=== PATIENT | male | born 1960 | race Caucasian/White ===

== ENCOUNTER 2017-08-11 13:46 | Emergency (ER) | END 2017-08-11 15:06 | disposition home or self-care (01) ==

== ENCOUNTER 2017-08-16 23:49 | Observation (INO) | END 2017-08-18 16:40 | disposition home or self-care (01) ==

== ENCOUNTER 2017-10-04 20:48 | Emergency (ER) | END 2017-10-05 01:35 | disposition home or self-care (01) ==

== ENCOUNTER 2017-10-07 16:23 | Emergency (ER) | END 2017-10-07 20:49 | disposition home or self-care (01) ==

== ENCOUNTER 2017-11-07 12:45 | Emergency (ER) | END 2017-11-07 18:08 | disposition home or self-care (01) ==

== ENCOUNTER 2017-12-02 09:41 | Emergency (ER) | END 2017-12-02 11:44 | disposition home or self-care (01) ==

== ENCOUNTER 2017-12-07 11:55 | Emergency (ER) | END 2017-12-07 20:05 | disposition home or self-care (01) ==

== ENCOUNTER 2017-12-08 06:50 | Emergency (ER) | END 2017-12-08 07:30 | disposition home or self-care (01) ==

== ENCOUNTER 2017-12-10 11:59 | Emergency (ER) | END 2017-12-10 18:42 | disposition home or self-care (01) ==

== ENCOUNTER 2018-03-20 16:17 | Observation (INO) | END 2018-03-21 15:39 | disposition home or self-care (01) ==

== ENCOUNTER 2018-03-22 12:20 | Emergency (ER) | END 2018-03-22 15:35 | disposition home or self-care (01) ==

== ENCOUNTER 2018-03-27 21:28 | Emergency (ER) | END 2018-03-27 21:41 | disposition left against medical advice (07) ==

== ENCOUNTER 2018-04-03 12:43 | Emergency (ER) | END 2018-04-03 16:40 | disposition home or self-care (01) ==

== ENCOUNTER 2018-04-06 19:39 | Emergency (ER) | END 2018-04-07 01:21 | disposition home or self-care (01) ==

== ENCOUNTER 2018-06-15 07:53 | Emergency (ER) | payer MEDICARE, OTHER ==
[~2018-06-15] VITALS: Ht 182.9 cm; Wt 86.5 kg
[~2018-06-15 07:53] MED LIST: ATOR20TA38 PO; DOXA2TAB PO; FENO134C PO; FER325 PO; FURO80TA3 PO; HYDR-3672 PO; HYDR-3980 PO; ISOS30TA67 PO; LABE300T2 PO; LANT3I SC; LEVO25TA6 PO; LISI40TA3 PO; NEPH PO; NIFE90TA11 PO; NOVO3I SC; ONDA4TAB14 PO; PANT40TA4 PO
[2018-06-15 07:55] VITALS: BP 170/81; PULSE 77; RESP 18; Ht 182.9 cm; Wt 86.5 kg
[2018-06-15] MEDS ORDERED: SILV20CR12 TOP (08:13)
--- NOTE | 2018-06-15 08:16 | ERD ---
ER Documentation Chief Complaint Chief Complaint abscess on post right foot x 1 year hx DM HPI 58-year-old male presents the emergency department for evaluation of a chronic wound in his right foot. Patient is being followed by our wound care center for a chronic diabetic ulcer on his foot. He has had this for over a year. Return to the emergency department today complaining of discomfort in that area. However he reports no fevers, chills, discharge or drainage, numbness or tingling. He reports that the ulcer is about the same size as it has been for the last year. ROS All systems reviewed and are negative except as per history of present illness. Medications Home Meds Active Scripts Silver Sulfadiazine* (Silvadene*) 1% - 20 Gm Cream.gm., 1 APPLIC TOP DAILY, #1 TUB Prov:ONEYDA BEASLEY 06/15/18 Ondansetron (Ondansetron Odt) 4 Mg Tab.rapdis, 4 MG PO Q6H PRN for NAUSEA AND/OR VOMITING, #10 TAB Prov:OLIVIA WARD 04/07/18 Hydrocodone/Acetaminophen ([place] 10-325 Tablet) 1 Each Tablet, 1 TAB PO Q6H PRN for PAIN, #7 TAB Prov:OLIVIA WARD 04/07/18 Labetalol Hcl* (Labetalol Hcl*) 300 Mg Tablet, 300 MG PO BID for 60 Days, TAB Prov:PAIGE KELLY MD 03/22/18 Reported Medications Fenofibrate, Micronized (Fenofibrate) 134 Mg Capsule, 134 MG PO DAILY, CAP 04/03/18 Insulin Aspart* (Novolog Insulin Pen*) 100 Unit/Ml Soln, 22 UNIT SC WITH MEALS, EA 04/03/18 Multivit/Ca Carb/B Cmplx/Fa* (Matilda-Anthony*) 1 Tab Tab, 1 TAB PO DAILY, TAB 04/03/18 Nifedipine* (Nifedipine ER*) 90 Mg Tablet.er, 90 MG PO DAILY, TAB 04/03/18 Levothyroxine Sodium* (Levothyroxine Sodium*) 25 Mcg Tablet, 50 MCG PO BEFORE BR EAKFAST, #30 TAB 04/03/18 Lisinopril* (Lisinopril*) 40 Mg Tablet, 40 MG PO DAILY, #30 TAB 03/22/18 Isosorbide Mononitrate* (Isosorbide Mononitrate*) 30 Mg Tab.er.24h, 30 MG PO DAILY, TAB 03/22/18 Ferrous Sulfate* (Ferrous Sulfate*) 325 Mg Tabec, 325 MG PO TID, TAB 03/22/18 Atorvastatin Calcium* (Atorvastatin Calcium*) 20 Mg Tablet, 20 MG PO QHS, #30 TAB 10/07/17 Furosemide* (Furosemide*) 80 Mg Tablet, 80 MG PO DAILY, #30 TAB 10/07/17 Insulin Glargine* (Lantus*) 100 Unit/Ml Soln, 20 UNIT SC QHS, #1 VIAL 10/07/17 Doxazosin Mesylate* (Doxazosin Mesylate*) 2 Mg Tablet, 2 MG PO HS, TAB 10/07/17 Hydralazine Hcl* (Apresoline*) 50 Mg Tab, 50 MG PO BID, #60 TAB 10/07/17 Pantoprazole* (Pantoprazole*) 40 Mg Tablet.dr, 40 MG PO AC BREAKFAST, TAB 10/07/17 Allergies Allergies: Coded Allergies: No Known Allergy (Unverified , 04/03/18) PMhx/Soc History of Surgery: Yes (KIDNEY TRANSPLANT, CHOLECYSTECTOMY) Anesthesia Reaction: No Hx Neurological Disorder: No Hx Respiratory Disorders: No Hx Cardiac Disorders: Yes (HTN) Hx Psychiatric Problems: No Hx Miscellaneous Medical Probl: Yes (ESRD (T, TH, SAT), NORMOCYTIC ANEMIA, DIABETES) Hx Alcohol Use: No Hx Substance Use: No Hx Tobacco Use: Yes Physical Exam Vitals Vital Signs Date Temp Pulse Resp B/P (MAP) Pulse Ox O2 O2 Flow FiO2 Time Delivery Rate 06/15/18 96.7 77 18 170/81 97 07:55 (110) Physical Exam General: well developed, well nourished, in no distress. Neuro: Normal speech, gait, balance Skin: Patient has a quarter size ulcer on the plantar surface of the foot. There is no evidence of infection or cellulitis. No exposed bone. Patient has tendon function distal to the wound. Procedures/MDM Patient was taken to a room, seen and examined Wound care was performed and a dressing was applied. Medical decision makin-year-old male presents emergency with a chronic diabetic foot ulcer. At this time I appreciate no evidence of severe secondary infection. Patient appears to be clinically well and appropriate for outpatient supportive care. Patient has outpatient follow-up with his production specialist available to him within the next week. Departure Diagnosis: Primary Impression: Diabetic foot ulcer Condition: Stable Patient Instructions: Diabetic Foot Ulcers Referrals: MARCIE HAMPTON MD (PCP) Additional Instructions: See the clinical informatics specialist this week for a recheck. Change the dressing every day. Return for any problems or concerns ONEYDA BEASLEY Jun 15, 2018 08:16
== END 2018-06-15 08:42 | disposition home or self-care (01) ==
LOC: E/R 07:53
DX: E11.621 Type 2 diabetes mellitus with foot ulcer (principal); L97.519 Non-pressure chronic ulcer of other part of right foot with unspecified severity; I12.0 Hypertensive chronic kidney disease with stage 5 chronic kidney disease or end stage renal disease; N18.6 End stage renal disease; E11.22 Type 2 diabetes mellitus with diabetic chronic kidney disease; Z79.4 Long term (current) use of insulin; Z87.891 Personal history of nicotine dependence; Z94.0 Kidney transplant status
CPT/HCPCS: 99283

== ENCOUNTER 2018-06-22 23:26 | Inpatient (IN) | payer MEDICARE, OTHER ==
[~2018-06-22] VITALS: Ht 182.9 cm; Wt 84.7 kg
[~2018-06-22 23:26] MED LIST changes: +SILV20CR12 TOP
[2018-06-23] MEDS ORDERED: SOD CHLORIDE 0.9% 500 ML IV STA (02:18)
[2018-06-23] MEDS ORDERED: ONDANSETRON 4 MG INJ IV STA (03:07)
[2018-06-23] MEDS ORDERED: morphine 4 MG/ML VIAL IV STA (03:07)
[2018-06-23] MEDS: HYDROmorphONE 0.5 MG/0.5 ML SYG IV PRN ×3 (03:56→20:32)
[2018-06-23] MEDS ORDERED: PIPER-TAZO 3.375 GM IV (PMX) 100 ML IVPB ONE (04:00)
[2018-06-23] MEDS ORDERED: ONDANSETRON 4 MG INJ IV PRN (04:00)
[2018-06-23] MEDS ORDERED: HYDROCODONE/APAP (5/325) TAB PO PRN (04:00)
[2018-06-23] MEDS ORDERED: VANCOMYCIN IV PER PHARMACY XX SCH (04:00)
[2018-06-23] MEDS ORDERED: NA PHOSPHATE/BIPHOS 133 ML ENEMA PR PRN (04:00)
[2018-06-23] MEDS ORDERED: ZOLPIDEM 5 MG TAB PO PRN (04:00)
[2018-06-23] MEDS ORDERED: VANCOMYCIN 1 GM (PMX) 250 ML IVPB ONE (04:00)
[2018-06-23] MEDS ORDERED: ACETAMINOPHEN 325 MG TAB PO PRN (04:00)
[2018-06-23] MEDS ORDERED: NACL 0.9% 3 ML SYG IV SCH (04:00)
[2018-06-23] MEDS ORDERED: BISACODYL (EC) 5 MG TAB PO PRN (04:00)
[2018-06-23] MEDS ORDERED: DOCUSATE SODIUM 100 MG CAP PO PRN (04:00)
[2018-06-23] MEDS ORDERED: DEXTROSE 50% 50 ML SYRINGE IV PRN ×2 (04:30)
[2018-06-23] MEDS ORDERED: GLUCOSE GEL 15 GRAM TUBE BUCCAL PRN (04:30)
[2018-06-23] MEDS ORDERED: GLUCAGON 1 MG INJ IM PRN (04:30)
[2018-06-23] MEDS ORDERED: GLUCOSE GEL 15 GRAM TUBE PO PRN ×2 (04:30)
[2018-06-23] MEDS: HYDROCODONE/APAP (5/325) TAB PO PRN ×2 (05:44→12:21)
[2018-06-23 06:30] VITALS: BP 181/89; PULSE 81; RESP 20
[2018-06-23] MEDS: LEVOTHYROXINE 25 MCG TAB PO SCH (06:49)
[2018-06-23] MEDS: PANTOPRAZOLE (EC) 40 MG TAB PO SCH (06:50)
[2018-06-23] MEDS: INSULIN ASPART [NOVOLOG] 3 ML PEN SC SCH ×7 (08:00→21:00)
[2018-06-23] MEDS ORDERED: VANCOMYCIN 750 MG (PMX) 250 ML IVPB SCH (08:00)
[2018-06-23] MEDS: INSULIN GLARGINE [LANTus] (100 UNITS/ML) SYG SC SCH ×2 (08:00→12:27)
[2018-06-23 08:04] VITALS: BP 187/97; PULSE 74; RESP 18
[2018-06-23] MEDS: LISINOPRIL 20 MG TAB PO SCH (08:18)
[2018-06-23] MEDS: ISOSORBIDE MONONITRATE(SR)30 MG TAB PO SCH (08:19)
[2018-06-23] MEDS: FUROSEMIDE 40 MG TAB PO SCH (08:20)
[2018-06-23] MEDS: NIFEdipine (XL) 90 MG TAB PO SCH (08:20)
[2018-06-23] MEDS: LINAGLIPTIN 5 MG TABLET PO SCH (08:21)
[2018-06-23] MEDS: FERROUS SULFATE (EC) 325 MG TAB PO SCH ×3 (08:21→21:39)
[2018-06-23] MEDS: MULTIVIT/CA CARB/B CMPLX/FA TAB PO SCH (08:21)
[2018-06-23] MEDS: FENOFIBRATE 48 MG TAB PO SCH (08:21)
[2018-06-23] MEDS: PIPER-TAZO 2.25 GM (PMX) 50 ML IVPB SCH ×2 (08:24→21:37)
[2018-06-23] MEDS ORDERED: LABETALOL 100 MG TAB PO SCH (09:00)
[2018-06-23 10:15] VITALS: Ht 182.9 cm; Wt 84.7 kg
[2018-06-23 10:30] VITALS: BP 190/70; PULSE 70; RESP 18
[2018-06-23 12:00] VITALS: BP 190/90; PULSE 74; RESP 20
[2018-06-23 14:05] VITALS: BP 173/81; PULSE 68; RESP 18
--- NOTE | 2018-06-23 15:04 | HP ---
Date/Time of Note Date/Time of Note DATE: 06/23/18 TIME: 14:42 Assessment/Plan VTE Prophylaxis Risk score (from Ns)>0 risk: 3 SCD applied (from [facility]): No SCD contraindicated: patient refusal Pharmacological prophylaxis: NA/contraindicated Pharm contraindication: surgical contra Lines/Catheters IV Catheter Type (from [facility]): Peripheral IV Assessment/Plan Problems: (1) Pain and swelling of toe of right foot Status: Acute Comment: Possible etiologies include acute Charcot foot vs. osteomyelitis. Check ESR. Pt. w/ ? recent MRI. Will place on vanco and zosyn and defer to podiatry for further decisions. (2) Diabetic foot ulcer Status: Chronic Comment: Cont. vanco and zosyn and defer to podiatry. (3) DM renal manif type II, uncontrolled Status: Chronic Comment: Lantus 17 units nightly, Novolog 8 units qac, linagliptin 5 mg/d. BG so far controlled. Will monitor and follow (4) End-stage renal disease on hemodialysis Status: Chronic Comment: Nephrology to manage (5) Benign essential hypertension Status: Chronic Comment: Out Of Control (OOC) on intensive regimen. Will increase hydralazine and labetalol and call cardiology to evaluate. (6) Other and unspecified hyperlipidemia Status: Chronic Comment: Cont. statin and fibrate. (7) Personal history of transient ischemic attack (TIA) and cerebral infarction without residual deficit Status: Chronic Comment: Cardiology to eval. (8) Hypothyroidism Status: Chronic Comment: Cont. LT4 daily Result Diagram: 06/23/18 02206/23/18 0220 Results 24hrs Laboratory Tests Test 06/23/18 02:20 06/23/18 08:06 06/23/18 12:23 White Blood Count 9.9 # Red Blood Count 3.48 L Hemoglobin 10.1 L Hematocrit 31.7 L Mean Corpuscular Volume 91.1 Mean Corpuscular Hemoglobin 29.0 Mean Corpuscular Hemoglobin Concent 31.9 L Red Cell Distribution Width 15.6 H Platelet Count 278 # Mean Platelet Volume 8.2 Immature Granulocytes % 0.600 H Neutrophils % 71.6 Lymphocytes % 14.3 L Monocytes % 10.6 Eosinophils % 2.4 Basophils % 0.5 Nucleated Red Blood Cells % 0.0 Immature Granulocytes # 0.060 H Neutrophils # 7.1 Lymphocytes # 1.4 Monocytes # 1.1 H Eosinophils # 0.2 Basophils # 0.1 Nucleated Red Blood Cells # 0.0 Sodium Level 140 Potassium Level 4.5 Chloride Level 92 L Carbon Dioxide Level 29 Anion Gap 19 H Blood Urea Nitrogen 55 H Creatinine 8.00 H Est Glomerular Filtrat Rate mL/min 7 L Glucose Level 189 Calcium Level 7.7 L Total Bilirubin 0.0 L Direct Bilirubin 0.00 Indirect Bilirubin 0.0 Aspartate Amino Transf (AST/SGOT) 18 Alanine Aminotransferase (ALT/SGPT) < 6 L Alkaline Phosphatase 85 Total Protein 9.8 H Albumin 4.5 Globulin 5.30 H Albumin/Globulin Ratio 0.84 Lipase 71 Bedside Glucose 106 137 HPI/ROS Admit Date/Time Admit Date/Time Jun 23, 2018 at 03:32 Hx of Present Illness 58 y/o H M w/ h/o T2DM w/ ESRD s/p kidney transplant w/ recurrent failure, DFU, HTN, hyperlipidemia, hypothyroidism in [place] getting weekly f/u at [facility] w/ podiatry. S/p recent MRI. Was in [facility] until yesterday when he developed acute pain and swelling R foot on the dorsal surface (ulcer is on plantar surface). Came to ER. Marivel meza and maninder and was admitted. ROS Constitutional: no complaints Eyes: no complaints ENT: no complaints Respiratory: no complaints Cardiovascular: no complaints Gastrointestinal: pain (epigastrium, started today); No decreased appetite, No nausea, No vomiting Genitourinary: no complaints Musculoskeletal: bone/joint pain (R foot), swelling (distal R foot) Neurologic: no complaints PMH/Family/Social Past Medical History Medical History: diabetes, hepatitis (HCV (+)), high cholesterol, hypertension, hypothyroid Medications Current Medications IV Flush (NS 3 ml) 3 ml PER PROTOCOL IV ; Start 06/23/18 at 04:00 Ondansetron HCl (Zofran Inj) 4 mg Q6H PRN IV NAUSEA/VOMITING; Start 06/23/18 at 04:00 Acetaminophen (Tylenol Tab) 650 mg Q6H PRN PO .PAIN 1-3 OR TEMP; Start 06/23/18 at 04:00 Acetaminophen/ Hydrocodone Bitart ([place] (5/325)) 1 tab Q6H PRN PO .MOD PAIN 4- 6; Start 06/23/18 at 04:00 Acetaminophen/ Hydrocodone Bitart ([place] (5/325)) 2 tab Q6H PRN PO .SEVERE PAIN 7-10 Last administered on 06/23/18at 12:21; Admin Dose 2 TAB; Start 06/23/18 at 04:00 Hydromorphone HCl (Dilaudid) 0.5 mg Q4H PRN IV .SEVERE PAIN 7-10 Last administered on 06/23/18at 08:41; Admin Dose 0.5 MG; Start 06/23/18 at 04:00 Docusate Sodium (Colace) 100 mg Q12H PRN PO .CONSTIPATION; Start 06/23/18 at 04:00 Bisacodyl (Dulcolax) 5 mg DAILY PRN PO .CONSTIPATION; Start 06/23/18 at 04:00 Sodium Biphosphate/ Sodium Phosphate (Fleet Enema) 133 ml DAILY PRN [place] .CONSTIPATION; Start 06/23/18 at 04:00 Zolpidem Tartrate (Ambien) 5 mg QHS PRN PO .INSOMNIA; Start 06/23/18 at 04:00 Diagnostic Test (Pha) (Accu-Chek) XX ; Start 06/24/18 at 02:00 Insulin Glargine (Lantus) 17 units DAILY@0800 SC Last administered on 06/23/18at 12:27; Admin Dose 17 UNITS; Start 06/23/18 at 08:00 Insulin Aspart (Novolog Insulin Pen) 8 unit WITH MEALS SC Last administered on 06/23/18at 12:43; Admin Dose 8 UNIT; Start 06/23/18 at 08:00 Insulin Aspart (Novolog Insulin Pen) NOVOLOG *MILD* ALGORITHM WITH MEALS BEDTIME SC ; Start 06/23/18 at 08:00 Linagliptin (Tradjenta) 5 mg DAILY PO Last administered on 06/23/18 08:21; Admin Dose 5 MG; Start 06/23/18 at 09:00 Vancomycin HCl (Vanco Iv Per Pharmacy) VANCOMYCIN PER PHARMACY PER PROTOCOL XX ; Start 06/23/18 at 04:00 Piperacillin Sod/ Tazobactam Sod 50 ml @ 100 mls/hr Q12 IVPB Last administered on 06/23/18at 08:24; Admin Dose 100 MLS/HR; Start 06/23/18 at 06:00 Atorvastatin Calcium (Lipitor) 20 mg QHS PO ; Start 06/23/18 at 21:00 Doxazosin Mesylate (Cardura) 2 mg HS PO ; Start 06/23/18 at 21:00 Ferrous Sulfate (Ferrous Sulfate (Ec)) 325 mg TID PO Last administered on 06/23/18 12:19; Admin Dose 325 MG; Start 06/23/18 at 09:00 Furosemide (Lasix) 80 mg DAILY PO Last administered on 06/23/18 08:20; Admin Dose 80 MG; Start 06/23/18 at 09:00 Isosorbide Mononitrate (Imdur) 30 mg DAILY PO Last administered on 06/23/18 08:19; Admin Dose 30 MG; Start 06/23/18 at 09:00 Labetalol HCl (Normodyne) 300 mg BID PO Last administered on 06/23/18 08:19; Admin Dose 300 MG; Start 06/23/18 at 09:00 Levothyroxine Sodium (Synthroid) 50 mcg BEFORE BREAKFAST PO Last administered on 06/23/18 06:49; Admin Dose 50 MCG; Start 06/23/18 at 07:00 Lisinopril (Zestril) 40 mg DAILY PO Last administered on 06/23/18 08:18; Admin Dose 40 MG; Start 06/23/18 at 09:00 Multivit/Ca Carb/ B Cmplx/FA/Prenat (Matilda-Anthony) 1 tab DAILY PO Last administered on 06/23/18 08:21; Admin Dose 1 TAB; Start 06/23/18 at 09:00 Nifedipine (Procardia Xl) 90 mg DAILY PO Last administered on 06/23/18 08:20; Admin Dose 90 MG; Start 06/23/18 at 09:00 Pantoprazole (Protonix Tab) 40 mg AC BREAKFAST PO Last administered on 06/23/18 06:50; Admin Dose 40 MG; Start 06/23/18 at 07:00 Fenofibrate (Tricor) 48 mg DAILY PO Last administered on 06/23/18 08:21; Admin Dose 48 MG; Start 06/23/18 at 09:00 Miscellaneous Information 1 ea NOTE XX ; Start 06/23/18 at 04:30 Glucose (Glutose) 15 gm Q15M PRN PO DECREASED GLUCOSE; Start 06/23/18 at 04:30 Glucose (Glutose) 22.5 gm Q15M PRN PO DECREASED GLUCOSE; Start 06/23/18 at 04:30 Dextrose (D50w Syringe) 25 ml Q15M PRN IV DECREASED GLUCOSE; Start 06/23/18 at 04:30 Dextrose (D50w Syringe) 50 ml Q15M PRN IV DECREASED GLUCOSE; Start 06/23/18 at 04:30 Glucagon (Glucagen) 1 mg Q15M PRN IM DECREASED GLUCOSE; Start 06/23/18 at 04:30 Glucose (Glutose) 15 gm Q15M PRN BUCCAL DECREASED GLUCOSE; Start 06/23/18 at 04:30 Hydralazine HCl (Apresoline) 100 mg TID PO Last administered on 06/23/18at 12:19; Admin Dose 100 MG; Start 06/23/18 at 13:00 Coded Allergies: No Known Allergy (Unverified , 04/03/18) Past Surgical History Past Surgical Hx: cholecystectomy, other (kidney transplant, AV fistula) Family History Significant Family History: diabetes, hypertension Social History , lives alone, disabled Alcohol Use: none Smoking Status: Never smoker Drug Use: none Exam/Review of Systems Vital Signs Vitals VS - Last 72 Hours, by Label Date Temp Pulse Resp B/P (MAP) Pulse Ox O2 O2 Flow FiO2 Time Delivery Rate 06/23/18 97.4 68 18 173/81 94 14:05 (111) 06/23/18 98.2 74 20 190/90 94 12:00 (123) 06/23/18 70 18 190/70 95 10:30 (110) 06/23/18 98.0 74 18 187/97 94 08:04 (127) 06/23/18 97.9 81 20 181/89 97 Room Air 06:30 (119) 06/23/18 98.1 74 21 154/78 97 Room Air 05:51 (103) 06/23/18 98.2 75 21 166/92 96 Room Air 04:00 (116) 06/23/18 98.2 78 21 158/81 98 Room Air 03:04 (106) 06/23/18 98.2 18 162/88 95 Room Air 02:29 (112) 06/22/18 97.1 80 18 125/59 97 23:30 (81) Vital Signs Date Temp Pulse Resp B/P (MAP) Pulse Ox O2 O2 Flow FiO2 Time Delivery Rate 06/23/18 97.4 68 18 173/81 94 14:05 (111) 06/23/18 Room Air 06:30 Exam Constitutional: alert, oriented, well developed Psych: no complaints, nl mood/affect Eyes: nl conjunctiva, EOMI, nl lids, nl sclera, PERRL ENMT: nl external ears & nose, mucosa pink and moist Neck: supple, non-tender; No bruits, No masses, No thyromegaly Respiratory: clear to auscultation, normal air movement Cardiovascular: regular rate and rhythm, nl pulses; No edema, No murmurs/extra sounds, No rub Gastrointestinal: soft, nl liver, spleen, bowel sounds, tender (epigastrium, BUQ); No non-tender, No mass, No rebound or guarding Musculoskeletal: joint tenderness (R 3rd MTP joint), swelling (mild of the dorsal R foot, no erythema or warmth); No nl extremities to inspection (R foot dressed inferiorly) Extremities: No cyanosis, No clubbing, No edema Neurological: [employer]IT EXP[employer] II-XII intact, nl mental status, nl speech, nl strength Additional Comments Bedside Glucose - 72 Hours Test 06/23/18 08:06 06/23/18 12:23 Bedside Glucose 106 mg/dL (70-220) 137 mg/dL (70-220) ELANA MENDOZA MD Jun 23, 2018 14:53
[2018-06-23] MEDS ORDERED: hydrALAzine 20 MG INJ IV PRN (17:00)
--- NOTE | 2018-06-23 17:05 | CONS ---
Assessment/Plan Assessment/Plan Hospital Course (Demo Recall) Hypertension, uncontrolled Right foot pain History of hypertension Diabetes End-stage renal disease on hemodialysis Preserved ejection fraction -Patient presents with right foot pain as well as found to be hypertensive -Labetalol dose was just increased to 600 mg p.o. twice daily and hydralazine 100 mg 3 times daily by primary team. -Would monitor blood pressure trend if needed, further adjustments of medications will be made. Hydralazine IV as needed ordered as well. -Patient to undergo podiatry evaluation, if not plan for any procedures, would benefit from aspirin for prophylaxis therapy given multiple CAD risk factors. Continue statin therapy if no contraindication -Fluid management via hemodialysis as per nephrology. Consultation Date/Type/Reason Admit Date/Time Jun 23, 2018 at 03:32 Type of Consult Cardiology Reason for Consultation Hypertension Date/Time of Note DATE: 06/23/18 TIME: 16:56 Hx of Present Illness This is a 58-year-old male with past medical history of diabetes, hypertension, end-stage renal disease on hemodialysis, peripheral arterial disease who presented with worsening lower extremity pain. The patient is in the care of amputation prevention clinic in our facility. Denies any chest pain, dizziness, palpitations, lightheadedness, syncope or near syncope. He does complain of shortness of breath with exertion more than 50 feet which is been going on for over a year. He denies symptoms at rest. 12 point review of systems was performed with all pertinent positives and negatives mentioned above and all else is negative Past Medical History Medical History: diabetes, high cholesterol, hypertension, renal disease Home Meds Active Scripts Silver Sulfadiazine* (Silvadene*) 1% - 20 Gm Cream.gm., 1 APPLIC TOP DAILY, #1 TUB Prov:ONEYDA BEASLEY 06/15/18 Ondansetron (Ondansetron Odt) 4 Mg Tab.rapdis, 4 MG PO Q6H PRN for NAUSEA AND/OR VOMITING, #10 TAB Prov:OLIVIA WARD 04/07/18 Hydrocodone/Acetaminophen ([place] 10-325 Tablet) 1 Each Tablet, 1 TAB PO Q6H PRN for PAIN, #7 TAB Prov:OLIVIA WARD 04/07/18 Labetalol Hcl* (Labetalol Hcl*) 300 Mg Tablet, 300 MG PO BID for 60 Days, TAB Prov:PAIGE KELLY MD 03/22/18 Reported Medications Fenofibrate, Micronized (Fenofibrate) 134 Mg Capsule, 134 MG PO DAILY, CAP 04/03/18 Insulin Aspart* (Novolog Insulin Pen*) 100 Unit/Ml Soln, 22 UNIT SC WITH MEALS, EA 04/03/18 Multivit/Ca Carb/B Cmplx/Fa* (Matilda-Anthony*) 1 Tab Tab, 1 TAB PO DAILY, TAB 04/03/18 Nifedipine* (Nifedipine ER*) 90 Mg Tablet.er, 90 MG PO DAILY, TAB 04/03/18 Levothyroxine Sodium* (Levothyroxine Sodium*) 25 Mcg Tablet, 50 MCG PO BEFORE BREAKFAST, #30 TAB 04/03/18 Lisinopril* (Lisinopril*) 40 Mg Tablet, 40 MG PO DAILY, #30 TAB 03/22/18 Isosorbide Mononitrate* (Isosorbide Mononitrate*) 30 Mg Tab.er.24h, 30 MG PO DAILY, TAB 03/22/18 Ferrous Sulfate* (Ferrous Sulfate*) 325 Mg Tabec, 325 MG PO TID, TAB 03/22/18 Atorvastatin Calcium* (Atorvastatin Calcium*) 20 Mg Tablet, 20 MG PO QHS, #30 TAB 10/07/17 Furosemide* (Furosemide*) 80 Mg Tablet, 80 MG PO DAILY, #30 TAB 10/07/17 Insulin Glargine* (Lantus*) 100 Unit/Ml Soln, 20 UNIT SC QHS, #1 VIAL 10/07/17 Doxazosin Mesylate* (Doxazosin Mesylate*) 2 Mg Tablet, 2 MG PO HS, TAB 10/07/17 Hydralazine Hcl* (Apresoline*) 50 Mg Tab, 50 MG PO BID, #60 TAB 10/07/17 Pantoprazole* (Pantoprazole*) 40 Mg Tablet.dr, 40 MG PO AC BREAKFAST, TAB 10/07/17 Medications Current Medications IV Flush (NS 3 ml) 3 ml PER PROTOCOL IV ; Start 06/23/18 at 04:00 Ondansetron HCl (Zofran Inj) 4 mg Q6H PRN IV NAUSEA/VOMITING; Start 06/23/18 at 04:00 Acetaminophen (Tylenol Tab) 650 mg Q6H PRN PO .PAIN 1-3 OR TEMP; Start 06/23/18 at 04:00 Acetaminophen/ Hydrocodone Bitart ([place] (5/325)) 1 tab Q6H PRN PO .MOD PAIN 4- 6; Start 06/23/18 at 04:00 Acetaminophen/ Hydrocodone Bitart ([place] (5/325)) 2 tab Q6H PRN PO .SEVERE PAIN 7-10 Last administered on 06/23/18at 12:21; Admin Dose 2 TAB; Start 06/23/18 at 04:00 Hydromorphone HCl (Dilaudid) 0.5 mg Q4H PRN IV .SEVERE PAIN 7-10 Last administered on 06/23/18at 08:41; Admin Dose 0.5 MG; Start 06/23/18 at 04:00 Docusate Sodium (Colace) 100 mg Q12H PRN PO .CONSTIPATION; Start 06/23/18 at 04:00 Bisacodyl (Dulcolax) 5 mg DAILY PRN PO .CONSTIPATION; Start 06/23/18 at 04:00 Sodium Biphosphate/ Sodium Phosphate (Fleet Enema) 133 ml DAILY PRN [place] .CONSTIPATION; Start 06/23/18 at 04:00 Zolpidem Tartrate (Ambien) 5 mg QHS PRN PO .INSOMNIA; Start 06/23/18 at 04:00 Diagnostic Test (Pha) (Accu-Chek) XX ; Start 06/24/18 at 02:00 Insulin Glargine (Lantus) 17 units DAILY@0800 SC Last administered on 06/23/18at 12:27; Admin Dose 17 UNITS; Start 06/23/18 at 08:00 Insulin Aspart (Novolog Insulin Pen) 8 unit WITH MEALS SC Last administered on 06/23/18at 12:43; Admin Dose 8 UNIT; Start 06/23/18 at 08:00 Insulin Aspart (Novolog Insulin Pen) NOVOLOG *MILD* ALGORITHM WITH MEALS BEDTIME SC ; Start 06/23/18 at 08:00 Linagliptin (Tradjenta) 5 mg DAILY PO Last administered on 06/23/18at 08:21; Admin Dose 5 MG; Start 06/23/18 at 09:00 Vancomycin HCl (Vanco Iv Per Pharmacy) VANCOMYCIN PER PHARMACY PER PROTOCOL XX ; Start 06/23/18 at 04:00 Piperacillin Sod/ Tazobactam Sod 50 ml @ 100 mls/hr Q12 IVPB Last administered on 06/23/18 08:24; Admin Dose 100 MLS/HR; Start 06/23/18 at 06:00 Atorvastatin Calcium (Lipitor) 20 mg QHS PO ; Start 06/23/18 at 21:00 Doxazosin Mesylate (Cardura) 2 mg HS PO ; Start 06/23/18 at 21:00 Ferrous Sulfate (Ferrous Sulfate (Ec)) 325 mg TID PO Last administered on 06/23/18 12:19; Admin Dose 325 MG; Start 06/23/18 at 09:00 Furosemide (Lasix) 80 mg DAILY PO Last administered on 06/23/18 08:20; Admin Dose 80 MG; Start 06/23/18 at 09:00 Isosorbide Mononitrate (Imdur) 30 mg DAILY PO Last administered on 06/23/18 08:19; Admin Dose 30 MG; Start 06/23/18 at 09:00 Levothyroxine Sodium (Synthroid) 50 mcg BEFORE BREAKFAST PO Last administered on 06/23/18 06:49; Admin Dose 50 MCG; Start 06/23/18 at 07:00 Lisinopril (Zestril) 40 mg DAILY PO Last administered on 06/23/18 08:18; Admin Dose 40 MG; Start 06/23/18 at 09:00 Multivit/Ca Carb/ B Cmplx/FA/Prenat (Matilda-Anthony) 1 tab DAILY PO Last administered on 06/23/18 08:21; Admin Dose 1 TAB; Start 06/23/18 at 09:00 Nifedipine (Procardia Xl) 90 mg DAILY PO Last administered on 06/23/18 08:20; Admin Dose 90 MG; Start 06/23/18 at 09:00 Pantoprazole (Protonix Tab) 40 mg AC BREAKFAST PO Last administered on 06/23/18 06:50; Admin Dose 40 MG; Start 06/23/18 at 07:00 Fenofibrate (Tricor) 48 mg DAILY PO Last administered on 06/23/18 08:21; Admin Dose 48 MG; Start 06/23/18 at 09:00 Miscellaneous Information 1 ea NOTE XX ; Start 06/23/18 at 04:30 Glucose (Glutose) 15 gm Q15M PRN PO DECREASED GLUCOSE; Start 06/23/18 at 04:30 Glucose (Glutose) 22.5 gm Q15M PRN PO DECREASED GLUCOSE; Start 06/23/18 at 04:30 Dextrose (D50w Syringe) 25 ml Q15M PRN IV DECREASED GLUCOSE; Start 06/23/18 at 04:30 Dextrose (D50w Syringe) 50 ml Q15M PRN IV DECREASED GLUCOSE; Start 06/23/18 at 04:30 Glucagon (Glucagen) 1 mg Q15M PRN IM DECREASED GLUCOSE; Start 06/23/18 at 04:30 Glucose (Glutose) 15 gm Q15M PRN BUCCAL DECREASED GLUCOSE; Start 06/23/18 at 04:30 Hydralazine HCl (Apresoline) 100 mg TID PO Last administered on 06/23/18at 12:19; Admin Dose 100 MG; Start 06/23/18 at 13:00 Labetalol HCl (Normodyne) 600 mg BID PO ; Start 06/23/18 at 21:00 Allergies: Coded Allergies: No Known Allergy (Unverified , 04/03/18) Past Surgical History Past Surgical Hx: cholecystectomy, other (kidney transplant, AV fistula) Social History Alcohol Use: none Smoking Status: Never smoker Drug Use: none Exam/Review of Systems Vital Signs Vitals Vital Signs Date Temp Pulse Resp B/P (MAP) Pulse Ox O2 O2 Flow FiO2 Time Delivery Rate 06/23/18 97.4 68 18 173/81 94 14:05 (111) 06/23/18 Room Air 06:30 Exam Constitutional: alert, oriented (No apparent distress) Head: normocephalic Respiratory: other (Coarse breath sounds bilaterally, no wheezing) Cardiovascular: regular rate and rhythm (S1-S2 heard) Gastrointestinal: soft, non-tender, bowel sounds Extremities: edema Labs Result Diagram: 06/23/1821906/23/18219 Results 24hrs Laboratory Tests Test 06/23/18 02:20 06/23/18 08:06 06/23/18 12:23 White Blood Count 9.9 # Red Blood Count 3.48 L Hemoglobin 10.1 L Hematocrit 31.7 L Mean Corpuscular Volume 91.1 Mean Corpuscular Hemoglobin 29.0 Mean Corpuscular Hemoglobin Concent 31.9 L Red Cell Distribution Width 15.6 H Platelet Count 278 # Mean Platelet Volume 8.2 Immature Granulocytes % 0.600 H Neutrophils % 71.6 Lymphocytes % 14.3 L Monocytes % 10.6 Eosinophils % 2.4 Basophils % 0.5 Nucleated Red Blood Cells % 0.0 Immature Granulocytes # 0.060 H Neutrophils # 7.1 Lymphocytes # 1.4 Monocytes # 1.1 H Eosinophils # 0.2 Basophils # 0.1 Nucleated Red Blood Cells # 0.0 Sodium Level 140 Potassium Level 4.5 Chloride Level 92 L Carbon Dioxide Level 29 Anion Gap 19 H Blood Urea Nitrogen 55 H Creatinine 8.00 H Est Glomerular Filtrat Rate mL/min 7 L Glucose Level 189 Calcium Level 7.7 L Total Bilirubin 0.0 L Direct Bilirubin 0.00 Indirect Bilirubin 0.0 Aspartate Amino Transf (AST/SGOT) 18 Alanine Aminotransferase (ALT/SGPT) < 6 L Alkaline Phosphatase 85 Total Protein 9.8 H Albumin 4.5 Globulin 5.30 H Albumin/Globulin Ratio 0.84 Lipase 71 Bedside Glucose 106 137 Medications Medications Current Medications IV Flush (NS 3 ml) 3 ml PER PROTOCOL IV ; Start 06/23/18 at 04:00 Ondansetron HCl (Zofran Inj) 4 mg Q6H PRN IV NAUSEA/VOMITING; Start 06/23/18 at 04:00 Acetaminophen (Tylenol Tab) 650 mg Q6H PRN PO .PAIN 1-3 OR TEMP; Start 06/23/18 at 04:00 Acetaminophen/ Hydrocodone Bitart ([place] (5/325)) 1 tab Q6H PRN PO .MOD PAIN 4- 6; Start 06/23/18 at 04:00 Acetaminophen/ Hydrocodone Bitart ([place] (5/325)) 2 tab Q6H PRN PO .SEVERE PAIN 7-10 Last administered on 06/23/18at 12:21; Admin Dose 2 TAB; Start 06/23/18 at 04:00 Hydromorphone HCl (Dilaudid) 0.5 mg Q4H PRN IV .SEVERE PAIN 7-10 Last adm inistered on 06/23/18at 08:41; Admin Dose 0.5 MG; Start 06/23/18 at 04:00 Docusate Sodium (Colace) 100 mg Q12H PRN PO .CONSTIPATION; Start 06/23/18 at 04:00 Bisacodyl (Dulcolax) 5 mg DAILY PRN PO .CONSTIPATION; Start 06/23/18 at 04:00 Sodium Biphosphate/ Sodium Phosphate (Fleet Enema) 133 ml DAILY PRN [place] .CONSTIPATION; Start 06/23/18 at 04:00 Zolpidem Tartrate (Ambien) 5 mg QHS PRN PO .INSOMNIA; Start 06/23/18 at 04:00 Diagnostic Test (Pha) (Accu-Chek) 1 ea 02 XX ; Start 06/24/18 at 02:00 Insulin Glargine (Lantus) 17 units DAILY@0800 SC Last administered on 06/23/18 12:27; Admin Dose 17 UNITS; Start 06/23/18 at 08:00 Insulin Aspart (Novolog Insulin Pen) 8 unit WITH MEALS SC Last administered on 06/23/18at 12:43; Admin Dose 8 UNIT; Start 06/23/18 at 08:00 Insulin Aspart (Novolog Insulin Pen) NOVOLOG *MILD* ALGORITHM WITH MEALS BEDTIME SC ; Start 06/23/18 at 08:00 Linagliptin (Tradjenta) 5 mg DAILY PO Last administered on 06/23/18at 08:21; Admin Dose 5 MG; Start 06/23/18 at 09:00 Vancomycin HCl (Vanco Iv Per Pharmacy) VANCOMYCIN PER PHARMACY PER PROTOCOL XX ; Start 06/23/18 at 04:00 Piperacillin Sod/ Tazobactam Sod 50 ml @ 100 mls/hr Q12 IVPB Last administered on 06/23/18at 08:24; Admin Dose 100 MLS/HR; Start 06/23/18 at 06:00 Atorvastatin Calcium (Lipitor) 20 mg QHS PO ; Start 06/23/18 at 21:00 Doxazosin Mesylate (Cardura) 2 mg HS PO ; Start 06/23/18 at 21:00 Ferrous Sulfate (Ferrous Sulfate (Ec)) 325 mg TID PO Last administered on 06/23/18 12:19; Admin Dose 325 MG; Start 06/23/18 at 09:00 Furosemide (Lasix) 80 mg DAILY PO Last administered on 06/23/18 08:20; Admin Dose 80 MG; Start 06/23/18 at 09:00 Isosorbide Mononitrate (Imdur) 30 mg DAILY PO Last administered on 06/23/18 08:19; Admin Dose 30 MG; Start 06/23/18 at 09:00 Levothyroxine Sodium (Synthroid) 50 mcg BEFORE BREAKFAST PO Last administered on 06/23/18at 06:49; Admin Dose 50 MCG; Start 06/23/18 at 07:00 Lisinopril (Zestril) 40 mg DAILY PO Last administered on 06/23/18at 08:18; Admin Dose 40 MG; Start 06/23/18 at 09:00 Multivit/Ca Carb/ B Cmplx/FA/Prenat (Matilda-Anthony) 1 tab DAILY PO Last administered on 06/23/18at 08:21; Admin Dose 1 TAB; Start 06/23/18 at 09:00 Nifedipine (Procardia Xl) 90 mg DAILY PO Last administered on 06/23/18 08:20; Admin Dose 90 MG; Start 06/23/18 at 09:00 Pantoprazole (Protonix Tab) 40 mg AC BREAKFAST PO Last administered on 06/23/18at 06:50; Admin Dose 40 MG; Start 06/23/18 at 07:00 Fenofibrate (Tricor) 48 mg DAILY PO Last administered on 06/23/18at 08:21; Admin Dose 48 MG; Start 06/23/18 at 09:00 Miscellaneous Information 1 ea NOTE XX ; Start 06/23/18 at 04:30 Glucose (Glutose) 15 gm Q15M PRN PO DECREASED GLUCOSE; Start 06/23/18 at 04:30 Glucose (Glutose) 22.5 gm Q15M PRN PO DECREASED GLUCOSE; Start 06/23/18 at 04:30 Dextrose (D50w Syringe) 25 ml Q15M PRN IV DECREASED GLUCOSE; Start 06/23/18 at 04:30 Dextrose (D50w Syringe) 50 ml Q15M PRN IV DECREASED GLUCOSE; Start 06/23/18 at 04:30 Glucagon (Glucagen) 1 mg Q15M PRN IM DECREASED GLUCOSE; Start 06/23/18 at 04:30 Glucose (Glutose) 15 gm Q15M PRN BUCCAL DECREASED GLUCOSE; Start 06/23/18 at 04:30 Hydralazine HCl (Apresoline) 100 mg TID PO Last administered on 06/23/18at 12:19; Admin Dose 100 MG; Start 06/23/18 at 13:00 Labetalol HCl (Normodyne) 600 mg BID PO ; Start 06/23/18 at 21:00 Michael Snell DO Jun 23, 2018 17:05
--- NOTE | 2018-06-23 17:12 | CONS ---
Assessment/Plan Assessment/Plan Assessment/Plan (Daily) Diabetic foot ulcer left Corns callus Onychomycosis DM2 with peripheral neuropathy Suspicion for lisfranc injury Plan Consent was obtained and performed excisional debridement of right diabetic foot ulcer site of skin/subQ with a scalpel blade. Hyperkeratotic tissue, biofilm, and non-viable tissue was removed from the wound site. Less than 20cm2 area of debridement was performed. Copious saline lavage, betadine 4x4 gauze, kerlix and and yudith wrap applied. Nails were debrided with nail nipper x10. Callus was pared of the left plantar foot with no underlying ulceration site appreciated. Non invasive arterial studies ordered and pending. X-rays of bilateral feet weight bearing views and MRI right foot are pending as well. Offload heels with pillows when resting. Consultation Date/Type/Reason Admit Date/Time Jun 23, 2018 at 03:32 Date/Time of Note DATE: 06/23/18 TIME: 17:12 Hx of Present Illness 58 y/o H M w/ h/o T2DM w/ ESRD s/p kidney transplant w/ recurrent failure, DFU, HTN, hyperlipidemia, hypothyroidism in [facility] getting weekly f/u at [facility] w/ podiatry. Was in [place] until yesterday when he developed acute pain and swelling R foot on the dorsal surface. Patient states that his ulceration to the right foot has been present for a year now. He has attempted total contact casting options which he stated he got wet and was not successful. Patient does not recall any acute injuries or inciting events of the ulceration site. Patient denies f/c/n/v no chest pains or shortness of breath. ROS Negative except for HPI Past Medical History Medical History: diabetes, hepatitis (HCV (+)), high cholesterol, hypertension, hypothyroid Home Meds Active Scripts Silver Sulfadiazine* (Silvadene*) 1% - 20 Gm Cream.gm., 1 APPLIC TOP DAILY, #1 TUB Prov:ONEYDA BEASLEY 06/15/18 Ondansetron (Ondansetron Odt) 4 Mg Tab.rapdis, 4 MG PO Q6H PRN for NAUSEA AND/OR VOMITING, #10 TAB Prov:OLIVIA WARD 04/07/18 Hydrocodone/Acetaminophen (Astoria 10-325 Tablet) 1 Each Tablet, 1 TAB PO Q6H PRN for PAIN, #7 TAB Prov:OLIVIA WARD 04/07/18 Labetalol Hcl* (Labetalol Hcl*) 300 Mg Tablet, 300 MG PO BID for 60 Days, TAB Prov:PAIGE KELLY MD 03/22/18 Reported Medications Fenofibrate, Micronized (Fenofibrate) 134 Mg Capsule, 134 MG PO DAILY, CAP 04/03/18 Insulin Aspart* (Novolog Insulin Pen*) 100 Unit/Ml Soln, 22 UNIT SC WITH MEALS, EA 04/03/18 Multivit/Ca Carb/B Cmplx/Fa* (Matilda-Anthony*) 1 Tab Tab, 1 TAB PO DAILY, TAB 04/03/18 Nifedipine* (Nifedipine ER*) 90 Mg Tablet.er, 90 MG PO DAILY, TAB 04/03/18 Levothyroxine Sodium* (Levothyroxine Sodium*) 25 Mcg Tablet, 50 MCG PO BEFORE BREAKFAST, #30 TAB 04/03/18 Lisinopril* (Lisinopril*) 40 Mg Tablet, 40 MG PO DAILY, #30 TAB 03/22/18 Isosorbide Mononitrate* (Isosorbide Mononitrate*) 30 Mg Tab.er.24h, 30 MG PO DAILY, TAB 03/22/18 Ferrous Sulfate* (Ferrous Sulfate*) 325 Mg Tabec, 325 MG PO TID, TAB 03/22/18 Atorvastatin Calcium* (Atorvastatin Calcium*) 20 Mg Tablet, 20 MG PO QHS, #30 TA B 10/07/17 Furosemide* (Furosemide*) 80 Mg Tablet, 80 MG PO DAILY, #30 TAB 10/07/17 Insulin Glargine* (Lantus*) 100 Unit/Ml Soln, 20 UNIT SC QHS, #1 VIAL 10/07/17 Doxazosin Mesylate* (Doxazosin Mesylate*) 2 Mg Tablet, 2 MG PO HS, TAB 10/07/17 Hydralazine Hcl* (Apresoline*) 50 Mg Tab, 50 MG PO BID, #60 TAB 10/07/17 Pantoprazole* (Pantoprazole*) 40 Mg Tablet.dr, 40 MG PO AC BREAKFAST, TAB 10/07/17 Medications Current Medications IV Flush (NS 3 ml) 3 ml PER PROTOCOL IV ; Start 06/23/18 at 04:00 Ondansetron HCl (Zofran Inj) 4 mg Q6H PRN IV NAUSEA/VOMITING; Start 06/23/18 at 04:00 Acetaminophen (Tylenol Tab) 650 mg Q6H PRN PO .PAIN 1-3 OR TEMP; Start 06/23/18 at 04:00 Acetaminophen/ Hydrocodone Bitart (Astoria (5/325)) 1 tab Q6H PRN PO .MOD PAIN 4-6; Start 06/23/18 at 04:00 Acetaminophen/ Hydrocodone Bitart (Astoria (5/325)) 2 tab Q6H PRN PO .SEVERE PAIN 7-10 Last administered on 06/23/18at 12:21; Admin Dose 2 TAB; Start 06/23/18 at 04:00 Hydromorphone HCl (Dilaudid) 0.5 mg Q4H PRN IV .SEVERE PAIN 7-10 Last administered on 06/23/18at 08:41; Admin Dose 0.5 MG; Start 06/23/18 at 04:00 Docusate Sodium (Colace) 100 mg Q12H PRN PO .CONSTIPATION; Start 06/23/18 at 04:00 Bisacodyl (Dulcolax) 5 mg DAILY PRN PO .CONSTIPATION; Start 06/23/18 at 04:00 Sodium Biphosphate/ Sodium Phosphate (Fleet Enema) 133 ml DAILY PRN DE .CONSTIPATION; Start 06/23/18 at 04:00 Zolpidem Tartrate (Ambien) 5 mg QHS PRN PO .INSOMNIA; Start 06/23/18 at 04:00 Diagnostic Test (Pha) (Accu-Chek) 1 ea 02 XX ; Start 06/24/18 at 02:00 Insulin Glargine (Lantus) 17 units DAILY@0800 SC Last administered on 06/23/18at 12:27; Admin Dose 17 UNITS; Start 06/23/18 at 08:00 Insulin Aspart (Novolog Insulin Pen) 8 unit WITH MEALS SC Last administered on 06/23/18at 12:43; Admin Dose 8 UNIT; Start 06/23/18 at 08:00 Insulin Aspart (Novolog Insulin Pen) NOVOLOG *MILD* ALGORITHM WITH MEALS BED TIME SC ; Start 06/23/18 at 08:00 Linagliptin (Tradjenta) 5 mg DAILY PO Last administered on 06/23/18 08:21; Admin Dose 5 MG; Start 06/23/18 at 09:00 Vancomycin HCl (Vanco Iv Per Pharmacy) VANCOMYCIN PER PHARMACY PER PROTOCOL XX ; Start 06/23/18 at 04:00 Piperacillin Sod/ Tazobactam Sod 50 ml @ 100 mls/hr Q12 IVPB Last administered on 06/23/18 08:24; Admin Dose 100 MLS/HR; Start 06/23/18 at 06:00 Atorvastatin Calcium (Lipitor) 20 mg QHS PO ; Start 06/23/18 at 21:00 Doxazosin Mesylate (Cardura) 2 mg HS PO ; Start 06/23/18 at 21:00 Ferrous Sulfate (Ferrous Sulfate (Ec)) 325 mg TID PO Last administered on 06/23/18 12:19; Admin Dose 325 MG; Start 06/23/18 at 09:00 Furosemide (Lasix) 80 mg DAILY PO Last administered on 06/23/18 08:20; Admin Dose 80 MG; Start 06/23/18 at 09:00 Isosorbide Mononitrate (Imdur) 30 mg DAILY PO Last administered on 06/23/18 08:19; Admin Dose 30 MG; Start 06/23/18 at 09:00 Levothyroxine Sodium (Synthroid) 50 mcg BEFORE BREAKFAST PO Last administered on 06/23/18 06:49; Admin Dose 50 MCG; Start 06/23/18 at 07:00 Lisinopril (Zestril) 40 mg DAILY PO Last administered on 06/23/18 08:18; Admin Dose 40 MG; Start 06/23/18 at 09:00 Multivit/Ca Carb/ B Cmplx/FA/Prenat (Matilda-Anthony) 1 tab DAILY PO Last administered on 06/23/18 08:21; Admin Dose 1 TAB; Start 06/23/18 at 09:00 Nifedipine (Procardia Xl) 90 mg DAILY PO Last administered on 06/23/18 08:20; Admin Dose 90 MG; Start 06/23/18 at 09:00 Pantoprazole (Protonix Tab) 40 mg AC BREAKFAST PO Last administered on 9at 06:50; Admin Dose 40 MG; Start 06/23/18 at 07:00 Fenofibrate (Tricor) 48 mg DAILY PO Last administered on 06/23/18at 08:21; Admin Dose 48 MG; Start 06/23/18 at 09:00 Miscellaneous Information 1 ea NOTE XX ; Start 06/23/18 at 04:30 Glucose (Glutose) 15 gm Q15M PRN PO DECREASED GLUCOSE; Start 06/23/18 at 04:30 Glucose (Glutose) 22.5 gm Q15M PRN PO DECREASED GLUCOSE; Start 06/23/18 at 04:30 Dextrose (D50w Syringe) 25 ml Q15M PRN IV DECREASED GLUCOSE; Start 06/23/18 at 04:30 Dextrose (D50w Syringe) 50 ml Q15M PRN IV DECREASED GLUCOSE; Start 06/23/18 at 04:30 Glucagon (Glucagen) 1 mg Q15M PRN IM DECREASED GLUCOSE; Start 06/23/18 at 04:30 Glucose (Glutose) 15 gm Q15M PRN BUCCAL DECREASED GLUCOSE; Start 06/23/18 at 04:30 Hydralazine HCl (Apresoline) 100 mg TID PO Last administered on 06/23/18at 12:19; Admin Dose 100 MG; Start 06/23/18 at 13:00 Labetalol HCl (Normodyne) 600 mg BID PO ; Start 06/23/18 at 21:00 Hydralazine HCl (Apresoline) 10 mg Q4H PRN IV sbp>165; Start 06/23/18 at 17:00 Allergies: Coded Allergies: No Known Allergy (Unverified , 04/03/18) Past Surgical History Past Surgical Hx: cholecystectomy, other (kidney transplant, AV fistula) Social History Alcohol Use: none Smoking Status: Never smoker Drug Use: none Exam/Review of Systems Exam Vitals Vital Signs Date Temp Pulse Resp B/P (MAP) Pulse Ox O2 O2 Flow FiO2 Time Delivery Rate 06/23/18 97.4 68 18 173/81 94 14:05 (111) 06/23/18 Room Air 06:30 Exam Unable to palpate DP/PT and popliteal pulses absent protective sensations right plantar 4th metatarsal head ulceration site with granular wound bed and surrounding hyperkeratotic tissue. No purulence appreciated, unable to probe to bone, no proximal streaking or surrounding erythema. Wound base measures 2 x 1.5 x 0.4cm Left plantar heel with hyperkeratotic lesion no underlying ulceration site appreciated mycotic thickened toe nails Pain on palpation to midfoot dorsal aspect Muscle strength 5/5 in all compartments of the foot. Results Result Diagram: 06/23/18 02206/23/18 0220 Results 24hrs Laboratory Tests Test 06/23/18 02:20 06/23/18 08:06 06/23/18 12:23 06/23/18 17:09 White Blood Count 9.9 # Red Blood Count 3.48 L Hemoglobin 10.1 L Hematocrit 31.7 L Mean Corpuscular Volume 91.1 Mean Corpuscular 29.0 Hemoglobin Mean Corpuscular 31.9 L Hemoglobin Concent Red Cell Distribution 15.6 H Width Platelet Count 278 # Mean Platelet Volume 8.2 Immature Granulocytes % 0.600 H Neutrophils % 71.6 Lymphocytes % 14.3 L Monocytes % 10.6 Eosinophils % 2.4 Basophils % 0.5 Nucleated Red Blood 0.0 Cells % Immature Granulocytes # 0.060 H Neutrophils # 7.1 Lymphocytes # 1.4 Monocytes # 1.1 H Eosinophils # 0.2 Basophils # 0.1 Nucleated Red Blood 0.0 Cells # Sodium Level 140 Potassium Level 4.5 Chloride Level 92 L Carbon Dioxide Level 29 Anion Gap 19 H Blood Urea Nitrogen 55 H Creatinine 8.00 H Est Glomerular Filtrat 7 L Rate mL/min Glucose Level 189 Calcium Level 7.7 L Total Bilirubin 0.0 L Direct Bilirubin 0.00 Indirect Bilirubin 0.0 Aspartate Amino 18 Transf (AST/SGOT) Alanine < 6 L Aminotransferase (ALT/SG PT) Alkaline Phosphatase 85 Total Protein 9.8 H Albumin 4.5 Globulin 5.30 H Albumin/Globulin Ratio 0.84 Lipase 71 Bedside Glucose 106 137 135 Medications Medication Current Medications IV Flush (NS 3 ml) 3 ml PER PROTOCOL IV ; Start 06/23/18 at 04:00 Ondansetron HCl (Zofran Inj) 4 mg Q6H PRN IV NAUSEA/VOMITING; Start 06/23/18 at 04:00 Acetaminophen (Tylenol Tab) 650 mg Q6H PRN PO .PAIN 1-3 OR TEMP; Start 06/23/18 at 04:00 Acetaminophen/ Hydrocodone Bitart (Astoria (5/325)) 1 tab Q6H PRN PO .MOD PAIN 4- 6; Start 06/23/18 at 04:00 Acetaminophen/ Hydrocodone Bitart (Astoria (5/325)) 2 tab Q6H PRN PO .SEVERE PAIN 7-10 Last administered on 06/23/18at 12:21; Admin Dose 2 TAB; Start 06/23/18 at 04:00 Hydromorphone HCl (Dilaudid) 0.5 mg Q4H PRN IV .SEVERE PAIN 7-10 Last administered on 06/23/18at 08:41; Admin Dose 0.5 MG; Start 06/23/18 at 04:00 Docusate Sodium (Colace) 100 mg Q12H PRN PO .CONSTIPATION; Start 06/23/18 at 04:00 Bisacodyl (Dulcolax) 5 mg DAILY PRN PO .CONSTIPATION; Start 06/23/18 at 04:00 Sodium Biphosphate/ Sodium Phosphate (Fleet Enema) 133 ml DAILY PRN DE .CONSTIPATION; Start 06/23/18 at 04:00 Zolpidem Tartrate (Ambien) 5 mg QHS PRN PO .INSOMNIA; Start 06/23/18 at 04:00 Diagnostic Test (Pha) (Accu-Chek) XX ; Start 06/24/18 at 02:00 Insulin Glargine (Lantus) 17 units DAILY@0800 SC Last administered on 06/23/18at 12:27; Admin Dose 17 UNITS; Start 06/23/18 at 08:00 Insulin Aspart (Novolog Insulin Pen) 8 unit WITH MEALS SC Last administered on 06/23/18at 12:43; Admin Dose 8 UNIT; Start 06/23/18 at 08:00 Insulin Aspart (Novolog Insulin Pen) NOVOLOG *MILD* ALGORITHM WITH MEALS BEDTIME SC ; Start 06/23/18 at 08:00 Linagliptin (Tradjenta) 5 mg DAILY PO Last administered on 06/23/18at 08:21; Admin Dose 5 MG; Start 06/23/18 at 09:00 Vancomycin HCl (Vanco Iv Per Pharmacy) VANCOMYCIN PER PHARMACY PER PROTOCOL XX ; Start 06/23/18 at 04:00 Piperacillin Sod/ Tazobactam Sod 50 ml @ 100 mls/hr Q12 IVPB Last administered on 06/23/18at 08:24; Admin Dose 100 MLS/HR; Start 06/23/18 at 06:00 Atorvastatin Calcium (Lipitor) 20 mg QHS PO ; Start 06/23/18 at 21:00 Doxazosin Mesylate (Cardura) 2 mg HS PO ; Start 06/23/18 at 21:00 Ferrous Sulfate (Ferrous Sulfate (Ec)) 325 mg TID PO Last administered on 06/23/18 12:19; Admin Dose 325 MG; Start 06/23/18 at 09:00 Furosemide (Lasix) 80 mg DAILY PO Last administered on 06/23/18 08:20; Admin Dose 80 MG; Start 06/23/18 at 09:00 Isosorbide Mononitrate (Imdur) 30 mg DAILY PO Last administered on 06/23/18 08:19; Admin Dose 30 MG; Start 06/23/18 at 09:00 Levothyroxine Sodium (Synthroid) 50 mcg BEFORE BREAKFAST PO Last administered on 06/23/18 06:49; Admin Dose 50 MCG; Start 06/23/18 at 07:00 Lisinopril (Zestril) 40 mg DAILY PO Last administered on 06/23/18 08:18; Admin Dose 40 MG; Start 06/23/18 at 09:00 Multivit/Ca Carb/ B Cmplx/FA/Prenat (Matilda-Anthony) 1 tab DAILY PO Last administered on 06/23/18 08:21; Admin Dose 1 TAB; Start 06/23/18 at 09:00 Nifedipine (Procardia Xl) 90 mg DAILY PO Last administered on 06/23/18 08:20; Admin Dose 90 MG; Start 06/23/18 at 09:00 Pantoprazole (Protonix Tab) 40 mg AC BREAKFAST PO Last administered on 06/23/18 06:50; Admin Dose 40 MG; Start 06/23/18 at 07:00 Fenofibrate (Tricor) 48 mg DAILY PO Last administered on 06/23/18 08:21; Admin Dose 48 MG; Start 06/23/18 at 09:00 Miscellaneous Information 1 ea NOTE XX ; Start 06/23/18 at 04:30 Glucose (Glutose) 15 gm Q15M PRN PO DECREASED GLUCOSE; Start 06/23/18 at 04:30 Glucose (Glutose) 22.5 gm Q15M PRN PO DECREASED GLUCOSE; Start 06/23/18 at 04:30 Dextrose (D50w Syringe) 25 ml Q15M PRN IV DECREASED GLUCOSE; Start 06/23/18 at 04:30 Dextrose (D50w Syringe) 50 ml Q15M PRN IV DECREASED GLUCOSE; Start 06/23/18 at 04:30 Glucagon (Glucagen) 1 mg Q15M PRN IM DECREASED GLUCOSE; Start 06/23/18 at 04:30 Glucose (Glutose) 15 gm Q15M PRN BUCCAL DECREASED GLUCOSE; Start 06/23/18 at 04:30 Hydralazine HCl (Apresoline) 100 mg TID PO Last administered on 06/23/18at 12:19; Admin Dose 100 MG; Start 06/23/18 at 13:00 Labetalol HCl (Normodyne) 600 mg BID PO ; Start 06/23/18 at 21:00 Hydralazine HCl (Apresoline) 10 mg Q4H PRN IV sbp>165; Start 06/23/18 at 17:00 QUYNH NIÑO DPM Jun 23, 2018 17:12
[2018-06-23] MEDS ORDERED: BENZONATATE 100 MG CAP PO PRN (17:30)
--- NOTE | 2018-06-23 17:50 | CONS ---
Assessment/Plan Assessment/Plan Assessment/Plan (Daily) 1. 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 ESRD on HD 3. HTN 4. Hyperlipidemia 5. H/o TIA Plan: s/p IV abx in ED, vanocmycin and zosyn will plan for HD tomorrow ESR, podiatry cosnult Continue other home meds IV hydralazine prn Thanks for consultation, I will follow up Consultation Date/Type/Reason Admit Date/Time Jun 23, 2018 at 03:32 Date of Consultation: Jun 23, 2018 Type of Consult NEPHROLOGY Reason for Consultation ESRD on HD Requesting Provider: ELANA MENDOZA MD Date/Time of Note DATE: 06/23/18 TIME: 17:48 Hx of Present Illness 58-year-old male with past medical history of diabetes, hypertension, end-stage renal disease on hemodialysis, peripheral arterial disease who presented with worsening lower extremity pain. [facility], He is noted to have R foot charcot foot vs osteomyelitis- He has been seen by cardiology and Podiatry . pt is dialysis pt of /[facility] but I am covering for them. Renal has been consulted for Dialysis need, Currently has Constitutional: no complaints Eyes: no complaints ENT: no complaints Respiratory: no complaints Cardiovascular: no complaints Gastrointestinal: no complaints Genitourinary: no complaints Musculoskeletal: other (R foot pain, swelling, Erythema ) Skin: no complaints Neurologic: no complaints Endocrine: no complaints Lymphatic: no complaints Psychological: no complaints Immunologic: no complaints Past Medical History Medical History: diabetes, hepatitis (HCV (+)), high cholesterol, hypertension, hypothyroid, other (ESRD on HD ) Home Meds Active Scripts Silver Sulfadiazine* (Silvadene*) 1% - 20 Gm Cream.gm., 1 APPLIC TOP DAILY, #1 TUB Prov:ONEYDA BEASLEY 06/15/18 Ondansetron (Ondansetron Odt) 4 Mg Tab.rapdis, 4 MG PO Q6H PRN for NAUSEA AND/OR VOMITING, #10 TAB Prov:OLIVIA WARD 04/07/18 Hydrocodone/Acetaminophen ([place] 10-325 Tablet) 1 Each Tablet, 1 TAB PO Q6H PRN for PAIN, #7 TAB Prov:OLIVIA WARD 04/07/18 Labetalol Hcl* (Labetalol Hcl*) 300 Mg Tablet, 300 MG PO BID for 60 Days, TAB Prov:PAIGE KELLY MD 03/22/18 Reported Medications Fenofibrate, Micronized (Fenofibrate) 134 Mg Capsule, 134 MG PO DAILY, CAP 04/03/18 Insulin Aspart* (Novolog Insulin Pen*) 100 Unit/Ml Soln, 22 UNIT SC WITH MEALS, EA 04/03/18 Multivit/Ca Carb/B Cmplx/Fa* (Matilda-Anthony*) 1 Tab Tab, 1 TAB PO DAILY, TAB 04/03/18 Nifedipine* (Nifedipine ER*) 90 Mg Tablet.er, 90 MG PO DAILY, TAB 04/03/18 Levothyroxine Sodium* (Levothyroxine Sodium*) 25 Mcg Tablet, 50 MCG PO BEFORE BREAKFAST, #30 TAB 04/03/18 Lisinopril* (Lisinopril*) 40 Mg Tablet, 40 MG PO DAILY, #30 TAB 03/22/18 Isosorbide Mononitrate* (Isosorbide Mononitrate*) 30 Mg Tab.er.24h, 30 MG PO DAILY, TAB 03/22/18 Ferrous Sulfate* (Ferrous Sulfate*) 325 Mg Tabec, 325 MG PO TID, TAB 03/22/18 Atorvastatin Calcium* (Atorvastatin Calcium*) 20 Mg Tablet, 20 MG PO QHS, #30 TAB 10/07/17 Furosemide* (Furosemide*) 80 Mg Tablet, 80 MG PO DAILY, #30 TAB 10/07/17 Insulin Glargine* (Lantus*) 100 Unit/Ml Soln, 20 UNIT SC QHS, #1 VIAL 10/07/17 Doxazosin Mesylate* (Doxazosin Mesylate*) 2 Mg Tablet, 2 MG PO HS, TAB 10/07/17 Hydralazine Hcl* (Apresoline*) 50 Mg Tab, 50 MG PO BID, #60 TAB 10/07/17 Pantoprazole* (Pantoprazole*) 40 Mg Tablet.dr, 40 MG PO AC BREAKFAST, TAB 10/07/17 Medications Current Medications IV Flush (NS 3 ml) 3 ml PER PROTOCOL IV ; Start 06/23/18 at 04:00 Ondansetron HCl (Zofran Inj) 4 mg Q6H PRN IV NAUSEA/VOMITING; Start 06/23/18 at 04:00 Acetaminophen (Tylenol Tab) 650 mg Q6H PRN PO .PAIN 1-3 OR TEMP; Start 06/23/18 at 04:00 Acetaminophen/ Hydrocodone Bitart ([place] (5/325)) 1 tab Q6H PRN PO .MOD PAIN 4- 6; Start 06/23/18 at 04:00 Acetaminophen/ Hydrocodone Bitart ([place] (5/325)) 2 tab Q6H PRN PO .SEVERE PAIN 7-10 Last administered on 06/23/18at 12:21; Admin Dose 2 TAB; Start 06/23/18 at 04:00 Hydromorphone HCl (Dilaudid) 0.5 mg Q4H PRN IV .SEVERE PAIN 7-10 Last administered on 06/23/18at 08:41; Admin Dose 0.5 MG; Start 06/23/18 at 04:00 Docusate Sodium (Colace) 100 mg Q12H PRN PO .CONSTIPATION; Start 06/23/18 at 04:00 Bisacodyl (Dulcolax) 5 mg DAILY PRN PO .CONSTIPATION; Start 06/23/18 at 04:00 Sodium Biphosphate/ Sodium Phosphate (Fleet Enema) 133 ml DAILY PRN [place] .CONSTIPATION; Start 06/23/18 at 04:00 Zolpidem Tartrate (Ambien) 5 mg QHS PRN PO .INSOMNIA; Start 06/23/18 at 04:00 Diagnostic Test (Pha) (Accu-Chek) 1 ea 02 XX ; Start 06/24/18 at 02:00 Insulin Glargine (Lantus) 17 units DAILY@0800 SC Last administered on 06/23/18at 12:27; Admin Dose 17 UNITS; Start 06/23/18 at 08:00 Insulin Aspart (Novolog Insulin Pen) 8 unit WITH MEALS SC Last administered on 06/23/18at 17:13; Admin Dose 8 UNIT; Start 06/23/18 at 08:00 Insulin Aspart (Novolog Insulin Pen) NOVOLOG *MILD* ALGORITHM WITH MEALS BEDTIME SC ; Start 06/23/18 at 08:00 Linagliptin (Tradjenta) 5 mg DAILY PO Last administered on 06/23/18at 08:21; Admin Dose 5 MG; Start 06/23/18 at 09:00 Vancomycin HCl (Vanco Iv Per Pharmacy) VANCOMYCIN PER PHARMACY PER PROTOCOL XX ; Start 06/23/18 at 04:00 Piperacillin Sod/ Tazobactam Sod 50 ml @ 100 mls/hr Q12 IVPB Last administered on 06/23/18 08:24; Admin Dose 100 MLS/HR; Start 06/23/18 at 06:00 Atorvastatin Calcium (Lipitor) 20 mg QHS PO ; Start 06/23/18 at 21:00 Doxazosin Mesylate (Cardura) 2 mg HS PO ; Start 06/23/18 at 21:00 Ferrous Sulfate (Ferrous Sulfate (Ec)) 325 mg TID PO Last administered on 06/23/18 12:19; Admin Dose 325 MG; Start 06/23/18 at 09:00 Furosemide (Lasix) 80 mg DAILY PO Last administered on 06/23/18 08:20; Admin Dose 80 MG; Start 06/23/18 at 09:00 Isosorbide Mononitrate (Imdur) 30 mg DAILY PO Last administered on 06/23/18 08:19; Admin Dose 30 MG; Start 06/23/18 at 09:00 Levothyroxine Sodium (Synthroid) 50 mcg BEFORE BREAKFAST PO Last administered on 06/23/18 06:49; Admin Dose 50 MCG; Start 06/23/18 at 07:00 Lisinopril (Zestril) 40 mg DAILY PO Last administered on 06/23/18 08:18; Admin Dose 40 MG; Start 06/23/18 at 09:00 Multivit/Ca Carb/ B Cmplx/FA/Prenat (Matilda-Anthony) 1 tab DAILY PO Last administered on 06/23/18 08:21; Admin Dose 1 TAB; Start 06/23/18 at 09:00 Nifedipine (Procardia Xl) 90 mg DAILY PO Last administered on 06/23/18 08:20; Admin Dose 90 MG; Start 06/23/18 at 09:00 Pantoprazole (Protonix Tab) 40 mg AC BREAKFAST PO Last administered on 06/23/18 06:50; Admin Dose 40 MG; Start 06/23/18 at 07:00 Fenofibrate (Tricor) 48 mg DAILY PO Last administered on 06/23/18 08:21; Admin Dose 48 MG; Start 06/23/18 at 09:00 Miscellaneous Information 1 ea NOTE XX ; Start 06/23/18 at 04:30 Glucose (Glutose) 15 gm Q15M PRN PO DECREASED GLUCOSE; Start 06/23/18 at 04:30 Glucose (Glutose) 22.5 gm Q15M PRN PO DECREASED GLUCOSE; Start 06/23/18 at 04:30 Dextrose (D50w Syringe) 25 ml Q15M PRN IV DECREASED GLUCOSE; Start 06/23/18 at 04:30 Dextrose (D50w Syringe) 50 ml Q15M PRN IV DECREASED GLUCOSE; Start 06/23/18 at 04:30 Glucagon (Glucagen) 1 mg Q15M PRN IM DECREASED GLUCOSE; Start 06/23/18 at 04:30 Glucose (Glutose) 15 gm Q15M PRN BUCCAL DECREASED GLUCOSE; Start 06/23/18 at 04:30 Hydralazine HCl (Apresoline) 100 mg TID PO Last administered on 06/23/18at 12:19; Admin Dose 100 MG; Start 06/23/18 at 13:00 Labetalol HCl (Normodyne) 600 mg BID PO ; Start 06/23/18 at 21:00 Hydralazine HCl (Apresoline) 10 mg Q4H PRN IV sbp>165; Start 06/23/18 at 17:00 Benzonatate (Tessalon) 200 mg TID PRN PO COUGH; Start 06/23/18 at 17:30 Allergies: Coded Allergies: No Known Allergy (Unverified , 04/03/18) Past Surgical History Past Surgical Hx: cholecystectomy, other (kidney transplant, AV fistula) Social History Alcohol Use: none Smoking Status: Never smoker Drug Use: none Exam/Review of Systems Exam Vitals Vital Signs Date Temp Pulse Resp B/P (MAP) Pulse Ox O2 O2 Flow FiO2 Time Delivery Rate 06/23/18 97.4 68 18 173/81 94 14:05 (111) 06/23/18 Room Air 06:30 Exam Constitutional: alert, oriented, well developed Psych: no complaints, nl mood/affect Eyes: nl conjunctiva, EOMI, nl lids, nl sclera, PERRL ENMT: nl external ears & nose, mucosa pink and moist Neck: supple, non-tender; Respiratory: clear to auscultation, normal air movement Cardiovascular: regular rate and rhythm, nl pulses; Gastrointestinal: soft, nl liver, spleen, bowel sounds, tender (epigastrium, BUQ); NT, ND, BS+ Musculoskeletal: joint tenderness (R 3rd MTP joint), swelling (mild of the dorsal R foot, no erythema or warmth) Extremities: No cyanosis, No clubbing, No edema Neurological: PODIATRY PROFESSOR II-XII intact, nl mental status, nl speech, nl strength Results Result Diagram: 06/23/18 0220 06/23/18 0220 Results 24hrs Laboratory Tests Test 06/23/18 02:20 06/23/18 08:06 06/23/18 12:23 06/23/18 17:09 White Blood Count 9.9 # Red Blood Count 3.48 L Hemoglobin 10.1 L Hematocrit 31.7 L Mean Corpuscular Volume 91.1 Mean Corpuscular 29.0 Hemoglobin Mean Corpuscular 31.9 L Hemoglobin Concent Red Cell Distribution 15.6 H Width Platelet Count 278 # Mean Platelet Volume 8.2 Immature Granulocytes % 0.600 H Neutrophils % 71.6 Lymphocytes % 14.3 L Monocytes % 10.6 Eosinophils % 2.4 Basophils % 0.5 Nucleated Red Blood 0.0 Cells % Immature Granulocytes # 0.060 H Neutrophils # 7.1 Lymphocytes # 1.4 Monocytes # 1.1 H Eosinophils # 0.2 Basophils # 0.1 Nucleated Red Blood 0.0 Cells # Sodium Level 140 Potassium Level 4.5 Chloride Level 92 L Carbon Dioxide Level 29 Anion Gap 19 H Blood Urea Nitrogen 55 H Creatinine 8.00 H Est Glomerular Filtrat 7 L Rate mL/min Glucose Level 189 Calcium Level 7.7 L Total Bilirubin 0.0 L Direct Bilirubin 0.00 Indirect Bilirubin 0.0 Aspartate Amino 18 Transf (AST/SGOT) Alanine < 6 L Aminotransferase (ALT/SG PT) Alkaline Phosphatase 85 Total Protein 9.8 H Albumin 4.5 Globulin 5.30 H Albumin/Globulin Ratio 0.84 Lipase 71 Bedside Glucose 106 137 135 Medications Medication Current Medications IV Flush (NS 3 ml) 3 ml PER PROTOCOL IV ; Start 06/23/18 at 04:00 Ondansetron HCl (Zofran Inj) 4 mg Q6H PRN IV NAUSEA/VOMITING; Start 06/23/18 at 04:00 Acetaminophen (Tylenol Tab) 650 mg Q6H PRN PO .PAIN 1-3 OR TEMP; Start 06/23/18 at 04:00 Acetaminophen/ Hydrocodone Bitart ([place] (5/325)) 1 tab Q6H PRN PO .MOD PAIN 4- 6; Start 06/23/18 at 04:00 Acetaminophen/ Hydrocodone Bitart ([place] (5/325)) 2 tab Q6H PRN PO .SEVERE PAIN 7-10 Last administered on 06/23/18at 12:21; Admin Dose 2 TAB; Start 06/23/18 at 04:00 Hydromorphone HCl (Dilaudid) 0.5 mg Q4H PRN IV .SEVERE PAIN 7-10 Last administered on 06/23/18at 08:41; Admin Dose 0.5 MG; Start 06/23/18 at 04:00 Docusate Sodium (Colace) 100 mg Q12H PRN PO .CONSTIPATION; Start 06/23/18 at 04:00 Bisacodyl (Dulcolax) 5 mg DAILY PRN PO .CONSTIPATION; Start 06/23/18 at 04:00 Sodium Biphosphate/ Sodium Phosphate (Fleet Enema) 133 ml DAILY PRN [place] .CONSTIPATION; Start 06/23/18 at 04:00 Zolpidem Tartrate (Ambien) 5 mg QHS PRN PO .INSOMNIA; Start 06/23/18 at 04:00 Diagnostic Test (Pha) (Accu-Chek) XX ; Start 06/24/18 at 02:00 Insulin Glargine (Lantus) 17 units DAILY@0800 SC Last administered on 06/23/18at 12:27; Admin Dose 17 UNITS; Start 06/23/18 at 08:00 Insulin Aspart (Novolog Insulin Pen) 8 unit WITH MEALS SC Last administered on 06/23/18at 17:13; Admin Dose 8 UNIT; Start 06/23/18 at 08:00 Insulin Aspart (Novolog Insulin Pen) NOVOLOG *MILD* ALGORITHM WITH MEALS BEDTIME SC ; Start 06/23/18 at 08:00 Linagliptin (Tradjenta) 5 mg DAILY PO Last administered on 06/23/18at 08:21; Admin Dose 5 MG; Start 06/23/18 at 09:00 Vancomycin HCl (Vanco Iv Per Pharmacy) VANCOMYCIN PER PHARMACY PER PROTOCOL XX ; Start 06/23/18 at 04:00 Piperacillin Sod/ Tazobactam Sod 50 ml @ 100 mls/hr Q12 IVPB Last administered on 06/23/18 08:24; Admin Dose 100 MLS/HR; Start 06/23/18 at 06:00 Atorvastatin Calcium (Lipitor) 20 mg QHS PO ; Start 06/23/18 at 21:00 Doxazosin Mesylate (Cardura) 2 mg HS PO ; Start 06/23/18 at 21:00 Ferrous Sulfate (Ferrous Sulfate (Ec)) 325 mg TID PO Last administered on 06/23/18 12:19; Admin Dose 325 MG; Start 06/23/18 at 09:00 Furosemide (Lasix) 80 mg DAILY PO Last administered on 06/23/18 08:20; Admin Dose 80 MG; Start 06/23/18 at 09:00 Isosorbide Mononitrate (Imdur) 30 mg DAILY PO Last administered on 06/23/18 08:19; Admin Dose 30 MG; Start 06/23/18 at 09:00 Levothyroxine Sodium (Synthroid) 50 mcg BEFORE BREAKFAST PO Last administered on 06/23/18 06:49; Admin Dose 50 MCG; Start 06/23/18 at 07:00 Lisinopril (Zestril) 40 mg DAILY PO Last administered on 06/23/18 08:18; Admin Dose 40 MG; Start 06/23/18 at 09:00 Multivit/Ca Carb/ B Cmplx/FA/Prenat (Matilda-Anthony) 1 tab DAILY PO Last administered on 06/23/18 08:21; Admin Dose 1 TAB; Start 06/23/18 at 09:00 Nifedipine (Procardia Xl) 90 mg DAILY PO Last administered on 06/23/18 08:20; Admin Dose 90 MG; Start 06/23/18 at 09:00 Pantoprazole (Protonix Tab) 40 mg AC BREAKFAST PO Last administered on 06/23/18 06:50; Admin Dose 40 MG; Start 06/23/18 at 07:00 Fenofibrate (Tricor) 48 mg DAILY PO Last administered on 06/23/18 08:21; Admin Dose 48 MG; Start 06/23/18 at 09:00 Miscellaneous Information 1 ea NOTE XX ; Start 06/23/18 at 04:30 Glucose (Glutose) 15 gm Q15M PRN PO DECREASED GLUCOSE; Start 06/23/18 at 04:30 Glucose (Glutose) 22.5 gm Q15M PRN PO DECREASED GLUCOSE; Start 06/23/18 at 04:30 Dextrose (D50w Syringe) 25 ml Q15M PRN IV DECREASED GLUCOSE; Start 06/23/18 at 04:30 Dextrose (D50w Syringe) 50 ml Q15M PRN IV DECREASED GLUCOSE; Start 06/23/18 at 04:30 Glucagon (Glucagen) 1 mg Q15M PRN IM DECREASED GLUCOSE; Start 06/23/18 at 04:30 Glucose (Glutose) 15 gm Q15M PRN BUCCAL DECREASED GLUCOSE; Start 06/23/18 at 04:30 Hydralazine HCl (Apresoline) 100 mg TID PO Last administered on 06/23/18at 12:19; Admin Dose 100 MG; Start 06/23/18 at 13:00 Labetalol HCl (Normodyne) 600 mg BID PO ; Start 06/23/18 at 21:00 Hydralazine HCl (Apresoline) 10 mg Q4H PRN IV sbp>165; Start 06/23/18 at 17:00 Benzonatate (Tessalon) 200 mg TID PRN PO COUGH; Start 06/23/18 at 17:30 NOAM MATT MD Jun 23, 2018 17:50
[2018-06-23] MEDS ORDERED: ALBUMIN HUMAN 25% 100 ML IV PRN (18:30)
[2018-06-23] MEDS ORDERED: SODIUM CHLORIDE 0.9% 1L BAG IV PRN (18:30)
[2018-06-23 20:09] VITALS: BP_SYST 10; BP_SYST 170; BP_DIAS 81; PULSE 77; RESP 18
[2018-06-23] MEDS: ATORVASTATIN 20 MG TAB PO SCH (21:39)
[2018-06-23] MEDS: LABETALOL 200 MG TAB PO SCH (21:41)
[2018-06-23] MEDS: DOXAZOSIN 2 MG TAB PO SCH (23:47)
[2018-06-24] VITALS (19 sets, daily range): BP systolic 134–181; BP diastolic 67–90; PULSE 66–83; RESP 16–20
[2018-06-24] MEDS: HYDROmorphONE 0.5 MG/0.5 ML SYG IV PRN ×3 (00:45→20:44)
[2018-06-24] MEDS: ACCU-CHEK XX SCH (01:51)
[2018-06-24] MEDS: PANTOPRAZOLE (EC) 40 MG TAB PO SCH (06:42)
[2018-06-24] MEDS: LEVOTHYROXINE 25 MCG TAB PO SCH (06:45)
[2018-06-24] MEDS: INSULIN ASPART [NOVOLOG] 3 ML PEN SC SCH ×7 (08:00→20:33)
[2018-06-24] MEDS: LINAGLIPTIN 5 MG TABLET PO SCH (08:25)
[2018-06-24] MEDS: FERROUS SULFATE (EC) 325 MG TAB PO SCH ×3 (08:25→20:22)
[2018-06-24] MEDS: LABETALOL 200 MG TAB PO SCH ×2 (08:25→20:23)
[2018-06-24] MEDS: FENOFIBRATE 48 MG TAB PO SCH (08:25)
[2018-06-24] MEDS: LISINOPRIL 20 MG TAB PO SCH (08:26)
[2018-06-24] MEDS: NIFEdipine (XL) 90 MG TAB PO SCH (08:26)
[2018-06-24] MEDS: MULTIVIT/CA CARB/B CMPLX/FA TAB PO SCH (08:26)
[2018-06-24] MEDS: FUROSEMIDE 40 MG TAB PO SCH (08:26)
[2018-06-24] MEDS: ISOSORBIDE MONONITRATE(SR)30 MG TAB PO SCH (08:26)
[2018-06-24] MEDS: PIPER-TAZO 2.25 GM (PMX) 50 ML IVPB SCH ×2 (08:34→21:02)
[2018-06-24] MEDS: SODIUM HYPOCHLORITE (1/40) 1 APPLIC BTL IRR SCH (09:00)
[2018-06-24] MEDS ORDERED: NA POLYST SULFON 15 GM/60 ML BTL PO SCH (09:00)
[2018-06-24] MEDS ORDERED: SODIUM POLYSTYRENE 15 GM KIT (POWDER + SORBITOL) PO SCH (09:00)
--- NOTE | 2018-06-24 10:25 | CONS ---
Assessment/Plan Assessment/Plan Assessment/Plan (Daily) 58 yo male with history of DM, ESRD on dialysis with right foot chronic ulceration with underlying bony infection per recent MRI. Patient was advised about condition in detail. I spoke to patient about MRI findings and underlying bony infection. Treatment options such as surgical intervention vs IV antibiotics discussed. Patient would like to attempt IV treatment. His circulation studies have been discussed with Vascular surgeon Dr. Meza and he has a pending appointment to see him on 06/27/18 for evaluation. Patient's case was discussed with Dr. Sierra. Recommendations: -PICC line recommended, patient would benefit from cefepime and vanco antibiotics. -Right foot dressing changes daily with Gentamicin cream recommended. -Patient does have a cam walker and he needs to limit walking and standing. -Patient has an appointment set up at [facility] on 06/27/[address] myself and Dr. Meza at 1:45. Thank you Dr. Sierra and Dr. Meza for allowing to see this patient. Consultation Date/Type/Reason Admit Date/Time Jun 23, 2018 at 03:32 Date/Time of Note DATE: 06/24/18 TIME: 10:18 Hx of Present Illness Patient is a pleasant 58 yo male seen regularly for right foot sub 4th met head ulceration. Patient was last seen at [facility] on Saturday06/20/18. He had recent GAYLE studies and vascular consult was recommended which is pending for later this week at [facility]. Patient felt some pain in the right foot and presented to ED. He d enies any drainage from the wound, no fevers, chills, nausea or vomiting. Patient was admitted for possible cellulitis. He was seen by Data Reduction Technician Dr. Brown for consultation. Right foot ulcer was debrided per note and sharp debridement of nails performed. Patient did have MRI of right foot completed with findings consistent with Osteomyelitis of "4th toe proximal phalanx and distal 4th met head." He is currently on IV vanco and zosyn. States right foot pain has improved. Past Medical History Medical History: diabetes, hepatitis (HCV (+)), high cholesterol, hypertension, hypothyroid, other (ESRD on HD ) Home Meds Active Scripts Silver Sulfadiazine* (Silvadene*) 1% - 20 Gm Cream.gm., 1 APPLIC TOP DAILY, #1 TUB Prov:ONEYDA BEASLEY 06/15/18 Ondansetron (Ondansetron Odt) 4 Mg Tab.rapdis, 4 MG PO Q6H PRN for NAUSEA AND/OR VOMITING, #10 TAB Prov:OLIIVA WARD Breonna. 04/07/18 Hydrocodone/Acetaminophen (Osmond 10-325 Tablet) 1 Each Tablet, 1 TAB PO Q6H PRN for PAIN, #7 TAB Prov:REJIPHAMOLIVIA Breonna. 04/07/18 Labetalol Hcl* (Labetalol Hcl*) 300 Mg Tablet, 300 MG PO BID for 60 Days, TAB Prov:PAIGE KELLY MD 03/22/18 Reported Medications Fenofibrate, Micronized (Fenofibrate) 134 Mg Capsule, 134 MG PO DAILY, CAP 04/03/18 Insulin Aspart* (Novolog Insulin Pen*) 100 Unit/Ml Soln, 22 UNIT SC WITH MEALS, EA 04/03/18 Multivit/Ca Carb/B Cmplx/Fa* (Matilda-Anthony*) 1 Tab Tab, 1 TAB PO DAILY, TAB 04/03/18 Nifedipine* (Nifedipine ER*) 90 Mg Tablet.er, 90 MG PO DAILY, TAB 04/03/18 Levothyroxine Sodium* (Levothyroxine Sodium*) 25 Mcg Tablet, 50 MCG PO BEFORE BREAKFAST, #30 TAB 04/03/18 Lisinopril* (Lisinopril*) 40 Mg Tablet, 40 MG PO DAILY, #30 TAB 03/22/18 Isosorbide Mononitrate* (Isosorbide Mononitrate*) 30 Mg Tab.er.24h, 30 MG PO DAILY, TAB 03/22/18 Ferrous Sulfate* (Ferrous Sulfate*) 325 Mg Tabec, 325 MG PO TID, TAB 03/22/18 Atorvastatin Calcium* (Atorvastatin Calcium*) 20 Mg Tablet, 20 MG PO QHS, #30 TAB 10/07/17 Furosemide* (Furosemide*) 80 Mg Tablet, 80 MG PO DAILY, #30 TAB 10/07/17 Insulin Glargine* (Lantus*) 100 Unit/Ml Soln, 20 UNIT SC QHS, #1 VIAL 10/07/17 Doxazosin Mesylate* (Doxazosin Mesylate*) 2 Mg Tablet, 2 MG PO HS, TAB 10/07/17 Hydralazine Hcl* (Apresoline*) 50 Mg Tab, 50 MG PO BID, #60 TAB 10/07/17 Pantoprazole* (Pantoprazole*) 40 Mg Tablet.dr, 40 MG PO AC BREAKFAST, TAB 10/07/17 Medications Current Medications IV Flush (NS 3 ml) 3 ml PER PROTOCOL IV ; Start 06/23/18 at 04:00 Ondansetron HCl (Zofran Inj) 4 mg Q6H PRN IV NAUSEA/VOMITING; Start 06/23/18 at 04:00 Acetaminophen (Tylenol Tab) 650 mg Q6H PRN PO .PAIN 1-3 OR TEMP; Start 06/23/18 at 04:00 Acetaminophen/ Hydrocodone Bitart (Osmond (5/325)) 1 tab Q6H PRN PO .MOD PAIN 4- 6; Start 06/23/18 at 04:00 Acetaminophen/ Hydrocodone Bitart (Osmond (5/325)) 2 tab Q6H PRN PO .SEVERE PAIN 7-10 Last administered on 06/23/18at 12:21; Admin Dose 2 TAB; Start 06/23/18 at 04:00 Hydromorphone HCl (Dilaudid) 0.5 mg Q4H PRN IV .SEVERE PAIN 7-10 Last administ ered on 06/24/18at 06:42; Admin Dose 0.5 MG; Start 06/23/18 at 04:00 Docusate Sodium (Colace) 100 mg Q12H PRN PO .CONSTIPATION; Start 06/23/18 at 04:00 Bisacodyl (Dulcolax) 5 mg DAILY PRN PO .CONSTIPATION; Start 06/23/18 at 04:00 Sodium Biphosphate/ Sodium Phosphate (Fleet Enema) 133 ml DAILY PRN MS . CONSTIPATION; Start 06/23/18 at 04:00 Zolpidem Tartrate (Ambien) 5 mg QHS PRN PO .INSOMNIA; Start 06/23/18 at 04:00 Diagnostic Test (Pha) (Accu-Chek) 1 ea 02 XX ; Start 06/24/18 at 02:00 Insulin Glargine (Lantus) 17 units DAILY@0800 SC Last administered on 06/23/18at 12:27; Admin Dose 17 UNITS; Start 06/23/18 at 08:00 Insulin Aspart (Novolog Insulin Pen) 8 unit WITH MEALS SC Last administered on 06/24/18 08:43; Admin Dose 8 UNIT; Start 06/23/18 at 08:00 Insulin Aspart (Novolog Insulin Pen) NOVOLOG *MILD* ALGORITHM WITH MEALS BEDTIME SC ; Start 06/23/18 at 08:00 Linagliptin (Tradjenta) 5 mg DAILY PO Last administered on 06/24/18 08:25; Admin Dose 5 MG; Start 06/23/18 at 09:00 Vancomycin HCl (Vanco Iv Per Pharmacy) VANCOMYCIN PER PHARMACY PER PROTOCOL XX ; Start 06/23/18 at 04:00 Piperacillin Sod/ Tazobactam Sod 50 ml @ 100 mls/hr Q12 IVPB Last administered on 06/24/18 08:34; Admin Dose 100 MLS/HR; Start 06/23/18 at 06:00 Atorvastatin Calcium (Lipitor) 20 mg QHS PO Last administered on 06/23/18 21:39; Admin Dose 20 MG; Start 06/23/18 at 21:00 Doxazosin Mesylate (Cardura) 2 mg HS PO Last administered on 06/23/18 23:47; Admin Dose 2 MG; Start 06/23/18 at 21:00 Ferrous Sulfate (Ferrous Sulfate (Ec)) 325 mg TID PO Last administered on 06/24/18 08:25; Admin Dose 325 MG; Start 06/23/18 at 09:00 Furosemide (Lasix) 80 mg DAILY PO Last administered on 06/24/18 08:26; Admin Dose 80 MG; Start 06/23/18 at 09:00 Isosorbide Mononitrate (Imdur) 30 mg DAILY PO Last administered on 06/24/18 08:26; Admin Dose 30 MG; Start 06/23/18 at 09:00 Levothyroxine Sodium (Synthroid) 50 mcg BEFORE BREAKFAST PO Last administered on 06/24/18 06:45; Admin Dose 50 MCG; Start 06/23/18 at 07:00 Lisinopril (Zestril) 40 mg DAILY PO Last administered on 06/24/18 08:26; Admin Dose 40 MG; Start 06/23/18 at 09:00 Multivit/Ca Carb/ B Cmplx/FA/Prenat (Matilda-Anthony) 1 tab DAILY PO Last administered on 06/24/18 08:26; Admin Dose 1 TAB; Start 06/23/18 at 09:00 Nifedipine (Procardia Xl) 90 mg DAILY PO Last administered on 06/24/18at 08:26; Admin Dose 90 MG; Start 06/23/18 at 09:00 Pantoprazole (Protonix Tab) 40 mg AC BREAKFAST PO Last administered on 06/24/18at 06:42; Admin Dose 40 MG; Start 06/23/18 at 07:00 Fenofibrate (Tricor) 48 mg DAILY PO Last administered on 06/24/18at 08:25; Admin Dose 48 MG; Start 06/23/18 at 09:00 Miscellaneous Information 1 ea NOTE XX ; Start 06/23/18 at 04:30 Glucose (Glutose) 15 gm Q15M PRN PO DECREASED GLUCOSE; Start 06/23/18 at 04:30 Glucose (Glutose) 22.5 gm Q15M PRN PO DECREASED GLUCOSE; Start 06/23/18 at 04:30 Dextrose (D50w Syringe) 25 ml Q15M PRN IV DECREASED GLUCOSE; Start 06/23/18 at 04:30 Dextrose (D50w Syringe) 50 ml Q15M PRN IV DECREASED GLUCOSE; Start 06/23/18 at 04:30 Glucagon (Glucagen) 1 mg Q15M PRN IM DECREASED GLUCOSE; Start 06/23/18 at 04:30 Glucose (Glutose) 15 gm Q15M PRN BUCCAL DECREASED GLUCOSE; Start 06/23/18 at 04:30 Hydralazine HCl (Apresoline) 100 mg TID PO Last administered on 06/24/18at 08:24; Admin Dose 100 MG; Start 06/23/18 at 13:00 Labetalol HCl (Normodyne) 600 mg BID PO Last administered on 06/24/18at 08:25; Admin Dose 600 MG; Start 06/23/18 at 21:00 Hydralazine HCl (Apresoline) 10 mg Q4H PRN IV sbp>165; Start 06/23/18 at 17:00 Benzonatate (Tessalon) 200 mg TID PRN PO COUGH; Start 06/23/18 at 17:30 Sodium Hypochlorite (Dakin'S (Dilute )) 1 applic DAILY IRR ; Start 06/24/18 at 09:00 Albumin Human 100 ml @ 100 mls/hr WITH DIALYSIS PRN IV SBP <90 DURING DIALYSIS; Start 06/23/18 at 18:30 Sodium Chloride (NS) -To prime the dialy... DIRECTED FOR HD PRN IV HD; Start 06/23/18 at 18:30 Sodium Polystyrene Sulfonate (Kayexalate) 30 gm ONCE PO ; Start 06/24/18 at 09:00; Stop 06/24/18 at 11:30 Allergies: Coded Allergies: No Known Allergy (Unverified , 04/03/18) Past Surgical History Past Surgical Hx: cholecystectomy, other (kidney transplant, AV fistula) Social History Alcohol Use: none Smoking Status: Never smoker Drug Use: none Exam/Review of Systems Exam Vitals Vital Signs Date Temp Pulse Resp B/P (MAP) Pulse Ox O2 O2 Flow FiO2 Time Delivery Rate 06/24/18 98.2 70 20 150/86 95 08:23 (107) 06/23/18 Room Air 06:30 Intake and Output 06/23/18 06/23/18 06/24/18 1515:00 23:00 07:00 IntakeIntake Total 100 ml BalanceBalance 100 ml Exam Patient is alert and oriented in no acute distress. Vasc: 1/4 DP and PT pulses. Neuro: Protective threshold diminished B/L with 5.07 monofilament. Derm: right foot sub 4th met head ulceration noted with no drainage from the wound. Minimal right foot swelling noted. Right 5th digit nail laceration "per patient after nail debridement yesterday." Musk/Skeletal: right foot minimal swelling as above. MRI studies as mentioned above. Monophasic blood flow per GAYLE studies. Results Result Diagram: 06/24/1852006/24/18 05 Results 24hrs Laboratory Tests Test 06/23/18 12:23 06/23/18 17:09 06/23/18 19:32 06/23/18 19:47 Bedside Glucose 137 135 55 L 65 L Test 06/23/18 20:02 06/23/18 20:15 06/23/18 22:30 06/24/18 05:21 Bedside Glucose 100 82 138 White Blood Count 9.5 Red Blood Count 3.17 L Hemoglobin 9.3 L Hematocrit 29.0 L Mean Corpuscular Volume 91.5 Mean Corpuscular 29.3 Hemoglobin Mean Corpuscular 32.1 Hemoglobin Concent Red Cell Distribution 15.9 H Width Platelet Count 260 Mean Platelet Volume 9.1 Immature Granulocytes % 0.300 Neutrophils % 76.1 Lymphocytes % 10.7 L Monocytes % 8.9 Eosinophils % 3.6 Basophils % 0.4 Nucleated Red Blood 0.0 Cells % Immature Granulocytes # 0.030 Neutrophils # 7.2 Lymphocytes # 1.0 Monocytes # 0.8 Eosinophils # 0.3 Basophils # 0.0 Nucleated Red Blood 0.0 Cells # Erythrocyte 98 H Sedimentation Rate Sodium Level 137 Potassium Level 6.6 #*H Chloride Level 90 L Carbon Dioxide Level 27 Anion Gap 20 H Blood Urea Nitrogen 70 H Creatinine 9.62 H Est Glomerular Filtrat 6 L Rate mL/min Glucose Level 86 # Hemoglobin A1c 6.0 H Calcium Level 7.2 L Phosphorus Level 11.0 H Magnesium Level 2.0 Test 06/24/18 08:16 Bedside Glucose 74 Medications Medication Current Medications IV Flush (NS 3 ml) 3 ml PER PROTOCOL IV ; Start 06/23/18 at 04:00 Ondansetron HCl (Zofran Inj) 4 mg Q6H PRN IV NAUSEA/VOMITING; Start 06/23/18 at 04:00 Acetaminophen (Tylenol Tab) 650 mg Q6H PRN PO .PAIN 1-3 OR TEMP; Start 06/23/18 at 04:00 Acetaminophen/ Hydrocodone Bitart (Osmond (5/325)) 1 tab Q6H PRN PO .MOD PAIN 4- 6; Start 06/23/18 at 04:00 Acetaminophen/ Hydrocodone Bitart (Osmond (5/325)) 2 tab Q6H PRN PO .SEVERE PAIN 7-10 Last administered on 06/23/18at 12:21; Admin Dose 2 TAB; Start 06/23/18 at 04:00 Hydromorphone HCl (Dilaudid) 0.5 mg Q4H PRN IV .SEVERE PAIN 7-10 Last administered on 06/24/18at 06:42; Admin Dose 0.5 MG; Start 06/23/18 at 04:00 Docusate Sodium (Colace) 100 mg Q12H PRN PO .CONSTIPATION; Start 06/23/18 at 04:00 Bisacodyl (Dulcolax) 5 mg DAILY PRN PO .CONSTIPATION; Start 06/23/18 at 04:00 Sodium Biphosphate/ Sodium Phosphate (Fleet Enema) 133 ml DAILY PRN MS .CONSTIPATION; Start 06/23/18 at 04:00 Zolpidem Tartrate (Ambien) 5 mg QHS PRN PO .INSOMNIA; Start 06/23/18 at 04:00 Diagnostic Test (Pha) (Accu-Chek) XX ; Start 06/24/18 at 02:00 Insulin Glargine (Lantus) 17 units DAILY@0800 SC Last administered on 06/23/18 12:27; Admin Dose 17 UNITS; Start 06/23/18 at 08:00 Insulin Aspart (Novolog Insulin Pen) 8 unit WITH MEALS SC Last administered on 06/24/18 08:43; Admin Dose 8 UNIT; Start 06/23/18 at 08:00 Insulin Aspart (Novolog Insulin Pen) NOVOLOG *MILD* ALGORITHM WITH MEALS BE DTIME SC ; Start 06/23/18 at 08:00 Linagliptin (Tradjenta) 5 mg DAILY PO Last administered on 06/24/18 08:25; Admin Dose 5 MG; Start 06/23/18 at 09:00 Vancomycin HCl (Vanco Iv Per Pharmacy) VANCOMYCIN PER PHARMACY PER PROTOCOL XX ; Start 06/23/18 at 04:00 Piperacillin Sod/ Tazobactam Sod 50 ml @ 100 mls/hr Q12 IVPB Last administered on 06/24/18 08:34; Admin Dose 100 MLS/HR; Start 06/23/18 at 06:00 Atorvastatin Calcium (Lipitor) 20 mg QHS PO Last administered on 06/23/18 21:39; Admin Dose 20 MG; Start 06/23/18 at 21:00 Doxazosin Mesylate (Cardura) 2 mg HS PO Last administered on 06/23/18 23:47; Admin Dose 2 MG; Start 06/23/18 at 21:00 Ferrous Sulfate (Ferrous Sulfate (Ec)) 325 mg TID PO Last administered on 06/24/18 08:25; Admin Dose 325 MG; Start 06/23/18 at 09:00 Furosemide (Lasix) 80 mg DAILY PO Last administered on 06/24/18 08:26; Admin Dose 80 MG; Start 06/23/18 at 09:00 Isosorbide Mononitrate (Imdur) 30 mg DAILY PO Last administered on 06/24/18 08:26; Admin Dose 30 MG; Start 06/23/18 at 09:00 Levothyroxine Sodium (Synthroid) 50 mcg BEFORE BREAKFAST PO Last administered on 06/24/18 06:45; Admin Dose 50 MCG; Start 06/23/18 at 07:00 Lisinopril (Zestril) 40 mg DAILY PO Last administered on 06/24/18 08:26; Admin Dose 40 MG; Start 06/23/18 at 09:00 Multivit/Ca Carb/ B Cmplx/FA/Prenat (Matilda-Anthony) 1 tab DAILY PO Last administered on 06/24/18 08:26; Admin Dose 1 TAB; Start 06/23/18 at 09:00 Nifedipine (Procardia Xl) 90 mg DAILY PO Last administered on 06/24/18 08:26; Admin Dose 90 MG; Start 06/23/18 at 09:00 Pantoprazole (Protonix Tab) 40 mg AC BREAKFAST PO Last administered on 06/24/18 06:42; Admin Dose 40 MG; Start 06/23/18 at 07:00 Fenofibrate (Tricor) 48 mg DAILY PO Last administered on 06/24/18 08:25; Admin Dose 48 MG; Start 06/23/18 at 09:00 Miscellaneous Information 1 ea NOTE XX ; Start 06/23/18 at 04:30 Glucose (Glutose) 15 gm Q15M PRN PO DECREASED GLUCOSE; Start 06/23/18 at 04:30 Glucose (Glutose) 22.5 gm Q15M PRN PO DECREASED GLUCOSE; Start 06/23/18 at 04:30 Dextrose (D50w Syringe) 25 ml Q15M PRN IV DECREASED GLUCOSE; Start 06/23/18 at 04:30 Dextrose (D50w Syringe) 50 ml Q15M PRN IV DECREASED GLUCOSE; Start 06/23/18 at 04:30 Glucagon (Glucagen) 1 mg Q15M PRN IM DECREASED GLUCOSE; Start 06/23/18 at 04:30 Glucose (Glutose) 15 gm Q15M PRN BUCCAL DECREASED GLUCOSE; Start 06/23/18 at 04:30 Hydralazine HCl (Apresoline) 100 mg TID PO Last administered on 06/24/18 08:24; Admin Dose 100 MG; Start 06/23/18 at 13:00 Labetalol HCl (Normodyne) 600 mg BID PO Last administered on 06/24/18at 08:25; Admin Dose 600 MG; Start 06/23/18 at 21:00 Hydralazine HCl (Apresoline) 10 mg Q4H PRN IV sbp>165; Start 06/23/18 at 17:00 Benzonatate (Tessalon) 200 mg TID PRN PO COUGH; Start 06/23/18 at 17:30 Sodium Hypochlorite (Dakin'S (Dilute )) 1 applic DAILY IRR ; Start 06/24/18 at 09:00 Albumin Human 100 ml @ 100 mls/hr WITH DIALYSIS PRN IV SBP <90 DURING DIALYSIS; Start 06/23/18 at 18:30 Sodium Chloride (NS) -To prime the dialy... DIRECTED FOR HD PRN IV HD; Start 06/23/18 at 18:30 Sodium Polystyrene Sulfonate (Kayexalate) 30 gm ONCE PO ; Start 06/24/18 at 09:00; Stop 06/24/18 at 11:30 GUERO HAQUE DPM Jun 24, 2018 10:25
--- NOTE | 2018-06-24 10:31 | CONS ---
DATE OF ADMISSION: 06/23/2018 DATE OF CONSULTATION: 06/24/2018 REFERRING PHYSICIAN: Raji Brown DPM REASON FOR CONSULTATION: Right foot nonhealing ulcer with pain. HISTORY OF PRESENT ILLNESS: This is a very pleasant 58-year-old diabetic hypertensive gentleman with end-stage renal disease and has been on dialysis for several years. He has a left radiocephalic AV fistula. He does not know who created it. He has been coming to the wound center at the [facility] for about a year for an ulcer on the right plantar foot. I have never seen him before. I do not see that he had any other vascular evaluation. Dr. Hines saw him last week at the [facility] and actually had scheduled him to see me on Saturday of this week for a vascular evaluation, but he came in to the ER because he is having more pain in the foot. Dr. Brown was called last night when he came in and has seen him and debrided the foot already. His wheelage clerk is Dr. Hemphill, and he dialyzes in [place], Dr. Horton saw him to arrange dialysis on this admission. Today says his foot feels a lot better than it did when he came in yesterday. He has been getting Dakins solution on the wound. His primary care doctor is Dr. Sierra who is seeing him here while he is in the hospital as well. PAST MEDICAL HISTORY: Significant for diabetes, hypertension, end-stage renal disease. No history of coronary artery disease. He has had a cholecystectomy and a left arm radiocephalic AV fistula. MEDICATIONS: 1. Kayexalate. His potassium was high. 2. Lipitor. 2. Cardura. 3. Labetalol. 4. Tessalon. 5. Hydralazine. 6. Tradjenta. 7. Iron. 8. Lasix. 9. Imdur. 10. Lisinopril. 11. Nifedipine. 12. TriCor. 13. Lantus. 14. NovoLog. 15. Vancomycin. 16. Levothyroxine. 17. Pantoprazole 18. Zosyn. ALLERGIES: NO KNOWN DRUG ALLERGIES. SOCIAL HISTORY: He is a former smoker, he stopped 30 years ago. Does not drink or use any illicit drugs. PHYSICAL EXAMINATION GENERAL: He is a middle-aged gentleman. He speaks Libyan fluently. VITAL SIGNS: He has been afebrile. Blood pressure is 150/86, heart rate 70, respiratory rate is 20. He is 95% sat on room air. NECK: He has 2+ carotid, radial and brachial pulses bilaterally. He has a left radiocephalic AV fistula that has a good thrill. No pulsatility to it and no ulcerations or pseudoaneurysms. LUNGS: Clear. HEART: Regular rate and rhythm. ABDOMEN: Soft, nontender, nondistended. EXTREMITIES: He has 2+ femoral and popliteal pulses bilaterally. DP pulses and 1+ and definitely diminished, although palpable on the right plantar foot, there is a big hole over the fourth metatarsal head that goes pretty deep with some fresh blood around it as it has just been debrided, a little bit of bleeding from the area. He is not tender there and he says that the foot is not hurting like when he first came in. He had an MRI done yesterday that does show osteomyelitis in the right 4th metatarsal head. Arterial studies showed biphasic tibial flow in both feet in the posterior tibial artery. there is monophasic anterior tibial and dorsalis pedis flow bilaterally. LABORATORY DATA: Sed rate is 98 consistent with osteomyelitis. Hemoglobin is 9.3, platelet count 260, potassium was 5 when he came in. It was high this morning. He is going to get dialyzed today and he got some Kayexalate already. IMPRESSION: Chronic right foot nonhealing ulcer. He has mild to moderate arterial insufficiency. He is going to be followed by podiatry. He clearly needs to be set up with long-term IV antibiotics given the osteomyelitis and I will follow him along with podiatry in the wound center.He is also interested in hyperbaric oxygen therapy. I talked to him about that - he had a problem with one of his toes previously and was started on hyperbarics and it healed within a month so he wanted to try that before doing anything too aggressive. Dictated By: BENJAMIN BLANCO/BEBETO Conf#: [id number] DID#: [id number] CC: ELANA SIERRA MD; MARCIE HAMPTON MD; Raji Brown; GUERO SOLOM;*EndCC* MTDD
[2018-06-24] MEDS ORDERED: LIDOCAINE 1% (MPF) 5 ML VIAL SC ONE (14:00)
--- NOTE | 2018-06-24 14:08 | PN ---
Date/Time of Note Date/Time of Note DATE: 06/24/18 TIME: 13:59 Assessment/Plan VTE Prophylaxis Risk score (from Ns)>0 risk: 3 SCD applied (from Ns): No SCD contraindicated: patient refusal Pharmacological prophylaxis: NA/contraindicated Pharm contraindication: patient refusal Lines/Catheters IV Catheter Type ([facility] Peripheral IV Assessment/Plan Problems: (1) Acute osteomyelitis of right foot Status: Acute Comment: On vanco-zosyn. Pt. will need IV abx x 6 weeks. Will have PICC line placed. Likely zosyn will need to be changed to longer acting gram negative killer so that pt. can get this no more often than bid at home for his HHN to administer. Defer to podiatry to change regimen. (2) Diabetic foot ulcer Status: Chronic Comment: Will add gent to his daily dressing change regimens per podiatry (3) Hyperphosphatemia Status: Chronic Comment: Defer to nephrology but for now will add renvela 1600 mg qac (4) Hyperkalemia Status: Acute Comment: kayexelate this am. HD now. Should improve (5) End-stage renal disease on hemodialysis Status: Chronic Comment: HD per nephrology (6) DM renal manif type II, uncontrolled Status: Chronic Comment: BG too low on current weight-based regimen. Will decrease lantus from 17 to 12 units qhs and Novolog from 8 to 5 units qac. (7) Benign essential hypertension Status: Chronic Comment: BP still high but improved compared to yesterday. We will work w/ cardiology to optimize (8) Other and unspecified hyperlipidemia Status: Chronic Comment: cont. statin (9) Hypothyroidism Status: Chronic Comment: Cont. LT4 daily (10) Type 2 diabetes mellitus with diabetic peripheral angiopathy without gangrene Status: Chronic Comment: Appreciate involvement of vascular surgery Result Diagram: 06/24/18 0521 06/24/18 1037 Results 24hrs Laboratory Tests Test 06/23/18 17:09 06/23/18 19:32 06/23/18 19:47 06/23/18 20:02 Bedside Glucose 135 55 L 65 L 100 Test 06/23/18 20:15 06/23/18 22:30 06/24/18 05:21 06/24/18 08:16 Bedside Glucose 82 138 74 White Blood Count 9.5 Red Blood Count 3.17 L Hemoglobin 9.3 L Hematocrit 29.0 L Mean Corpuscular Volume 91.5 Mean Corpuscular 29.3 Hemoglobin Mean Corpuscular 32.1 Hemoglobin Concent Red Cell Distribution 15.9 H Width Platelet Count 260 Mean Platelet Volume 9.1 Immature Granulocytes % 0.300 Neutrophils % 76.1 Lymphocytes % 10.7 L Monocytes % 8.9 Eosinophils % 3.6 Basophils % 0.4 Nucleated Red Blood 0.0 Cells % Immature Granulocytes # 0.030 Neutrophils # 7.2 Lymphocytes # 1.0 Monocytes # 0.8 Eosinophils # 0.3 Basophils # 0.0 Nucleated Red Blood 0.0 Cells # Erythrocyte 98 H Sedimentation Rate Sodium Level 137 Potassium Level 6.6 #*H Chloride Level 90 L Carbon Dioxide Level 27 Anion Gap 20 H Blood Urea Nitrogen 70 H Creatinine 9.62 H Est Glomerular Filtrat 6 L Rate mL/min Glucose Level 86 # Hemoglobin A1c 6.0 H Calcium Level 7.2 L Phosphorus Level 11.0 H Magnesium Level 2.0 Test 06/24/18 10:35 06/24/18 10:37 06/24/18 11:09 06/24/18 11:36 Hepatitis B Surface NEGATIVE Antigen Potassium Level 5.2 H Bedside Glucose 44 *L 34 *L Test 06/24/18 12:08 06/24/18 12:27 06/24/18 13:03 06/24/18 13:34 Bedside Glucose 53 L 64 L 108 120 Subjective 24 Hr Interval Summary Constitutional: no complaints, improved Respiratory: no complaints Cardiovascular: no complaints Gastrointestinal: decreased appetite (refusing lunch) Genitourinary: no complaints Musculoskeletal: bone/joint pain (RLE pain and swelling continues) Neurologic: no complaints Exam/Review of Systems Exam Vitals VS - Last 72 Hours, by Label Date Temp Pulse Resp B/P (MAP) Pulse Ox O2 O2 Flow FiO2 Time Delivery Rate 06/24/18 67 13:40 06/24/18 66 13:25 06/24/18 67 13:10 06/24/18 98.2 70 20 150/86 95 08:23 (107) 06/24/18 97.7 69 18 158/80 98 04:30 (106) 06/23/18 97.4 77 18 170/81 98 20:09 (110) 06/23/18 97.4 68 18 173/81 94 14:05 (111) 06/23/18 98.2 74 20 190/90 94 12:00 (123) 06/23/18 70 18 190/70 95 10:30 (110) 06/23/18 98.0 74 18 187/97 94 08:04 (127) 06/23/18 97.9 81 20 181/89 97 Room Air 06:30 (119) 06/23/18 98.1 74 21 154/78 97 Room Air 05:51 (103) 06/23/18 98.2 75 21 166/92 96 Room Air 04:00 (116) 06/23/18 98.2 78 21 158/81 98 Room Air 03:04 (106) 06/23/18 98.2 18 162/88 95 Room Air 02:29 (112) 06/22/18 97.1 80 18 125/59 97 23:30 (81) Vital Signs Date Temp Pulse Resp B/P (MAP) Pulse Ox O2 O2 Flow FiO2 Time Delivery Rate 06/24/18 67 13:40 06/24/18 98.2 20 150/86 95 08:23 (107) 06/23/18 Room Air 06:30 Intake and Output 06/23/18 06/23/18 06/24/18 1515:00 23:00 07:00 IntakeIntake Total 100 ml BalanceBalance 100 ml Constitutional: alert, oriented, well developed Psych: no complaints, nl mood/affect Respiratory: clear to auscultation, normal air movement Cardiovascular: regular rate and rhythm, nl pulses, edema (1+ RLE); No murmurs/extra sounds, No rub Gastrointestinal: soft, nl liver, spleen, tender (minimally TTP epigastrium); No non-tender Musculoskeletal: No nl extremities to inspection (R foot dressed) Extremities: normal pulses, edema (1+ RLE); No cyanosis, No clubbing Neurological: MARKER SHIPMENTS II-XII intact, nl mental status, nl speech, nl strength Results Results 24hrs Laboratory Tests Test 06/23/18 17:09 06/23/18 19:32 06/23/18 19:47 06/23/18 20:02 Bedside Glucose 135 55 L 65 L 100 Test 06/23/18 20:15 06/23/18 22:30 06/24/18 05:21 06/24/18 08:16 Bedside Glucose 82 138 74 White Blood Count 9.5 Red Blood Count 3.17 L Hemoglobin 9.3 L Hematocrit 29.0 L Mean Corpuscular Volume 91.5 Mean Corpuscular 29.3 Hemoglobin Mean Corpuscular 32.1 Hemoglobin Concent Red Cell Distribution 15.9 H Width Platelet Count 260 Mean Platelet Volume 9.1 Immature Granulocytes % 0.300 Neutrophils % 76.1 Lymphocytes % 10.7 L Monocytes % 8.9 Eosinophils % 3.6 Basophils % 0.4 Nucleated Red Blood 0.0 Cells % Immature Granulocytes # 0.030 Neutrophils # 7.2 Lymphocytes # 1.0 Monocytes # 0.8 Eosinophils # 0.3 Basophils # 0.0 Nucleated Red Blood 0.0 Cells # Erythrocyte 98 H Sedimentation Rate Sodium Level 137 Potassium Level 6.6 #*H Chloride Level 90 L Carbon Dioxide Level 27 Anion Gap 20 H Blood Urea Nitrogen 70 H Creatinine 9.62 H Est Glomerular Filtrat 6 L Rate mL/min Glucose Level 86 # Hemoglobin A1c 6.0 H Calcium Level 7.2 L Phosphorus Level 11.0 H Magnesium Level 2.0 Test 06/24/18 10:35 06/24/18 10:37 06/24/18 11:09 06/24/18 11:36 Hepatitis B Surface NEGATIVE Antigen Potassium Level 5.2 H Bedside Glucose 44 *L 34 *L Test 06/24/18 12:08 06/24/18 12:27 06/24/18 13:03 06/24/18 13:34 Bedside Glucose 53 L 64 L 108 120 Medications Medication Current Medications IV Flush (NS 3 ml) 3 ml PER PROTOCOL IV ; Start 06/23/18 at 04:00 Ondansetron HCl (Zofran Inj) 4 mg Q6H PRN IV NAUSEA/VOMITING; Start 06/23/18 at 04:00 Acetaminophen (Tylenol Tab) 650 mg Q6H PRN PO .PAIN 1-3 OR TEMP; Start 06/23/18 at 04:00 Acetaminophen/ Hydrocodone Bitart ([place] (5/325)) 1 tab Q6H PRN PO .MOD PAIN 4- 6; Start 06/23/18 at 04:00 Acetaminophen/ Hydrocodone Bitart ([place] (5/325)) 2 tab Q6H PRN PO .SEVERE PAIN 7-10 Last administered on 06/23/18at 12:21; Admin Dose 2 TAB; Start 06/23/18 at 04:00 Hydromorphone HCl (Dilaudid) 0.5 mg Q4H PRN IV .SEVERE PAIN 7-10 Last admin istered on 06/24/18at 06:42; Admin Dose 0.5 MG; Start 06/23/18 at 04:00 Docusate Sodium (Colace) 100 mg Q12H PRN PO .CONSTIPATION; Start 06/23/18 at 04:00 Bisacodyl (Dulcolax) 5 mg DAILY PRN PO .CONSTIPATION; Start 06/23/18 at 04:00 Sodium Biphosphate/ Sodium Phosphate (Fleet Enema) 133 ml DAILY PRN [place] .CONSTIPATION; Start 06/23/18 at 04:00 Zolpidem Tartrate (Ambien) 5 mg QHS PRN PO .INSOMNIA; Start 06/23/18 at 04:00 Diagnostic Test (Pha) (Accu-Chek) XX ; Start 06/24/18 at 02:00 Insulin Aspart (Novolog Insulin Pen) NOVOLOG *MILD* ALGORITHM WITH MEALS BEDTIME SC ; Start 06/23/18 at 08:00 Linagliptin (Tradjenta) 5 mg DAILY PO Last administered on 06/24/18 08:25; Admin Dose 5 MG; Start 06/23/18 at 09:00 Vancomycin HCl (Vanco Iv Per Pharmacy) VANCOMYCIN PER PHARMACY PER PROTOCOL XX ; Start 06/23/18 at 04:00 Piperacillin Sod/ Tazobactam Sod 50 ml @ 100 mls/hr Q12 IVPB Last administered on 06/24/18 08:34; Admin Dose 100 MLS/HR; Start 06/23/18 at 06:00 Atorvastatin Calcium (Lipitor) 20 mg QHS PO Last administered on 06/23/18 21:39; Admin Dose 20 MG; Start 06/23/18 at 21:00 Doxazosin Mesylate (Cardura) 2 mg HS PO Last administered on 06/23/18 23:47; Admin Dose 2 MG; Start 06/23/18 at 21:00 Ferrous Sulfate (Ferrous Sulfate (Ec)) 325 mg TID PO Last administered on 06/24/18 13:07; Admin Dose 325 MG; Start 06/23/18 at 09:00 Furosemide (Lasix) 80 mg DAILY PO Last administered on 06/24/18 08:26; Admin Dose 80 MG; Start 06/23/18 at 09:00 Isosorbide Mononitrate (Imdur) 30 mg DAILY PO Last administered on 06/24/18 08:26; Admin Dose 30 MG; Start 06/23/18 at 09:00 Levothyroxine Sodium (Synthroid) 50 mcg BEFORE BREAKFAST PO Last administered on 06/24/18 06:45; Admin Dose 50 MCG; Start 06/23/18 at 07:00 Lisinopril (Zestril) 40 mg DAILY PO Last administered on 06/24/18 08:26; Admin Dose 40 MG; Start 06/23/18 at 09:00 Multivit/Ca Carb/ B Cmplx/FA/Prenat (Matilda-Anthony) 1 tab DAILY PO Last administered on 06/24/18 08:26; Admin Dose 1 TAB; Start 06/23/18 at 09:00 Nifedipine (Procardia Xl) 90 mg DAILY PO Last administered on 06/24/18 08:26; Admin Dose 90 MG; Start 06/23/18 at 09:00 Pantoprazole (Protonix Tab) 40 mg AC BREAKFAST PO Last administered on 06/24/18 06:42; Admin Dose 40 MG; Start 06/23/18 at 07:00 Fenofibrate (Tricor) 48 mg DAILY PO Last administered on 06/24/18 08:25; Admin Dose 48 MG; Start 06/23/18 at 09:00 Miscellaneous Information 1 ea NOTE XX ; Start 06/23/18 at 04:30 Glucose (Glutose) 15 gm Q15M PRN PO DECREASED GLUCOSE; Start 06/23/18 at 04:30 Glucose (Glutose) 22.5 gm Q15M PRN PO DECREASED GLUCOSE Last administered on 06/24/18 11:41; Admin Dose 22.5 GM; Start 06/23/18 at 04:30 Dextrose (D50w Syringe) 25 ml Q15M PRN IV DECREASED GLUCOSE; Start 06/23/18 at 04:30 Dextrose (D50w Syringe) 50 ml Q15M PRN IV DECREASED GLUCOSE; Start 06/23/18 at 04:30 Glucagon (Glucagen) 1 mg Q15M PRN IM DECREASED GLUCOSE; Start 06/23/18 at 04:30 Glucose (Glutose) 15 gm Q15M PRN BUCCAL DECREASED GLUCOSE Last administered on 06/24/18at 11:14; Admin Dose 15 GM; Start 06/23/18 at 04:30 Hydralazine HCl (Apresoline) 100 mg TID PO Last administered on 06/24/18at 08:24; Admin Dose 100 MG; Start 06/23/18 at 13:00 Labetalol HCl (Normodyne) 600 mg BID PO Last administered on 06/24/18at 08:25; Admin Dose 600 MG; Start 06/23/18 at 21:00 Hydralazine HCl (Apresoline) 10 mg Q4H PRN IV sbp>165; Start 06/23/18 at 17:00 Benzonatate (Tessalon) 200 mg TID PRN PO COUGH; Start 06/23/18 at 17:30 Sodium Hypochlorite (Dakin'S (Dilute 140)) 1 applic DAILY IRR ; Start 06/24/18 at 09:00 Albumin Human 100 ml @ 100 mls/hr WITH DIALYSIS PRN IV SBP <90 DURING DIALYSIS; Start 06/23/18 at 18:30 Sodium Chloride (NS) -To prime the dialy... DIRECTED FOR HD PRN IV HD; Start 06/23/18 at 18:30 Insulin Aspart (Novolog Insulin Pen) 5 unit WITH MEALS SC ; Start 06/24/18 at 18:00 Insulin Glargine (Lantus) 12 units DAILY@0800 SC ; Start 06/25/18 at 08:00 Gentamicin Sulfate (Gentamicin 0.1% Cr) 1 applic DAILY TOP ; Start 06/25/18 at 09:00 IV Flush (NS 10 ml) 10 ml ONCE ONCE IV ; Start 06/24/18 at 14:00; Stop 06/24/18 at 14:01 Lidocaine (Xylocaine 1% (Mpf)) 5 ml ONCE ONCE SC ; Start 06/24/18 at 14:00; Sto p 06/24/18 at 14:01 Sevelamer Carbonate (Renvela) 1,600 mg WITH MEALS PO ; Start 06/24/18 at 18:00 ELANA MENDOZA MD Jun 24, 2018 14:08
--- NOTE | 2018-06-24 16:38 | CONS ---
Assessment/Plan Assessment/Plan Hospital Course (Demo Recall) Hypertension, improved Right foot pain History of hypertension Diabetes End-stage renal disease on hemodialysis Preserved ejection fraction -Patient presents with right foot pain as well as found to be hypertensive -Blood pressure trend has overall improved since adjustments were made to labe talol and hydralazine dose. -Would monitor blood pressure trend, if needed, further adjustments of m edications will be made. Hydralazine IV as needed ordered as well. -Patient to undergo podiatry evaluation, if not plan for any procedures, would benefit from aspirin for prophylaxis therapy given multiple CAD risk factors. Continue statin therapy if no contraindication -Fluid management via hemodialysis as per nephrology. Consultation Date/Type/Reason Admit Date/Time Jun 23, 2018 at 03:32 Initial Consult Date 06/23/18 Type of Consult Cardiology Requesting Provider: ELANA MENDOZA MD Date/Time of Note DATE: 06/24/18 TIME: 16:35 24 HR Interval Summary Free Text/Dictation Denies chest pain, shortness of breath palpitations Exam/Review of Systems Vital Signs Vitals Vital Signs Date Temp Pulse Resp B/P (MAP) Pulse Ox O2 O2 Flow FiO2 Time Delivery Rate 06/24/18 75 15:55 06/24/18 16 134/78 95 Room Air 13:10 (96) 06/24/18 98.2 08:23 Intake and Output 06/23/18 06/23/18 06/24/18 1414:59 22:59 06:59 IntakeIntake Total 100 ml BalanceBalance 100 ml Exam Constitutional: alert, oriented (No apparent distress, undergoing hemodialysis) Head: normocephalic Respiratory: other (Coarse breath sounds bilaterally, no wheezing) Cardiovascular: regular rate and rhythm (S1-S2 heard) Gastrointestinal: soft, non-tender, bowel sounds Extremities: edema Labs Result Diagram: 06/24/18 0521 06/24/18 1037 Results 24hrs Laboratory Tests Test 06/23/18 17:09 06/23/18 19:32 06/23/18 19:47 06/23/18 20:02 Bedside Glucose 135 55 L 65 L 100 Test 06/23/18 20:15 06/23/18 22:30 06/24/18 05:21 06/24/18 08:16 Bedside Glucose 82 138 74 White Blood Count 9.5 Red Blood Count 3.17 L Hemoglobin 9.3 L Hematocrit 29.0 L Mean Corpuscular Volume 91.5 Mean Corpuscular 29.3 Hemoglobin Mean Corpuscular 32.1 Hemoglobin Concent Red Cell Distribution 15.9 H Width Platelet Count 260 Mean Platelet Volume 9.1 Immature Granulocytes % 0.300 Neutrophils % 76.1 Lymphocytes % 10.7 L Monocytes % 8.9 Eosinophils % 3.6 Basophils % 0.4 Nucleated Red Blood 0.0 Cells % Immature Granulocytes # 0.030 Neutrophils # 7.2 Lymphocytes # 1.0 Monocytes # 0.8 Eosinophils # 0.3 Basophils # 0.0 Nucleated Red Blood 0.0 Cells # Erythrocyte 98 H Sedimentation Rate Sodium Level 137 Potassium Level 6.6 #*H Chloride Level 90 L Carbon Dioxide Level 27 Anion Gap 20 H Blood Urea Nitrogen 70 H Creatinine 9.62 H Est Glomerular Filtrat 6 L Rate mL/min Glucose Level 86 # Hemoglobin A1c 6.0 H Calcium Level 7.2 L Phosphorus Level 11.0 H Magnesium Level 2.0 Test 06/24/18 10:35 06/24/18 10:37 06/24/18 11:09 06/24/18 11:36 Hepatitis B Surface NEGATIVE Antigen Potassium Level 5.2 H Bedside Glucose 44 *L 34 *L Test 06/24/18 12:08 06/24/18 12:27 06/24/18 13:03 06/24/18 13:34 Bedside Glucose 53 L 64 L 108 120 Medications Medications Current Medications IV Flush (NS 3 ml) 3 ml PER PROTOCOL IV ; Start 06/23/18 at 04:00 Ondansetron HCl (Zofran Inj) 4 mg Q6H PRN IV NAUSEA/VOMITING; Start 06/23/18 at 04:00 Acetaminophen (Tylenol Tab) 650 mg Q6H PRN PO .PAIN 1-3 OR TEMP; Start 06/23/18 at 04:00 Acetaminophen/ Hydrocodone Bitart ([place] (5/325)) 1 tab Q6H PRN PO .MOD PAIN 4- 6; Start 06/23/18 at 04:00 Acetaminophen/ Hydrocodone Bitart ([place] (5/325)) 2 tab Q6H PRN PO .SEVERE PAIN 7-10 Last administered on 06/23/18at 12:21; Admin Dose 2 TAB; Start 06/23/18 at 04:00 Hydromorphone HCl (Dilaudid) 0.5 mg Q4H PRN IV .SEVERE PAIN 7-10 Last administered on 06/24/18 06:42; Admin Dose 0.5 MG; Start 06/23/18 at 04:00 Docusate Sodium (Colace) 100 mg Q12H PRN PO .CONSTIPATION; Start 06/23/18 at 04:00 Bisacodyl (Dulcolax) 5 mg DAILY PRN PO .CONSTIPATION; Start 06/23/18 at 04:00 Sodium Biphosphate/ Sodium Phosphate (Fleet Enema) 133 ml DAILY PRN [place] .CONS TIPATION; Start 06/23/18 at 04:00 Zolpidem Tartrate (Ambien) 5 mg QHS PRN PO .INSOMNIA; Start 06/23/18 at 04:00 Diagnostic Test (Pha) (Accu-Chek) XX ; Start 06/24/18 at 02:00 Insulin Aspart (Novolog Insulin Pen) NOVOLOG *MILD* ALGORITHM WITH MEALS BEDTIME SC ; Start 06/23/18 at 08:00 Linagliptin (Tradjenta) 5 mg DAILY PO Last administered on 06/24/18 08:25; Admin Dose 5 MG; Start 06/23/18 at 09:00 Vancomycin HCl (Vanco Iv Per Pharmacy) VANCOMYCIN PER PHARMACY PER PROTOCOL XX ; Start 06/23/18 at 04:00 Piperacillin Sod/ Tazobactam Sod 50 ml @ 100 mls/hr Q12 IVPB Last administered on 06/24/18 08:34; Admin Dose 100 MLS/HR; Start 06/23/18 at 06:00 Atorvastatin Calcium (Lipitor) 20 mg QHS PO Last administered on 06/23/18 21:39; Admin Dose 20 MG; Start 06/23/18 at 21:00 Doxazosin Mesylate (Cardura) 2 mg HS PO Last administered on 06/23/18 23:47; Admin Dose 2 MG; Start 06/23/18 at 21:00 Ferrous Sulfate (Ferrous Sulfate (Ec)) 325 mg TID PO Last administered on 06/24/18 13:07; Admin Dose 325 MG; Start 06/23/18 at 09:00 Furosemide (Lasix) 80 mg DAILY PO Last administered on 06/24/18 08:26; Admin Dose 80 MG; Start 06/23/18 at 09:00 Isosorbide Mononitrate (Imdur) 30 mg DAILY PO Last administered on 06/24/18 08:26; Admin Dose 30 MG; Start 06/23/18 at 09:00 Levothyroxine Sodium (Synthroid) 50 mcg BEFORE BREAKFAST PO Last administered on 06/24/18 06:45; Admin Dose 50 MCG; Start 06/23/18 at 07:00 Lisinopril (Zestril) 40 mg DAILY PO Last administered on 06/24/18 08:26; Admin Dose 40 MG; Start 06/23/18 at 09:00 Multivit/Ca Carb/ B Cmplx/FA/Prenat (Matilda-Anthony) 1 tab DAILY PO Last admini stered on 06/24/18 08:26; Admin Dose 1 TAB; Start 06/23/18 at 09:00 Nifedipine (Procardia Xl) 90 mg DAILY PO Last administered on 06/24/18 08:26; Admin Dose 90 MG; Start 06/23/18 at 09:00 Pantoprazole (Protonix Tab) 40 mg AC BREAKFAST PO Last administered on 06/24/18 06:42; Admin Dose 40 MG; Start 06/23/18 at 07:00 Fenofibrate (Tricor) 48 mg DAILY PO Last administered on 06/24/18 08:25; Admin Dose 48 MG; Start 06/23/18 at 09:00 Miscellaneous Information 1 ea NOTE XX ; Start 06/23/18 at 04:30 Glucose (Glutose) 15 gm Q15M PRN PO DECREASED GLUCOSE; Start 06/23/18 at 04:30 Glucose (Glutose) 22.5 gm Q15M PRN PO DECREASED GLUCOSE Last administered on 06/24/18 11:41; Admin Dose 22.5 GM; Start 06/23/18 at 04:30 Dextrose (D50w Syringe) 25 ml Q15M PRN IV DECREASED GLUCOSE; Start 06/23/18 at 04:30 Dextrose (D50w Syringe) 50 ml Q15M PRN IV DECREASED GLUCOSE; Start 06/23/18 at 04:30 Glucagon (Glucagen) 1 mg Q15M PRN IM DECREASED GLUCOSE; Start 06/23/18 at 04:30 Glucose (Glutose) 15 gm Q15M PRN BUCCAL DECREASED GLUCOSE Last administered on 06/24/18at 11:14; Admin Dose 15 GM; Start 06/23/18 at 04:30 Hydralazine HCl (Apresoline) 100 mg TID PO Last administered on 06/24/18at 08:24; Admin Dose 100 MG; Start 06/23/18 at 13:00 Labetalol HCl (Normodyne) 600 mg BID PO Last administered on 06/24/18at 08:25; Admin Dose 600 MG; Start 06/23/18 at 21:00 Hydralazine HCl (Apresoline) 10 mg Q4H PRN IV sbp>165; Start 06/23/18 at 17:00 Benzonatate (Tessalon) 200 mg TID PRN PO COUGH; Start 06/23/18 at 17:30 Sodium Hypochlorite (Dakin'S (Dilute )) 1 applic DAILY IRR ; Start 06/24/18 at 09:00 Albumin Human 100 ml @ 100 mls/hr WITH DIALYSIS PRN IV SBP <90 DURING DIALYSIS; Start 06/23/18 at 18:30 Sodium Chloride (NS) -To prime the dialy... DIRECTED FOR HD PRN IV HD; Start 06/23/18 at 18:30 Insulin Aspart (Novolog Insulin Pen) 5 unit WITH MEALS SC ; Start 06/24/18 at 18:00 Insulin Glargine (Lantus) 12 units DAILY@0800 SC ; Start 06/25/18 at 08:00 Gentamicin Sulfate (Gentamicin 0.1% Cr) 1 applic DAILY TOP ; Start 06/25/18 at 09:00 Sevelamer Carbonate (Renvela) 1,600 mg WITH MEALS PO ; Start 06/24/18 at 18:00 Miscellaneous Information (*Rx Drug Level Order Reminder*) VANCO RANDOM W/ AM LABS... ONCE ONCE XX ; Start 06/25/18 at 05:00; Stop 06/25/18 at 05:01 Elana Snell DO Jun 24, 2018 16:38
[2018-06-24] MEDS: SEVELAMER CARBONATE 800 MG TABLET PO SCH (17:09)
--- NOTE | 2018-06-24 18:28 | CONS ---
Assessment/Plan Assessment/Plan Assessment/Plan (Daily) 1. 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 ESRD on HD 3. HTN 4. Hyperlipidemia 5. H/o TIA Plan: s/p IV abx in ED, vanocmycin and zosyn s/p kayexalate for Hyperkalemia, Follow up K 5.2- s/p HD today 2.5 L removed Podiatry has been following pt Continue other home meds IV hydralazine prn will follow up Consultation Date/Type/Reason Admit Date/Time Jun 23, 2018 at 03:32 Initial Consult Date 06/23/18 Type of Consult NEPHROLOGY Requesting Provider: ELANA MENDOZA MD Date/Time of Note DATE: 06/24/18 TIME: 18:28 24 HR Interval Summary Free Text/Dictation K was 6.6- kayexalate was given follow up K 5.2, S/p HD today Exam/Review of Systems Exam Vitals Vital Signs Date Temp Pulse Resp B/P (MAP) Pulse Ox O2 O2 Flow FiO2 Time Delivery Rate 06/24/18 75 15:55 06/24/18 97.9 18 161/87 96 14:00 (111) 06/24/18 Room Air 13:10 Intake and Output 06/23/18 06/23/18 06/24/18 1515:00 23:00 07:00 IntakeIntake Total 100 ml BalanceBalance 100 ml Exam Constitutional: alert, awake, no acute distress Respiratory: clear to auscultation, normal air movement Cardiovascular: regular rate and rhythm, nl pulses; Gastrointestinal: soft, nl liver, spleen, bowel sounds, tender (epigastrium, BUQ); NT, ND, BS+ Musculoskeletal: joint tenderness (R 3rd MTP joint), swelling (mild of the dorsal R foot, no erythema or warmth) Extremities: RLE pittign edema Neurological: Non focal Results Result Diagram: 06/24/18 0521 06/24/18 1037 Results 24hrs Laboratory Tests Test 06/23/18 19:32 06/23/18 19:47 06/23/18 20:02 06/23/18 20:15 Bedside Glucose 55 L 65 L 100 82 Test 06/23/18 22:30 06/24/18 05:21 06/24/18 08:16 06/24/18 10:35 Bedside Glucose 138 74 White Blood Count 9.5 Red Blood Count 3.17 L Hemoglobin 9.3 L Hematocrit 29.0 L Mean Corpuscular Volume 91.5 Mean Corpuscular 29.3 Hemoglobin Mean Corpuscular 32.1 Hemoglobin Concent Red Cell Distribution 15.9 H Width Platelet Count 260 Mean Platelet Volume 9.1 Immature Granulocytes % 0.300 Neutrophils % 76.1 Lymphocytes % 10.7 L Monocytes % 8.9 Eosinophils % 3.6 Basophils % 0.4 Nucleated Red Blood 0.0 Cells % Immature Granulocytes # 0.030 Neutrophils # 7.2 Lymphocytes # 1.0 Monocytes # 0.8 Eosinophils # 0.3 Basophils # 0.0 Nucleated Red Blood 0.0 Cells # Erythrocyte 98 H Sedimentation Rate Sodium Level 137 Potassium Level 6.6 #*H Chloride Level 90 L Carbon Dioxide Level 27 Anion Gap 20 H Blood Urea Nitrogen 70 H Creatinine 9.62 H Est Glomerular Filtrat 6 L Rate mL/min Glucose Level 86 # Hemoglobin A1c 6.0 H Calcium Level 7.2 L Phosphorus Level 11.0 H Magnesium Level 2.0 Hepatitis B Surface NEGATIVE Antigen Test 06/24/18 10:37 06/24/18 11:09 06/24/18 11:36 06/24/18 12:08 Potassium Level 5.2 H Bedside Glucose 44 *L 34 *L 53 L Test 06/24/18 12:27 06/24/18 13:03 06/24/18 13:34 06/24/18 17:01 Bedside Glucose 64 L 108 120 207 Medications Medication Current Medications IV Flush (NS 3 ml) 3 ml PER PROTOCOL IV ; Start 06/23/18 at 04:00 Ondansetron HCl (Zofran Inj) 4 mg Q6H PRN IV NAUSEA/VOMITING; Start 06/23/18 at 04:00 Acetaminophen (Tylenol Tab) 650 mg Q6H PRN PO .PAIN 1-3 OR TEMP; Start 06/23/18 at 04:00 Acetaminophen/ Hydrocodone Bitart ([place] (5/325)) 1 tab Q6H PRN PO .MOD PAIN 4- 6; Start 06/23/18 at 04:00 Acetaminophen/ Hydrocodone Bitart ([place] (5/325)) 2 tab Q6H PRN PO .SEVERE PAIN 7-10 Last administered on 06/23/18at 12:21; Admin Dose 2 TAB; Start 06/23/18 at 04:00 Hydromorphone HCl (Dilaudid) 0.5 mg Q4H PRN IV .SEVERE PAIN 7-10 Last administered on 06/24/18 06:42; Admin Dose 0.5 MG; Start 06/23/18 at 04:00 Docusate Sodium (Colace) 100 mg Q12H PRN PO .CONSTIPATION; Start 06/23/18 at 04:00 Bisacodyl (Dulcolax) 5 mg DAILY PRN PO .CONSTIPATION; Start 06/23/18 at 04:00 Sodium Biphosphate/ Sodium Phosphate (Fleet Enema) 133 ml DAILY PRN [place] .CONSTIPATION; Start 06/23/18 at 04:00 Zolpidem Tartrate (Ambien) 5 mg QHS PRN PO .INSOMNIA; Start 06/23/18 at 04:00 Diagnostic Test (Pha) (Accu-Chek) 1 ea 02 XX ; Start 06/24/18 at 02:00 Insulin Aspart (Novolog Insulin Pen) NOVOLOG *MILD* ALGORITHM WITH MEALS BEDTIME SC Last administered on 06/24/18 17:03; Admin Dose 2 UNIT; Start 06/23/18 at 08:00 Linagliptin (Tradjenta) 5 mg DAILY PO Last administered on 06/24/18 08:25; Admin Dose 5 MG; Start 06/23/18 at 09:00 Vancomycin HCl (Vanco Iv Per Pharmacy) VANCOMYCIN PER PHARMACY PER PROTOCOL XX ; Start 06/23/18 at 04:00 Piperacillin Sod/ Tazobactam Sod 50 ml @ 100 mls/hr Q12 IVPB Last administered on 06/24/18 08:34; Admin Dose 100 MLS/HR; Start 06/23/18 at 06:00 Atorvastatin Calcium (Lipitor) 20 mg QHS PO Last administered on 06/23/18 21:39; Admin Dose 20 MG; Start 06/23/18 at 21:00 Doxazosin Mesylate (Cardura) 2 mg HS PO Last administered on 06/23/18 23:47; Admin Dose 2 MG; Start 06/23/18 at 21:00 Ferrous Sulfate (Ferrous Sulfate (Ec)) 325 mg TID PO Last administered on 06/24/18 13:07; Admin Dose 325 MG; Start 06/23/18 at 09:00 Furosemide (Lasix) 80 mg DAILY PO Last administered on 06/24/18 08:26; Admin Dose 80 MG; Start 06/23/18 at 09:00 Isosorbide Mononitrate (Imdur) 30 mg DAILY PO Last administered on 06/24/18 08:26; Admin Dose 30 MG; Start 06/23/18 at 09:00 Levothyroxine Sodium (Synthroid) 50 mcg BEFORE BREAKFAST PO Last administered on 06/24/18 06:45; Admin Dose 50 MCG; Start 06/23/18 at 07:00 Lisinopril (Zestril) 40 mg DAILY PO Last administered on 06/24/18 08:26; Admin Dose 40 MG; Start 06/23/18 at 09:00 Multivit/Ca Carb/ B Cmplx/FA/Prenat (Matilda-Anthony) 1 tab DAILY PO Last administered on 06/24/18 08:26; Admin Dose 1 TAB; Start 06/23/18 at 09:00 Nifedipine (Procardia Xl) 90 mg DAILY PO Last administered on 06/24/18 08:26; Admin Dose 90 MG; Start 06/23/18 at 09:00 Pantoprazole (Protonix Tab) 40 mg AC BREAKFAST PO Last administered on 06/24/18 06:42; Admin Dose 40 MG; Start 06/23/18 at 07:00 Fenofibrate (Tricor) 48 mg DAILY PO Last administered on 06/24/18 08:25; Admin Dose 48 MG; Start 06/23/18 at 09:00 Miscellaneous Information 1 ea NOTE XX ; Start 06/23/18 at 04:30 Glucose (Glutose) 15 gm Q15M PRN PO DECREASED GLUCOSE; Start 06/23/18 at 04:30 Glucose (Glutose) 22.5 gm Q15M PRN PO DECREASED GLUCOSE Last administered on 06/24/18 11:41; Admin Dose 22.5 GM; Start 06/23/18 at 04:30 Dextrose (D50w Syringe) 25 ml Q15M PRN IV DECREASED GLUCOSE; Start 06/23/18 at 04:30 Dextrose (D50w Syringe) 50 ml Q15M PRN IV DECREASED GLUCOSE; Start 06/23/18 at 04:30 Glucagon (Glucagen) 1 mg Q15M PRN IM DECREASED GLUCOSE; Start 06/23/18 at 04:30 Glucose (Glutose) 15 gm Q15M PRN BUCCAL DECREASED GLUCOSE Last administered on 06/24/18at 11:14; Admin Dose 15 GM; Start 06/23/18 at 04:30 Hydralazine HCl (Apresoline) 100 mg TID PO Last administered on 06/24/18at 08:24; Admin Dose 100 MG; Start 06/23/18 at 13:00 Labetalol HCl (Normodyne) 600 mg BID PO Last administered on 06/24/18at 08:25; Admin Dose 600 MG; Start 06/23/18 at 21:00 Hydralazine HCl (Apresoline) 10 mg Q4H PRN IV sbp>165; Start 06/23/18 at 17:00 Benzonatate (Tessalon) 200 mg TID PRN PO COUGH; Start 06/23/18 at 17:30 Sodium Hypochlorite (Dakin'S (Dilute 40)) 1 applic DAILY IRR ; Start 06/24/18 at 09:00 Albumin Human 100 ml @ 100 mls/hr WITH DIALYSIS PRN IV SBP <90 DURING DIALYSIS; Start 06/23/18 at 18:30 Sodium Chloride (NS) -To prime the dialy... DIRECTED FOR HD PRN IV HD; Start 06/23/18 at 18:30 Insulin Aspart (Novolog Insulin Pen) 5 unit WITH MEALS SC Last administered on 06/24/18at 17:04; Admin Dose 5 UNIT; Start 06/24/18 at 18:00 Insulin Glargine (Lantus) 12 units DAILY@0800 SC ; Start 06/25/18 at 08:00 Gentamicin Sulfate (Gentamicin 0.1% Cr) 1 applic DAILY TOP ; Start 06/25/18 at 09:00 Sevelamer Carbonate (Renvela) 1,600 mg WITH MEALS PO Last administered on 06/24/18 17:09; Admin Dose 1,600 MG; Start 06/24/18 at 18:00 Miscellaneous Information (*Rx Drug Level Order Reminder*) VANCO RANDOM W/ AM LABS... ONCE ONCE XX ; Start 06/25/18 at 05:00; Stop 06/25/18 at 05:01 NOAM MATT MD Jun 24, 2018 18:28
[2018-06-24] MEDS: ATORVASTATIN 20 MG TAB PO SCH (20:22)
[2018-06-24] MEDS: DOXAZOSIN 2 MG TAB PO SCH (20:22)
[2018-06-25] VITALS (10 sets, daily range): BP systolic 99–183; BP diastolic 44–87; PULSE 66–77; RESP 16–20
[2018-06-25] MEDS: ACCU-CHEK XX SCH (01:37)
[2018-06-25] MEDS: LEVOTHYROXINE 25 MCG TAB PO SCH (06:21)
[2018-06-25] MEDS: PANTOPRAZOLE (EC) 40 MG TAB PO SCH (06:24)
[2018-06-25] MEDS ORDERED: INSULIN GLARGINE [LANTus] (100 UNITS/ML) SYG SC SCH (08:00)
[2018-06-25] MEDS: HYDROmorphONE 0.5 MG/0.5 ML SYG IV PRN ×4 (08:34→23:51)
--- NOTE | 2018-06-25 08:37 | CONS ---
Assessment/Plan Assessment/Plan Assessment/Plan (Daily) 1. 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 ESRD on HD 3. HTN 4. Hyperlipidemia 5. H/o TIA Plan: IV abx in ED, vanocmycin and zosyn, PICC line placed today s/p HD yesterday 2.5 L removed - plan for HD tomorrow - will keep pt on TTS schedule while being in hospital podiatry has been following Dr. Ortiz to see pt from Consultation Date/Type/Reason Admit Date/Time Jun 23, 2018 at 03:32 Initial Consult Date 06/23/18 Type of Consult NEPHROLOGY Requesting Provider: ELANA MENDOZA MD Date/Time of Note DATE: 06/25/18 TIME: 08:37 Exam/Review of Systems Exam Vitals Vital Signs Date Temp Pulse Resp B/P (MAP) Pulse Ox O2 O2 Flow FiO2 Time Delivery Rate 06/25/18 98.9 74 16 170/87 100 08:16 (114) 06/24/18 Room Air 16:30 Intake and Output 06/24/18 06/24/18 06/25/18 1515:00 23:00 07:00 IntakeIntake Total 650 ml 50 ml OutputOutput Total 3000 ml BalanceBalance 650 ml -2950 ml Exam Constitutional: alert, awake, no acute distress Respiratory: clear to auscultation, normal air movement Cardiovascular: regular rate and rhythm, nl pulses; Gastrointestinal: soft, nl liver, spleen, bowel sounds, tender (epigastrium, BUQ); NT, ND, BS+ Musculoskeletal: joint tenderness (R 3rd MTP joint), swelling (mild of the dorsal R foot, no erythema or warmth) Extremities: RLE pittign edema Neurological: Non focal Results Result Diagram: 06/25/18 0511 06/25/18 0511 Results 24hrs Laboratory Tests Test 06/24/18 10:35 06/24/18 10:37 06/24/18 11:09 06/24/18 11:36 Hepatitis B Surface NEGATIVE Antigen Potassium Level 5.2 H Bedside Glucose 44 *L 34 *L Test 06/24/18 12:08 06/24/18 12:27 06/24/18 13:03 06/24/18 13:34 Bedside Glucose 53 L 64 L 108 120 Test 06/24/18 17:01 06/24/18 20:27 06/25/18 05:11 06/25/18 08:16 Bedside Glucose 207 127 208 White Blood Count 7.4 # Red Blood Count 3.33 L Hemoglobin 9.6 L Hematocrit 30.0 L Mean Corpuscular Volume 90.1 Mean Corpuscular 28.8 L Hemoglobin Mean Corpuscular 32.0 Hemoglobin Concent Red Cell Distribution 15.9 H Width Platelet Count 237 Mean Platelet Volume 8.6 Immature Granulocytes % 0.500 H Neutrophils % 73.4 Lymphocytes % 12.7 L Monocytes % 9.2 Eosinophils % 3.8 Basophils % 0.4 Nucleated Red Blood 0.0 Cells % Immature Granulocytes # 0.040 H Neutrophils # 5.4 Lymphocytes # 0.9 Monocytes # 0.7 Eosinophils # 0.3 Basophils # 0.0 Nucleated Red Blood 0.0 Cells # Sodium Level 140 Potassium Level 4.8 Chloride Level 100 # Carbon Dioxide Level 24 Anion Gap 16 H Blood Urea Nitrogen 44 #H Creatinine 7.20 #H Est Glomerular Filtrat 8 L Rate mL/min Glucose Level 171 Calcium Level 8.1 L Phosphorus Level 8.6 #H Random Vancomycin Level 16.6 Medications Medication Current Medications IV Flush (NS 3 ml) 3 ml PER PROTOCOL IV ; Start 06/23/18 at 04:00 Ondansetron HCl (Zofran Inj) 4 mg Q6H PRN IV NAUSEA/VOMITING; Start 06/23/18 at 04:00 Acetaminophen (Tylenol Tab) 650 mg Q6H PRN PO .PAIN 1-3 OR TEMP; Start 06/23/18 at 04:00 Acetaminophen/ Hydrocodone Bitart ([place] (5/325)) 1 tab Q6H PRN PO .MOD PAIN 4- 6; Start 06/23/18 at 04:00 Acetaminophen/ Hydrocodone Bitart ([place] (5/325)) 2 tab Q6H PRN PO .SEVERE PAIN 7-10 Last administered on 06/23/18at 12:21; Admin Dose 2 TAB; Start 06/23/18 at 04:00 Hydromorphone HCl (Dilaudid) 0.5 mg Q4H PRN IV .SEVERE PAIN 7-10 Last administered on 06/24/18at 20:44; Admin Dose 0.5 MG; Start 06/23/18 at 04:00 Docusate Sodium (Colace) 100 mg Q12H PRN PO .CONSTIPATION; Start 06/23/18 at 04:00 Bisacodyl (Dulcolax) 5 mg DAILY PRN PO .CONSTIPATION; Start 06/23/18 at 04:00 Sodium Biphosphate/ Sodium Phosphate (Fleet Enema) 133 ml DAILY PRN [place] .CONS TIPATION; Start 06/23/18 at 04:00 Zolpidem Tartrate (Ambien) 5 mg QHS PRN PO .INSOMNIA; Start 06/23/18 at 04:00 Diagnostic Test (Pha) (Accu-Chek) XX ; Start 06/24/18 at 02:00 Insulin Aspart (Novolog Insulin Pen) NOVOLOG *MILD* ALGORITHM WITH MEALS BEDTIME SC Last administered on 06/24/18 17:03; Admin Dose 2 UNIT; Start 06/23/18 at 08:00 Linagliptin (Tradjenta) 5 mg DAILY PO Last administered on 06/24/18 08:25; Admin Dose 5 MG; Start 06/23/18 at 09:00 Vancomycin HCl (Vanco Iv Per Pharmacy) VANCOMYCIN PER PHARMACY PER PROTOCOL XX ; Start 06/23/18 at 04:00 Piperacillin Sod/ Tazobactam Sod 50 ml @ 100 mls/hr Q12 IVPB Last administered on 06/24/18 21:02; Admin Dose 100 MLS/HR; Start 06/23/18 at 06:00 Atorvastatin Calcium (Lipitor) 20 mg QHS PO Last administered on 06/24/18 20:22; Admin Dose 20 MG; Start 06/23/18 at 21:00 Doxazosin Mesylate (Cardura) 2 mg HS PO Last administered on 06/24/18 20:22; Admin Dose 2 MG; Start 06/23/18 at 21:00 Ferrous Sulfate (Ferrous Sulfate (Ec)) 325 mg TID PO Last administered on 06/24/18 20:22; Admin Dose 325 MG; Start 06/23/18 at 09:00 Furosemide (Lasix) 80 mg DAILY PO Last administered on 06/24/18 08:26; Admin Dose 80 MG; Start 06/23/18 at 09:00 Isosorbide Mononitrate (Imdur) 30 mg DAILY PO Last administered on 06/24/18 08:26; Admin Dose 30 MG; Start 06/23/18 at 09:00 Levothyroxine Sodium (Synthroid) 50 mcg BEFORE BREAKFAST PO Last administered on 06/25/18 06:21; Admin Dose 50 MCG; Start 06/23/18 at 07:00 Lisinopril (Zestril) 40 mg DAILY PO Last administered on 06/24/18 08:26; Admin Dose 40 MG; Start 06/23/18 at 09:00 Multivit/Ca Carb/ B Cmplx/FA/Prenat (Matilda-Anthony) 1 tab DAILY PO Last administered on 06/24/18 08:26; Admin Dose 1 TAB; Start 06/23/18 at 09:00 Nifedipine (Procardia Xl) 90 mg DAILY PO Last administered on 06/24/18 08:26; Admin Dose 90 MG; Start 06/23/18 at 09:00 Pantoprazole (Protonix Tab) 40 mg AC BREAKFAST PO Last administered on 06/25/18 06:24; Admin Dose 40 MG; Start 06/23/18 at 07:00 Fenofibrate (Tricor) 48 mg DAILY PO Last administered on 06/24/18 08:25; Admin Dose 48 MG; Start 06/23/18 at 09:00 Miscellaneous Information 1 ea NOTE XX ; Start 06/23/18 at 04:30 Glucose (Glutose) 15 gm Q15M PRN PO DECREASED GLUCOSE; Start 06/23/18 at 04:30 Glucose (Glutose) 22.5 gm Q15M PRN PO DECREASED GLUCOSE Last administered on 06/24/18 11:41; Admin Dose 22.5 GM; Start 06/23/18 at 04:30 Dextrose (D50w Syringe) 25 ml Q15M PRN IV DECREASED GLUCOSE; Start 06/23/18 at 04:30 Dextrose (D50w Syringe) 50 ml Q15M PRN IV DECREASED GLUCOSE; Start 06/23/18 at 04:30 Glucagon (Glucagen) 1 mg Q15M PRN IM DECREASED GLUCOSE; Start 06/23/18 at 04:30 Glucose (Glutose) 15 gm Q15M PRN BUCCAL DECREASED GLUCOSE Last administered on 06/24/18 11:14; Admin Dose 15 GM; Start 06/23/18 at 04:30 Hydralazine HCl (Apresoline) 100 mg TID PO Last administered on 06/24/18 20:23; Admin Dose 100 MG; Start 06/23/18 at 13:00 Labetalol HCl (Normodyne) 600 mg BID PO Last administered on 06/24/18 20:23; Admin Dose 600 MG; Start 06/23/18 at 21:00 Hydralazine HCl (Apresoline) 10 mg Q4H PRN IV sbp>165; Start 06/23/18 at 17:00 Benzonatate (Tessalon) 200 mg TID PRN PO COUGH; Start 06/23/18 at 17:30 Sodium Hypochlorite (Dakin'S (Dilute )) 1 applic DAILY IRR ; Start 06/24/18 at 09:00 Albumin Human 100 ml @ 100 mls/hr WITH DIALYSIS PRN IV SBP <90 DURING DIALYSIS; Start 06/23/18 at 18:30 Sodium Chloride (NS) -To prime the dialy... DIRECTED FOR HD PRN IV HD; Start 06/23/18 at 18:30 Insulin Aspart (Novolog Insulin Pen) 5 unit WITH MEALS SC Last administered on 06/24/18at 17:04; Admin Dose 5 UNIT; Start 06/24/18 at 18:00 Insulin Glargine (Lantus) 12 units DAILY@0800 SC ; Start 06/25/18 at 08:00 Gentamicin Sulfate (Gentamicin 0.1% Cr) 1 applic DAILY TOP ; Start 06/25/18 at 09:00 Sevelamer Carbonate (Renvela) 1,600 mg WITH MEALS PO Last administered on 06/24/18 17:09; Admin Dose 1,600 MG; Start 06/24/18 at 18:00 NOAM MATT MD Jun 25, 2018 08:37
[2018-06-25] MEDS: INSULIN ASPART [NOVOLOG] 3 ML PEN SC SCH ×7 (08:39→21:00)
[2018-06-25] MEDS: FERROUS SULFATE (EC) 325 MG TAB PO SCH ×3 (08:45→21:02)
[2018-06-25] MEDS: MULTIVIT/CA CARB/B CMPLX/FA TAB PO SCH (08:46)
[2018-06-25] MEDS: FENOFIBRATE 48 MG TAB PO SCH (08:46)
[2018-06-25] MEDS: SEVELAMER CARBONATE 800 MG TABLET PO SCH ×3 (08:47→18:38)
[2018-06-25] MEDS: LINAGLIPTIN 5 MG TABLET PO SCH (08:48)
[2018-06-25] MEDS: NIFEdipine (XL) 90 MG TAB PO SCH (08:49)
[2018-06-25] MEDS: PIPER-TAZO 2.25 GM (PMX) 50 ML IVPB SCH ×2 (09:37→21:13)
[2018-06-25] MEDS: FUROSEMIDE 40 MG TAB PO SCH (10:37)
[2018-06-25] MEDS: GENTAMICIN 0.1% CREAM 15GM TUBE TOP SCH (10:37)
[2018-06-25] MEDS: LISINOPRIL 20 MG TAB PO SCH (10:38)
[2018-06-25] MEDS: ISOSORBIDE MONONITRATE(SR)30 MG TAB PO SCH (10:38)
[2018-06-25] MEDS: LABETALOL 200 MG TAB PO SCH ×2 (10:39→21:11)
[2018-06-25] MEDS: HYDROCODONE/APAP (5/325) TAB PO PRN ×2 (10:42→16:45)
--- NOTE | 2018-06-25 12:54 | CONS ---
Assessment/Plan Assessment/Plan Hospital Course (Demo Recall) Hypertension, improved Right foot pain History of hypertension Diabetes End-stage renal disease on hemodialysis Preserved ejection fraction -BP elevated, change procardia to 60 bid -If not plan for any procedures, would benefit from aspirin for prophylaxis therapy given multiple CAD risk factors. Continue statin therapy if no contraindication -Fluid management via hemodialysis as per nephrology. Consultation Date/Type/Reason Admit Date/Time Jun 23, 2018 at 03:32 Initial Consult Date 06/23/18 Type of Consult Cardiology Requesting Provider: ELANA MENDOZA MD Date/Time of Note DATE: 06/25/18 TIME: 12:54 24 HR Interval Summary Free Text/Dictation Denies dizziness, shortness of breath, chest pain or palpitations Exam/Review of Systems Vital Signs Vitals Vital Signs Date Temp Pulse Resp B/P (MAP) Pulse Ox O2 O2 Flow FiO2 Time Delivery Rate 06/25/18 77 183/84 10:35 (117) 06/25/18 98.9 16 100 08:16 06/24/18 Room Air 16:30 Intake and Output 06/24/18 06/24/18 06/25/18 1515:00 23:00 07:00 IntakeIntake Total 650 ml 50 ml OutputOutput Total 3000 ml BalanceBalance 650 ml -2950 ml Exam Constitutional: alert, oriented (nad) Head: normocephalic Respiratory: other (course bs, no wheeze) Cardiovascular: regular rate and rhythm (s1s2) Gastrointestinal: soft, non-tender, bowel sounds Extremities: edema Labs Result Diagram: 06/25/18 0511 06/25/18 0511 Results 24hrs Laboratory Tests Test 06/24/18 13:03 06/24/18 13:34 06/24/18 17:01 06/24/18 20:27 Bedside Glucose 108 120 207 127 Test 06/25/18 05:11 06/25/18 08:16 White Blood Count 7.4 # Red Blood Count 3.33 L Hemoglobin 9.6 L Hematocrit 30.0 L Mean Corpuscular Volume 90.1 Mean Corpuscular 28.8 L Hemoglobin Mean Corpuscular 32.0 Hemoglobin Concent Red Cell Distribution 15.9 H Width Platelet Count 237 Mean Platelet Volume 8.6 Immature Granulocytes % 0.500 H Neutrophils % 73.4 Lymphocytes % 12.7 L Monocytes % 9.2 Eosinophils % 3.8 Basophils % 0.4 Nucleated Red Blood 0.0 Cells % Immature Granulocytes # 0.040 H Neutrophils # 5.4 Lymphocytes # 0.9 Monocytes # 0.7 Eosinophils # 0.3 Basophils # 0.0 Nucleated Red Blood 0.0 Cells # Sodium Level 140 Potassium Level 4.8 Chloride Level 100 # Carbon Dioxide Level 24 Anion Gap 16 H Blood Urea Nitrogen 44 #H Creatinine 7.20 #H Est Glomerular Filtrat 8 L Rate mL/min Glucose Level 171 Calcium Level 8.1 L Phosphorus Level 8.6 #H Random Vancomycin Level 16.6 Bedside Glucose 208 Medications Medications Current Medications IV Flush (NS 3 ml) 3 ml PER PROTOCOL IV ; Start 06/23/18 at 04:00 Ondansetron HCl (Zofran Inj) 4 mg Q6H PRN IV NAUSEA/VOMITING; Start 06/23/18 at 04:00 Acetaminophen (Tylenol Tab) 650 mg Q6H PRN PO .PAIN 1-3 OR TEMP; Start 06/23/18 at 04:00 Acetaminophen/ Hydrocodone Bitart ([place] (5/325)) 1 tab Q6H PRN PO .MOD PAIN 4- 6; Start 06/23/18 at 04:00 Acetaminophen/ Hydrocodone Bitart ([place] (5/325)) 2 tab Q6H PRN PO .SEVERE PAIN 7-10 Last administered on 06/25/18at 10:42; Admin Dose 2 TAB; Start 06/23/18 at 04:00 Hydromorphone HCl (Dilaudid) 0.5 mg Q4H PRN IV .SEVERE PAIN 7-10 Last admini stered on 06/25/18at 08:34; Admin Dose 0.5 MG; Start 06/23/18 at 04:00 Docusate Sodium (Colace) 100 mg Q12H PRN PO .CONSTIPATION; Start 06/23/18 at 04:00 Bisacodyl (Dulcolax) 5 mg DAILY PRN PO .CONSTIPATION; Start 06/23/18 at 04:00 Sodium Biphosphate/ Sodium Phosphate (Fleet Enema) 133 ml DAILY PRN [place] .CONSTIPATION; Start 06/23/18 at 04:00 Zolpidem Tartrate (Ambien) 5 mg QHS PRN PO .INSOMNIA; Start 06/23/18 at 04:00 Diagnostic Test (Pha) (Accu-Chek) XX ; Start 06/24/18 at 02:00 Insulin Aspart (Novolog Insulin Pen) NOVOLOG *MILD* ALGORITHM WITH MEALS BEDTIME SC Last administered on 06/25/18 08:40; Admin Dose 2 UNIT; Start 06/23/18 at 08:00 Linagliptin (Tradjenta) 5 mg DAILY PO Last administered on 06/25/18 08:48; Admin Dose 5 MG; Start 06/23/18 at 09:00 Vancomycin HCl (Vanco Iv Per Pharmacy) VANCOMYCIN PER PHARMACY PER PROTOCOL XX ; Start 06/23/18 at 04:00 Piperacillin Sod/ Tazobactam Sod 50 ml @ 100 mls/hr Q12 IVPB Last administered on 06/25/18 09:37; Admin Dose 100 MLS/HR; Start 06/23/18 at 06:00 Atorvastatin Calcium (Lipitor) 20 mg QHS PO Last administered on 06/24/18 20:22; Admin Dose 20 MG; Start 06/23/18 at 21:00 Doxazosin Mesylate (Cardura) 2 mg HS PO Last administered on 06/24/18 20:22; Admin Dose 2 MG; Start 06/23/18 at 21:00 Ferrous Sulfate (Ferrous Sulfate (Ec)) 325 mg TID PO Last administered on 06/25/18 08:45; Admin Dose 325 MG; Start 06/23/18 at 09:00 Furosemide (Lasix) 80 mg DAILY PO Last administered on 06/25/18 10:37; Admin Dose 80 MG; Start 06/23/18 at 09:00 Isosorbide Mononitrate (Imdur) 30 mg DAILY PO Last administered on 06/25/18 10:38; Admin Dose 30 MG; Start 06/23/18 at 09:00 Levothyroxine Sodium (Synthroid) 50 mcg BEFORE BREAKFAST PO Last administered on 06/25/18 06:21; Admin Dose 50 MCG; Start 06/23/18 at 07:00 Lisinopril (Zestril) 40 mg DAILY PO Last administered on 06/25/18 10:38; Admin Dose 40 MG; Start 06/23/18 at 09:00 Multivit/Ca Carb/ B Cmplx/FA/Prenat (Matilda-Anthony) 1 tab DAILY PO Last administered on 06/25/18 08:46; Admin Dose 1 TAB; Start 06/23/18 at 09:00 Pantoprazole (Protonix Tab) 40 mg AC BREAKFAST PO Last administered on 06/25/18 06:24; Admin Dose 40 MG; Start 06/23/18 at 07:00 Fenofibrate (Tricor) 48 mg DAILY PO Last administered on 06/25/18 08:46; Admin Dose 48 MG; Start 06/23/18 at 09:00 Miscellaneous Information 1 ea NOTE XX ; Start 06/23/18 at 04:30 Glucose (Glutose) 15 gm Q15M PRN PO DECREASED GLUCOSE; Start 06/23/18 at 04:30 Glucose (Glutose) 22.5 gm Q15M PRN PO DECREASED GLUCOSE Last administered on 06/24/18at 11:41; Admin Dose 22.5 GM; Start 06/23/18 at 04:30 Dextrose (D50w Syringe) 25 ml Q15M PRN IV DECREASED GLUCOSE; Start 06/23/18 at 04:30 Dextrose (D50w Syringe) 50 ml Q15M PRN IV DECREASED GLUCOSE; Start 06/23/18 at 04:30 Glucagon (Glucagen) 1 mg Q15M PRN IM DECREASED GLUCOSE; Start 06/23/18 at 04:30 Glucose (Glutose) 15 gm Q15M PRN BUCCAL DECREASED GLUCOSE Last administered on 06/24/18at 11:14; Admin Dose 15 GM; Start 06/23/18 at 04:30 Hydralazine HCl (Apresoline) 100 mg TID PO Last administered on 06/25/18at 10:38; Admin Dose 100 MG; Start 06/23/18 at 13:00 Labetalol HCl (Normodyne) 600 mg BID PO Last administered on 06/25/18at 10:39; Admin Dose 600 MG; Start 06/23/18 at 21:00 Hydralazine HCl (Apresoline) 10 mg Q4H PRN IV sbp>165; Start 06/23/18 at 17:00 Benzonatate (Tessalon) 200 mg TID PRN PO COUGH; Start 06/23/18 at 17:30 Sodium Hypochlorite (Dakin'S (Dilute )) 1 applic DAILY IRR ; Start 06/24/18 at 09:00 Albumin Human 100 ml @ 100 mls/hr WITH DIALYSIS PRN IV SBP <90 DURING DIALYS IS; Start 06/23/18 at 18:30 Sodium Chloride (NS) -To prime the dialy... DIRECTED FOR HD PRN IV HD; Start 06/23/18 at 18:30 Insulin Aspart (Novolog Insulin Pen) 5 unit WITH MEALS SC Last administered on 06/25/18at 08:39; Admin Dose 5 UNIT; Start 06/24/18 at 18:00 Insulin Glargine (Lantus) 12 units DAILY@0800 SC Last administered on 06/25/18at 08:40; Admin Dose 12 UNITS; Start 06/25/18 at 08:00 Gentamicin Sulfate (Gentamicin 0.1% Cr) 1 applic DAILY TOP Last administered on 06/25/18at 10:37; Admin Dose 1 APPLIC; Start 06/25/18 at 09:00 Sevelamer Carbonate (Renvela) 1,600 mg WITH MEALS PO Last administered on 06/25/18at 08:47; Admin Dose 1,600 MG; Start 06/24/18 at 18:00 Nifedipine (Procardia Xl) 60 mg BID PO ; Start 06/25/18 at 21:00 Vancomycin HCl 250 ml @ 125 mls/hr ONCE IVPB ; Start 06/25/18 at 22:00; Stop 06/25/18 at 23:59 Elana Snell DO Jun 25, 2018 12:54
--- NOTE | 2018-06-25 14:18 | PN ---
Date/Time of Note Date/Time of Note DATE: 06/25/18 TIME: 14:11 Assessment/Plan VTE Prophylaxis Risk score (from [facility] [place])>0 risk: 2 SCD applied (from [facility] [place]): No SCD contraindicated: patient refusal Pharmacological prophylaxis: NA/contraindicated Pharm contraindication: surgical contra Lines/Catheters IV C[facility]ter Type (from [facility] Saline Lock Assessment/Plan Problems: (1) Hyperkalemia Status: Resolved Comment: Cont. to monitor (2) Hyperphosphatemia Status: Chronic Comment: P improving. Cont. renvela and monitor. (3) DM renal manif type II, uncontrolled Status: Chronic Comment: Pt. s/p hypoglycemia yesterday. Refused insulin today for normal glucose. Encourage pt. to accept some small dose of insulin pre-meal if glucose NL. Decrease lantus again from 12 to 11 units daily and Novolog from 5 to 4 units qac. Monitor glucose. (4) Acute osteomyelitis of right foot Status: Acute Comment: On vanco/zosyn. Will need 6 weeks antibiotics. Await PICC line. Once placed will change zosyn to different antibiotic under supervision of podiatry for d/c home w/ HHN. (5) Benign essential hypertension Status: Chronic Comment: BP OOC. Nifedipine increased by cardiology. Will also increase labetalol from 600 to 900 mg bid and doxazosin from 2 to 4 mg qhs. Monitor BP. (6) Other and unspecified hyperlipidemia Status: Chronic Comment: Cont. statin (7) End-stage renal disease on hemodialysis Status: Chronic Comment: Cont. HD per renal (8) Hypothyroidism Status: Chronic Comment: Cont. LT4. (9) Diabetic foot ulcer Status: Chronic Comment: Cont. dressing changes w/ gent per podiatry. (10) Type 2 diabetes mellitus with diabetic peripheral angiopathy without g angrene Status: Chronic Comment: Cont. vascular eval. Result Diagram: 06/25/1851006/25/18510 Results 24hrs Laboratory Tests Test 06/24/18 17:01 06/24/18 20:27 06/25/18 05:11 06/25/18 08:16 Bedside Glucose 207 127 208 White Blood Count 7.4 # Red Blood Count 3.33 L Hemoglobin 9.6 L Hematocrit 30.0 L Mean Corpuscular Volume 90.1 Mean Corpuscular 28.8 L Hemoglobin Mean Corpuscular 32.0 Hemoglobin Concent Red Cell Distribution 15.9 H Width Platelet Count 237 Mean Platelet Volume 8.6 Immature Granulocytes % 0.500 H Neutrophils % 73.4 Lymphocytes % 12.7 L Monocytes % 9.2 Eosinophils % 3.8 Basophils % 0.4 Nucleated Red Blood 0.0 Cells % Immature Granulocytes # 0.040 H Neutrophils # 5.4 Lymphocytes # 0.9 Monocytes # 0.7 Eosinophils # 0.3 Basophils # 0.0 Nucleated Red Blood 0.0 Cells # Sodium Level 140 Potassium Level 4.8 Chloride Level 100 # Carbon Dioxide Level 24 Anion Gap 16 H Blood Urea Nitrogen 44 #H Creatinine 7.20 #H Est Glomerular Filtrat 8 L Rate mL/min Glucose Level 171 Calcium Level 8.1 L Phosphorus Level 8.6 #H Random Vancomycin Level 16.6 Test 06/25/18 12:46 Bedside Glucose 87 Subjective 24 Hr Interval Summary Constitutional: no complaints, improved Respiratory: no complaints Cardiovascular: no complaints Gastrointestinal: no complaints Genitourinary: no complaints Musculoskeletal: bone/joint pain (but improved today) Neurologic: no complaints Psychological: anxiety (upset about low glucose reaction yesterday; combative. Refused insulin when BG NL today) Exam/Review of Systems Exam Vitals VS - Last 72 Hours, by Label Date Temp Pulse Resp B/P (MAP) Pulse Ox O2 O2 Flow FiO2 Time Delivery Rate 06/25/18 72 173/81 12:54 (111) 06/25/18 77 183/84 10:35 (117) 06/25/18 98.9 74 16 170/87 100 08:16 (114) 06/25/18 98.0 75 20 138/68 93 01:40 (91) 06/24/18 74 134/67 21:56 (89) 06/24/18 98.3 83 20 177/83 93 19:49 (114) 06/24/18 77 16 167/84 98 Room Air 16:30 (111) 06/24/18 76 16:10 06/24/18 75 15:55 06/24/18 75 15:40 06/24/18 73 15:25 06/24/18 74 15:10 06/24/18 74 14:55 06/24/18 76 14:40 06/24/18 75 14:25 06/24/18 73 14:10 06/24/18 97.9 75 18 161/87 96 14:00 (111) 06/24/18 68 13:55 06/24/18 67 13:40 06/24/18 66 13:25 06/24/18 67 13:10 06/24/18 67 16 134/78 95 Room Air 13:10 (96) 06/24/18 98.2 70 20 150/86 95 08:23 (107) 06/24/18 97.7 69 18 158/80 98 04:30 (106) 06/23/18 97.4 77 18 170/81 98 20:09 (110) 06/23/18 97.4 68 18 173/81 94 14:05 (111) 06/23/18 98.2 74 20 190/90 94 12:00 (123) 06/23/18 70 18 190/70 95 10:30 (110) 06/23/18 98.0 74 18 187/97 94 08:04 (127) 06/23/18 97.9 81 20 181/89 97 Room Air 06:30 (119) 06/23/18 98.1 74 21 154/78 97 Room Air 05:51 (103) 06/23/18 98.2 75 21 166/92 96 Room Air 04:00 (116) 06/23/18 98.2 78 21 158/81 98 Room Air 03:04 (106) 06/23/18 98.2 18 162/88 95 Room Air 02:29 (112) 06/22/18 97.1 80 18 125/59 97 23:30 (81) Vital Signs Date Temp Pulse Resp B/P (MAP) Pulse Ox O2 O2 Flow FiO2 Time Delivery Rate 06/25/18 72 173/81 12:54 (111) 06/25/18 98.9 16 100 08:16 06/24/18 Room Air 16:30 Intake and Output 06/24/18 06/24/18 06/25/18 1515:00 23:00 07:00 IntakeIntake Total 650 ml 50 ml OutputOutput Total 3000 ml BalanceBalance 650 ml -2950 ml Constitutional: alert, oriented, well developed Psych: other (combative) Respiratory: clear to auscultation, normal air movement Cardiovascular: regular rate and rhythm; No edema, No murmurs/extra sounds, No rub Gastrointestinal: soft, nl liver, spleen, non-tender, bowel sounds; No mass, No rebound or guarding Musculoskeletal: No nl extremities to inspection (R foot dressed) Extremities: No cyanosis, No clubbing, No edema Neurological: RISK LEAD II-XII intact, nl mental status, nl speech, nl strength Additional Comments Bedside Glucose - 72 Hours Test 06/23/18 08:06 06/23/18 12:23 06/23/18 17:09 06/23/18 19:32 Bedside 106 137 135 55 Glucose mg/dL (70-220) mg/dL (70-220) mg/dL (70-220) mg/dL (70-220) L Test 06/23/18 19:47 06/23/18 20:02 06/23/18 20:15 06/23/18 22:30 Bedside 65 100 82 138 Glucose mg/dL (70-220) mg/dL (70-220) mg/dL (70-220) mg/dL (70-220) L Test 06/24/18 08:16 06/24/18 11:09 06/24/18 11:36 06/24/18 12:08 Bedside 74 44 34 53 Glucose mg/dL (70-220) mg/dL (70-220) mg/dL (70-220) mg/dL (70-220) *L *L L Test 06/24/18 12:27 06/24/18 13:03 06/24/18 13:34 06/24/18 17:01 Bedside 64 108 120 207 Glucose mg/dL (70-220) mg/dL (70-220) mg/dL (70-220) mg/dL (70-220) L Test 06/24/18 20:27 06/25/18 08:16 06/25/18 12:46 Bedside 127 208 87 Glucose mg/dL (70-220) mg/dL (70-220) mg/dL (70-220) Results Results 24hrs Laboratory Tests Test 06/24/18 17:01 06/24/18 20:27 06/25/18 05:11 06/25/18 08:16 Bedside Glucose 207 127 208 White Blood Count 7.4 # Red Blood Count 3.33 L Hemoglobin 9.6 L Hematocrit 30.0 L Mean Corpuscular Volume 90.1 Mean Corpuscular 28.8 L Hemoglobin Mean Corpuscular 32.0 Hemoglobin Concent Red Cell Distribution 15.9 H Width Platelet Count 237 Mean Platelet Volume 8.6 Immature Granulocytes % 0.500 H Neutrophils % 73.4 Lymphocytes % 12.7 L Monocytes % 9.2 Eosinophils % 3.8 Basophils % 0.4 Nucleated Red Blood 0.0 Cells % Immature Granulocytes # 0.040 H Neutrophils # 5.4 Lymphocytes # 0.9 Monocytes # 0.7 Eosinophils # 0.3 Basophils # 0.0 Nucleated Red Blood 0.0 Cells # Sodium Level 140 Potassium Level 4.8 Chloride Level 100 # Carbon Dioxide Level 24 Anion Gap 16 H Blood Urea Nitrogen 44 #H Creatinine 7.20 #H Est Glomerular Filtrat 8 L Rate mL/min Glucose Level 171 Calcium Level 8.1 L Phosphorus Level 8.6 #H Random Vancomycin Level 16.6 Test 06/25/18 12:46 Bedside Glucose 87 Medications Medication Current Medications IV Flush (NS 3 ml) 3 ml PER PROTOCOL IV ; Start 06/23/18 at 04:00 Ondansetron HCl (Zofran Inj) 4 mg Q6H PRN IV NAUSEA/VOMITING; Start 06/23/18 at 04:00 Acetaminophen (Tylenol Tab) 650 mg Q6H PRN PO .PAIN 1-3 OR TEMP; Start 06/23/18 at 04:00 Acetaminophen/ Hydrocodone Bitart ([place] (5/325)) 1 tab Q6H PRN PO .MOD PAIN 4- 6; Start 06/23/18 at 04:00 Acetaminophen/ Hydrocodone Bitart ([place] (5/325)) 2 tab Q6H PRN PO .SEVERE PAIN 7-10 Last administered on 06/25/18at 10:42; Admin Dose 2 TAB; Start 06/23/18 at 04:00 Hydromorphone HCl (Dilaudid) 0.5 mg Q4H PRN IV .SEVERE PAIN 7-10 Last administered on 06/25/18at 12:45; Admin Dose 0.5 MG; Start 06/23/18 at 04:00 Docusate Sodium (Colace) 100 mg Q12H PRN PO .CONSTIPATION; Start 06/23/18 at 04:00 Bisacodyl (Dulcolax) 5 mg DAILY PRN PO .CONSTIPATION; Start 06/23/18 at 04:00 Sodium Biphosphate/ Sodium Phosphate (Fleet Enema) 133 ml DAILY PRN GA .CONSTIPATION; Start 06/23/18 at 04:00 Zolpidem Tartrate (Ambien) 5 mg QHS PRN PO .INSOMNIA; Start 06/23/18 at 04:00 Diagnostic Test (Pha) (Accu-Chek) XX ; Start 06/24/18 at 02:00 Insulin Aspart (Novolog Insulin Pen) NOVOLOG *MILD* ALGORITHM WITH MEALS BE DTIME SC Last administered on 06/25/18 08:40; Admin Dose 2 UNIT; Start 06/23/18 at 08:00 Linagliptin (Tradjenta) 5 mg DAILY PO Last administered on 06/25/18 08:48; Admin Dose 5 MG; Start 06/23/18 at 09:00 Vancomycin HCl (Vanco Iv Per Pharmacy) VANCOMYCIN PER PHARMACY PER PROTOCOL XX ; Start 06/23/18 at 04:00 Piperacillin Sod/ Tazobactam Sod 50 ml @ 100 mls/hr Q12 IVPB Last administered on 06/25/18 09:37; Admin Dose 100 MLS/HR; Start 06/23/18 at 06:00 Atorvastatin Calcium (Lipitor) 20 mg QHS PO Last administered on 06/24/18 20:22; Admin Dose 20 MG; Start 06/23/18 at 21:00 Ferrous Sulfate (Ferrous Sulfate (Ec)) 325 mg TID PO Last administered on 06/25/18 12:50; Admin Dose 325 MG; Start 06/23/18 at 09:00 Furosemide (Lasix) 80 mg DAILY PO Last administered on 06/25/18 10:37; Admin Dose 80 MG; Start 06/23/18 at 09:00 Isosorbide Mononitrate (Imdur) 30 mg DAILY PO Last administered on 06/25/18 10:38; Admin Dose 30 MG; Start 06/23/18 at 09:00 Levothyroxine Sodium (Synthroid) 50 mcg BEFORE BREAKFAST PO Last administered on 06/25/18 06:21; Admin Dose 50 MCG; Start 06/23/18 at 07:00 Lisinopril (Zestril) 40 mg DAILY PO Last administered on 06/25/18 10:38; Admin Dose 40 MG; Start 06/23/18 at 09:00 Multivit/Ca Carb/ B Cmplx/FA/Prenat (Matilda-Anthony) 1 tab DAILY PO Last administered on 06/25/18 08:46; Admin Dose 1 TAB; Start 06/23/18 at 09:00 Pantoprazole (Protonix Tab) 40 mg AC BREAKFAST PO Last administered on 06/25/18 06:24; Admin Dose 40 MG; Start 06/23/18 at 07:00 Fenofibrate (Tricor) 48 mg DAILY PO Last administered on 06/25/18 08:46; Admin Dose 48 MG; Start 06/23/18 at 09:00 Miscellaneous Information 1 ea NOTE XX ; Start 06/23/18 at 04:30 Glucose (Glutose) 15 gm Q15M PRN PO DECREASED GLUCOSE; Start 06/23/18 at 04:30 Glucose (Glutose) 22.5 gm Q15M PRN PO DECREASED GLUCOSE Last administered on 06/24/18at 11:41; Admin Dose 22.5 GM; Start 06/23/18 at 04:30 Dextrose (D50w Syringe) 25 ml Q15M PRN IV DECREASED GLUCOSE; Start 06/23/18 at 04:30 Dextrose (D50w Syringe) 50 ml Q15M PRN IV DECREASED GLUCOSE; Start 06/23/18 at 04:30 Glucagon (Glucagen) 1 mg Q15M PRN IM DECREASED GLUCOSE; Start 06/23/18 at 04:30 Glucose (Glutose) 15 gm Q15M PRN BUCCAL DECREASED GLUCOSE Last administered on 06/24/18at 11:14; Admin Dose 15 GM; Start 06/23/18 at 04:30 Hydralazine HCl (Apresoline) 100 mg TID PO Last administered on 06/25/18at 12:51; Admin Dose 100 MG; Start 06/23/18 at 13:00 Hydralazine HCl (Apresoline) 10 mg Q4H PRN IV sbp>165; Start 06/23/18 at 17:00 Benzonatate (Tessalon) 200 mg TID PRN PO COUGH; Start 06/23/18 at 17:30 Sodium Hypochlorite (Dakin'S (Dilute )) 1 applic DAILY IRR ; Start 06/24/18 at 09:00 Albumin Human 100 ml @ 100 mls/hr WITH DIALYSIS PRN IV SBP <90 DURING DIALYSI S; Start 06/23/18 at 18:30 Sodium Chloride (NS) -To prime the dialy... DIRECTED FOR HD PRN IV HD; Start 06/23/18 at 18:30 Gentamicin Sulfate (Gentamicin 0.1% Cr) 1 applic DAILY TOP Last administered on 06/25/18at 10:37; Admin Dose 1 APPLIC; Start 06/25/18 at 09:00 Sevelamer Carbonate (Renvela) 1,600 mg WITH MEALS PO Last administered on 06/25/18at 12:50; Admin Dose 1,600 MG; Start 06/24/18 at 18:00 Nifedipine (Procardia Xl) 60 mg BID PO ; Start 06/25/18 at 21:00 Vancomycin HCl 250 ml @ 125 mls/hr ONCE IVPB ; Start 06/25/18 at 22:00; Stop 06/25/18 at 23:59 Doxazosin Mesylate (Cardura) 4 mg HS PO ; Start 06/25/18 at 21:00 Labetalol HCl (Normodyne) 800 mg BID PO ; Start 06/25/18 at 21:00 Insulin Aspart (Novolog Insulin Pen) 4 unit WITH MEALS SC ; Start 06/25/18 at 18:00 Insulin Glargine (Lantus) 11 units DAILY@0800 SC ; Start 06/26/18 at 08:00 ELANA MENDOZA MD Jun 25, 2018 14:18
[2018-06-25] MEDS: SODIUM HYPOCHLORITE (1/40) 1 APPLIC BTL IRR SCH (14:59)
--- NOTE | 2018-06-25 15:16 | PN ---
Date/Time of Note Date/Time of Note DATE: 06/25/18 TIME: 15:14 Assessment/Plan Lines/Catheters IV Catheter Type (from Nrsg): Saline Lock Assessment/Plan Assessment/Plan R 4th MY head osteo / chronic ulcer correction IV antibiotics per ID - awaiting PICC line Wound care per Dr. Hines Followup with me in the [facility] next week - will eval for HBO and consider angiogram in the future if not improving (tibial disease on arterial duplex) Subjective 24 Hr Interval Summary No new c/o. Foot pain has resolved. Exam/Review of Systems Vital Signs Vitals Vital Signs Date Temp Pulse Resp B/P (MAP) Pulse Ox O2 O2 Flow FiO2 Time Delivery Rate 06/25/18 14:55 Intake and Output 06/24/18 06/24/18 06/25/18 1515:00 23:00 07:00 IntakeIntake Total 650 ml 50 ml OutputOutput Total 3000 ml BalanceBalance 650 ml -2950 ml Exam Free Text/Dictation Feet warm and pink toes Results Result Diagram: 06/25/18 0511 06/25/18 0511 BENJAMIN REYES MD Jun 25, 2018 15:16
[2018-06-25] MEDS ORDERED: DOXAZOSIN 4 MG TAB PO SCH (21:00)
[2018-06-25] MEDS: ATORVASTATIN 20 MG TAB PO SCH (21:02)
[2018-06-25] MEDS: LABETALOL 100 MG TAB PO SCH (21:03)
[2018-06-25] MEDS: NIFEdipine (XL) 60 MG TAB PO SCH (21:15)
[2018-06-25] MEDS ORDERED: VANCOMYCIN 1 GM 250 ML IVPB SCH (22:00)
[2018-06-26] VITALS (16 sets, daily range): BP systolic 93–134; BP diastolic 33–67; PULSE 60–79; RESP 18–20
[2018-06-26] MEDS: ACCU-CHEK XX SCH (02:00)
[2018-06-26] MEDS: PANTOPRAZOLE (EC) 40 MG TAB PO SCH (06:04)
[2018-06-26] MEDS: LEVOTHYROXINE 25 MCG TAB PO SCH (06:04)
[2018-06-26] MEDS: LABETALOL 100 MG TAB PO SCH ×2 (08:45→20:38)
[2018-06-26] MEDS: LABETALOL 200 MG TAB PO SCH ×2 (08:45→21:56)
[2018-06-26] MEDS: NIFEdipine (XL) 60 MG TAB PO SCH ×2 (08:45→20:37)
[2018-06-26] MEDS: SEVELAMER CARBONATE 800 MG TABLET PO SCH ×3 (08:46→17:31)
[2018-06-26] MEDS: LISINOPRIL 20 MG TAB PO SCH (08:46)
[2018-06-26] MEDS: FERROUS SULFATE (EC) 325 MG TAB PO SCH ×3 (08:47→20:37)
--- NOTE | 2018-06-26 08:47 | RADRPT ---
Vent Rate: 70 bpm RR Interval: 0 msec MS Interval: 196 msec QRS Duration: 110 msec QT Interval: 448 msec QTC Interval: 483 msec P-R-T [place]: 56 - -32 - 63 degrees Normal sinus rhythm Left axis deviation LVH left anterior fascicular block Prolonged QT Abnormal ECG Electronically Signed By: Audie Cevallos
[2018-06-26] MEDS: LINAGLIPTIN 5 MG TABLET PO SCH (08:49)
[2018-06-26] MEDS: MULTIVIT/CA CARB/B CMPLX/FA TAB PO SCH (08:49)
[2018-06-26] MEDS: FENOFIBRATE 48 MG TAB PO SCH (08:49)
[2018-06-26] MEDS: FUROSEMIDE 40 MG TAB PO SCH (08:49)
[2018-06-26] MEDS: GENTAMICIN 0.1% CREAM 15GM TUBE TOP SCH (08:50)
[2018-06-26] MEDS: INSULIN GLARGINE [LANTus] (100 UNITS/ML) SYG SC SCH (08:53)
[2018-06-26] MEDS: INSULIN ASPART [NOVOLOG] 3 ML PEN SC SCH ×7 (08:53→21:00)
[2018-06-26] MEDS: ISOSORBIDE MONONITRATE(SR)30 MG TAB PO SCH (08:54)
[2018-06-26] MEDS: SODIUM HYPOCHLORITE (1/40) 1 APPLIC BTL IRR SCH (08:55)
[2018-06-26] MEDS: PIPER-TAZO 2.25 GM (PMX) 50 ML IVPB SCH ×2 (14:29→21:56)
[2018-06-26] MEDS: HYDROmorphONE 0.5 MG/0.5 ML SYG IV PRN ×2 (14:37→21:58)
--- NOTE | 2018-06-26 14:42 | PN ---
Date/Time of Note Date/Time of Note DATE: 06/26/18 TIME: 14:37 Assessment/Plan VTE Prophylaxis Risk score (from [facility])>0 risk: 2 SCD applied (from [facility]): No SCD contraindicated: patient refusal Pharmacological prophylaxis: NA/contraindicated Pharm contraindication: surgical contra Lines/Catheters IV Catheter Type (from [facility]): PICC Line Central line still needed: Yes Assessment/Plan Problems: (1) Hyperphosphatemia Status: Chronic Comment: P increased today despite renvela 1600 mg tid. Will monitor on this dose and recheck tomorrow. Defer to nephrology. (2) End-stage renal disease on hemodialysis Status: Chronic Comment: Cont. HD per nephrology (3) DM renal manif type II, uncontrolled Status: Chronic Comment: Excellent glycemic control on current regimen of lantus 11 qam and Novolog 4 units qac. No hypoglycemia or hyperglycemia on this regimen. Would cont. (4) Benign essential hypertension Status: Chronic Comment: Improved BP control. Cont. current BP regimen. (5) Other and unspecified hyperlipidemia Status: Chronic Comment: Cont. statin (6) Hypothyroidism Status: Chronic Comment: Cont. LT4 (7) Diabetic foot ulcer Status: Chronic Comment: Cont. wound care w/ gent per podiatry. Off-loading after d/c. (8) Type 2 diabetes mellitus with diabetic peripheral angiopathy without gangrene Status: Chronic Comment: Cont. f/u w/ vascular surgery service (9) Acute osteomyelitis of right foot Status: Acute Comment: On vanco and zosyn. Pt. has PICC line. Will order for HHN and plan d/c tomorrow w/ 6 weeks vanco and levaquin 250 mg/d. Result Diagram: 06/25/18 0511 06/26/18 0611 Results 24hrs Laboratory Tests Test 06/25/18 18:35 06/25/18 21:22 06/26/18 06:11 06/26/18 08:43 Bedside Glucose 178 127 172 Sodium Level 138 Potassium Level 5.0 Chloride Level 99 Carbon Dioxide Level 22 Anion Gap 17 H Blood Urea Nitrogen 55 H Creatinine 9.03 H Est Glomerular Filtrat 6 L Rate mL/min Glucose Level 128 # Calcium Level 7.4 L Phosphorus Level 10.6 #H Magnesium Level 2.0 Test 06/26/18 12:26 06/26/18 14:22 Bedside Glucose 119 138 Subjective 24 Hr Interval Summary Constitutional: no complaints Respiratory: no complaints Cardiovascular: no complaints Gastrointestinal: no complaints Genitourinary: no complaints Musculoskeletal: bone/joint pain (improved foot pain) Neurologic: no complaints Exam/Review of Systems Exam Vitals VS - Last 72 Hours, by Label Date Temp Pulse Resp B/P (MAP) Pulse Ox O2 O2 Flow FiO2 Time Delivery Rate 06/26/18 69 13:15 06/26/18 68 13:00 06/26/18 69 12:45 06/26/18 69 12:30 06/26/18 67 12:15 06/26/18 69 12:00 06/26/18 66 11:45 06/26/18 65 11:30 06/26/18 64 11:15 06/26/18 61 11:00 06/26/18 63 10:45 06/26/18 63 10:30 06/26/18 61 10:15 06/26/18 61 18 100/44 96 Room Air 10:15 (62) 06/26/18 97.8 60 18 123/58 96 Room Air 07:55 (79) 06/25/18 114/57 68 23:42 (76) 06/25/18 69 99/44 (62) 23:00 06/25/18 98.1 71 17 143/58 94 20:00 (86) 06/25/18 69 156/74 16:40 (101) 06/25/18 14:55 06/25/18 98.1 68 16 164/85 93 Room Air 14:44 (111) 06/25/18 72 173/81 12:54 (111) 06/25/18 77 183/84 10:35 (117) 06/25/18 98.9 74 16 170/87 100 08:16 (114) 06/25/18 98.0 75 20 138/68 93 01:40 (91) 06/24/18 74 134/67 21:56 (89) 06/24/18 98.3 83 20 177/83 93 19:49 (114) 06/24/18 77 16 167/84 98 Room Air 16:30 (111) 06/24/18 76 16:10 06/24/18 75 15:55 06/24/18 75 15:40 06/24/18 73 15:25 06/24/18 74 15:10 06/24/18 74 14:55 06/24/18 76 14:40 06/24/18 75 14:25 06/24/18 73 14:10 06/24/18 97.9 75 18 161/87 96 14:00 (111) 06/24/18 68 13:55 06/24/18 67 13:40 06/24/18 66 13:25 06/24/18 67 13:10 06/24/18 67 16 134/78 95 Room Air 13:10 (96) 06/24/18 98.2 70 20 150/86 95 08:23 (107) 06/24/18 97.7 69 18 158/80 98 04:30 (106) 06/23/18 97.4 77 18 170/81 98 20:09 (110) Vital Signs Date Temp Pulse Resp B/P (MAP) Pulse Ox O2 O2 Flow FiO2 Time Delivery Rate 06/26/18 69 13:15 06/26/18 18 100/44 96 Room Air 10:15 (62) 06/26/18 97.8 07:55 Intake and Output 06/25/18 06/25/18 06/26/18 1515:00 23:00 07:00 IntakeIntake Total 600 ml 250 ml BalanceBalance 600 ml 250 ml Constitutional: alert, oriented, well developed Psych: no complaints, nl mood/affect Respiratory: clear to auscultation, normal air movement Cardiovascular: regular rate and rhythm, edema (1+ RLE); No murmurs/extra sounds, No rub Gastrointestinal: soft, nl liver, spleen, non-tender, bowel sounds; No mass, No rebound or guarding Musculoskeletal: No nl extremities to inspection (RLE wrapped) Extremities: edema (1+ RLE); No cyanosis, No clubbing Neurological: [address] [employer] II-XII intact, nl mental status, nl speech, nl strength Additional Comments Bedside Glucose - 72 Hours Test 06/23/18 17:09 06/23/18 19:32 06/23/18 19:47 06/23/18 20:02 Bedside 135 55 65 100 Glucose mg/dL (70-220) mg/dL (70-220) mg/dL (70-220) mg/dL (70-220) L L Test 06/23/18 20:15 06/23/18 22:30 06/24/18 08:16 06/24/18 11:09 Bedside 82 138 74 44 Glucose mg/dL (70-220) mg/dL (70-220) mg/dL (70-220) mg/dL (70-220) *L Test 06/24/18 11:36 06/24/18 12:08 06/24/18 12:27 06/24/18 13:03 Bedside 34 53 64 108 Glucose mg/dL (70-220) mg/dL (70-220) mg/dL (70-220) mg/dL (70-220) *L L L Test 06/24/18 13:34 06/24/18 17:01 06/24/18 20:27 06/25/18 08:16 Bedside 120 207 127 208 Glucose mg/dL (70-220) mg/dL (70-220) mg/dL (70-220) mg/dL (70-220) Test 06/25/18 12:46 06/25/18 18:35 06/25/18 21:22 06/26/18 08:43 Bedside 87 178 127 172 Glucose mg/dL (70-220) mg/dL (70-220) mg/dL (70-220) mg/dL (70-220) Test 06/26/18 12:26 06/26/18 14:22 Bedside 119 138 Glucose mg/dL (70-220) mg/dL (70-220) Results Results 24hrs Laboratory Tests Test 06/25/18 18:35 06/25/18 21:22 06/26/18 06:11 06/26/18 08:43 Bedside Glucose 178 127 172 Sodium Level 138 Potassium Level 5.0 Chloride Level 99 Carbon Dioxide Level 22 Anion Gap 17 H Blood Urea Nitrogen 55 H Creatinine 9.03 H Est Glomerular Filtrat 6 L Rate mL/min Glucose Level 128 # Calcium Level 7.4 L Phosphorus Level 10.6 #H Magnesium Level 2.0 Test 06/26/18 12:26 06/26/18 14:22 Bedside Glucose 119 138 Medications Medication Current Medications IV Flush (NS 3 ml) 3 ml PER PROTOCOL IV ; Start 06/23/18 at 04:00 Ondansetron HCl (Zofran Inj) 4 mg Q6H PRN IV NAUSEA/VOMITING; Start 06/23/18 at 04:00 Acetaminophen (Tylenol Tab) 650 mg Q6H PRN PO .PAIN 1-3 OR TEMP; Start 06/23/18 at 04:00 Acetaminophen/ Hydrocodone Bitart (Wilson (5/325)) 1 tab Q6H PRN PO .MOD PAIN 4- 6; Start 06/23/18 at 04:00 Acetaminophen/ Hydrocodone Bitart (Wilson (5/325)) 2 tab Q6H PRN PO .SEVERE PAIN 7-10 Last administered on 06/25/18at 16:45; Admin Dose 2 TAB; Start 06/23/18 at 04:00 Hydromorphone HCl (Dilaudid) 0.5 mg Q4H PRN IV .SEVERE PAIN 7-10 Last administered on 06/25/18at 23:51; Admin Dose 0.5 MG; Start 06/23/18 at 04:00 Docusate Sodium (Colace) 100 mg Q12H PRN PO .CONSTIPATION; Start 06/23/18 at 04:00 Bisacodyl (Dulcolax) 5 mg DAILY PRN PO .CONSTIPATION; Start 06/23/18 at 04:00 Sodium Biphosphate/ Sodium Phosphate (Fleet Enema) 133 ml DAILY PRN [place] .CONSTIPATION; Start 06/23/18 at 04:00 Zolpidem Tartrate (Ambien) 5 mg QHS PRN PO .INSOMNIA; Start 06/23/18 at 04:00 Diagnostic Test (Pha) (Accu-Chek) 1 ea 02 XX ; Start 06/24/18 at 02:00 Insulin Aspart (Novolog Insulin Pen) NOVOLOG *MILD* ALGORITHM WITH MEALS BEDTIME SC Last administered on 06/26/18at 08:53; Admin Dose 1 UNIT; Start 06/23/18 at 08:00 Linagliptin (Tradjenta) 5 mg DAILY PO Last administered on 06/25/18at 08:48; Admin Dose 5 MG; Start 06/23/18 at 09:00 Vancomycin HCl (Vanco Iv Per Pharmacy) VANCOMYCIN PER PHARMACY PER PROTOCOL XX ; Start 06/23/18 at 04:00 Piperacillin Sod/ Tazobactam Sod 50 ml @ 100 mls/hr Q12 IVPB Last administered on 06/26/18at 14:29; Admin Dose 100 MLS/HR; Start 06/23/18 at 06:00 Atorvastatin Calcium (Lipitor) 20 mg QHS PO Last administered on 06/25/18 21:02; Admin Dose 20 MG; Start 06/23/18 at 21:00 Ferrous Sulfate (Ferrous Sulfate (Ec)) 325 mg TID PO Last administered on 06/26/18 08:47; Admin Dose 325 MG; Start 06/23/18 at 09:00 Furosemide (Lasix) 80 mg DAILY PO Last administered on 06/25/18 10:37; Admin Dose 80 MG; Start 06/23/18 at 09:00 Isosorbide Mononitrate (Imdur) 30 mg DAILY PO Last administered on 06/25/18 10:38; Admin Dose 30 MG; Start 06/23/18 at 09:00 Levothyroxine Sodium (Synthroid) 50 mcg BEFORE BREAKFAST PO Last administered on 06/26/18 06:04; Admin Dose 50 MCG; Start 06/23/18 at 07:00 Lisinopril (Zestril) 40 mg DAILY PO Last administered on 06/25/18 10:38; Admin Dose 40 MG; Start 06/23/18 at 09:00 Multivit/Ca Carb/ B Cmplx/FA/Prenat (Matilda-Anthony) 1 tab DAILY PO Last administered on 06/25/18 08:46; Admin Dose 1 TAB; Start 06/23/18 at 09:00 Pantoprazole (Protonix Tab) 40 mg AC BREAKFAST PO Last administered on 06:04; Admin Dose 40 MG; Start 06/23/18 at 07:00 Fenofibrate (Tricor) 48 mg DAILY PO Last administered on 06/25/18 08:46; Admin Dose 48 MG; Start 06/23/18 at 09:00 Miscellaneous Information 1 ea NOTE XX ; Start 06/23/18 at 04:30 Glucose (Glutose) 15 gm Q15M PRN PO DECREASED GLUCOSE; Start 06/23/18 at 04:30 Glucose (Glutose) 22.5 gm Q15M PRN PO DECREASED GLUCOSE Last administered on 06/24/18 11:41; Admin Dose 22.5 GM; Start 06/23/18 at 04:30 Dextrose (D50w Syringe) 25 ml Q15M PRN IV DECREASED GLUCOSE; Start 06/23/18 at 04:30 Dextrose (D50w Syringe) 50 ml Q15M PRN IV DECREASED GLUCOSE; Start 06/23/18 at 04:30 Glucagon (Glucagen) 1 mg Q15M PRN IM DECREASED GLUCOSE; Start 06/23/18 at 04:30 Glucose (Glutose) 15 gm Q15M PRN BUCCAL DECREASED GLUCOSE Last administered on 06/24/18at 11:14; Admin Dose 15 GM; Start 06/23/18 at 04:30 Hydralazine HCl (Apresoline) 100 mg TID PO Last administered on 06/25/18 21:03; Admin Dose 100 MG; Start 06/23/18 at 13:00 Hydralazine HCl (Apresoline) 10 mg Q4H PRN IV sbp>165; Start 06/23/18 at 17:00 Benzonatate (Tessalon) 200 mg TID PRN PO COUGH; Start 06/23/18 at 17:30 Sodium Hypochlorite (Dakin'S (Dilute )) 1 applic DAILY IRR Last administered on 06/26/18 08:55; Admin Dose 1 APPLIC; Start 06/24/18 at 09:00 Albumin Human 100 ml @ 100 mls/hr WITH DIALYSIS PRN IV SBP <90 DURING DIALYSIS Last administered on 06/26/18 10:30; Admin Dose 100 MLS/HR; Start 06/23/18 at 18:30 Sodium Chloride (NS) -To prime the dialy... DIRECTED FOR HD PRN IV HD; Start 06/23/18 at 18:30 Gentamicin Sulfate (Gentamicin 0.1% Cr) 1 applic DAILY TOP Last administered on 06/26/18 08:50; Admin Dose 1 APPLIC; Start 06/25/18 at 09:00 Sevelamer Carbonate (Renvela) 1,600 mg WITH MEALS PO Last administered on 06/26/18 08:46; Admin Dose 1,600 MG; Start 06/24/18 at 18:00 Nifedipine (Procardia Xl) 60 mg BID PO Last administered on 06/25/18 21:15; Admin Dose 60 MG; Start 06/25/18 at 21:00 Doxazosin Mesylate (Cardura) 4 mg HS PO Last administered on 06/25/18 21:03; Admin Dose 4 MG; Start 06/25/18 at 21:00 Labetalol HCl (Normodyne) 800 mg BID PO Last administered on 06/25/18at 21:11; Admin Dose 800 MG; Start 06/25/18 at 21:00 Insulin Aspart (Novolog Insulin Pen) 4 unit WITH MEALS SC Last administered on 06/26/18at 14:25; Admin Dose 4 UNIT; Start 06/25/18 at 18:00 Insulin Glargine (Lantus) 11 units DAILY@0800 SC Last administered on 06/26/18at 08:53; Admin Dose 11 UNITS; Start 06/26/18 at 08:00 Labetalol HCl (Normodyne) 100 mg BID PO Last administered on 06/25/18 21:03; Ad min Dose 100 MG; Start 06/25/18 at 21:00 IV Flush (NS 10 ml) 10 ml PRN PRN IV IV PROTOCOL; Start 06/25/18 at 18:30 ELANA MENDOZA MD Jun 26, 2018 14:42
--- NOTE | 2018-06-26 15:34 | CONS ---
Assessment/Plan Assessment/Plan Problems: (1) Type 2 diabetes mellitus with diabetic peripheral angiopathy without gangrene Status: Chronic Comment: BS is stable. Pt on IV Vanco & PO Levoquin (2) End-stage renal disease on hemodialysis Status: Chronic Comment: Pt was seen while he's getting HD, continue TTS schedule Consultation Date/Type/Reason Admit Date/Time Jun 23, 2018 at 03:32 Initial Consult Date 06/23/18 Type of Consult Renal Reason for Consultation ESRD Requesting Provider: ELANA MENDOZA MD Date/Time of Note DATE: 06/26/18 TIME: 15:33 24 HR Interval Summary Constitutional: improved Exam/Review of Systems Exam Vitals Vital Signs Date Temp Pulse Resp B/P (MAP) Pulse Ox O2 O2 Flow FiO2 Time Delivery Rate 06/26/18 69 13:15 06/26/18 18 100/44 96 Room Air 10:15 (62) 06/26/18 97.8 07:55 Intake and Output 06/25/18 06/25/18 06/26/18 1515:00 23:00 07:00 IntakeIntake Total 600 ml 250 ml BalanceBalance 600 ml 250 ml Exam at bedside Constitutional: alert, oriented Psych: no complaints Head: normocephalic Eyes: nl conjunctiva ENMT: nl external ears & nose Neck: supple Respiratory: clear to auscultation Cardiovascular: regular rate and rhythm Gastrointestinal: soft Musculoskeletal: nl extremities to inspection Extremities: other (Lt arm avf bruit+) Skin: other (pale) Results Result Diagram: 06/25/18 0511 06/26/18 0611 Results 24hrs Laboratory Tests Test 06/25/18 18:35 06/25/18 21:22 06/26/18 06:11 06/26/18 08:43 Bedside Glucose 178 127 172 Sodium Level 138 Potassium Level 5.0 Chloride Level 99 Carbon Dioxide Level 22 Anion Gap 17 H Blood Urea Nitrogen 55 H Creatinine 9.03 H Est Glomerular Filtrat 6 L Rate mL/min Glucose Level 128 # Calcium Level 7.4 L Phosphorus Level 10.6 #H Magnesium Level 2.0 Test 06/26/18 12:26 06/26/18 14:22 Bedside Glucose 119 138 Imaging Imaging MRI Foot findings noted Medications Medication Current Medications IV Flush (NS 3 ml) 3 ml PER PROTOCOL IV ; Start 06/23/18 at 04:00 Ondansetron HCl (Zofran Inj) 4 mg Q6H PRN IV NAUSEA/VOMITING; Start 06/23/18 at 04:00 Acetaminophen (Tylenol Tab) 650 mg Q6H PRN PO .PAIN 1-3 OR TEMP; Start 06/23/18 at 04:00 Acetaminophen/ Hydrocodone Bitart ([place]udson (5/325)) 1 tab Q6H PRN PO .MOD PAIN 4- 6; Start 06/23/18 at 04:00 Acetaminophen/ Hydrocodone Bitart (Hudson (5/325)) 2 tab Q6H PRN PO .SEVERE PAIN 7-10 Last administered on 06/25/18at 16:45; Admin Dose 2 TAB; Start 06/23/18 at 04:00 Hydromorphone HCl (Dilaudid) 0.5 mg Q4H PRN IV .SEVERE PAIN 7-10 Last administered on 06/26/18at 14:37; Admin Dose 0.5 MG; Start 06/23/18 at 04:00 Docusate Sodium (Colace) 100 mg Q12H PRN PO .CONSTIPATION; Start 06/23/18 at 04:00 Bisacodyl (Dulcolax) 5 mg DAILY PRN PO .CONSTIPATION; Start 06/23/18 at 04:00 Sodium Biphosphate/ Sodium Phosphate (Fleet Enema) [address] .CONSTIPATION; Start 06/23/18 at 04:00 Zolpidem Tartrate (Ambien) 5 mg QHS PRN PO .INSOMNIA; Start 06/23/18 at 04:00 Diagnostic Test (Pha) (Accu-Chek) XX ; Start 06/24/18 at 02:00 Insulin Aspart (Novolog Insulin Pen) NOVOLOG *MILD* ALGORITHM WITH MEALS BEDTIME SC Last administered on 06/26/18at 08:53; Admin Dose 1 UNIT; Start 06/23/18 at 08:00 Linagliptin (Tradjenta) 5 mg DAILY PO Last administered on 06/25/18at 08:48; Admin Dose 5 MG; Start 06/23/18 at 09:00 Vancomycin HCl (Vanco Iv Per Pharmacy) VANCOMYCIN PER PHARMACY PER PROTOCOL XX ; Start 06/23/18 at 04:00 Piperacillin Sod/ Tazobactam Sod 50 ml @ 100 mls/hr Q12 IVPB Last administered on 06/26/18 14:29; Admin Dose 100 MLS/HR; Start 06/23/18 at 06:00 Atorvastatin Calcium (Lipitor) 20 mg QHS PO Last administered on 06/25/18 21:02; Admin Dose 20 MG; Start 06/23/18 at 21:00 Ferrous Sulfate (Ferrous Sulfate (Ec)) 325 mg TID PO Last administered on 06/26/18 08:47; Admin Dose 325 MG; Start 06/23/18 at 09:00 Furosemide (Lasix) 80 mg DAILY PO Last administered on 06/25/18 10:37; Admin Dose 80 MG; Start 06/23/18 at 09:00 Isosorbide Mononitrate (Imdur) 30 mg DAILY PO Last administered on 06/25/18 10:38; Admin Dose 30 MG; Start 06/23/18 at 09:00 Levothyroxine Sodium (Synthroid) 50 mcg BEFORE BREAKFAST PO Last administered on 06/26/18 06:04; Admin Dose 50 MCG; Start 06/23/18 at 07:00 Lisinopril (Zestril) 40 mg DAILY PO Last administered on 06/25/18 10:38; Admin Dose 40 MG; Start 06/23/18 at 09:00 Multivit/Ca Carb/ B Cmplx/FA/Prenat (Matilda-Anthony) 1 tab DAILY PO Last administered on 06/25/18 08:46; Admin Dose 1 TAB; Start 06/23/18 at 09:00 Pantoprazole (Protonix Tab) 40 mg AC BREAKFAST PO Last administered on 06/26/18 06:04; Admin Dose 40 MG; Start 06/23/18 at 07:00 Fenofibrate (Tricor) 48 mg DAILY PO Last administered on 06/25/18 08:46; Admin Dose 48 MG; Start 06/23/18 at 09:00 Miscellaneous Information 1 ea NOTE XX ; Start 06/23/18 at 04:30 Glucose (Glutose) 15 gm Q15M PRN PO DECREASED GLUCOSE; Start 06/23/18 at 04:30 Glucose (Glutose) 22.5 gm Q15M PRN PO DECREASED GLUCOSE Last administered on 06/24/18 11:41; Admin Dose 22.5 GM; Start 06/23/18 at 04:30 Dextrose (D50w Syringe) 25 ml Q15M PRN IV DECREASED GLUCOSE; Start 06/23/18 at 04:30 Dextrose (D50w Syringe) 50 ml Q15M PRN IV DECREASED GLUCOSE; Start 06/23/18 at 04:30 Glucagon (Glucagen) 1 mg Q15M PRN IM DECREASED GLUCOSE; Start 06/23/18 at 04:30 Glucose (Glutose) 15 gm Q15M PRN BUCCAL DECREASED GLUCOSE Last administered on 06/24/18at 11:14; Admin Dose 15 GM; Start 06/23/18 at 04:30 Hydralazine HCl (Apresoline) 100 mg TID PO Last administered on 06/25/18 21:03; Admin Dose 100 MG; Start 06/23/18 at 13:00 Hydralazine HCl (Apresoline) 10 mg Q4H PRN IV sbp>165; Start 06/23/18 at 17:00 Benzonatate (Tessalon) 200 mg TID PRN PO COUGH; Start 06/23/18 at 17:30 Sodium Hypochlorite (Dakin'S (Dilute )) 1 applic DAILY IRR Last administered on 06/26/18 08:55; Admin Dose 1 APPLIC; Start 06/24/18 at 09:00 Albumin Human 100 ml @ 100 mls/hr WITH DIALYSIS PRN IV SBP <90 DURING DIALYSIS Last administered on 06/26/18 10:30; Admin Dose 100 MLS/HR; Start 06/23/18 at 18:30 Sodium Chloride (NS) -To prime the dialy... DIRECTED FOR HD PRN IV HD; Start 06/23/18 at 18:30 Gentamicin Sulfate (Gentamicin 0.1% Cr) 1 applic DAILY TOP Last administered on 06/26/18 08:50; Admin Dose 1 APPLIC; Start 06/25/18 at 09:00 Sevelamer Carbonate (Renvela) 1,600 mg WITH MEALS PO Last administered on 06/26/18 08:46; Admin Dose 1,600 MG; Start 06/24/18 at 18:00 Nifedipine (Procardia Xl) 60 mg BID PO Last administered on 06/25/18 21:15; Admin Dose 60 MG; Start 06/25/18 at 21:00 Labetalol HCl (Normodyne) 800 mg BID PO Last administered on 06/25/18at 21:11; Admin Dose 800 MG; Start 06/25/18 at 21:00 Insulin Aspart (Novolog Insulin Pen) 4 unit WITH MEALS SC Last administered on 06/26/18at 14:25; Admin Dose 4 UNIT; Start 06/25/18 at 18:00 Insulin Glargine (Lantus) 11 units DAILY@0800 SC Last administered on 06/26/18at 08:53; Admin Dose 11 UNITS; Start 06/26/18 at 08:00 Labetalol HCl (Normodyne) 100 mg BID PO Last administered on 06/25/18at 21:03; Admin Dose 100 MG; Start 06/25/18 at 21:00 IV Flush (NS 10 ml) 10 ml PRN PRN IV IV PROTOCOL; Start 06/25/18 at 18:30 Doxazosin Mesylate (Cardura) 2 mg HS PO ; Start 06/26/18 at 21:00 ARNOLD MARIE MD Jun 26, 2018 15:34
--- NOTE | 2018-06-26 18:20 | CONS ---
Assessment/Plan Assessment/Plan Hospital Course (Demo Recall) Hypertension, improved Right foot pain History of hypertension Diabetes End-stage renal disease on hemodialysis Preserved ejection fraction -BP on the lower side today and patient symptomatic, likely secondary to increase of antihypertensives. I will decrease dose of doxazosin. -Given not planned for any procedures, would start aspirin for prophylaxis therapy given multiple CAD risk factors. Continue statin therapy if no contraindication -Fluid management via hemodialysis as per nephrology. Consultation Date/Type/Reason Admit Date/Time Jun 23, 2018 at 03:32 Initial Consult Date 06/23/18 Type of Consult Cardiology Requesting Provider: ELANA MENDOZA MD Date/Time of Note DATE: 06/26/18 TIME: 18:18 24 HR Interval Summary Free Text/Dictation Complains of slight dizziness today. Denies chest pain, palpitations or shortness of breath Exam/Review of Systems Vital Signs Vitals Vital Signs Date Temp Pulse Resp B/P (MAP) Pulse Ox O2 O2 Flow FiO2 Time Delivery Rate 06/26/18 69 18 130/50 98 Room Air 14:00 (76) 06/26/18 97.8 07:55 Intake and Output 06/25/18 06/25/18 06/26/18 1414:59 22:59 06:59 IntakeIntake Total 600 ml 250 ml BalanceBalance 600 ml 250 ml Exam Constitutional: alert, oriented (No apparent distress) Neck: supple Respiratory: other (Coarse breath sounds bilaterally, no wheezing) Cardiovascular: regular rate and rhythm (S1-S2 heard) Gastrointestinal: soft, non-tender, bowel sounds Extremities: edema Labs Result Diagram: 06/25/18 0511 06/26/18 0611 Results 24hrs Laboratory Tests Test 06/25/18 18:35 06/25/18 21:22 06/26/18 06:11 06/26/18 08:43 Bedside Glucose 178 127 172 Sodium Level 138 Potassium Level 5.0 Chloride Level 99 Carbon Dioxide Level 22 Anion Gap 17 H Blood Urea Nitrogen 55 H Creatinine 9.03 H Est Glomerular Filtrat 6 L Rate mL/min Glucose Level 128 # Calcium Level 7.4 L Phosphorus Level 10.6 #H Magnesium Level 2.0 Test 06/26/18 12:26 06/26/18 14:22 06/26/18 17:30 Bedside Glucose 119 138 127 Medications Medications Current Medications IV Flush (NS 3 ml) 3 ml PER PROTOCOL IV ; Start 06/23/18 at 04:00 Ondansetron HCl (Zofran Inj) 4 mg Q6H PRN IV NAUSEA/VOMITING; Start 06/23/18 at 04:00 Acetaminophen (Tylenol Tab) 650 mg Q6H PRN PO .PAIN 1-3 OR TEMP; Start 06/23/18 at 04:00 Acetaminophen/ Hydrocodone Bitart ([place] (5/325)) 1 tab Q6H PRN PO .MOD PAIN 4- 6; Start 06/23/18 at 04:00 Acetaminophen/ Hydrocodone Bitart ([place] (5/325)) 2 tab Q6H PRN PO .SEVERE PAIN 7-10 Last administered on 06/25/18at 16:45; Admin Dose 2 TAB; Start 06/23/18 at 04:00 Hydromorphone HCl (Dilaudid) 0.5 mg Q4H PRN IV .SEVERE PAIN 7-10 Last administered on 06/26/18at 14:37; Admin Dose 0.5 MG; Start 06/23/18 at 04:00 Docusate Sodium (Colace) 100 mg Q12H PRN PO .CONSTIPATION; Start 06/23/18 at 04:00 Bisacodyl (Dulcolax) 5 mg DAILY PRN PO .CONSTIPATION; Start 06/23/18 at 04:00 Sodium Biphosphate/ Sodium Phosphate (Fleet Enema) 133 ml DAILY PRN [place] .CONSTIPATION; Start 06/23/18 at 04:00 Zolpidem Tartrate (Ambien) 5 mg QHS PRN PO .INSOMNIA; Start 06/23/18 at 04:00 Diagnostic Test (Pha) (Accu-Chek) 1 02 XX ; Start 06/24/18 at 02:00 Insulin Aspart (Novolog Insulin Pen) NOVOLOG *MILD* ALGORITHM WITH MEALS BEDTIME SC Last administered on 06/26/18at 08:53; Admin Dose 1 UNIT; Start 06/23/18 at 08:00 Linagliptin (Tradjenta) 5 mg DAILY PO Last administered on 06/25/18at 08:48; Admin Dose 5 MG; Start 06/23/18 at 09:00 Vancomycin HCl (Vanco Iv Per Pharmacy) VANCOMYCIN PER PHARMACY PER PROTOCOL XX ; Start 06/23/18 at 04:00 Piperacillin Sod/ Tazobactam Sod 50 ml @ 100 mls/hr Q12 IVPB Last administered on 06/26/18 14:29; Admin Dose 100 MLS/HR; Start 06/23/18 at 06:00 Atorvastatin Calcium (Lipitor) 20 mg QHS PO Last administered on 06/25/18 21:02; Admin Dose 20 MG; Start 06/23/18 at 21:00 Ferrous Sulfate (Ferrous Sulfate (Ec)) 325 mg TID PO Last administered on 06/26/18 08:47; Admin Dose 325 MG; Start 06/23/18 at 09:00 Furosemide (Lasix) 80 mg DAILY PO Last administered on 06/25/18 10:37; Admin Dose 80 MG; Start 06/23/18 at 09:00 Isosorbide Mononitrate (Imdur) 30 mg DAILY PO Last administered on 06/25/18 10:38; Admin Dose 30 MG; Start 06/23/18 at 09:00 Levothyroxine Sodium (Synthroid) 50 mcg BEFORE BREAKFAST PO Last administered on 06/26/18 06:04; Admin Dose 50 MCG; Start 06/23/18 at 07:00 Lisinopril (Zestril) 40 mg DAILY PO Last administered on 06/25/18 10:38; Admin Dose 40 MG; Start 06/23/18 at 09:00 Multivit/Ca Carb/ B Cmplx/FA/Prenat (Matilda-Anthony) 1 tab DAILY PO Last administered on 06/25/18 08:46; Admin Dose 1 TAB; Start 06/23/18 at 09:00 Pantoprazole (Protonix Tab) 40 mg AC BREAKFAST PO Last administered on 06/26/18 06:04; Admin Dose 40 MG; Start 06/23/18 at 07:00 Fenofibrate (Tricor) 48 mg DAILY PO Last administered on 06/25/18 08:46; Admin Dose 48 MG; Start 06/23/18 at 09:00 Miscellaneous Information 1 ea NOTE XX ; Start 06/23/18 at 04:30 Glucose (Glutose) 15 gm Q15M PRN PO DECREASED GLUCOSE; Start 06/23/18 at 04:30 Glucose (Glutose) 22.5 gm Q15M PRN PO DECREASED GLUCOSE Last administered on 06/24/18 11:41; Admin Dose 22.5 GM; Start 06/23/18 at 04:30 Dextrose (D50w Syringe) 25 ml Q15M PRN IV DECREASED GLUCOSE; Start 06/23/18 at 04:30 Dextrose (D50w Syringe) 50 ml Q15M PRN IV DECREASED GLUCOSE; Start 06/23/18 at 04:30 Glucagon (Glucagen) 1 mg Q15M PRN IM DECREASED GLUCOSE; Start 06/23/18 at 04:30 Glucose (Glutose) 15 gm Q15M PRN BUCCAL DECREASED GLUCOSE Last administered on 06/24/18 11:14; Admin Dose 15 GM; Start 06/23/18 at 04:30 Hydralazine HCl (Apresoline) 100 mg TID PO Last administered on 06/25/18 21:03; Admin Dose 100 MG; Start 06/23/18 at 13:00 Hydralazine HCl (Apresoline) 10 mg Q4H PRN IV sbp>165; Start 06/23/18 at 17:00 Benzonatate (Tessalon) 200 mg TID PRN PO COUGH; Start 06/23/18 at 17:30 Sodium Hypochlorite (Dakin'S (Dilute 40)) 1 applic DAILY IRR Last administered on 06/26/18 08:55; Admin Dose 1 APPLIC; Start 06/24/18 at 09:00 Albumin Human 100 ml @ 100 mls/hr WITH DIALYSIS PRN IV SBP <90 DURING DIALYSIS Last administered on 06/26/18 10:30; Admin Dose 100 MLS/HR; Start 06/23/18 at 18:30 Sodium Chloride (NS) -To prime the dialy... DIRECTED FOR HD PRN IV HD; Start 06/23/18 at 18:30 Gentamicin Sulfate (Gentamicin 0.1% Cr) 1 applic DAILY TOP Last administered on 06/26/18 08:50; Admin Dose 1 APPLIC; Start 06/25/18 at 09:00 Sevelamer Carbonate (Renvela) 1,600 mg WITH MEALS PO Last administered on 06/26/18 17:31; Admin Dose 1,600 MG; Start 06/24/18 at 18:00 Nifedipine (Procardia Xl) 60 mg BID PO Last administered on 06/25/18 21:15; Admin Dose 60 MG; Start 06/25/18 at 21:00 Labetalol HCl (Normodyne) 800 mg BID PO Last administered on 06/25/18at 21:11; Admin Dose 800 MG; Start 06/25/18 at 21:00 Insulin Aspart (Novolog Insulin Pen) 4 unit WITH MEALS SC Last administered on 06/26/18at 17:32; Admin Dose 4 UNIT; Start 06/25/18 at 18:00 Insulin Glargine (Lantus) 11 units DAILY@0800 SC Last administered on 06/26/18at 08:53; Admin Dose 11 UNITS; Start 06/26/18 at 08:00 Labetalol HCl (Normodyne) 100 mg BID PO Last administered on 06/25/18 21:03; Admin Dose 100 MG; Start 06/25/18 at 21:00 IV Flush (NS 10 ml) 10 ml PRN PRN IV IV PROTOCOL; Start 06/25/18 at 18:30 Doxazosin Mesylate (Cardura) 2 mg HS PO ; Start 06/26/18 at 21:00 Elana Snell DO Jun 26, 2018 18:20
[2018-06-26] MEDS: ATORVASTATIN 20 MG TAB PO SCH (20:38)
[2018-06-26] MEDS ORDERED: DOXAZOSIN 2 MG TAB PO SCH (21:00)
[2018-06-27] MEDS: ACCU-CHEK XX SCH (02:00)
[2018-06-27 02:06] VITALS: BP 110/45; PULSE 85; RESP 18
[2018-06-27] MEDS: PANTOPRAZOLE (EC) 40 MG TAB PO SCH (06:09)
[2018-06-27] MEDS: LEVOTHYROXINE 25 MCG TAB PO SCH (06:10)
[2018-06-27 08:00] VITALS: BP 128/59; RESP 18
[2018-06-27] MEDS: INSULIN ASPART [NOVOLOG] 3 ML PEN SC SCH ×6 (08:00→17:29)
[2018-06-27] MEDS: LABETALOL 200 MG TAB PO SCH (08:16)
[2018-06-27] MEDS: ISOSORBIDE MONONITRATE(SR)30 MG TAB PO SCH (08:17)
[2018-06-27] MEDS: LABETALOL 100 MG TAB PO SCH (08:17)
[2018-06-27] MEDS: MULTIVIT/CA CARB/B CMPLX/FA TAB PO SCH (08:17)
[2018-06-27] MEDS: SEVELAMER CARBONATE 800 MG TABLET PO SCH ×3 (08:17→17:29)
[2018-06-27] MEDS: LISINOPRIL 20 MG TAB PO SCH (08:17)
[2018-06-27] MEDS: FUROSEMIDE 40 MG TAB PO SCH (08:18)
[2018-06-27] MEDS: FERROUS SULFATE (EC) 325 MG TAB PO SCH ×2 (08:18→12:38)
[2018-06-27] MEDS: FENOFIBRATE 48 MG TAB PO SCH (08:18)
[2018-06-27] MEDS: NIFEdipine (XL) 60 MG TAB PO SCH (08:19)
[2018-06-27] MEDS: GENTAMICIN 0.1% CREAM 15GM TUBE TOP SCH (08:19)
[2018-06-27] MEDS: SODIUM HYPOCHLORITE (1/40) 1 APPLIC BTL IRR SCH (08:19)
[2018-06-27] MEDS: HYDROmorphONE 0.5 MG/0.5 ML SYG IV PRN ×3 (08:23→17:30)
[2018-06-27] MEDS: LINAGLIPTIN 5 MG TABLET PO SCH (08:23)
[2018-06-27] MEDS ORDERED: ASPIRIN 81 MG TAB PO SCH (09:00)
--- NOTE | 2018-06-27 09:10 | CONS ---
Consult Date/Type/Reason Admit Date/Time Jun 23, 2018 at 03:32 Initial Consult Date 06/23/18 Requesting Provider: ELANA SIERRA MD Date/Time of Note DATE: 06/27/18 TIME: 09:09 Subjective Patient seen bedside for follow up of right foot sub 4th met head ulceration. He has a PICC line and is pending discharge on IV Vancomycin and PO Levaquin. He is feeling better. Objective Vitals Vital Signs Date Temp Pulse Resp B/P (MAP) Pulse Ox O2 O2 Flow FiO2 Time Delivery Rate 06/27/18 98.7 18 128/59 92 Room Air 08:00 (82) 06/27/18 85 02:06 Intake and Output 06/26/18 06/26/18 06/27/18 1515:00 23:00 07:00 IntakeIntake Total 760 ml 430 ml OutputOutput Total 2600 ml BalanceBalance -1840 ml 430 ml Exam right foot exam: Right foot sub 4th met head ulceration once again noted with no deep probe or drainage. No proximal streaking noted and no drainage. Results/Medications Result Diagram: 06/27/18 0610 06/27/18 0610 Results 24 hrs Laboratory Tests Test 06/26/18 12:26 06/26/18 14:22 06/26/18 17:30 06/26/18 20:35 Bedside Glucose 119 138 127 163 Test 06/27/18 06:10 06/27/18 08:14 White Blood Count 6.9 Red Blood Count 3.11 L Hemoglobin 9.0 L Hematocrit 28.8 L Mean Corpuscular Volume 92.6 Mean Corpuscular 28.9 L Hemoglobin Mean Corpuscular 31.3 L Hemoglobin Concent Red Cell Distribution 15.7 H Width Platelet Count 216 Mean Platelet Volume 8.9 Immature Granulocytes % 0.300 Neutrophils % 69.3 Lymphocytes % 13.6 L Monocytes % 10.4 Eosinophils % 5.4 Basophils % 1.0 Nucleated Red Blood 0.0 Cells % Immature Granulocytes # 0.020 Neutrophils # 4.8 Lymphocytes # 0.9 Monocytes # 0.7 Eosinophils # 0.4 Basophils # 0.1 Nucleated Red Blood 0.0 Cells # Sodium Level 141 Potassium Level 4.8 Chloride Level 99 Carbon Dioxide Level 26 Anion Gap 16 H Blood Urea Nitrogen 40 #H Creatinine 7.15 H Est Glomerular Filtrat 8 L Rate mL/min Glucose Level 104 Calcium Level 7.9 L Phosphorus Level 8.2 #H Bedside Glucose 119 Home Meds Active Scripts Silver Sulfadiazine* (Silvadene*) 1% - 20 Gm Cream.gm., 1 APPLIC TOP DAILY, #1 TUB Prov:ONEYDA BEASLEY 06/15/18 Ondansetron (Ondansetron Odt) 4 Mg Tab.rapdis, 4 MG PO Q6H PRN for NAUSEA AND/OR VOMITING, #10 TAB Prov:OLIVIA WARD 04/07/18 Hydrocodone/Acetaminophen ([place] 10-325 Tablet) 1 Each Tablet, 1 TAB PO Q6H PRN for PAIN, #7 TAB Prov:OLIVIA WARD. 04/07/18 Labetalol Hcl* (Labetalol Hcl*) 300 Mg Tablet, 300 MG PO BID for 60 Days, TAB Prov:PAIGE KELLY MD 03/22/18 Reported Medications Fenofibrate, Micronized (Fenofibrate) 134 Mg Capsule, 134 MG PO DAILY, CAP 04/03/18 Insulin Aspart* (Novolog Insulin Pen*) 100 Unit/Ml Soln, 22 UNIT SC WITH MEALS, EA 04/03/18 Multivit/Ca Carb/B Cmplx/Fa* (Matilda-Anthony*) 1 Tab Tab, 1 TAB PO DAILY, TAB 04/03/18 Nifedipine* (Nifedipine ER*) 90 Mg Tablet.er, 90 MG PO DAILY, TAB 04/03/18 Levothyroxine Sodium* (Levothyroxine Sodium*) 25 Mcg Tablet, 50 MCG PO BEFORE BREAKFAST, #30 TAB 04/03/18 Lisinopril* (Lisinopril*) 40 Mg Tablet, 40 MG PO DAILY, #30 TAB 03/22/18 Isosorbide Mononitrate* (Isosorbide Mononitrate*) 30 Mg Tab.er.24h, 30 MG PO DAILY, TAB 03/22/18 Ferrous Sulfate* (Ferrous Sulfate*) 325 Mg Tabec, 325 MG PO TID, TAB 03/22/18 Atorvastatin Calcium* (Atorvastatin Calcium*) 20 Mg Tablet, 20 MG PO QHS, #30 TAB 10/07/17 Furosemide* (Furosemide*) 80 Mg Tablet, 80 MG PO DAILY, #30 TAB 10/07/17 Insulin Glargine* (Lantus*) 100 Unit/Ml Soln, 20 UNIT SC QHS, #1 VIAL 10/07/17 Doxazosin Mesylate* (Doxazosin Mesylate*) 2 Mg Tablet, 2 MG PO HS, TAB 10/07/17 Hydralazine Hcl* (Apresoline*) 50 Mg Tab, 50 MG PO BID, #60 TAB 10/07/17 Pantoprazole* (Pantoprazole*) 40 Mg Tablet.dr, 40 MG PO AC BREAKFAST, TAB 10/07/17 Medications Current Medications IV Flush (NS 3 ml) 3 ml PER PROTOCOL IV ; Start 06/23/18 at 04:00 Ondansetron HCl (Zofran Inj) 4 mg Q6H PRN IV NAUSEA/VOMITING; Start 06/23/18 at 04:00 Acetaminophen (Tylenol Tab) 650 mg Q6H PRN PO .PAIN 1-3 OR TEMP; Start 06/23/18 at 04:00 Acetaminophen/ Hydrocodone Bitart ([place] (5/325)) 1 tab Q6H PRN PO .MOD PAIN 4- 6; Start 06/23/18 at 04:00 Acetaminophen/ Hydrocodone Bitart ([place] (5/325)) 2 tab Q6H PRN PO .SEVERE PAIN 7-10 Last administered on 06/25/18at 16:45; Admin Dose 2 TAB; Start 06/23/18 at 04:00 Hydromorphone HCl (Dilaudid) 0.5 mg Q4H PRN IV .SEVERE PAIN 7-10 Last ad ministered on 06/27/18at 08:23; Admin Dose 0.5 MG; Start 06/23/18 at 04:00 Docusate Sodium (Colace) 100 mg Q12H PRN PO .CONSTIPATION Last administered on 06/27/18at 08:17; Admin Dose 100 MG; Start 06/23/18 at 04:00 Bisacodyl (Dulcolax) 5 mg DAILY PRN PO .CONSTIPATION; Start 06/23/18 at 04:00 Sodium Biphosphate/ Sodium Phosphate (Fleet Enema) 133 ml DAILY PRN [place] .CONSTIPATION; Start 06/23/18 at 04:00 Zolpidem Tartrate (Ambien) 5 mg QHS PRN PO .INSOMNIA; Start 06/23/18 at 04:00 Diagnostic Test (Pha) (Accu-Chek) XX ; Start 06/24/18 at 02:00 Insulin Aspart (Novolog Insulin Pen) NOVOLOG *MILD* ALGORITHM WITH MEALS BEDTIME SC Last administered on 06/26/18 08:53; Admin Dose 1 UNIT; Start 9 at 08:00 Linagliptin (Tradjenta) 5 mg DAILY PO Last administered on 06/27/18 08:23; Admin Dose 5 MG; Start 06/23/18 at 09:00 Vancomycin HCl (Vanco Iv Per Pharmacy) VANCOMYCIN PER PHARMACY PER PROTOCOL XX ; Start 06/23/18 at 04:00 Piperacillin Sod/ Tazobactam Sod 50 ml @ 100 mls/hr Q12 IVPB Last administered on 06/26/18 21:56; Admin Dose 100 MLS/HR; Start 06/23/18 at 06:00 Atorvastatin Calcium (Lipitor) 20 mg QHS PO Last administered on 06/26/18 20:38; Admin Dose 20 MG; Start 06/23/18 at 21:00 Ferrous Sulfate (Ferrous Sulfate (Ec)) 325 mg TID PO Last administered on 06/27/18 08:18; Admin Dose 325 MG; Start 06/23/18 at 09:00 Furosemide (Lasix) 80 mg DAILY PO Last administered on 06/27/18 08:18; Admin Dose 80 MG; Start 06/23/18 at 09:00 Isosorbide Mononitrate (Imdur) 30 mg DAILY PO Last administered on 06/27/18 08:17; Admin Dose 30 MG; Start 06/23/18 at 09:00 Levothyroxine Sodium (Synthroid) 50 mcg BEFORE BREAKFAST PO Last administered on 06/27/18 06:10; Admin Dose 50 MCG; Start 06/23/18 at 07:00 Lisinopril (Zestril) 40 mg DAILY PO Last administered on 06/27/18 08:17; Admin Dose 40 MG; Start 06/23/18 at 09:00 Multivit/Ca Carb/ B Cmplx/FA/Prenat (Matilda-Anthony) 1 tab DAILY PO Last admi nistered on 06/27/18 08:17; Admin Dose 1 TAB; Start 06/23/18 at 09:00 Pantoprazole (Protonix Tab) 40 mg AC BREAKFAST PO Last administered on 06/27/18 06:09; Admin Dose 40 MG; Start 06/23/18 at 07:00 Fenofibrate (Tricor) 48 mg DAILY PO Last administered on 06/27/18 08:18; Admin Dose 48 MG; Start 06/23/18 at 09:00 Miscellaneous Information 1 ea NOTE XX ; Start 06/23/18 at 04:30 Glucose (Glutose) 15 gm Q15M PRN PO DECREASED GLUCOSE; Start 06/23/18 at 04:30 Glucose (Glutose) 22.5 gm Q15M PRN PO DECREASED GLUCOSE Last administered on 06/24/18at 11:41; Admin Dose 22.5 GM; Start 06/23/18 at 04:30 Dextrose (D50w Syringe) 25 ml Q15M PRN IV DECREASED GLUCOSE; Start 06/23/18 at 04:30 Dextrose (D50w Syringe) 50 ml Q15M PRN IV DECREASED GLUCOSE; Start 06/23/18 at 04:30 Glucagon (Glucagen) 1 mg Q15M PRN IM DECREASED GLUCOSE; Start 06/23/18 at 04:30 Glucose (Glutose) 15 gm Q15M PRN BUCCAL DECREASED GLUCOSE Last administered on 06/24/18at 11:14; Admin Dose 15 GM; Start 06/23/18 at 04:30 Hydralazine HCl (Apresoline) 100 mg TID PO Last administered on 06/27/18 08:18; Admin Dose 100 MG; Start 06/23/18 at 13:00 Hydralazine HCl (Apresoline) 10 mg Q4H PRN IV sbp>165; Start 06/23/18 at 17:00 Benzonatate (Tessalon) 200 mg TID PRN PO COUGH; Start 06/23/18 at 17:30 Sodium Hypochlorite (Dakin'S (Dilute 40)) 1 applic DAILY IRR Last administered on 06/27/18 08:19; Admin Dose 1 APPLIC; Start 06/24/18 at 09:00 Albumin Human 100 ml @ 100 mls/hr WITH DIALYSIS PRN IV SBP <90 DURING DIALYSIS Last administered on 06/26/18at 10:30; Admin Dose 100 MLS/HR; Start 06/23/18 at 18:30 Sodium Chloride (NS) -To prime the dialy... DIRECTED FOR HD PRN IV HD; Start 06/23/18 at 18:30 Gentamicin Sulfate (Gentamicin 0.1% Cr) 1 applic DAILY TOP Last administered on 06/27/18 08:19; Admin Dose 1 APPLIC; Start 06/25/18 at 09:00 Sevelamer Carbonate (Renvela) 1,600 mg WITH MEALS PO Last administered on 06/27/18 08:17; Admin Dose 1,600 MG; Start 06/24/18 at 18:00 Nifedipine (Procardia Xl) 60 mg BID PO Last administered on 06/27/18 08:19; Admin Dose 60 MG; Start 06/25/18 at 21:00 Labetalol HCl (Normodyne) 800 mg BID PO Last administered on 06/27/18 08:16; Admin Dose 800 MG; Start 06/25/18 at 21:00 Insulin Aspart (Novolog Insulin Pen) 4 unit WITH MEALS SC Last administered on 06/26/18 17:32; Admin Dose 4 UNIT; Start 06/25/18 at 18:00 Insulin Glargine (Lantus) 11 units DAILY@0800 SC Last administered on 06/26/18 08:53; Admin Dose 11 UNITS; Start 06/26/18 at 08:00 Labetalol HCl (Normodyne) 100 mg BID PO Last administered on 06/27/18 08:17; Admin Dose 100 MG; Start 06/25/18 at 21:00 IV Flush (NS 10 ml) 10 ml PRN PRN IV IV PROTOCOL; Start 06/25/18 at 18:30 Doxazosin Mesylate (Cardura) 2 mg HS PO Last administered on 06/26/18 21:55; Admin Dose 2 MG; Start 06/26/18 at 21:00 Aspirin (Aspirin) 81 mg DAILY PO Last administered on 06/27/18 08:18; Admin Dose 81 MG; Start 06/27/18 at 09:00 Assessment/Plan Hospital Course (Demo Recall) 58 yo male with right foot ulcer with underlying osteomyelitis. -sharp debridement of wound sub-q level with 15 blade and excisional of non viable tissue. Recommendations: -continuing with IV and PO antibiotics. -patient to limit walking and standing right foot. -dressing changes of right foot daily with betadine solution. -patient to have follow up with Vascular surgeon Dr. Meza at [facility] on 07/01/18 and with me on Saturday07/04/18 in the afternoon. Thank you Dr. Sierra for allowing me to see this patient. GUERO HAQUE DPM Jun 27, 2018 09:10
[2018-06-27] MEDS: PIPER-TAZO 2.25 GM (PMX) 50 ML IVPB SCH (09:13)
[2018-06-27] MEDS: INSULIN GLARGINE [LANTus] (100 UNITS/ML) SYG SC SCH (09:15)
--- NOTE | 2018-06-27 11:01 | CONS ---
Assessment/Plan Assessment/Plan Hospital Course (Demo Recall) Hypertension, improved Right foot pain History of hypertension Diabetes End-stage renal disease on hemodialysis Preserved ejection fraction -BP pressure trend improved today after decreasing doxazosin and denies dizziness today. Continue current antihypertensive regimen -Given not planned for any procedures, aspirin was started for prophylaxis therapy given multiple CAD risk factors. Continue statin therapy if no contraindication -Fluid management via hemodialysis as per nephrology. Consultation Date/Type/Reason Admit Date/Time Jun 23, 2018 at 03:32 Initial Consult Date 06/23/18 Type of Consult Cardiology Requesting Provider: ELANA MENDOZA MD Date/Time of Note DATE: 06/27/18 TIME: 10:55 24 HR Interval Summary Free Text/Dictation No further dizziness, no chest pain or palpitations Exam/Review of Systems Vital Signs Vitals Vital Signs Date Temp Pulse Resp B/P (MAP) Pulse Ox O2 O2 Flow FiO2 Time Delivery Rate 06/27/18 98.7 18 128/59 92 Room Air 08:00 (82) 06/27/18 85 02:06 Intake and Output 06/26/18 06/26/18 06/27/18 1515:00 23:00 07:00 IntakeIntake Total 760 ml 430 ml OutputOutput Total 2600 ml BalanceBalance -1840 ml 430 ml Exam Constitutional: alert, oriented (No apparent distress) Neck: supple Respiratory: other (Coarse breath sounds bilaterally, no wheezing) Cardiovascular: regular rate and rhythm (S1-S2 heard) Gastrointestinal: soft, non-tender, bowel sounds Extremities: edema Labs Result Diagram: 06/27/18 0610 06/27/18 0610 Results 24hrs Laboratory Tests Test 06/26/18 12:26 06/26/18 14:22 06/26/18 17:30 06/26/18 20:35 Bedside Glucose 119 138 127 163 Test 06/27/18 06:10 06/27/18 08:14 White Blood Count 6.9 Red Blood Count 3.11 L Hemoglobin 9.0 L Hematocrit 28.8 L Mean Corpuscular Volume 92.6 Mean Corpuscular 28.9 L Hemoglobin Mean Corpuscular 31.3 L Hemoglobin Concent Red Cell Distribution 15.7 H Width Platelet Count 216 Mean Platelet Volume 8.9 Immature Granulocytes % 0.300 Neutrophils % 69.3 Lymphocytes % 13.6 L Monocytes % 10.4 Eosinophils % 5.4 Basophils % 1.0 Nucleated Red Blood 0.0 Cells % Immature Granulocytes # 0.020 Neutrophils # 4.8 Lymphocytes # 0.9 Monocytes # 0.7 Eosinophils # 0.4 Basophils # 0.1 Nucleated Red Blood 0.0 Cells # Sodium Level 141 Potassium Level 4.8 Chloride Level 99 Carbon Dioxide Level 26 Anion Gap 16 H Blood Urea Nitrogen 40 #H Creatinine 7.15 H Est Glomerular Filtrat 8 L Rate mL/min Glucose Level 104 Calcium Level 7.9 L Phosphorus Level 8.2 #H Bedside Glucose 119 Medications Medications Current Medications IV Flush (NS 3 ml) 3 ml PER PROTOCOL IV ; Start 06/23/18 at 04:00 Ondansetron HCl (Zofran Inj) 4 mg Q6H PRN IV NAUSEA/VOMITING; Start 06/23/18 at 04:00 Acetaminophen (Tylenol Tab) 650 mg Q6H PRN PO .PAIN 1-3 OR TEMP; Start 06/23/18 at 04:00 Acetaminophen/ Hydrocodone Bitart (Mckenzie (5/325)) 1 tab Q6H PRN PO .MOD PAIN 4- 6; Start 06/23/18 at 04:00 Acetaminophen/ Hydrocodone Bitart (Mckenzie (5/325)) 2 tab Q6H PRN PO .SEVERE PAIN 7-10 Last administered on 06/25/18at 16:45; Admin Dose 2 TAB; Start 06/23/18 at 04:00 Hydromorphone HCl (Dilaudid) 0.5 mg Q4H PRN IV .SEVERE PAIN 7-10 Last administered on 06/27/18at 08:23; Admin Dose 0.5 MG; Start 06/23/18 at 04:00 Docusate Sodium (Colace) 100 mg Q12H PRN PO .CONSTIPATION Last administered on 06/27/18 08:17; Admin Dose 100 MG; Start 06/23/18 at 04:00 Bisacodyl (Dulcolax) 5 mg DAILY PRN PO .CONSTIPATION; Start 06/23/18 at 04:00 Sodium Biphosphate/ Sodium Phosphate (Fleet Enema) 133 ml DAILY PRN CO .CONSTIPATION; Start 06/23/18 at 04:00 Zolpidem Tartrate (Ambien) 5 mg QHS PRN PO .INSOMNIA; Start 06/23/18 at 04:00 Diagnostic Test (Pha) (Accu-Chek) XX ; Start 06/24/18 at 02:00 Insulin Aspart (Novolog Insulin Pen) NOVOLOG *MILD* ALGORITHM WITH MEALS BEDTIME SC Last administered on 06/26/18 08:53; Admin Dose 1 UNIT; Start 06/23/18 at 08:00 Linagliptin (Tradjenta) 5 mg DAILY PO Last administered on 06/27/18 08:23; Admin Dose 5 MG; Start 06/23/18 at 09:00 Vancomycin HCl (Vanco Iv Per Pharmacy) VANCOMYCIN PER PHARMACY PER PROTOCOL XX ; Start 06/23/18 at 04:00 Piperacillin Sod/ Tazobactam Sod 50 ml @ 100 mls/hr Q12 IVPB Last administered on 06/27/18 09:13; Admin Dose 100 MLS/HR; Start 06/23/18 at 06:00 Atorvastatin Calcium (Lipitor) 20 mg QHS PO Last administered on 06/26/18 20:38; Admin Dose 20 MG; Start 06/23/18 at 21:00 Ferrous Sulfate (Ferrous Sulfate (Ec)) 325 mg TID PO Last administered on 06/27/18 08:18; Admin Dose 325 MG; Start 06/23/18 at 09:00 Furosemide (Lasix) 80 mg DAILY PO Last administered on 06/27/18 08:18; Admin Dose 80 MG; Start 06/23/18 at 09:00 Isosorbide Mononitrate (Imdur) 30 mg DAILY PO Last administered on 06/27/18 08:17; Admin Dose 30 MG; Start 06/23/18 at 09:00 Levothyroxine Sodium (Synthroid) 50 mcg BEFORE BREAKFAST PO Last administered on 06/27/18 06:10; Admin Dose 50 MCG; Start 06/23/18 at 07:00 Lisinopril (Zestril) 40 mg DAILY PO Last administered on 06/27/18 08:17; Admin Dose 40 MG; Start 06/23/18 at 09:00 Multivit/Ca Carb/ B Cmplx/FA/Prenat (Matilda-Anthony) 1 tab DAILY PO Last administered on 06/27/18 08:17; Admin Dose 1 TAB; Start 06/23/18 at 09:00 Pantoprazole (Protonix Tab) 40 mg AC BREAKFAST PO Last administered on 06/27/18 06:09; Admin Dose 40 MG; Start 06/23/18 at 07:00 Fenofibrate (Tricor) 48 mg DAILY PO Last administered on 06/27/18 08:18; Admin Dose 48 MG; Start 06/23/18 at 09:00 Miscellaneous Information 1 ea NOTE XX ; Start 06/23/18 at 04:30 Glucose (Glutose) 15 gm Q15M PRN PO DECREASED GLUCOSE; Start 06/23/18 at 04:30 Glucose (Glutose) 22.5 gm Q15M PRN PO DECREASED GLUCOSE Last administered on 06/24/18at 11:41; Admin Dose 22.5 GM; Start 06/23/18 at 04:30 Dextrose (D50w Syringe) 25 ml Q15M PRN IV DECREASED GLUCOSE; Start 06/23/18 at 04:30 Dextrose (D50w Syringe) 50 ml Q15M PRN IV DECREASED GLUCOSE; Start 06/23/18 at 04:30 Glucagon (Glucagen) 1 mg Q15M PRN IM DECREASED GLUCOSE; Start 06/23/18 at 04:30 Glucose (Glutose) 15 gm Q15M PRN BUCCAL DECREASED GLUCOSE Last administered on 06/24/18 11:14; Admin Dose 15 GM; Start 06/23/18 at 04:30 Hydralazine HCl (Apresoline) 100 mg TID PO Last administered on 06/27/18 08:18; Admin Dose 100 MG; Start 06/23/18 at 13:00 Hydralazine HCl (Apresoline) 10 mg Q4H PRN IV sbp>165; Start 06/23/18 at 17:00 Benzonatate (Tessalon) 200 mg TID PRN PO COUGH; Start 06/23/18 at 17:30 Sodium Hypochlorite (Dakin'S (Dilute 40)) 1 applic DAILY IRR Last administered on 06/27/18 08:19; Admin Dose 1 APPLIC; Start 06/24/18 at 09:00 Albumin Human 100 ml @ 100 mls/hr WITH DIALYSIS PRN IV SBP <90 DURING DIALYSIS Last administered on 06/26/18at 10:30; Admin Dose 100 MLS/HR; Start 06/23/18 at 18:30 Sodium Chloride (NS) -To prime the dialy... DIRECTED FOR HD PRN IV HD; Start 06/23/18 at 18:30 Gentamicin Sulfate (Gentamicin 0.1% Cr) 1 applic DAILY TOP Last administered on 06/27/18 08:19; Admin Dose 1 APPLIC; Start 06/25/18 at 09:00 Sevelamer Carbonate (Renvela) 1,600 mg WITH MEALS PO Last administered on 06/27/18 08:17; Admin Dose 1,600 MG; Start 06/24/18 at 18:00 Nifedipine (Procardia Xl) 60 mg BID PO Last administered on 06/27/18 08:19; Admin Dose 60 MG; Start 06/25/18 at 21:00 Labetalol HCl (Normodyne) 800 mg BID PO Last administered on 06/27/18 08:16; Admin Dose 800 MG; Start 06/25/18 at 21:00 Insulin Aspart (Novolog Insulin Pen) 4 unit WITH MEALS SC Last administered on 06/27/18 09:16; Admin Dose 4 UNIT; Start 06/25/18 at 18:00 Insulin Glargine (Lantus) 11 units DAILY@0800 SC Last administered on 06/27/18 09:15; Admin Dose 11 UNITS; Start 06/26/18 at 08:00 Labetalol HCl (Normodyne) 100 mg BID PO Last administered on 06/27/18 08:17; Admin Dose 100 MG; Start 06/25/18 at 21:00 IV Flush (NS 10 ml) 10 ml PRN PRN IV IV PROTOCOL; Start 06/25/18 at 18:30 Doxazosin Mesylate (Cardura) 2 mg HS PO Last administered on 06/26/18 21:55; Admin Dose 2 MG; Start 06/26/18 at 21:00 Aspirin (Aspirin) 81 mg DAILY PO Last administered on 06/27/18 08:18; Admin Dose 81 MG; Start 06/27/18 at 09:00 Elana Snell DO Jun 27, 2018 11:01
[2018-06-27 14:00] VITALS: BP 96/44; PULSE 64; RESP 18
[2018-06-27 15:30] VITALS: BP 114/48; PULSE 64
--- NOTE | 2018-06-27 15:54 | PN ---
Date/Time of Note Date/Time of Note DATE: 06/27/18 TIME: 15:52 Assessment/Plan Lines/Catheters IV Catheter Type (from Nrsg): PICC Line Assessment/Plan Assessment/Plan R foot osteo / plantar wound - PICC line and IV abx arranged Will schedule for RLE angiogram as an outpatient Wound care per Dr. Hines Followup with me in the [facility] next week Subjective 24 Hr Interval Summary No c/o. No more pain in the right foot. PICC line placed yesterday. Exam/Review of Systems Vital Signs Vitals Vital Signs Date Temp Pulse Resp B/P (MAP) Pulse Ox O2 O2 Flow FiO2 Time Delivery Rate 06/27/18 64 114/48 15:30 (70) 06/27/18 97.8 18 92 Room Air 14:00 Intake and Output 06/26/18 06/26/18 06/27/18 1414:59 22:59 06:59 IntakeIntake Total 760 ml 430 ml OutputOutput Total 2600 ml BalanceBalance -1840 ml 430 ml Exam Free Text/Dictation R foot wrapped, no tenderness or pain, toes warm L foot warm, no ulcers L arm AVF with good thrill Results Result Diagram: 06/27/18 0610 06/27/18 0610 BENJAMIN REYES MD Jun 27, 2018 15:54
--- NOTE | 2018-06-27 17:30 | PDOCDIS ---
Discharge Instructions DIAGNOSIS Discharge Diagnosis Osteomyelitis R foot CONDITION [id number] Patient Condition: [id number] Fair HOME CARE INSTRUCTIONS: [id number] Diet Instructions: [id number] carb controlled, renal diet ACTIVITY: [id number] Activity Restrictions: [id number] Keep Limb Elevated No Weight Bearing (R foot) [id number] Bathing Restrictions: [id number] Tub Bath FOLLOW UP/APPOINTMENTS Follow-up Plan f/u w/ Dr. Hines and Dr. Meza in 1 week; f/u w/ Dr. Calderon as scheduled; f/u w/ Dr. Ortiz and dialysis as scheduled ELANA MENDOZA MD Jun 27, 2018 17:30
[2018-06-27] MEDS ORDERED: Insulin Glargine SC (17:38)
[2018-06-27] MEDS ORDERED: LEVO250T9 PO (17:38)
[2018-06-27] MEDS ORDERED: Vancomycin Iv Per Pharmacy XX (17:38)
[2018-06-27] MEDS ORDERED: NOVO3I SC (17:38)
[2018-06-27] MEDS ORDERED: HYDR-3672 PO (17:38)
[2018-06-27] MEDS ORDERED: SEVE800T7 PO (17:38)
[2018-06-27] MEDS ORDERED: LINA5TAB PO (17:38)
[2018-06-27] MEDS ORDERED: GENT30CR TOP (17:38)
[2018-06-27] MEDS ORDERED: NIFE60TA2 PO (17:38)
[2018-06-27] MEDS ORDERED: LABE200T25 PO (17:38)
--- NOTE | 2018-06-27 17:53 | DS ---
Date/Time of Note Date/Time of Note DATE: 06/27/18 TIME: 17:48 Discharge Summary Admission/Discharge Info Admit Date/Time Jun 23, 2018 at 03:32 Discharge Date/Time 06/27/2018 @ 1750 Discharge Diagnosis Osteomyelitis R foot Patient Condition: Fair Consults Channing: cardiology; Clifford/Angel: nephrology; Stephanie/Flora: podiatry; Susana: vascular surgery Procedures Bedside debridement by podiatry; MRI of foot: Findings consistent with osteomyelitis of the fourth toe proximal phalanx and the distal head of the fourth metatarsal. Diffuse soft tissue swelling without evidence of focal abscess formation. Old healed fracture of the first metatarsal with advanced arthrosis of the first MTP joint. Extremity arterial study: Monophasic wave forms in bilateral dorsalis pedis arteries consistent with significant stenoses. PICC line placement Hx of Present Illness 58 y/o H M w/ h/o T2DM w/ ESRD s/p kidney transplant w/ recurrent failure, DFU, HTN, hyperlipidemia, hypothyroidism in [facility] getting weekly f/u at [facility] w/ podiatry. S/p recent MRI. Was in [place] until yesterday when he developed acute pain and swelling R foot on the dorsal surface (ulcer is on plantar surface). Came to ER. [facility] and was admitted. Hospital Course Pt. evaluated by cardiology, podiatry, nephrology, and vascular surgery. Had MRI of foot diagnostic of osteomyelitis. Pt. suffered hypoglycemia and insulin doses were reduced. Pt. had improved BP control. Had PICC line placed. Set up for home antibiotic therapy for next 6 weeks and to f/u w/ podiatry. Home Meds Active Scripts Levofloxacin* (Levofloxacin*) 250 Mg Tablet, 250 MG PO DAILY for 42 Days, #42 TAB 0 Refills Prov:ELANA MENDOZA MD 06/27/18 Gentamicin Sulfate* (Gentamicin Sulfate* Cream) 0.1% - 30 Gm Cream.gm., 1 APPLIC TOP DAILY for 30 Days, #1 TUBE 1 Refill Prov:ELANA MENDOZA MD 06/27/18 Linagliptin (TRADJENTA) 5 Mg Tablet, 5 MG PO DAILY for 30 Days, #30 TAB 5 Refills Prov:ELANA MENDOZA MD 06/27/18 [Insulin Glargine] 100 UNITS/ML SOLN No Conflict Check, 11 UNITS SC DAILY@0800 for 30 Days, #2 SYR 5 Refills Prov:ELANA MENDOZA MD 06/27/18 Insulin Aspart* (Novolog Insulin Pen*) 100 Unit/Ml Soln, 4 UNIT SC WITH MEALS for 30 Days, #2 SYR 5 Refills Prov:ELANA MENDOZA MD 06/27/18 Sevelamer Carbonate* (Renvela*) 800 Mg Tablet, 1600 MG PO WITH MEALS for 30 Days, #90 TAB 5 Refills Prov:ELANA MENDOZA MD 06/27/18 Nifedipine (Procardia Xl) 60 Mg Tab.er.24, 60 MG PO BID for 30 Days, #60 TAB 5 Refills Prov:ELANA MENDOZA MD 06/27/18 Labetalol Hcl* (Labetalol Hcl*) 200 Mg Tablet, 800 MG PO BID for 30 Days, #60 TAB 5 Refills Prov:ELANA MENDOZA MD 06/27/18 Hydralazine Hcl* (Apresoline*) 50 Mg Tab, 100 MG PO TID for 30 Days, #180 TAB 3 Refills Prov:ELANA MENDOZA MD 06/27/18 [Vancomycin Iv Per Pharmacy] 1 EA EACH No Conflict Check, 0 EA XX .PER PROTOCOL for 42 Days, SYR 0 Refills Prov:ELANA MENDOZA MD 06/27/18 Silver Sulfadiazine* (Silvadene*) 1% - 20 Gm Cream.gm., 1 APPLIC TOP DAILY, #1 T UB Prov:ONEYDA BEASLEY 06/15/18 Ondansetron (Ondansetron Odt) 4 Mg Tab.rapdis, 4 MG PO Q6H PRN for NAUSEA AND/OR VOMITING, #10 TAB Prov:OLIVIA WARD 04/07/18 Hydrocodone/Acetaminophen (Swain 10-325 Tablet) 1 Each Tablet, 1 TAB PO Q6H PRN for PAIN, #7 TAB Prov:OLIVIA WARD 04/07/18 Labetalol Hcl* (Labetalol Hcl*) 300 Mg Tablet, 300 MG PO BID for 60 Days, TAB Prov:PAIGE KELLY MD 03/22/18 Reported Medications Fenofibrate, Micronized (Fenofibrate) 134 Mg Capsule, 134 MG PO DAILY, CAP 04/03/18 Insulin Aspart* (Novolog Insulin Pen*) 100 Unit/Ml Soln, 22 UNIT SC WITH MEALS, EA 04/03/18 Multivit/Ca Carb/B Cmplx/Fa* (Matilda-Anthony*) 1 Tab Tab, 1 TAB PO DAILY, TAB 04/03/18 Nifedipine* (Nifedipine ER*) 90 Mg Tablet.er, 90 MG PO DAILY, TAB 04/03/18 Levothyroxine Sodium* (Levothyroxine Sodium*) 25 Mcg Tablet, 50 MCG PO BEFORE BREAKFAST, #30 TAB 04/03/18 Lisinopril* (Lisinopril*) 40 Mg Tablet, 40 MG PO DAILY, #30 TAB 03/22/18 Isosorbide Mononitrate* (Isosorbide Mononitrate*) 30 Mg Tab.er.24h, 30 MG PO DAILY, TAB 03/22/18 Ferrous Sulfate* (Ferrous Sulfate*) 325 Mg Tabec, 325 MG PO TID, TAB 03/22/18 Atorvastatin Calcium* (Atorvastatin Calcium*) 20 Mg Tablet, 20 MG PO QHS, #30 TAB 10/07/17 Furosemide* (Furosemide*) 80 Mg Tablet, 80 MG PO DAILY, #30 TAB 10/07/17 Insulin Glargine* (Lantus*) 100 Unit/Ml Soln, 20 UNIT SC QHS, #1 VIAL 10/07/17 Doxazosin Mesylate* (Doxazosin Mesylate*) 2 Mg Tablet, 2 MG PO HS, TAB 10/07/17 Hydralazine Hcl* (Apresoline*) 50 Mg Tab, 50 MG PO BID, #60 TAB 10/07/17 Pantoprazole* (Pantoprazole*) 40 Mg Tablet.dr, 40 MG PO AC BREAKFAST, TAB 10/07/17 Follow-up Plan f/u w/ Dr. Hines and Dr. Meza in 1 week; f/u w/ Dr. Calderon as scheduled; f/u w/ Dr. Ortiz and dialysis as scheduled Primary Care Provider Christopher Calderon MD Time spent on discharge: > 30 minutes Pending Labs Laboratory Tests Test 06/26/18 20:35 06/27/18 06:10 06/27/18 08:14 06/27/18 12:29 Bedside 163 119 150 Glucose mg/dL (70-220) mg/dL (70-220) mg/dL (70-220) White Blood 6.9 Count 10^3/ul (4.8-1 0.8) Red Blood 3.11 Count 10^6/ul (4.70- 6.10) Hemoglobin 9.0 g/dl (14.0-18. 0) Hematocrit 28.8 % (42.0-52.0) Mean 92.6 Corpuscular fl (82.0-101.0 Volume ) Mean 28.9 Corpuscular pg (29.0-33.0) Hemoglobin Mean 31.3 Corpuscular g/dl (32.0-37. Hemoglobin Conc 0) ent Red Cell 15.7 Distribution % (11.5-14.5) Width Platelet Count 216 10^3/UL (140-4 15) Mean Platelet 8.9 Volume fl (7.4-10.4) Immature 0.300 Granulocytes % % (0.001-0.429 ) Neutrophils % 69.3 % (39.0-77.0) Lymphocytes % 13.6 % (15.0-51.0) Monocytes % 10.4 % (0.0-11.0) Eosinophils % 5.4 % (0.0-7.0) Basophils % 1.0 % (0.0-2.0) Nucleated Red 0.0 Blood Cells % /100WBC (0.0-0 .0) Immature 0.020 Granulocytes # 10^3/ul (0.0-0 .031) Neutrophils # 4.8 10^3/ul (1.6-7 .5) Lymphocytes # 0.9 10^3/ul (0.8-2 .9) Monocytes # 0.7 10^3/ul (0.3-0 .9) Eosinophils # 0.4 10^3/ul (0.0-0 .5) Basophils # 0.1 10^3/ul (0.0-0 .1) Nucleated Red 0.0 Blood Cells # 10^3/ul (0.0-0 .0) Sodium Level 141 mmol/L (135-14 4) Potassium 4.8 Level mmol/L (3.5-5. 1) Chloride Level 99 mmol/L (97-110 ) Carbon Dioxide 26 Level mmol/L (21-31) Anion Gap 16 (5-13) Blood Urea 40 Nitrogen mg/dl (7-20) Creatinine 7.15 mg/dl (0.61-1. 24) Est Glomerular 8 mL/min (>60) Filtrat Rate mL/min Glucose Level 104 mg/dl (70-220) Calcium Level 7.9 mg/dl (8.4-10. 2) Phosphorus 8.2 Level mg/dl (2.5-4.9 ) Test 06/27/18 17:15 Bedside 95 Glucose mg/dL (70-220) ELANA MENDOZA MD Jun 27, 2018 17:53
--- NOTE | 2018-06-27 22:54 | QN ---
Documentation Comment Pt being discharged. Case discussed with Dr Barakat. Pt to continue IV AB Rx at home Spoke at length with . Dr España to follow up pt.closely at the dialysis ctr.where he'd be dialyzed in AM. Pt will also be following up with Dr Meza & the [facility]. ARNOLD MARIE MD Jun 27, 2018 22:54
== END 2018-06-27 18:15 | disposition home health service (06) | DRG 623 ==
LOC: E/R 23:26 → 5EC 06-23 03:32 → EDBEDREQ 06-23 03:40
PROVIDERS: ADMIT Internal Medicine; ATTEND Internal Medicine
PROC: 0JBQ0ZZ Excision of Right Foot Subcutaneous Tissue and Fascia, Open Approach (ICD-10-PCS; principal; 2018-06-23)
PROC: 5A1D70Z Performance of Urinary Filtration, Intermittent, Less than 6 Hours Per Day (ICD-10-PCS; 2018-06-24)
PROC: 02HV33Z Insertion of Infusion Device into Superior Vena Cava, Percutaneous Approach (ICD-10-PCS; 2018-06-25)
PROC: B548ZZA Ultrasonography of Superior Vena Cava, Guidance (ICD-10-PCS; 2018-06-25)
DX: E11.621 Type 2 diabetes mellitus with foot ulcer (principal); I12.0 Hypertensive chronic kidney disease with stage 5 chronic kidney disease or end stage renal disease; Z94.0 Kidney transplant status; M86.171 Other acute osteomyelitis, right ankle and foot; E11.69 Type 2 diabetes mellitus with other specified complication; E11.65 Type 2 diabetes mellitus with hyperglycemia; E11.22 Type 2 diabetes mellitus with diabetic chronic kidney disease; E11.610 Type 2 diabetes mellitus with diabetic neuropathic arthropathy; E11.42 Type 2 diabetes mellitus with diabetic polyneuropathy; E11.51 Type 2 diabetes mellitus with diabetic peripheral angiopathy without gangrene; N18.6 End stage renal disease; Z99.2 Dependence on renal dialysis; E78.5 Hyperlipidemia, unspecified; Z86.73 Personal history of transient ischemic attack (TIA), and cerebral infarction without residual deficits; E03.9 Hypothyroidism, unspecified; B19.20 Unspecified viral hepatitis C without hepatic coma; L84 Corns and callosities; B35.1 Tinea unguium; E87.5 Hyperkalemia; E83.39 Other disorders of phosphorus metabolism
CPT/HCPCS: 36569; 71045; 73630; 73718; 76937; 80048; 80053; 80202; 82962; 83036; 83690; 83735; 84100; 84132; 85025; 85651; 87040; 87340; 90935; 93005; 93922; J1170; J1815; J2270; J2405; J2543; J3370; J7040; P9047

== ENCOUNTER 2018-07-16 20:36 | Inpatient (IN) | payer MEDICARE, OTHER ==
[~2018-07-16] VITALS: Ht 182.9 cm; Wt 85.2 kg
[~2018-07-16 20:36] MED LIST changes: +GENT30CR TOP; +Insulin Glargine SC; +LABE200T25 PO; -LABE300T2 PO; -LANT3I SC; +LEVO250T9 PO; +LINA5TAB PO; +NIFE60TA2 PO; -NIFE90TA11 PO; +SEVE800T7 PO; +Vancomycin Iv Per Pharmacy XX
[2018-07-16] MEDS ORDERED: ASPIRIN 81 MG TAB PO STA (21:01)
[2018-07-16] MEDS ORDERED: NITROGLYCERIN 2% 1 GM OINT PKT TD STA (21:01)
[2018-07-16] MEDS ORDERED: NITROGLYCERIN (SL) 0.4 MG TAB SL PRN ×2 (21:30→23:00)
[2018-07-16] MEDS ORDERED: ACETAMINOPHEN 325 MG TAB PO PRN (22:00)
[2018-07-16] MEDS ORDERED: ONDANSETRON 4 MG INJ IV PRN (22:00)
[2018-07-16] MEDS ORDERED: FER325 PO (22:21)
[2018-07-16] MEDS ORDERED: NOVO3I SC (22:21)
[2018-07-16] MEDS ORDERED: SEVE800T7 PO (22:22)
[2018-07-16] MEDS ORDERED: DOXA2TAB PO (22:23)
[2018-07-16] MEDS ORDERED: LABE200T25 PO (22:23)
[2018-07-16] MEDS ORDERED: NIFE60TA18 PO (22:24)
[2018-07-16] MEDS ORDERED: LINA5TAB PO (22:24)
[2018-07-16] MEDS ORDERED: LEVO250T9 PO (22:24)
[2018-07-16] MEDS ORDERED: LEVO50TA7 PO (22:25)
[2018-07-16] MEDS ORDERED: LANT3I SC (22:25)
[2018-07-16] MEDS ORDERED: LISI40TA3 PO (22:26)
[2018-07-16] MEDS ORDERED: ATOR20TA38 PO (22:26)
[2018-07-16] MEDS ORDERED: VANCOMYCIN XX SCH (23:00)
[2018-07-16] MEDS ORDERED: morphine 2 MG INJ IV PRN (23:00)
[2018-07-16] MEDS ORDERED: VANCOMYCIN HCL 1.5 GM in SOD CHLORIDE 0.9% 250 ML IVPB ONE (23:30)
[2018-07-16] MEDS ORDERED: GLUCOSE GEL 15 GRAM TUBE PO PRN ×2 (23:30)
[2018-07-16] MEDS ORDERED: DEXTROSE 50% 50 ML SYRINGE IV PRN ×2 (23:30)
[2018-07-16] MEDS ORDERED: GLUCOSE GEL 15 GRAM TUBE BUCCAL PRN (23:30)
[2018-07-16] MEDS ORDERED: VANCOMYCIN IV PER PHARMACY XX SCH (23:30)
[2018-07-16] MEDS ORDERED: GLUCAGON 1 MG INJ IM PRN (23:30)
[2018-07-16] MEDS ORDERED: LABETALOL HCL 20MG INJ IV ONE (23:30)
--- NOTE | 2018-07-16 23:34 | ERD ---
ER Documentation Chief Complaint Chief Complaint chest pain/sob x 2 days. hx of esrd HPI Patient is a 58-year-old male with hypertension and diabetes who presents with substernal chest pain. He has had this for the past 2 days and it is associated with shortness of breath. It was worse today. He has dyspnea on exertion. He has a cough as well. His last dialysis was Saturday. Upon review of old medical record the patient has multiple visits for various complaints. His primary doctor is Dr. Calderon and his director of physical therapy is Dr. Jon. ROS All systems reviewed and are negative except as per history of present illness. Medications Home Meds Active Scripts Gentamicin Sulfate* (Gentamicin Sulfate* Cream) 0.1% - 30 Gm Cream.gm., 1 APPLIC TOP DAILY for 30 Days, #1 TUBE 1 Refill Prov:ELANA MENDOZA MD 06/27/18 [Vancomycin Iv Per Pharmacy] 1 EA EACH No Conflict Check, 0 EA XX .PER PROTOCOL for 42 Days, SYR 0 Refills Prov:ELANA MENDOZA MD 06/27/18 Reported Medications Lisinopril* (Lisinopril*) 40 Mg Tablet, 40 MG PO DAILY, #30 TAB 07/16/18 Atorvastatin Calcium* (Atorvastatin Calcium*) 20 Mg Tablet, 20 MG PO QHS, #30 TAB 07/16/18 Levothyroxine Sodium* (Levothyroxine Sodium*) 50 Mcg Tablet, 50 MCG PO BEFORE BREAKFAST, #30 TAB 07/16/18 Insulin Glargine* (Lantus*) 100 Unit/Ml Soln, 20 UNIT SC DAILY, #1 VIAL 07/16/18 Nifedipine* (Nifedipine ER*) 60 Mg Tablet.sa, 60 MG PO DAILY, TAB.SA 07/16/18 Linagliptin (TRADJENTA) 5 Mg Tablet, 5 MG PO DAILY, TAB 07/16/18 Levofloxacin* (Levofloxacin*) 250 Mg Tablet, 250 MG PO DAILY, TAB 07/16/18 Doxazosin Mesylate* (Doxazosin Mesylate*) 2 Mg Tablet, 2 MG PO HS, TAB 07/16/18 Labetalol Hcl* (Labetalol Hcl*) 200 Mg Tablet, 800 MG PO BID, TAB 07/16/18 Sevelamer Carbonate* (Renvela*) 800 Mg Tablet, 1.6 GM PO WITH MEALS, TAB 07/16/18 Insulin Aspart* (Novolog Insulin Pen*) 100 Unit/Ml Soln, 10 UNIT SC WITH MEALS, EA 07/16/18 Ferrous Sulfate* (Ferrous Sulfate*) 325 Mg Tabec, 325 MG PO TID, TAB 07/16/18 Discontinued Reported Medications Fenofibrate, Micronized (Fenofibrate) 134 Mg Capsule, 134 MG PO DAILY, CAP 04/03/18 Multivit/Ca Carb/B Cmplx/Fa* (Matilda-Anthony*) 1 Tab Tab, 1 TAB PO DAILY, TAB 04/03/18 Levothyroxine Sodium* (Levothyroxine Sodium*) 25 Mcg Tablet, 50 MCG PO BEFORE BREAKFAST, #30 TAB 04/03/18 Lisinopril* (Lisinopril*) 40 Mg Tablet, 40 MG PO DAILY, #30 TAB 03/22/18 Isosorbide Mononitrate* (Isosorbide Mononitrate*) 30 Mg Tab.er.24h, 30 MG PO DAILY, TAB 03/22/18 Ferrous Sulfate* (Ferrous Sulfate*) 325 Mg Tabec, 325 MG PO TID, TAB 03/22/18 Atorvastatin Calcium* (Atorvastatin Calcium*) 20 Mg Tablet, 20 MG PO QHS, #30 TAB 10/07/17 Furosemide* (Furosemide*) 80 Mg Tablet, 80 MG PO DAILY, #30 TAB 10/07/17 Doxazosin Mesylate* (Doxazosin Mesylate*) 2 Mg Tablet, 2 MG PO HS, TAB 10/07/17 Pantoprazole* (Pantoprazole*) 40 Mg Tablet.dr, 40 MG PO AC BREAKFAST, TAB 10/07/17 Discontinued Scripts Levofloxacin* (Levofloxacin*) 250 Mg Tablet, 250 MG PO DAILY for 42 Days, #42 TAB 0 Refills Prov:ELANA MENDOZA MD 06/27/18 Linagliptin (TRADJENTA) 5 Mg Tablet, 5 MG PO DAILY for 30 Days, #30 TAB 5 Refills Prov:ELANA MENDOZA MD 06/27/18 [Insulin Glargine] 100 UNITS/ML SOLN No Conflict Check, 11 UNITS SC DAILY@0800 for 30 Days, #2 SYR 5 Refills Prov:ELANA MENDOZA MD 06/27/18 Insulin Aspart* (Novolog Insulin Pen*) 100 Unit/Ml Soln, 4 UNIT SC WITH MEALS for 30 Days, #2 SYR 5 Refills Prov:ELANA MENDOZA MD 06/27/18 Sevelamer Carbonate* (Renvela*) 800 Mg Tablet, 1600 MG PO WITH MEALS for 30 Days , #90 TAB 5 Refills Prov:ELANA MENDOZA MD 06/27/18 Nifedipine (Procardia Xl) 60 Mg Tab.er.24, 60 MG PO BID for 30 Days, #60 TAB 5 Refills Prov:ELANA MENDOZA MD 06/27/18 Labetalol Hcl* (Labetalol Hcl*) 200 Mg Tablet, 800 MG PO BID for 30 Days, #60 T AB 5 Refills Prov:ELANA MENDOZA MD 06/27/18 Hydralazine Hcl* (Apresoline*) 50 Mg Tab, 100 MG PO TID for 30 Days, #180 TAB 3 Refills Prov:ELANA MENDOZA MD 06/27/18 Silver Sulfadiazine* (Silvadene*) 1% - 20 Gm Cream.gm., 1 APPLIC TOP DAILY, #1 TUB Prov:ONEYDA BEASLEY 06/15/18 Ondansetron (Ondansetron Odt) 4 Mg Tab.rapdis, 4 MG PO Q6H PRN for NAUSEA AND/OR VOMITING, #10 TAB Prov:OLIVIA WARD 04/07/18 Hydrocodone/Acetaminophen (Energy 10-325 Tablet) 1 Each Tablet, 1 TAB PO Q6H PRN for PAIN, #7 TAB Prov:OLIVIA WARD 04/07/18 Allergies Allergies: Coded Allergies: No Known Allergy (Unverified , 07/16/18) PMhx/Soc History of Surgery: No Anesthesia Reaction: No Hx Neurological Disorder: No Hx Respiratory Disorders: Yes (PNA) Hx Cardiac Disorders: No (HYPERTENSION, DIABETES, PRIOR STROKE) Hx Psychiatric Problems: No Hx Miscellaneous Medical Probl: No (THYROID DISORDER) Hx Alcohol Use: No Hx Substance Use: No Hx Tobacco Use: No Smoking Status: Never smoker FmHx Family History: diabetes, coronary disease Physical Exam Vitals Vital Signs Date Temp Pulse Resp B/P (MAP) Pulse Ox O2 O2 Flow FiO2 Time Delivery Rate 07/16/18 79 25 178/87 21:42 (117) 07/16/18 80 23 183/91 97 Room Air 21:34 (121) 07/16/18 154/90 21:09 (111) 07/16/18 78 25 96 Room Air 20:57 07/16/18 98.9 83 18 187/77 98 20:44 (113) Physical Exam Const: No acute distress Head: Atraumatic Eyes: Normal Conjunctiva ENT: Normal External Ears, Nose and Mouth. Neck: Full range of motion. No meningismus. Resp: Clear to auscultation bilaterally Cardio: Regular rate and rhythm, no murmurs Abd: Soft, non tender, non distended. Normal bowel sounds Skin: No petechiae or rashes Back: No midline or flank tenderness Ext: No cyanosis, or edema Neur: Awake and alert Psych: Normal Mood and Affect Result Diagram: 07/16/18210207/16/182102 Results 24 hrs Laboratory Tests Test 07/16/18 21:03 White Blood Count 6.7 10^3/ul Red Blood Count 3.29 10^6/ul Hemoglobin 9.8 g/dl Hematocrit 30.2 % Mean Corpuscular Volume 91.8 fl Mean Corpuscular Hemoglobin 29.8 pg Mean Corpuscular Hemoglobin Concent 32.5 g/dl Red Cell Distribution Width 15.6 % Platelet Count 214 10^3/UL Mean Platelet Volume 8.8 fl Immature Granulocytes % 0.800 % Neutrophils % 67.8 % Lymphocytes % 14.6 % Monocytes % 11.7 % Eosinophils % 4.2 % Basophils % 0.9 % Nucleated Red Blood Cells % 0.0 /100WBC Immature Granulocytes # 0.050 10^3/ul Neutrophils # 4.5 10^3/ul Lymphocytes # 1.0 10^3/ul Monocytes # 0.8 10^3/ul Eosinophils # 0.3 10^3/ul Basophils # 0.1 10^3/ul Nucleated Red Blood Cells # 0.0 10^3/ul Sodium Level 141 mmol/L Potassium Level 4.7 mmol/L Chloride Level 91 mmol/L Carbon Dioxide Level 31 mmol/L Anion Gap 19 Blood Urea Nitrogen 53 mg/dl Creatinine 8.23 mg/dl Est Glomerular Filtrat Rate mL/min 7 mL/min Glucose Level 206 mg/dl Calcium Level 8.0 mg/dl Troponin I 0.036 ng/ml Current Medications Medications Dose Sig/Danette Start Time Status Last (Trade) Ordered Route PRN Stop Time Admin Dose Reason Admin Aspirin 162 mg ONCE STAT 07/16/18 DC 07/16/18 (Aspirin) PO 21:01 21:05 07/16/18 21:02 1 inch ONCE STAT 07/16/18 DC 07/16/18 Nitroglycerin TD 21:01 21:11 07/16/18 21:02 (Nitroglyceri n 2% Oint) 1 tab Q5M UP TO 3 07/16/18 07/16/18 Nitroglycerin DOSES PRN 21:30 21:33 SL .CHEST (Nitroglyceri PAIN n (Sl Tab) 0.4 Mg) Ondansetron 4 mg ER BRIDGE 07/16/18 HCl (Zofran PRN IV 22:00 Inj) NAUSEA/VOMITI 07/17/18 21:59 NG 650 mg ER BRIDGE 07/16/18 Acetaminophen PRN PO 22:00 (Tylenol .MILD PAIN 07/17/18 21:59 Tab) 1-3 OR TEMP 20 mg QHS PO 07/17/18 Atorvastatin 21:00 Calcium (Lipitor) Doxazosin 2 mg HS PO 07/17/18 Mesylate 21:00 (Cardura) Ferrous 325 mg TID PO 07/17/18 Sulfate 09:00 (Ferrous Sulfate (Ec)) Gentamicin 1 applic DAILY TOP 07/17/18 Sulfate 09:00 (Gentamicin 0.1% Cr) Insulin 10 unit WITH MEALS 07/17/18 Aspart SC 08:00 (Novolog Insulin Pen) Insulin 20 units DAILY SC 07/17/18 Glargine 09:00 (Lantus) Labetalol 800 mg BID PO 07/17/18 HCl 09:00 (Normodyne) 250 mg DAILY PO 07/17/18 Levofloxacin 09:00 (Levaquin) 50 mcg BEFORE 07/17/18 Levothyroxine BREAKFAST 07:00 Sodium PO (Synthroid) Linagliptin 5 mg DAILY PO 07/17/18 (Tradjenta) 09:00 Lisinopril 40 mg DAILY PO 07/17/18 (Zestril) 09:00 Nifedipine 60 mg DAILY PO 07/17/18 (Procardia 09:00 Xl) Sevelamer 1.6 gm WITH MEALS 07/17/18 Carbonate PO 08:00 (Renvela) PER 07/16/18 DC Miscellaneous PROTOCOL XX 23:00 Information 07/16/18 23:05 Diagnostic 1 ea AC MEALS AND 07/17/18 Test (Pha) BEDTIME XX 07:00 (Accu-Chek) Vancomycin PER NOTE XX 07/16/18 HCl (Vanco PHARMACY 23:30 Iv Per DOSING Pharmacy) Aspirin 81 mg DAILY PO 07/18/18 (Aspirin) 09:00 1 tab Q5M PRN 07/16/18 Nitroglycerin SL CHEST 23:00 PAIN (Nitroglyceri n (Sl Tab) 0.4 Mg) Morphine 4 mg Q2H PRN 07/16/18 Sulfate IV PAIN 23:00 (morphine) LEVEL 7-10 Diagnostic 1 ea 2 HOURS 07/17/18 Test (Pha) AFTER MEALS 10:00 (Accu-Chek) XX ONCE ONCE 07/16/18 DC Miscellaneous HYPOGLYCEMIA XX 23:00 PROTOCOL 07/16/18 23:22 Information w... (* Miscellaneous Pharmacy Order) Insulin NOVOLOG WITH MEALS 07/17/18 Aspart *MILD* BEDTIME SC 08:00 (Novolog ALGORITHM Insulin Pen) Vancomycin 250 ml @ ONCE ONCE 07/16/18 HCl 1.5 166.667 IVPB 23:30 gm/Sodium mls/hr 07/17/18 00:59 Chloride Labetalol 20 mg ONCE ONCE 07/16/18 DC 07/16/18 HCl IV 23:30 23:20 (Labetalol) 07/16/18 23:31 1 ea NOTE XX 07/16/18 Miscellaneous 23:30 Information Glucose 15 gm Q15M PRN 07/16/18 (Glutose) PO DECREASED 23:30 GLUCOSE Glucose 22.5 gm Q15M PRN 07/16/18 (Glutose) PO DECREASED 23:30 GLUCOSE Dextrose 25 ml Q15M PRN 07/16/18 (D50w IV DECREASED 23:30 Syringe) GLUCOSE Dextrose 50 ml Q15M PRN 07/16/18 (D50w IV DECREASED 23:30 Syringe) GLUCOSE Glucagon 1 mg Q15M PRN 07/16/18 (Glucagen) IM DECREASED 23:30 GLUCOSE Glucose 15 gm Q15M PRN 07/16/18 (Glutose) BUCCAL 23:30 DECREASED GLUCOSE Procedures/MDM EKG #1 read by me: Rate/Rhythm: Regular rate and rhythm at a normal rate Intervals: Normal Impression: No evidence of ischemia or arrhythmia EKG #2 read by me: Rate/Rhythm: Regular rate and rhythm at a normal rate Intervals: Normal Impression: No evidence of ischemia or arrhythmia Chest x-ray read by radiology. Patient is a 58-year-old male with dialysis, hypertension, and diabetes who presents with chest pain. I am concerned for possible acute coronary syndrome. I doubt pneumonia, pneumothorax, pulmonary embolism, or aortic dissection. The patient was given aspirin and nitroglycerin as well as labetalol for elevated blood pressure. The patient will be admitted to the care of Dr. Calderon. I spoke to Dr. Burrell for admission. Departure Diagnosis: Primary Impression: HTN (hypertension) Hypertension type: essential hypertension Qualified Codes: I10 - Essential (primary) hypertension Additional Impression: Chest pain Chest pain type: unspecified Qualified Codes: R07.9 - Chest pain, unspecified Condition: REJI Lobato MD Jul 16, 2018 23:34
[2018-07-17] VITALS (28 sets, daily range): BP systolic 113–198; BP diastolic 57–97; PULSE 60–78; RESP 18–20; Ht 182.9 cm; Wt 85.2 kg
[2018-07-17] MEDS: ACCU-CHEK XX SCH ×5 (07:05→20:00)
[2018-07-17] MEDS: LEVOTHYROXINE 50 MCG TAB PO SCH (07:14)
[2018-07-17] MEDS: INSULIN ASPART [NOVOLOG] 3 ML PEN SC SCH ×7 (08:04→23:00)
[2018-07-17] MEDS: SEVELAMER CARBONATE 0.8 GM PKT PO SCH ×3 (08:07→17:15)
[2018-07-17] MEDS: FERROUS SULFATE (EC) 325 MG TAB PO SCH ×3 (08:14→23:32)
[2018-07-17] MEDS: LEVOFLOXACIN 250 MG TAB PO SCH (08:15)
[2018-07-17] MEDS: LINAGLIPTIN 5 MG TABLET PO SCH (08:15)
[2018-07-17] MEDS: INSULIN GLARGINE [LANTus] (100 UNITS/ML) SYG SC SCH (08:33)
[2018-07-17] MEDS ORDERED: NIFEdipine (XL) 60 MG TAB PO SCH (09:00)
[2018-07-17] MEDS: LISINOPRIL 20 MG TAB PO SCH ×2 (09:00→13:08)
[2018-07-17] MEDS ORDERED: LABETALOL 200 MG TAB PO SCH ×2 (09:00→21:00)
[2018-07-17] MEDS: GENTAMICIN 0.1% CREAM 15GM TUBE TOP SCH (11:28)
--- NOTE | 2018-07-17 13:13 | QN ---
ARNOLD MARIE MD Jul 17, 2018 13:13
--- NOTE | 2018-07-17 13:14 | HP ---
Date/Time of Note Date/Time of Note DATE: 07/17/18 TIME: 13:05 Assessment/Plan VTE Prophylaxis Risk score (from Ns)>0 risk: 1 SCD applied (from Ns): Yes SCD contraindicated: low risk/ambulating Pharmacological prophylaxis: heparin Lines/Catheters IV Catheter Type (from [facility]): PICC Line Central line still needed: Yes Assessment/Plan Problems: (1) Community acquired pneumonia Status: Acute Comment: I am going to add in azithromycin course to his treatment for this. He will be observed in the hospital due to his multiple medical problems and the need to be cautious. Please note I am also going to do a CT scan of the chest to make sure it is not any other process going on here given a prior history of pneumonia Qualifiers: Laterality: right Lung location: lower lobe of lung Qualified Codes: J18.1 - Lobar pneumonia, unspecified organism (2) End-stage renal disease on hemodialysis Status: Chronic Comment: He will need dialysis and I have contacted the automatic lehr operator who covers for him here Dr. Ortiz. His regular outpatient automatic lehr operator is Dr. Donny Hemphill (3) Type 2 diabetes mellitus with diabetic peripheral angiopathy without gangrene Status: Chronic Comment: Continue diabetic medication regimen Qualifiers: Diabetes mellitus ad terminal makeup operator insulin use: with ad terminal makeup operator use Qualified Codes: E11.51 - Type 2 diabetes mellitus with diabetic peripheral angiopathy without gangrene; Z79.4 - shelter (current) use of insulin (4) DM neuro manif type II, uncontrolled Status: Chronic Comment: Noted. (5) DM eye manif type II, uncontrolled Status: Chronic Comment: Noted. Presently stable (6) Benign essential hypertension Status: Chronic Comment: Adequate control at this time. (7) Other and unspecified hyperlipidemia Status: Chronic Comment: Continue with aggressive risk factor modification (8) Hepatitis C infection Status: Chronic Comment: Noted. Qualifiers: Viral hepatitis chronicity: chronic (9) Personal history of transient ischemic attack (TIA) and cerebral infarction without residual deficit Status: Chronic Comment: Noted and stable on antiplatelet therapy (10) Diabetic foot ulcer Status: Chronic Comment: As per APC Qualifiers: Diabetic foot ulcer location: toe Diabetes mellitus type: type 2 Laterality: right Non-pressure ulcer stage: unspecified non-pressure ulcer stage Qualified Codes: E11.621 - Type 2 diabetes mellitus with foot ulcer; L97.519 - Non-pressure chronic ulcer of other part of right foot with unspecified severity (11) Hypothyroidism Status: Chronic Comment: Maintain replacement therapy Qualifiers: Hypothyroidism type: acquired Qualified Codes: E03.9 - Hypothyroidism, unspecified Result Diagram: 07/16/18210207/16/182102 Results 24hrs Laboratory Tests Test 07/16/18 21:03 07/17/18 00:23 07/17/18 01:02 07/17/18 04:30 White Blood Count 6.7 Red Blood Count 3.29 L Hemoglobin 9.8 L Hematocrit 30.2 L Mean Corpuscular 91.8 Volume Mean Corpuscular 29.8 Hemoglobin Mean Corpuscular 32.5 Hemoglobin Concent Red Cell 15.6 H Distribution Width Platelet Count 214 Mean Platelet Volume 8.8 Immature 0.800 H Granulocytes % Neutrophils % 67.8 Lymphocytes % 14.6 L Monocytes % 11.7 H Eosinophils % 4.2 Basophils % 0.9 Nucleated Red Blood 0.0 Cells % Immature 0.050 H Granulocytes # Neutrophils # 4.5 Lymphocytes # 1.0 Monocytes # 0.8 Eosinophils # 0.3 Basophils # 0.1 Nucleated Red Blood 0.0 Cells # Sodium Level 141 Potassium Level 4.7 Chloride Level 91 L Carbon Dioxide Level 31 Anion Gap 19 H Blood Urea Nitrogen 53 H Creatinine 8.23 H Est Glomerular 7 L Filtrat Rate mL/min Glucose Level 206 Calcium Level 8.0 L Troponin I 0.036 0.038 0.039 Bedside Glucose 116 Hemoglobin A1c 6.4 H Creatine Kinase 83 Creatine Kinase 2.9 Index Creatinine Kinase MB 2.44 H (Mass) Test 07/17/18 08:01 07/17/18 10:25 07/17/18 10:56 07/17/18 11:54 Bedside Glucose 149 70 79 Creatine Kinase 85 Creatine Kinase 2.9 Index Creatinine Kinase MB 2.47 H (Mass) Troponin I 0.040 CC: GERALDINE CHAVES DPM; ARNOLD ORTIZ MD; MARCIE HAMPTON MD ; HPI/ROS Admit Date/Time Admit Date/Time Jul 16, 2018 at 21:56 Hx of Present Illness 58-year-old gentleman with a history of end-stage renal disease on dialysis Saturday. Starting roughly 72 hours ago he noticed a decrease in exercise tolerance with dyspnea on exertion. Reluctantly he does admit that he has had an increase in cough and developed a sensation of pressure in the chest like he could not expand his lungs fully. He does note possible fever but denies any shaking chills or drenching sweats. He is not producing any sputum. He has not been around anybody else who is ill. Is into the emergency room and inform them of the chest pressure and was admitted for this. Please see the chest x-ray report read by radiology. ROS Constitutional: fatigue, febrile Eyes: no complaints ENT: no complaints Respiratory: cough, shortness of breath (Dyspnea on exertion) Cardiovascular: chest pain (Scribed as a broad pressure without radiation) Gastrointestinal: no complaints Genitourinary: no complaints (An uric renal failure) Musculoskeletal: other (Right foot pain) Skin: no complaints Neurologic: no complaints Endocrine: no complaints Lymphatic: no complaints PMH/Family/Social Past Medical History Medical History: diabetes (Type II with complications), high cholesterol, hypertension, hypothyroid, renal disease (End-stage renal disease on hemodialysis. 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), other (Diabetic foot ulcer; hepatitis C antibody positive;) Medications Current Medications Nitroglycerin (Nitroglycerin (Sl Tab) 0.4 Mg) 1 tab Q5M UP TO 3 DOSES PRN SL .CHEST PAIN Last administered on 07/16/18at 21:33; Admin Dose 1 TAB; Start 07/16/18 at 21:30 Ondansetron HCl (Zofran Inj) 4 mg ER BRIDGE PRN IV NAUSEA/VOMITING; Start 07/16/18 at 22:00; Stop 07/17/18 at 21:59 Acetaminophen (Tylenol Tab) 650 mg ER BRIDGE PRN PO .MILD PAIN 1-3 OR TEMP; Start 07/16/18 at 22:00; Stop 07/17/18 at 21:59 Atorvastatin Calcium (Lipitor) 20 mg QHS PO ; Start 07/17/18 at 21:00 Doxazosin Mesylate (Cardura) 2 mg HS PO ; Start 07/17/18 at 21:00 Ferrous Sulfate (Ferrous Sulfate (Ec)) 325 mg TID PO Last administered on 07/17/18at 12:48; Admin Dose 325 MG; Start 07/17/18 at 09:00 Gentamicin Sulfate (Gentamicin 0.1% Cr) 1 applic DAILY TOP Last administered on 07/17/18 11:28; Admin Dose 1 APPLIC; Start 07/17/18 at 09:00 Insulin Aspart (Novolog Insulin Pen) 10 unit WITH MEALS SC Last administered on 07/17/18 12:47; Admin Dose 10 UNIT; Start 07/17/18 at 07:35 Insulin Glargine (Lantus) 20 units DAILY SC Last administered on 07/17/18 08:33; Admin Dose 20 UNITS; Start 07/17/18 at 09:00 Labetalol HCl (Normodyne) 800 mg BID PO Last administered on 07/17/18 08:16; Admin Dose 800 MG; Start 07/17/18 at 09:00 Levofloxacin (Levaquin) 250 mg DAILY PO Last administered on 07/17/18 08:15; Admin Dose 250 MG; Start 07/17/18 at 09:00 Levothyroxine Sodium (Synthroid) 50 mcg BEFORE BREAKFAST PO Last administered on 07/17/18 07:14; Admin Dose 50 MCG; Start 07/17/18 at 07:00 Linagliptin (Tradjenta) 5 mg DAILY PO Last administered on 07/17/18 08:15; Admin Dose 5 MG; Start 07/17/18 at 09:00 Lisinopril (Zestril) 40 mg DAILY PO ; Start 07/17/18 at 09:00 Nifedipine (Procardia Xl) 60 mg DAILY PO Last administered on 07/17/18 11:28; Admin Dose 60 MG; Start 07/17/18 at 09:00 Sevelamer Carbonate (Renvela) 1.6 gm WITH MEALS PO Last administered on 07/17/18at 12:50; Admin Dose 1.6 GM; Start 07/17/18 at 07:35 Diagnostic Test (Pha) (Accu-Chek) 1 ea AC MEALS AND BEDTIME XX ; Start 07/17/18 at 07:00 Vancomycin HCl (Vanco Iv Per Pharmacy) PER PHARMACY DOSING NOTE XX ; Start 07/16/18 at 23:30 Aspirin (Aspirin) 81 mg DAILY PO ; Start 07/18/18 at 09:00 Nitroglycerin (Nitroglycerin (Sl Tab) 0.4 Mg) 1 tab Q5M PRN SL CHEST PAIN; Start 07/16/18 at 23:00 Morphine Sulfate (morphine) 4 mg Q2H PRN IV PAIN LEVEL 7-10; Start 07/16/18 at 23:00 Diagnostic Test (Pha) (Accu-Chek) 1 ea 2 HOURS AFTER MEALS XX ; Start 07/17/18 at 09:35 Insulin Aspart (Novolog Insulin Pen) NOVOLOG *MILD* ALGORITHM WITH MEALS BEDTIME SC Last administered on 07/17/18at 08:05; Admin Dose 1 UNIT; Start 07/17/18 at 07:35 Miscellaneous Information 1 ea NOTE XX ; Start 07/16/18 at 23:30 Glucose (Glutose) 15 gm Q15M PRN PO DECREASED GLUCOSE; Start 07/16/18 at 23:30 Glucose (Glutose) 22.5 gm Q15M PRN PO DECREASED GLUCOSE; Start 07/16/18 at 23:30 Dextrose (D50w Syringe) 25 ml Q15M PRN IV DECREASED GLUCOSE; Start 07/16/18 at 23:30 Dextrose (D50w Syringe) 50 ml Q15M PRN IV DECREASED GLUCOSE; Start 07/16/18 at 23:30 Glucagon (Glucagen) 1 mg Q15M PRN IM DECREASED GLUCOSE; Start 07/16/18 at 23:30 Glucose (Glutose) 15 gm Q15M PRN BUCCAL DECREASED GLUCOSE; Start 07/16/18 at 23:30 Coded Allergies: No Known Allergy (Unverified , 07/16/18) Past Surgical History Past Surgical Hx: cholecystectomy, other (Status post non-living related donor renal transplant) Family History Significant Family History: diabetes, hypertension Social History Divorce; lives alone Alcohol Use: occasionally Smoking Status: Former smoker Drug Use: none Exam/Review of Systems Vital Signs Vitals Vital Signs Date Temp Pulse Resp B/P (MAP) Pulse Ox O2 O2 Flow FiO2 Time Delivery Rate 07/17/18 70 12:17 07/17/18 98.3 198/82 95 Nasal 2.0 08:19 (120) Cannula 07/17/18 18 04:51 Intake and Output 07/16/18 07/16/18 07/17/18 1515:00 23:00 07:00 IntakeIntake Total 250 ml BalanceBalance 250 ml Exam Constitutional: alert, oriented Psych: no complaints, nl mood/affect Head: normocephalic, atraumatic Eyes: nl conjunctiva, EOMI Neck: supple, non-tender Respiratory: normal air movement, crackles/rales (Right base crackles and egophony) Cardiovascular: regular rate and rhythm, nl pulses Gastrointestinal: soft, nl liver, spleen, non-tender Neurological: BRICKLAYER APPRENTICE II-XII intact, nl mental status, nl speech, nl strength YAS AGEE MD Jul 17, 2018 13:14
[2018-07-17] MEDS: AZITHROMYCIN 250 MG TAB PO SCH (14:52)
[2018-07-17] MEDS: MINOXIDIL 2.5 MG TAB NGT SCH ×2 (14:53→23:32)
[2018-07-17] MEDS: ALBUTEROL 0.083% (NEB) 2.5 MG/3 ML AMP HHN SCH ×2 (15:08→19:40)
--- NOTE | 2018-07-17 15:26 | CONS ---
Assessment/Plan Assessment/Plan Hospital Course (Demo Recall) Shortness of breath Chest pain Pleural effusion Possible pneumonia Acute decompensated diastolic congestive heart failure Hypertension Diabetes End-stage renal disease on hemodialysis Preserved ejection fraction -Patient with symptoms of shortness of breath, chest pain with coughing and feeling weak. CT chest with evidence of possible pneumonia as well as pleural effusion. Serial cardiac enzymes remain negative. ECG with no significant ischemic abnormalities -Patient is on hemodialysis, recommend fluid removal as per nephrology, if effusion is not improved, consider thoracentesis -Blood pressure on the higher side, he did not receive all of his medications yet, once patient on his regular medication regimen, titration as needed -Continue aspirin and statin therapy if no contraindication Consultation Date/Type/Reason Admit Date/Time Jul 16, 2018 at 21:56 Type of Consult Cardiology Reason for Consultation Chest pain and shortness of breath Date/Time of Note DATE: 07/17/18 TIME: 15:20 Hx of Present Illness This is a 58-year-old male known to me from recent previous admission with past medical history of diabetes, end-stage renal disease on hemodialysis, hypertension who presents with multiple complaints. Patient is usually not forthcoming with history. He does admit to shortness of breath off and on over the past 3-4 days. Worse with lying down and with sitting up at times, also worse with exertion. Complains of sharp chest discomfort with coughing. He complains of feeling cold, he does have a productive cough. He tells me his blood pressure has been labile but he did have his medications adjusted recently by his physician. He does feel better since admission to the hospital. 12 point review of systems was performed with all pertinent positives and negatives mentioned above and all else is negative Past Medical History Medical History: diabetes, high cholesterol, hypertension, renal disease Home Meds Active Scripts Gentamicin Sulfate* (Gentamicin Sulfate* Cream) 0.1% - 30 Gm Cream.gm., 1 APPLIC TOP DAILY for 30 Days, #1 TUBE 1 Refill Prov:MICHAEL MENDOZA MD 06/27/18 [Vancomycin Iv Per Pharmacy] 1 EA EACH No Conflict Check, 0 EA XX .PER PROTOCOL for 42 Days, SYR 0 Refills Prov:MICHAEL MENDOZA MD 06/27/18 Reported Medications Lisinopril* (Lisinopril*) 40 Mg Tablet, 40 MG PO DAILY, #30 TAB 07/16/18 Atorvastatin Calcium* (Atorvastatin Calcium*) 20 Mg Tablet, 20 MG PO QHS, #30 TAB 07/16/18 Levothyroxine Sodium* (Levothyroxine Sodium*) 50 Mcg Tablet, 50 MCG PO BEFORE BREAKFAST, #30 TAB 07/16/18 Insulin Glargine* (Lantus*) 100 Unit/Ml Soln, 20 UNIT SC DAILY, #1 VIAL 07/16/18 Nifedipine* (Nifedipine ER*) 60 Mg Tablet.sa, 60 MG PO DAILY, TAB.SA 07/16/18 Linagliptin (TRADJENTA) 5 Mg Tablet, 5 MG PO DAILY, TAB 07/16/18 Levofloxacin* (Levofloxacin*) 250 Mg Tablet, 250 MG PO DAILY, TAB 07/16/18 Doxazosin Mesylate* (Doxazosin Mesylate*) 2 Mg Tablet, 2 MG PO HS, TAB 07/16/18 Labetalol Hcl* (Labetalol Hcl*) 200 Mg Tablet, 800 MG PO BID, TAB 07/16/18 Sevelamer Carbonate* (Renvela*) 800 Mg Tablet, 1.6 GM PO WITH MEALS, TAB 07/16/18 Insulin Aspart* (Novolog Insulin Pen*) 100 Unit/Ml Soln, 10 UNIT SC WITH MEALS, EA 07/16/18 Ferrous Sulfate* (Ferrous Sulfate*) 325 Mg Tabec, 325 MG PO TID, TAB 07/16/18 Discontinued Reported Medications Fenofibrate, Micronized (Fenofibrate) 134 Mg Capsule, 134 MG PO DAILY, CAP 04/03/18 Multivit/Ca Carb/B Cmplx/Fa* (Matilda-Anthony*) 1 Tab Tab, 1 TAB PO DAILY, TAB 04/03/18 Levothyroxine Sodium* (Levothyroxine Sodium*) 25 Mcg Tablet, 50 MCG PO BEFORE BREAKFAST, #30 TAB 04/03/18 Lisinopril* (Lisinopril*) 40 Mg Tablet, 40 MG PO DAILY, #30 TAB 03/22/18 Isosorbide Mononitrate* (Isosorbide Mononitrate*) 30 Mg Tab.er.24h, 30 MG PO DAILY, TAB 03/22/18 Ferrous Sulfate* (Ferrous Sulfate*) 325 Mg Tabec, 325 MG PO TID, TAB 03/22/18 Atorvastatin Calcium* (Atorvastatin Calcium*) 20 Mg Tablet, 20 MG PO QHS, #30 TAB 10/07/17 Furosemide* (Furosemide*) 80 Mg Tablet, 80 MG PO DAILY, #30 TAB 10/07/17 Doxazosin Mesylate* (Doxazosin Mesylate*) 2 Mg Tablet, 2 MG PO HS, TAB 10/07/17 Pantoprazole* (Pantoprazole*) 40 Mg Tablet.dr, 40 MG PO AC BREAKFAST, TAB 10/07/17 Discontinued Scripts Levofloxacin* (Levofloxacin*) 250 Mg Tablet, 250 MG PO DAILY for 42 Days, #42 TAB 0 Refills Prov:MICHAEL MENDOZA MD 06/27/18 Linagliptin (TRADJENTA) 5 Mg Tablet, 5 MG PO DAILY for 30 Days, #30 TAB 5 Refills Prov:MICHAEL MENDOZA MD 06/27/18 [Insulin Glargine] 100 UNITS/ML SOLN No Conflict Check, 11 UNITS SC DAILY@0800 for 30 Days, #2 SYR 5 Refills Prov:MICHAEL MENDOZA MD 06/27/18 Insulin Aspart* (Novolog Insulin Pen*) 100 Unit/Ml Soln, 4 UNIT SC WITH MEALS for 30 Days, #2 SYR 5 Refills Prov:MICHAEL MENDOZA MD 06/27/18 Sevelamer Carbonate* (Renvela*) 800 Mg Tablet, 1600 MG PO WITH MEALS for 30 Days, #90 TAB 5 Refills Prov:MICHAEL MENDOZA MD 06/27/18 Nifedipine (Procardia Xl) 60 Mg Tab.er.24, 60 MG PO BID for 30 Days, #60 TAB 5 Refills Prov:MICHAEL MENDOZA MD 06/27/18 Labetalol Hcl* (Labetalol Hcl*) 200 Mg Tablet, 800 MG PO BID for 30 Days, #60 TAB 5 Refills Prov:MICHAEL MENDOZA MD 06/27/18 Hydralazine Hcl* (Apresoline*) 50 Mg Tab, 100 MG PO TID for 30 Days, #180 TAB 3 Refills Prov:MICHAEL MENDOZA MD 06/27/18 Silver Sulfadiazine* (Silvadene*) 1% - 20 Gm Cream.gm., 1 APPLIC TOP DAILY, #1 TUB Prov:ONEYDA BEASLEY 06/15/18 Ondansetron (Ondansetron Odt) 4 Mg Tab.rapdis, 4 MG PO Q6H PRN for NAUSEA AND/OR VOMITING, #10 TAB Prov:REJIPHAMOLIVIA Breonna. 04/07/18 Hydrocodone/Acetaminophen ([place] 10-325 Tablet) 1 Each Tablet, 1 TAB PO Q6H PRN for PAIN, #7 TAB Prov:REJIPHAMOLIVIA S. 04/07/18 Medications Current Medications Atorvastatin Calcium (Lipitor) 20 mg QHS PO ; Start 07/17/18 at 21:00 Ferrous Sulfate (Ferrous Sulfate (Ec)) 325 mg TID PO Last administered on 07/17/18 12:48; Admin Dose 325 MG; Start 07/17/18 at 09:00 Gentamicin Sulfate (Gentamicin 0.1% Cr) 1 applic DAILY TOP Last administered on 07/17/18 11:28; Admin Dose 1 APPLIC; Start 07/17/18 at 09:00 Insulin Aspart (Novolog Insulin Pen) 10 unit WITH MEALS SC Last administered on 07/17/18 12:47; Admin Dose 10 UNIT; Start 07/17/18 at 07:35 Insulin Glargine (Lantus) 20 units DAILY SC Last administered on 07/17/18 08:33; Admin Dose 20 UNITS; Start 07/17/18 at 09:00 Levofloxacin (Levaquin) 250 mg DAILY PO Last administered on 07/17/18 08:15; Admin Dose 250 MG; Start 07/17/18 at 09:00 Levothyroxine Sodium (Synthroid) 50 mcg BEFORE BREAKFAST PO Last administered on 07/17/18 07:14; Admin Dose 50 MCG; Start 07/17/18 at 07:00 Linagliptin (Tradjenta) 5 mg DAILY PO Last administered on 07/17/18 08:15; Admin Dose 5 MG; Start 07/17/18 at 09:00 Sevelamer Carbonate (Renvela) 1.6 gm WITH MEALS PO Last administered on 07/17/18 12:50; Admin Dose 1.6 GM; Start 07/17/18 at 07:35 Vancomycin HCl (Vanco Iv Per Pharmacy) PER PHARMACY DOSING NOTE XX ; Start 07/16/18 at 23:30 Aspirin (Aspirin) 81 mg DAILY PO ; Start 07/18/18 at 09:00 Nitroglycerin (Nitroglycerin (Sl Tab) 0.4 Mg) 1 tab Q5M PRN SL CHEST PAIN; Start 07/16/18 at 23:00 Morphine Sulfate (morphine) 4 mg Q2H PRN IV PAIN LEVEL 7-10; Start 07/16/18 at 23:00 Diagnostic Test (Pha) (Accu-Chek) 1 ea 2 HOURS AFTER MEALS XX ; Start 07/17/18 at 09:35 Insulin Aspart (Novolog Insulin Pen) NOVOLOG *MILD* ALGORITHM WITH MEALS BE DTIME SC Last administered on 07/17/18at 08:05; Admin Dose 1 UNIT; Start 07/17/18 at 07:35 Miscellaneous Information 1 ea NOTE XX ; Start 07/16/18 at 23:30 Glucose (Glutose) 15 gm Q15M PRN PO DECREASED GLUCOSE; Start 07/16/18 at 23:30 Glucose (Glutose) 22.5 gm Q15M PRN PO DECREASED GLUCOSE; Start 07/16/18 at 23:30 Dextrose (D50w Syringe) 25 ml Q15M PRN IV DECREASED GLUCOSE; Start 07/16/18 at 23:30 Dextrose (D50w Syringe) 50 ml Q15M PRN IV DECREASED GLUCOSE; Start 07/16/18 at 23:30 Glucagon (Glucagen) 1 mg Q15M PRN IM DECREASED GLUCOSE; Start 07/16/18 at 23:30 Glucose (Glutose) 15 gm Q15M PRN BUCCAL DECREASED GLUCOSE; Start 07/16/18 at 23:30 Azithromycin (Zithromax) 500 mg DAILY PO Last administered on 07/17/18at 14:52; Admin Dose 500 MG; Start 07/17/18 at 13:00; Stop 07/20/18 at 12:59 Doxazosin Mesylate (Cardura) 4 mg HS PO ; Start 07/17/18 at 21:00 Lisinopril (Zestril) 40 mg BID PO ; Start 07/17/18 at 21:00 Labetalol HCl (Normodyne) 400 mg BID PO ; Start 07/17/18 at 21:00 Minoxidil (Loniten) 2.5 mg BID NGT Last administered on 07/17/18at 14:53; Admin Dose 2.5 MG; Start 07/17/18 at 13:30 Albuterol (Proventil 0.083% (Neb)) 1.25 mg Q6H RESP THERAPY HHN Last administered on 07/17/18at 15:08; Admin Dose 1.25 MG; Start 07/17/18 at 14:00; Stop 07/19/18 at 13:59 Nifedipine (Procardia Xl) 90 mg DAILY PO ; Start 07/18/18 at 09:00 Allergies: Coded Allergies: No Known Allergy (Unverified , 07/16/18) Past Surgical History Past Surgical Hx: cholecystectomy, other (Status post non-living related donor renal transplant) Family History Significant Family History: no pertinent family hx Social History Alcohol Use: occasionally Smoking Status: Former smoker Drug Use: none Exam/Review of Systems Vital Signs Vitals Vital Signs Date Temp Pulse Resp B/P (MAP) Pulse Ox O2 O2 Flow FiO2 Time Delivery Rate 07/17/18 87 20 96 Nasal 2.0 15:13 Cannula 07/17/18 193/97 15:00 (129) 07/17/18 98.0 13:05 Intake and Output 07/16/18 07/16/18 07/17/18 1515:00 23:00 07:00 IntakeIntake Total 250 ml BalanceBalance 250 ml Exam Constitutional: alert, oriented (No apparent distress, family bedside, patient speaking in complete sentences without dyspnea) Head: normocephalic Respiratory: other (Decreased breath sounds at the bases, more so at the left, no wheezing) Cardiovascular: regular rate and rhythm (S1-S2 heard) Gastrointestinal: soft, non-tender, bowel sounds Extremities: edema (Trace), other (Upper extremity fistula) Labs Result Diagram: 07/16/18210207/16/182102 Results 24hrs Laboratory Tests Test 07/16/18 21:03 07/17/18 00:23 07/17/18 01:02 07/17/18 04:30 White Blood Count 6.7 Red Blood Count 3.29 L Hemoglobin 9.8 L Hematocrit 30.2 L Mean Corpuscular 91.8 Volume Mean Corpuscular 29.8 Hemoglobin Mean Corpuscular 32.5 Hemoglobin Concent Red Cell 15.6 H Distribution Width Platelet Count 214 Mean Platelet Volume 8.8 Immature 0.800 H Granulocytes % Neutrophils % 67.8 Lymphocytes % 14.6 L Monocytes % 11.7 H Eosinophils % 4.2 Basophils % 0.9 Nucleated Red Blood 0.0 Cells % Immature 0.050 H Granulocytes # Neutrophils # 4.5 Lymphocytes # 1.0 Monocytes # 0.8 Eosinophils # 0.3 Basophils # 0.1 Nucleated Red Blood 0.0 Cells # Sodium Level 141 Potassium Level 4.7 Chloride Level 91 L Carbon Dioxide Level 31 Anion Gap 19 H Blood Urea Nitrogen 53 H Creatinine 8.23 H Est Glomerular 7 L Filtrat Rate mL/min Glucose Level 206 Calcium Level 8.0 L Troponin I 0.036 0.038 0.039 Bedside Glucose 116 Hemoglobin A1c 6.4 H Creatine Kinase 83 Creatine Kinase 2.9 Index Creatinine Kinase MB 2.44 H (Mass) Test 07/17/18 08:01 07/17/18 10:25 07/17/18 10:56 07/17/18 11:54 Bedside Glucose 149 70 79 Creatine Kinase 85 Creatine Kinase 2.9 Index Creatinine Kinase MB 2.47 H (Mass) Troponin I 0.040 Test 07/17/18 14:41 Bedside Glucose 69 L Imaging Imaging ECG sinus rhythm at 76 bpm, left ventricular hypertrophy, QRS 100 ms, nonspecific ST abnormalities Medications Medications Current Medications Atorvastatin Calcium (Lipitor) 20 mg QHS PO ; Start 07/17/18 at 21:00 Ferrous Sulfate (Ferrous Sulfate (Ec)) 325 mg TID PO Last administered on 07/17/18at 12:48; Admin Dose 325 MG; Start 07/17/18 at 09:00 Gentamicin Sulfate (Gentamicin 0.1% Cr) 1 applic DAILY TOP Last administered on 07/17/18at 11:28; Admin Dose 1 APPLIC; Start 07/17/18 at 09:00 Insulin Aspart (Novolog Insulin Pen) 10 unit WITH MEALS SC Last administered on 07/17/18at 12:47; Admin Dose 10 UNIT; Start 07/17/18 at 07:35 Insulin Glargine (Lantus) 20 units DAILY SC Last administered on 07/17/18 08:33; Admin Dose 20 UNITS; Start 07/17/18 at 09:00 Levofloxacin (Levaquin) 250 mg DAILY PO Last administered on 07/17/18 08:15; Admin Dose 250 MG; Start 07/17/18 at 09:00 Levothyroxine Sodium (Synthroid) 50 mcg BEFORE BREAKFAST PO Last administered on 07/17/18 07:14; Admin Dose 50 MCG; Start 07/17/18 at 07:00 Linagliptin (Tradjenta) 5 mg DAILY PO Last administered on 07/17/18at 08:15; Admin Dose 5 MG; Start 07/17/18 at 09:00 Sevelamer Carbonate (Renvela) 1.6 gm WITH MEALS PO Last administered on 07/17/18at 12:50; Admin Dose 1.6 GM; Start 07/17/18 at 07:35 Vancomycin HCl (Vanco Iv Per Pharmacy) PER PHARMACY DOSING NOTE XX ; Start 07/16/18 at 23:30 Aspirin (Aspirin) 81 mg DAILY PO ; Start 07/18/18 at 09:00 Nitroglycerin (Nitroglycerin (Sl Tab) 0.4 Mg) 1 tab Q5M PRN SL CHEST PAIN; Start 07/16/18 at 23:00 Morphine Sulfate (morphine) 4 mg Q2H PRN IV PAIN LEVEL 7-10; Start 07/16/18 at 23:00 Diagnostic Test (Pha) (Accu-Chek) 1 ea 2 HOURS AFTER MEALS XX ; Start 07/17/18 at 09:35 Insulin Aspart (Novolog Insulin Pen) NOVOLOG *MILD* ALGORITHM WITH MEALS BEDTIME SC Last administered on 07/17/18at 08:05; Admin Dose 1 UNIT; Start 07/17/18 at 07:35 Miscellaneous Information 1 ea NOTE XX ; Start 07/16/18 at 23:30 Glucose (Glutose) 15 gm Q15M PRN PO DECREASED GLUCOSE; Start 07/16/18 at 23:30 Glucose (Glutose) 22.5 gm Q15M PRN PO DECREASED GLUCOSE; Start 07/16/18 at 23:30 Dextrose (D50w Syringe) 25 ml Q15M PRN IV DECREASED GLUCOSE; Start 07/16/18 at 23:30 Dextrose (D50w Syringe) 50 ml Q15M PRN IV DECREASED GLUCOSE; Start 07/16/18 at 23:30 Glucagon (Glucagen) 1 mg Q15M PRN IM DECREASED GLUCOSE; Start 07/16/18 at 23:30 Glucose (Glutose) 15 gm Q15M PRN BUCCAL DECREASED GLUCOSE; Start 07/16/18 at 23:30 Azithromycin (Zithromax) 500 mg DAILY PO Last administered on 07/17/18at 14:52; Admin Dose 500 MG; Start 07/17/18 at 13:00; Stop 07/20/18 at 12:59 Doxazosin Mesylate (Cardura) 4 mg HS PO ; Start 07/17/18 at 21:00 Lisinopril (Zestril) 40 mg BID PO ; Start 07/17/18 at 21:00 Labetalol HCl (Normodyne) 400 mg BID PO ; Start 07/17/18 at 21:00 Minoxidil (Loniten) 2.5 mg BID NGT Last administered on 07/17/18at 14:53; Admin Dose 2.5 MG; Start 07/17/18 at 13:30 Albuterol (Proventil 0.083% (Neb)) 1.25 mg Q6H RESP THERAPY HHN Last administered on 07/17/18at 15:08; Admin Dose 1.25 MG; Start 07/17/18 at 14:00; Stop 07/19/18 at 13:59 Nifedipine (Procardia Xl) 90 mg DAILY PO ; Start 07/18/18 at 09:00 Michael Snell DO Jul 17, 2018 15:26
--- NOTE | 2018-07-17 15:41 | CONS ---
DATE OF ADMISSION: 07/16/2018 DATE OF CONSULTATION: HISTORY OF PRESENT ILLNESS: This is an unfortunate 58-year-old , disabled male with a history of diabetes, hypertension, chronic renal failure on hemodialysis. The patient has been recently discharged from this hospital. Please refer to the admission history and physical available in the chart. hIS PREVIOUS CHART WAS ALSO REVIEWED The patient has been brought to the emergency complaining of shortness of breath. The patient has been seen by Dr. España as outpatient when he was advised to have extra dialysis because of fluid overload, to which he declined. It appears that the patient has been stable otherwise, having been on antibiotic therapy as outpatient for the right foot osteomyelitis under the care of Dr. Reyes. The rest of the past history is available in the chart. 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 I do not see evidence of stress test or nuclear studies to evaluate his coronary artery system. The rest of the past history again includes a surgical intervention by Dr. Reyes. Please refer to the operative note in the chart. The patient has had multiple x-rays, MRI and these are all well documented in the chart from the previous admissions. Suffice it to say, his hemoglobin has been stable. He has been followed by ID for osteomyelitis and has been continued on EPO as an outpatient as well. Does include history of hepatitis C, diabetic nephropathy for which he has been seen by the eye doctor, (?) TIA and hypothyroidism for which he has been under the care of freedom of information officer. REVIEW OF SYSTEMS: The rest of the system at this time is negative for any head, ears, nose, throat problem. No cough, hemoptysis. No allergies or wheezing. No history of acute sharp chest pain, abdominal pain, flank pain. No episode of diarrhea, constipation, bleeding from any source. No acute gout, joint pain, seizures, syncope. The patient has not been exposed to nonsteroidal antirheumatic agents. There has been no acute gout or other weakness of any extremity. PERSONAL HISTORY: The patient , has 7 children. Lives with his who helps him with his care. 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 No allergies FAMILY HISTORY: Has one sister is alive. Parents are . Mother was diabetic. Current Medications Atorvastatin Calcium (Lipitor) 20 mg QHS PO Last administered on 07/17/18 23:32; Admin Dose 20 MG; Start 07/17/18 at 21:00 Ferrous Sulfate (Ferrous Sulfate (Ec)) 325 mg TID PO Last administered on 07/18/18 08:56; Admin Dose 325 MG; Start 07/17/18 at 09:00 Gentamicin Sulfate (Gentamicin 0.1% Cr) 1 applic DAILY TOP Last administered on 07/18/18 08:29; Admin Dose 1 APPLIC; Start 07/17/18 at 09:00 Insulin Aspart (Novolog Insulin Pen) 10 unit WITH MEALS SC Last administered on 07/18/18 08:37; Admin Dose 10 UNIT; Start 07/17/18 at 07:35 Insulin Glargine (Lantus) 20 units DAILY SC Last administered on 07/18/18 08:55; Admin Dose 20 UNITS; Start 07/17/18 at 09:00 Levofloxacin (Levaquin) 250 mg DAILY PO Last administered on 07/18/18 08:55; Admin Dose 250 MG; Start 07/17/18 at 09:00 Levothyroxine Sodium (Synthroid) 50 mcg BEFORE BREAKFAST PO Last administered on 07/18/18 06:08; Admin Dose 50 MCG; Start 07/17/18 at 07:00 Linagliptin (Tradjenta) 5 mg DAILY PO Last administered on 07/18/18 08:56; Admin Dose 5 MG; Start 07/17/18 at 09:00 Sevelamer Carbonate (Renvela) 1.6 gm WITH MEALS PO Last administered on 07/18/18 08:34; Admin Dose 1.6 GM; Start 07/17/18 at 07:35 Vancomycin HCl (Vanco Iv Per Pharmacy) PER PHARMACY DOSING NOTE XX ; Start 07/16/18 at 23:30 Aspirin (Aspirin) 81 mg DAILY PO Last administered on 07/18/18 08:59; Admin Dose 81 MG; Start 07/18/18 at 09:00 Nitroglycerin (Nitroglycerin (Sl Tab) 0.4 Mg) 1 tab Q5M PRN SL CHEST PAIN; Start 07/16/18 at 23:00 Morphine Sulfate (morphine) 4 mg Q2H PRN IV PAIN LEVEL 7-10 Last administered on 07/17/18 17:03; Admin Dose 4 Diagnostic Test (Pha) (Accu-Chek) 1 ea 2 HOURS AFTER MEALS XX Last administered on 07/18/18 09:00; Admin Dose 1 EA; Start 07/17/18 at 09:35 Insulin Aspart (Novolog Insulin Pen) NOVOLOG *MILD* ALGORITHM WITH MEALS BEDTIME SC Last administered on 07/18/18 08:38; Admin Dose 1 UNIT; Start 07/17/18 at 07:35 Azithromycin (Zithromax) 500 mg DAILY PO Last administered on 07/18/18 08:29; Admin Dose 500 MG; Start 07/17/18 at 13:00; Stop 07/20/18 at 12:59 Lisinopril (Zestril) 40 mg BID PO Last administered on 07/18/18 08:31; Admin Dose 40 MG; Start 07/17/18 at 21:00 Labetalol HCl (Normodyne) 400 mg BID PO Last administered on 07/18/18 08:28; Admin Dose 400 MG; Start 07/17/18 at 21:00 Minoxidil (Loniten) 2.5 mg BID NGT Last administered on 07/18/18 08:30; Admin Dose 2.5 MG; Start 07/17/18 at 13:30 Albuterol (Proventil 0.083% (Neb)) 1.25 mg Q6H RESP THERAPY HHN Last administered on 07/18/18 08:57; Admin Dose 1.25 MG; Start 07/17/18 at 14:00; Stop 07/19/18 at 13:59 Nifedipine (Procardia Xl) 90 mg DAILY PO Last administered on 07/18/18 08:32; Admin Dose 90 MG; Start 07/18/18 at 09:00 Doxazosin Mesylate (Cardura) 4 mg HS PO ; Start 07/18/18 at 21:00 PHYSICAL EXAMINATION: GENERAL: The patient reveals to be pleasant Latin male who appears to be in no acute distress and is maintained on nasal oxygen however. VITAL SIGNS: Blood pressure is stable at 140/70, heart rate 70, temperature 98.3, respiration is 18. HEENT: Unremarkable. Eyes: Pale conjunctivae. Sclerae are anicteric. Nose: Normal mucosa. Throat: Tongue is pale. No pharyngeal congestion. NECK: Supple. No JVD, lymph or thyroid present. CHEST: Symmetrical. Occasional rales at bases noted. HEART: Regular rate, rhythm. S1, S2 unremarkable. ABDOMEN: Flat, soft, no masses. GENITALIA: Not examined. EXTREMITIES: Left arm AV fistula is noted. Pulses are diminished in lower ext. SKIN: Unremarkable right foot dressing is in place. NEUROLOGIC: I cannot evaluate any neurological deficit. IMPRESSION: 1. History of diabetes mellitus type 2. 2. History of end-stage kidney disease, HBP, poorly controlled, and diabetic nephropathy, on hemodialysis. 3. Lt foot osteomyelitis, on antibiotic therapy. 4. Anemia of chronic disease. 5. Congestive heart failure, presently out of control, maybe poor compliance. Consider cardiac etiology. PLAN: The present illness of CHF may have been precipitated with uncontrolled HBP. I would adjust his BP meds to improve his BP to prevent similar episodes in future. Even though the patient has preserved ejection fraction, coronary artery disease must be ruled out in this diabetic man with ongoing multiple issues such as anemia and chronic infection,and previous episode of chest pain, as discussed with Dr Freeman et cheryl. He would be a good candidate to undergo some additional cardiac workup and I will leave that to the hands of the primary care physician. Hemodialysis has been arranged acutely and should help the patient. He could be discharged soon after, once the cardiac w/u is completed and return to the outpatient dialysis center unless additional workup is contemplated. Please note that the chest x-ray shows right lower lobe infiltrate for which he has already been started on antibiotic therapy. Respiratory therapy should be continued as well and I will be happy to continue to assist in managing this interesting patient. Allow me to thank you once again. The case was discussed with Dr Lezama at length. Thank you for this interesting consultation. Dictated By: ARNOLD QUINN/BEBETO Conf#: [id number] DID#: [id number] CC: MARCIE HAMPTON MD; BENJAMIN REYES MD;*EndCC* MTDD
[2018-07-17] MEDS ORDERED: DOXAZOSIN 2 MG TAB PO SCH ×2 (21:00)
[2018-07-17] MEDS: LABETALOL 200 MG TAB PO SCH (23:32)
[2018-07-17] MEDS: ATORVASTATIN 20 MG TAB PO SCH (23:32)
[2018-07-18] VITALS (26 sets, daily range): BP systolic 125–156; BP diastolic 46–70; PULSE 63–74; RESP 18–20
[2018-07-18] MEDS: LISINOPRIL 20 MG TAB PO SCH ×3 (00:55→21:28)
[2018-07-18] MEDS: ALBUTEROL 0.083% (NEB) 2.5 MG/3 ML AMP HHN SCH ×4 (01:00→19:49)
[2018-07-18] MEDS: LEVOTHYROXINE 50 MCG TAB PO SCH (06:08)
[2018-07-18] MEDS: LABETALOL 200 MG TAB PO SCH ×2 (08:28→21:29)
[2018-07-18] MEDS: GENTAMICIN 0.1% CREAM 15GM TUBE TOP SCH (08:29)
[2018-07-18] MEDS: AZITHROMYCIN 250 MG TAB PO SCH (08:29)
[2018-07-18] MEDS: MINOXIDIL 2.5 MG TAB NGT SCH (08:30)
[2018-07-18] MEDS: NIFEdipine (XL) 90 MG TAB PO SCH (08:32)
[2018-07-18] MEDS: SEVELAMER CARBONATE 0.8 GM PKT PO SCH ×3 (08:34→19:00)
[2018-07-18] MEDS: INSULIN ASPART [NOVOLOG] 3 ML PEN SC SCH ×7 (08:37→21:52)
[2018-07-18] MEDS: LEVOFLOXACIN 250 MG TAB PO SCH (08:55)
[2018-07-18] MEDS: INSULIN GLARGINE [LANTus] (100 UNITS/ML) SYG SC SCH (08:55)
[2018-07-18] MEDS: FERROUS SULFATE (EC) 325 MG TAB PO SCH ×3 (08:56→21:28)
[2018-07-18] MEDS: LINAGLIPTIN 5 MG TABLET PO SCH (08:56)
[2018-07-18] MEDS: ASPIRIN 81 MG TAB PO SCH (08:59)
[2018-07-18] MEDS: ACCU-CHEK XX SCH ×3 (09:00→19:35)
--- NOTE | 2018-07-18 09:31 | CONS ---
Assessment/Plan Assessment/Plan Hospital Course (Demo Recall) Shortness of breath Chest pain Pleural effusion Possible pneumonia Acute decompensated diastolic congestive heart failure Hypertension Diabetes End-stage renal disease on hemodialysis Preserved ejection fraction -Patient symptoms of shortness of breath have improved since yesterday and is able to lie down flat after hemodialysis. Cough is improved as well. -Blood pressure trend overall improved, continue to monitor and titrate antihypertensives as needed. Of note, in discussion with nurse, he has not received his a.m. medications yet -Patient is on hemodialysis, recommend fluid removal as per nephrology, if effusion is not improved, consider thoracentesis -Continue aspirin and statin therapy if no contraindication Consultation Date/Type/Reason Admit Date/Time Jul 18, 2018 at 08:43 Initial Consult Date Type of Consult Cardiology Date/Time of Note DATE: 07/18/18 TIME: 09:30 24 HR Interval Summary Free Text/Dictation Denies current shortness of breath, chest pain or palpitations. Cough is improved. Feeling much better after hemodialysis yesterday Exam/Review of Systems Vital Signs Vitals Vital Signs Date Temp Pulse Resp B/P (MAP) Pulse Ox O2 O2 Flow FiO2 Time Delivery Rate 07/18/18 62 16 92 Nasal 2.0 08:58 Cannula 07/18/18 98.2 138/64 05:00 (88) Intake and Output 07/17/18 07/17/18 07/18/18 1414:59 22:59 06:59 IntakeIntake Total 700 ml 600 ml OutputOutput Total 3400 ml BalanceBalance -2700 ml 600 ml Exam Constitutional: alert, oriented (No apparent distress) Respiratory: other (Coarse breath sounds bilaterally, decreased at the bases) Cardiovascular: regular rate and rhythm (S1-S2 heard) Gastrointestinal: soft, non-tender, bowel sounds Extremities: edema Labs Result Diagram: 07/16/18210207/16/182102 Results 24hrs Laboratory Tests Test 07/17/18 10:25 07/17/18 10:56 07/17/18 11:54 07/17/18 14:41 Bedside Glucose 70 79 69 L Creatine Kinase 85 Creatine Kinase 2.9 Index Creatinine Kinase MB 2.47 H (Mass) Troponin I 0.040 Test 07/17/18 15:25 07/17/18 17:18 07/17/18 19:56 07/17/18 23:08 Bedside Glucose 84 147 77 40 *L Test 07/17/18 23:26 07/17/18 23:45 07/18/18 07:44 07/18/18 08:51 Bedside Glucose 66 L 85 166 147 Medications Medications Current Medications Atorvastatin Calcium (Lipitor) 20 mg QHS PO Last administered on 07/17/18 23:32; Admin Dose 20 MG; Start 07/17/18 at 21:00 Ferrous Sulfate (Ferrous Sulfate (Ec)) 325 mg TID PO Last administered on 07/18/18 08:56; Admin Dose 325 MG; Start 07/17/18 at 09:00 Gentamicin Sulfate (Gentamicin 0.1% Cr) 1 applic DAILY TOP Last administered on 07/18/18 08:29; Admin Dose 1 APPLIC; Start 07/17/18 at 09:00 Insulin Aspart (Novolog Insulin Pen) 10 unit WITH MEALS SC Last administered on 07/18/18 08:37; Admin Dose 10 UNIT; Start 07/17/18 at 07:35 Insulin Glargine (Lantus) 20 units DAILY SC Last administered on 07/18/18 08:55; Admin Dose 20 UNITS; Start 07/17/18 at 09:00 Levofloxacin (Levaquin) 250 mg DAILY PO Last administered on 07/18/18 08:55; Admin Dose 250 MG; Start 07/17/18 at 09:00 Levothyroxine Sodium (Synthroid) 50 mcg BEFORE BREAKFAST PO Last administered on 07/18/18 06:08; Admin Dose 50 MCG; Start 07/17/18 at 07:00 Linagliptin (Tradjenta) 5 mg DAILY PO Last administered on 07/18/18 08:56; Admin Dose 5 MG; Start 07/17/18 at 09:00 Sevelamer Carbonate (Renvela) 1.6 gm WITH MEALS PO Last administered on 07/18/18 08:34; Admin Dose 1.6 GM; Start 07/17/18 at 07:35 Vancomycin HCl (Vanco Iv Per Pharmacy) PER PHARMACY DOSING NOTE XX ; Start 07/16/18 at 23:30 Aspirin (Aspirin) 81 mg DAILY PO Last administered on 07/18/18 08:59; Admin Dose 81 MG; Start 07/18/18 at 09:00 Nitroglycerin (Nitroglycerin (Sl Tab) 0.4 Mg) 1 tab Q5M PRN SL CHEST PAIN; Start 07/16/18 at 23:00 Morphine Sulfate (morphine) 4 mg Q2H PRN IV PAIN LEVEL 7-10 Last administered on 07/17/18at 17:03; Admin Dose 4 MG; Start 07/16/18 at 23:00 Diagnostic Test (Pha) (Accu-Chek) 1 ea 2 HOURS AFTER MEALS XX Last administered on 07/18/18 09:00; Admin Dose 1 EA; Start 07/17/18 at 09:35 Insulin Aspart (Novolog Insulin Pen) NOVOLOG *MILD* ALGORITHM WITH MEALS BEDTIME SC Last administered on 07/18/18 08:38; Admin Dose 1 UNIT; Start 07/17/18 at 07:35 Miscellaneous Information 1 ea NOTE XX ; Start 07/16/18 at 23:30 Glucose (Glutose) 15 gm Q15M PRN PO DECREASED GLUCOSE; Start 07/16/18 at 23:30 Glucose (Glutose) 22.5 gm Q15M PRN PO DECREASED GLUCOSE; Start 07/16/18 at 23: 30 Dextrose (D50w Syringe) 25 ml Q15M PRN IV DECREASED GLUCOSE; Start 07/16/18 at 23:30 Dextrose (D50w Syringe) 50 ml Q15M PRN IV DECREASED GLUCOSE; Start 07/16/18 at 23:30 Glucagon (Glucagen) 1 mg Q15M PRN IM DECREASED GLUCOSE; Start 07/16/18 at 23:30 Glucose (Glutose) 15 gm Q15M PRN BUCCAL DECREASED GLUCOSE; Start 07/16/18 at 23:30 Azithromycin (Zithromax) 500 mg DAILY PO Last administered on 07/18/18at 08:29; Admin Dose 500 MG; Start 07/17/18 at 13:00; Stop 07/20/18 at 12:59 Lisinopril (Zestril) 40 mg BID PO Last administered on 07/18/18 08:31; Admin Dose 40 MG; Start 07/17/18 at 21:00 Labetalol HCl (Normodyne) 400 mg BID PO Last administered on 07/18/18 08:28; Admin Dose 400 MG; Start 07/17/18 at 21:00 Minoxidil (Loniten) 2.5 mg BID NGT Last administered on 07/18/18 08:30; Admin Dose 2.5 MG; Start 07/17/18 at 13:30 Albuterol (Proventil 0.083% (Neb)) 1.25 mg Q6H RESP THERAPY HHN Last administered on 07/18/18 08:57; Admin Dose 1.25 MG; Start 07/17/18 at 14:00; Stop 07/19/18 at 13:59 Nifedipine (Procardia Xl) 90 mg DAILY PO Last administered on 07/18/18 08:32; Admin Dose 90 MG; Start 07/18/18 at 09:00 Doxazosin Mesylate (Cardura) 4 mg HS PO ; Start 07/18/18 at 21:00 Michael Snell DO Jul 18, 2018 09:31
--- NOTE | 2018-07-18 14:22 | CONS ---
DATE OF ADMISSION: 07/18/2018 DATE OF CONSULTATION: 07/18/2018 REFERRING PHYSICIAN: Dr. Ricky Freeman REASON FOR CONSULTATION: Vascular evaluation, right foot. HISTORY OF PRESENT ILLNESS: This is a 58-year-old diabetic hypertensive gentleman with end-stage renal disease. He has a right foot plantar ulcer that has been there for more than a year and I had seen him in the [facility]. I saw him in the hospital a few weeks prior to that. He actually was scheduled for an arteriogram of the right lower extremity next week, but he came in yesterday with chest pain and some shortness of breath. He has had a pleural effusion and looks like a decompensated congestive heart failure. He has gotten dialysis several times since he came in. His symptoms have improved. He currently says he is a little bit dizzy but is not short of breath at present. PAST MEDICAL HISTORY: Again, significant for diabetes, hypertension, and end- stage renal disease on hemodialysis, right foot chronic nonhealing ulcer. PAST SURGICAL HISTORY: Significant for left arm AV fistula. 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 MEDICATIONS: Consist of: 1. Cardura. 2. Epogen. 3. Aspirin. 4. Procardia. 5. Lipitor. 6. Normodyne. 7. Zestril. 8. Proventil. 9. Minoxidil. 10. Zithromax. 11. Iron. 12. He is getting gentamicin ointment applied to the wound. 13. Labetalol. 14. Insulin. 15. Levaquin. 16. Tradjenta. 17. Levothyroxine. 18. Vancomycin. ALLERGIES: HAS NO KNOWN DRUG ALLERGIES. SOCIAL HISTORY: He is a former smoker. He drinks alcohol occasionally. FAMILY HISTORY: Noncontributory. REVIEW OF SYSTEMS: He currently feels better. He still maybe looks a little bit short of breath. He says he is a little bit dizzy. His blood sugar was low. Dr. Freeman has been called to evaluate that. He has currently no chest pain, no abdominal or back pain. No pain in either foot. He is a little bit of edema in both legs. PHYSICAL EXAMINATION GENERAL: He is a middle-aged gentleman. He speaks [place] fluently. VITAL SIGNS: He has been afebrile. His blood pressure is 151/62, heart rate 62, respiratory rate 16. He is 92% sat on 2 liters nasal cannula. His left arm AV fistula has a good thrill. No arm edema. LUNGS: Clear. HEART: Regular rate and rhythm. ABDOMEN: Soft, nontender, nondistended. EXTREMITIES: He has 2+ femoral and popliteal pulses bilaterally. No DP or PT pulses are palpable in the lower extremity. He has a right foot plantar ulcer with some of the fourth metatarsal. It is clean, it is about the size of a dime. There is no sign of any infection. It is nontender. LABORATORY: His labs have actually looked pretty normal. He has a normal white count, normal platelets. Other than his creatinine being elevated the labs look pretty normal. He had a chest CT which showed pleural effusion, large right pleural effusion with atelectasis. IMPRESSION: Right foot plantar ulcer. It is clean. No signs of progression. We will reschedule his angiogram once he has been treated for acute issue and it can be done. I will see him back in the [facility] and will reschedule him as an outpatient. Wound care orders have already been written by Dr. Hines and further care per Dr. Freeman. His fistula is working well. There are no issues with that. . Dictated By: BENJAMIN BLANCO/BEBETO Conf#: [id number] DID#: [id number] CC: ELANA MENDOZA MD; GUERO HINES DPM; ARNOLD MARIE MD; MARCIE HAMPTON MD; RICKY FREEMAN MD;*EndCC* MTDD
--- NOTE | 2018-07-18 14:54 | PN ---
Date/Time of Note Date/Time of Note DATE: 07/18/18 TIME: 14:47 Assessment/Plan VTE Prophylaxis Risk score (from Ns)>0 risk: 3 SCD applied (from [facility]): No SCD contraindicated: low risk/ambulating Pharmacological prophylaxis: heparin Lines/Catheters IV Catheter Type (from [facility]): PICC Line Central line still needed: Yes Assessment/Plan Problems: (1) Community acquired pneumonia Status: Acute Comment: Antibiotics and improved and improving Qualifiers: Laterality: right Lung location: lower lobe of lung Qualified Codes: J18.1 - Lobar pneumonia, unspecified organism (2) Hepatitis C infection Status: Chronic Comment: Noted and will use precautions Qualifiers: Viral hepatitis chronicity: chronic Hepatic coma status: without hepatic coma Qualified Codes: B18.2 - Chronic viral hepatitis C (3) End-stage renal disease on hemodialysis Status: Chronic Comment: Receiving second dialysis now. Please note a large right pleural effusion I have asked radiology to remove some of the fluid for diagnostic purposes (4) Hypothyroidism Status: Chronic Comment: On treatment Qualifiers: Hypothyroidism type: acquired Qualified Codes: E03.9 - Hypothyroidism, un specified (5) HTN (hypertension) Status: Acute Comment: Continue to adjust the regimen around so we can use blood pressure medicines that do not cause so much to peripheral sodium and water retention Qualifiers: Hypertension type: essential hypertension Qualified Codes: I10 - Essential (primary) hypertension (6) Type 2 diabetes mellitus with diabetic peripheral angiopathy without noah grene Status: Chronic Comment: Adequate control Qualifiers: Diabetes mellitus lab animal technologist insulin use: with lab animal technologist use Qualified Codes: E11.51 - Type 2 diabetes mellitus with diabetic peripheral angiopathy w ithout gangrene; Z79.4 - shelter (current) use of insulin Result Diagram: 07/16/18210207/16/182102 Results 24hrs Laboratory Tests Test 07/17/18 15:25 07/17/18 17:18 07/17/18 19:56 07/17/18 23:08 Bedside Glucose 84 147 77 40 *L Test 07/17/18 23:26 07/17/18 23:45 07/18/18 07:44 07/18/18 08:51 Bedside Glucose 66 L 85 166 147 Test 07/18/18 12:11 07/18/18 12:52 07/18/18 13:48 Bedside Glucose 60 L 108 Hepatitis C Antibody REACTIVE H Subjective 24 Hr Interval Summary Constitutional: no complaints Eyes: no complaints ENT: no complaints Respiratory: no complaints Cardiovascular: no complaints Gastrointestinal: no complaints Exam/Review of Systems Exam Vitals Vital Signs Date Temp Pulse Resp B/P (MAP) Pulse Ox O2 O2 Flow FiO2 Time Delivery Rate 07/18/18 95 2.0 13:29 07/18/18 65 18 Nasal 13:29 Cannula 07/18/18 97.8 127/60 12:46 (82) Intake and Output 07/17/18 07/17/18 07/18/18 1515:00 23:00 07:00 IntakeIntake Total 700 ml 600 ml OutputOutput Total 3400 ml BalanceBalance -2700 ml 600 ml Constitutional: alert, oriented Neck: supple, non-tender Respiratory: clear to auscultation, normal air movement Cardiovascular: nl pulses Gastrointestinal: soft, nl liver, spleen, non-tender Results Results 24hrs Laboratory Tests Test 07/17/18 15:25 07/17/18 17:18 07/17/18 19:56 07/17/18 23:08 Bedside Glucose 84 147 77 40 *L Test 07/17/18 23:26 07/17/18 23:45 07/18/18 07:44 07/18/18 08:51 Bedside Glucose 66 L 85 166 147 Test 07/18/18 12:11 07/18/18 12:52 07/18/18 13:48 Bedside Glucose 60 L 108 Hepatitis C Antibody REACTIVE H Medications Medication Current Medications Atorvastatin Calcium (Lipitor) 20 mg QHS PO Last administered on 07/17/18at 23:32; Admin Dose 20 MG; Start 07/17/18 at 21:00 Ferrous Sulfate (Ferrous Sulfate (Ec)) 325 mg TID PO Last administered on 07/18/18 12:23; Admin Dose 325 MG; Start 07/17/18 at 09:00 Gentamicin Sulfate (Gentamicin 0.1% Cr) 1 applic DAILY TOP Last administered on 07/18/18at 08:29; Admin Dose 1 APPLIC; Start 07/17/18 at 09:00 Insulin Aspart (Novolog Insulin Pen) 10 unit WITH MEALS SC Last administered on 07/18/18at 08:37; Admin Dose 10 UNIT; Start 07/17/18 at 07:35 Insulin Glargine (Lantus) 20 units DAILY SC Last administered on 07/18/18at 0 8:55; Admin Dose 20 UNITS; Start 07/17/18 at 09:00 Levofloxacin (Levaquin) 250 mg DAILY PO Last administered on 07/18/18 08:55; Admin Dose 250 MG; Start 07/17/18 at 09:00 Levothyroxine Sodium (Synthroid) 50 mcg BEFORE BREAKFAST PO Last administered on 07/18/18 06:08; Admin Dose 50 MCG; Start 07/17/18 at 07:00 Linagliptin (Tradjenta) 5 mg DAILY PO Last administered on 07/18/18 08:56; Admin Dose 5 MG; Start 07/17/18 at 09:00 Sevelamer Carbonate (Renvela) 1.6 gm WITH MEALS PO Last administered on 07/18/18 12:23; Admin Dose 1.6 GM; Start 07/17/18 at 07:35 Vancomycin HCl (Vanco Iv Per Pharmacy) PER PHARMACY DOSING NOTE XX ; Start 07/16/18 at 23:30 Aspirin (Aspirin) 81 mg DAILY PO Last administered on 07/18/18 08:59; Admin Dose 81 MG; Start 07/18/18 at 09:00 Nitroglycerin (Nitroglycerin (Sl Tab) 0.4 Mg) 1 tab Q5M PRN SL CHEST PAIN; Start 07/16/18 at 23:00 Morphine Sulfate (morphine) 4 mg Q2H PRN IV PAIN LEVEL 7-10 Last administered on 07/17/18at 17:03; Admin Dose 4 MG; Start 07/16/18 at 23:00 Diagnostic Test (Pha) (Accu-Chek) 1 ea 2 HOURS AFTER MEALS XX Last administered on 07/18/18at 13:49; Admin Dose 1 EA; Start 07/17/18 at 09:35 Insulin Aspart (Novolog Insulin Pen) NOVOLOG *MILD* ALGORITHM WITH MEALS BEDTIME SC Last administered on 07/18/18 08:38; Admin Dose 1 UNIT; Start 07/17/18 at 07:35 Miscellaneous Information 1 ea NOTE XX ; Start 07/16/18 at 23:30 Glucose (Glutose) 15 gm Q15M PRN PO DECREASED GLUCOSE; Start 07/16/18 at 23:30 Glucose (Glutose) 22.5 gm Q15M PRN PO DECREASED GLUCOSE; Start 07/16/18 at 23:30 Dextrose (D50w Syringe) 25 ml Q15M PRN IV DECREASED GLUCOSE; Start 07/16/18 at 23:30 Dextrose (D50w Syringe) 50 ml Q15M PRN IV DECREASED GLUCOSE; Start 07/16/18 at 23:30 Glucagon (Glucagen) 1 mg Q15M PRN IM DECREASED GLUCOSE; Start 07/16/18 at 23:30 Glucose (Glutose) 15 gm Q15M PRN BUCCAL DECREASED GLUCOSE; Start 07/16/18 at 23:30 Azithromycin (Zithromax) 500 mg DAILY PO Last administered on 07/18/18at 08:29; Admin Dose 500 MG; Start 07/17/18 at 13:00; Stop 07/20/18 at 12:59 Lisinopril (Zestril) 40 mg BID PO Last administered on 07/18/18at 08:31; Admin Dose 40 MG; Start 07/17/18 at 21:00 Labetalol HCl (Normodyne) 400 mg BID PO Last administered on 07/18/18at 08:28; Admin Dose 400 MG; Start 07/17/18 at 21:00 Minoxidil (Loniten) 2.5 mg BID NGT Last administered on 07/18/18at 08:30; Admin Dose 2.5 MG; Start 07/17/18 at 13:30 Albuterol (Proventil 0.083% (Neb)) 1.25 mg Q6H RESP THERAPY HHN Last administered on 07/18/18at 13:28; Admin Dose 1.25 MG; Start 07/17/18 at 14:00; Stop 07/19/18 at 13:59 Nifedipine (Procardia Xl) 90 mg DAILY PO Last administered on 07/18/18at 08:32; Admin Dose 90 MG; Start 07/18/18 at 09:00 Doxazosin Mesylate (Cardura) 4 mg HS PO ; Start 07/18/18 at 21:00 Epoetin Elia (Epogen (Esrd)) 3,000 units MoWeFr@17 SC ; Start 07/18/18 at 17:00 Miscellaneous Information (*Rx Drug Level Order Reminder*) VANCO RANDOM LEVEL... RANDOM ONCE XX ; Start 07/19/18 at 05:00; Stop 07/19/18 at 05:01 YAS AGEE MD Jul 18, 2018 14:54
[2018-07-18] MEDS: EPOETIN 3000 UNITS/1 ML INJ (ESRD) SC SCH (19:01)
[2018-07-18] MEDS ORDERED: DOXAZOSIN 4 MG TAB PO SCH (21:00)
[2018-07-18] MEDS: DOXAZOSIN 4 MG TAB PO SCH (21:00)
[2018-07-18] MEDS: ATORVASTATIN 20 MG TAB PO SCH (21:29)
[2018-07-19] VITALS (10 sets, daily range): BP systolic 122–143; BP diastolic 62–68; PULSE 62–76; RESP 16–20
[2018-07-19] MEDS: ALBUTEROL 0.083% (NEB) 2.5 MG/3 ML AMP HHN SCH ×2 (02:10→10:45)
[2018-07-19] MEDS: LEVOTHYROXINE 50 MCG TAB PO SCH (06:35)
[2018-07-19] MEDS: INSULIN ASPART [NOVOLOG] 3 ML PEN SC SCH ×7 (07:55→21:00)
[2018-07-19] MEDS: GENTAMICIN 0.1% CREAM 15GM TUBE TOP SCH (08:36)
[2018-07-19] MEDS: SEVELAMER CARBONATE 0.8 GM PKT PO SCH ×3 (08:36→17:22)
[2018-07-19] MEDS: ASPIRIN 81 MG TAB PO SCH (08:37)
[2018-07-19] MEDS: AZITHROMYCIN 250 MG TAB PO SCH (08:37)
[2018-07-19] MEDS: FERROUS SULFATE (EC) 325 MG TAB PO SCH ×3 (08:37→20:11)
[2018-07-19] MEDS: LISINOPRIL 20 MG TAB PO SCH ×2 (08:37→20:12)
[2018-07-19] MEDS: LABETALOL 200 MG TAB PO SCH ×2 (08:38→20:12)
[2018-07-19] MEDS: LINAGLIPTIN 5 MG TABLET PO SCH (08:38)
[2018-07-19] MEDS: MINOXIDIL 2.5 MG TAB PO SCH (08:38)
[2018-07-19] MEDS: ACCU-CHEK XX SCH ×3 (09:41→20:05)
--- NOTE | 2018-07-19 10:30 | PN ---
Date/Time of Note Date/Time of Note DATE: 07/19/18 TIME: 10:20 Assessment/Plan VTE Prophylaxis Risk score (from Ns)>0 risk: 3 SCD applied (from Ns): No SCD contraindicated: low risk/ambulating Pharmacological prophylaxis: heparin Lines/Catheters IV Catheter Type (from [facility]): PICC Line Central line still needed: Yes Urinary Cath still in place: No Assessment/Plan Problems: (1) Community acquired pneumonia Status: Acute Comment: Patient is improving nicely with antibiotic therapy. He is scheduled for ultrasound-guided thoracentesis today however there may be enough fluid out of him that there is not much there. 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 Qualified Codes: E11.51 - Type 2 diabetes mellitus with diabetic peripheral angiopathy without gangrene; 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 Reyes Qualifiers: Diabetic foot ulcer location: toe Diabetes mellitus type: type 2 Laterality: right Non-pressure ulcer stage: unspecified non-pressure ulcer stage Qualified Codes: E11.621 - Type 2 diabetes mellitus with foot ulcer; L97.519 - Non-pressure chronic ulcer of other part of right foot with unspecified severity Result Diagram: 07/19/18 0932 07/16/18 2103 Results 24hrs Laboratory Tests Test 07/18/18 12:11 07/18/18 12:52 07/18/18 13:48 07/18/18 17:54 Bedside Glucose 60 L 108 88 Alpha Fetoprotein 1.59 Hepatitis C Antibody REACTIVE H Test 07/18/18 18:51 07/18/18 21:38 07/19/18 02:30 07/19/18 05:45 Bedside Glucose 88 194 171 Random Vancomycin 29.5 Level Test 07/19/18 07:53 07/19/18 09:32 07/19/18 09:35 Bedside Glucose 93 90 Platelet Count 210 Prothrombin Time Pending Prothrombin Time Pending Ratio INR International Pending Normalized Ratio Activated Pending Partial Thromboplast Time Thrombin Time Pending CC: BENJAMIN REYES MD ; Subjective 24 Hr Interval Summary Free Text/Dictation He reports he is feeling better Constitutional: no complaints Respiratory: no complaints (Ports his shortness of breath is much improved) Cardiovascular: no complaints (No chest pain no palpitations no orthopnea no PND) Gastrointestinal: no complaints Musculoskeletal: no complaints Endocrine: no complaints Exam/Review of Systems Exam Vitals Vital Signs Date Temp Pulse Resp B/P (MAP) Pulse Ox O2 O2 Flow FiO2 Time Delivery Rate 07/19/18 Nasal 2.0 09:24 Cannula 07/19/18 66 09:08 07/19/18 97.7 18 143/65 96 07:40 (91) Intake and Output 07/18/18 07/18/18 07/19/18 1515:00 23:00 07:00 IntakeIntake Total 420 ml OutputOutput Total 900 ml 3600 ml 3000 ml BalanceBalance -900 ml -3600 ml -2580 ml Constitutional: alert, oriented Neck: supple, non-tender Respiratory: normal air movement, crackles/rales (Crackles and dullness right base but better than on admission) Cardiovascular: regular rate and rhythm, nl pulses Gastrointestinal: soft, nl liver, spleen, non-tender Results Results 24hrs Laboratory Tests Test 07/18/18 12:11 07/18/18 12:52 07/18/18 13:48 07/18/18 17:54 Bedside Glucose 60 L 108 88 Alpha Fetoprotein 1.59 Hepatitis C Antibody REACTIVE H Test 07/18/18 18:51 07/18/18 21:38 07/19/18 02:30 07/19/18 05:45 Bedside Glucose 88 194 171 Random Vancomycin 29.5 Level Test 07/19/18 07:53 07/19/18 09:32 07/19/18 09:35 Bedside Glucose 93 90 Platelet Count 210 Prothrombin Time Pending Prothrombin Time Pending Ratio INR International Pending Normalized Ratio Activated Pending Partial Thromboplast Time Thrombin Time Pending Medications Medication Current Medications Atorvastatin Calcium (Lipitor) 20 mg QHS PO Last administered on 07/18/18 21:29; Admin Dose 20 MG; Start 07/17/18 at 21:00 Ferrous Sulfate (Ferrous Sulfate (Ec)) 325 mg TID PO Last administered on 07/19/18 08:37; Admin Dose 325 MG; Start 07/17/18 at 09:00 Gentamicin Sulfate (Gentamicin 0.1% Cr) 1 applic DAILY TOP Last administered on 07/19/18 08:36; Admin Dose 1 APPLIC; Start 07/17/18 at 09:00 Insulin Aspart (Novolog Insulin Pen) 10 unit WITH MEALS SC Last administered on 07/19/18 08:44; Admin Dose 10 UNIT; Start 07/17/18 at 07:35 Levofloxacin (Levaquin) 250 mg DAILY PO Last administered on 07/18/18 08:55; Admin Dose 250 MG; Start 07/17/18 at 09:00 Levothyroxine Sodium (Synthroid) 50 mcg BEFORE BREAKFAST PO Last administered on 07/19/18 06:35; Admin Dose 50 MCG; Start 07/17/18 at 07:00 Linagliptin (Tradjenta) 5 mg DAILY PO Last administered on 07/19/18 08:38; Admin Dose 5 MG; Start 07/17/18 at 09:00 Sevelamer Carbonate (Renvela) 1.6 gm WITH MEALS PO Last administered on 07/19/18 08:36; Admin Dose 1.6 GM; Start 07/17/18 at 07:35 Vancomycin HCl (Vanco Iv Per Pharmacy) PER PHARMACY DOSING NOTE XX ; Start 07/16/18 at 23:30 Aspirin (Aspirin) 81 mg DAILY PO Last administered on 07/19/18 08:37; Admin Dose 81 MG; Start 07/18/18 at 09:00 Nitroglycerin (Nitroglycerin (Sl Tab) 0.4 Mg) 1 tab Q5M PRN SL CHEST PAIN; Start 07/16/18 at 23:00 Morphine Sulfate (morphine) 4 mg Q2H PRN IV PAIN LEVEL 7-10 Last administered on 07/17/18 17:03; Admin Dose 4 MG; Start 07/16/18 at 23:00 Diagnostic Test (Pha) (Accu-Chek) 1 ea 2 HOURS AFTER MEALS XX Last administered on 07/19/18 09:41; Admin Dose 1 EA; Start 07/17/18 at 09:35 Insulin Aspart (Novolog Insulin Pen) NOVOLOG *MILD* ALGORITHM WITH MEALS BEDTIME SC Last administered on 07/18/18 21:52; Admin Dose 1 UNIT; Start 07/17/18 at 07:35 Miscellaneous Information 1 ea NOTE XX ; Start 07/16/18 at 23:30 Glucose (Glutose) 15 gm Q15M PRN PO DECREASED GLUCOSE; Start 07/16/18 at 23:30 Glucose (Glutose) 22.5 gm Q15M PRN PO DECREASED GLUCOSE; Start 07/16/18 at 23:30 Dextrose (D50w Syringe) 25 ml Q15M PRN IV DECREASED GLUCOSE; Start 07/16/18 at 23:30 Dextrose (D50w Syringe) 50 ml Q15M PRN IV DECREASED GLUCOSE; Start 07/16/18 at 23:30 Glucagon (Glucagen) 1 mg Q15M PRN IM DECREASED GLUCOSE; Start 07/16/18 at 23:30 Glucose (Glutose) 15 gm Q15M PRN BUCCAL DECREASED GLUCOSE; Start 07/16/18 at 23:30 Azithromycin (Zithromax) 500 mg DAILY PO Last administered on 07/19/18 08:37; Admin Dose 500 MG; Start 07/17/18 at 13:00; Stop 07/20/18 at 12:59 Lisinopril (Zestril) 40 mg BID PO Last administered on 07/19/18 08:37; Admin Dose 40 MG; Start 07/17/18 at 21:00 Labetalol HCl (Normodyne) 400 mg BID PO Last administered on 07/19/18 08:38; Admin Dose 400 MG; Start 07/17/18 at 21:00 Albuterol (Proventil 0.083% (Neb)) 1.25 mg Q6H RESP THERAPY HHN Last administered on 07/18/18 19:49; Admin Dose 1.25 MG; Start 07/17/18 at 14:00; Stop 07/19/18 at 13:59 Nifedipine (Procardia Xl) 90 mg DAILY PO Last administered on 07/18/18at 08:32; Admin Dose 90 MG; Start 07/18/18 at 09:00 Epoetin Elia (Epogen (Esrd)) 3,000 units MoWeFr@17 SC Last administered on 07/18/18at 19:01; Admin Dose 3,000 UNITS; Start 07/18/18 at 17:00 Doxazosin Mesylate (Cardura) 8 mg HS PO ; Start 07/18/18 at 21:00 Insulin Glargine (Lantus) 18 units DAILY SC ; Start 07/19/18 at 09:00 Minoxidil (Loniten) 2.5 mg QAM PO Last administered on 07/19/18at 08:38; Admin Dose 2.5 MG; Start 07/19/18 at 09:00 YAS AGEE MD Jul 19, 2018 10:30
[2018-07-19] MEDS ORDERED: LIDOCAINE 1% (MPF) 5 ML VIAL ONE (11:53)
[2018-07-19] MEDS: LEVOFLOXACIN 250 MG TAB PO SCH (12:27)
[2018-07-19] MEDS: NIFEdipine (XL) 90 MG TAB PO SCH (12:27)
[2018-07-19] MEDS: INSULIN GLARGINE [LANTus] (100 UNITS/ML) SYG SC SCH (12:34)
--- NOTE | 2018-07-19 17:38 | CONS ---
Consult Date/Type/Reason Admit Date/Time Jul 18, 2018 at 08:43 Initial Consult Date Type of Consultation: CV Date/Time of Note DATE: 07/19/18 TIME: 17:35 Subjective Cardiology follow-up progress note Subjective: Discussed with the staff telemetry was reviewed patient remains in normal sinus rhythm. Discussed with the family at the bedside Patient denies any chest pain or pressure to me At this point he denies any shortness of breath to me Objective: General: no acute distress HEENT: NC/AT. pupils are equal. round. NECK: NO JVD. no stridor. CV: RRR. systolic murmur; no gallop or rubs. PULM: no wheezing mild rhonchi. GI: SOFT, NT, ND, no rebound or guarding Extremity: trace B/L LE edema. no clubbing. neuro: awake and alert, OX3. Psych: calm and pleasant rectal: deferred Objective Vitals Vital Signs Date Temp Pulse Resp B/P (MAP) Pulse Ox O2 O2 Flow FiO2 Time Delivery Rate 07/19/18 62 16:24 07/19/18 98.3 16 139/63 98 Room Air 16:09 (88) 07/19/18 2.0 09:24 Intake and Output 07/18/18 07/18/18 07/19/18 1515:00 23:00 07:00 IntakeIntake Total 420 ml OutputOutput Total 900 ml 3600 ml 3000 ml BalanceBalance -900 ml -3600 ml -2580 ml Results/Medications Result Diagram: 07/19/18 0932 07/16/18 2103 Results 24 hrs Laboratory Tests Test 07/18/18 17:54 07/18/18 18:51 07/18/18 21:38 07/19/18 02:30 Bedside Glucose 88 88 194 171 Test 07/19/18 05:45 07/19/18 07:53 07/19/18 09:32 07/19/18 09:35 Random Vancomycin 29.5 Level Bedside Glucose 93 90 Platelet Count 210 Prothrombin Time 14.8 Prothrombin Time 1.2 Ratio INR International 1.15 Normalized Ratio Activated 37.[address] Time Thrombin Time 16.1 Test 07/19/18 12:00 07/19/18 12:31 07/19/18 14:05 07/19/18 17:11 Body Fluid Type PLEURAL FLUID Body Fluid Volume 950.0 Body Fluid Color YELLOW Body Fluid SLIGHTLY HAZY Appearance Body Fluid WBC 594 Body Fluid RBC 2000 (Auto) Body Fluid 18.4 Polynuclear WBCs (%) Body Fluid 81.6 Mononuclear Cells % Auto Body Fluid Glucose 107 Body Fluid Total 5.5 Protein Body Fluid 566 Lactate Dehydrogen ase Bedside Glucose 109 147 170 Home Meds Active Scripts Gentamicin Sulfate* (Gentamicin Sulfate* Cream) 0.1% - 30 Gm Cream.gm., 1 APPLIC TOP DAILY for 30 Days, #1 TUBE 1 Refill Prov:ELANA MENDOZA MD 06/27/18 [Vancomycin Iv Per Pharmacy] 1 EA EACH No Conflict Check, 0 EA XX .PER PROTOCOL for 42 Days, SYR 0 Refills Prov:ELANA MENDOZA MD 06/27/18 Reported Medications Lisinopril* (Lisinopril*) 40 Mg Tablet, 40 MG PO DAILY, #30 TAB 07/16/18 Atorvastatin Calcium* (Atorvastatin Calcium*) 20 Mg Tablet, 20 MG PO QHS, #30 TAB 07/16/18 Levothyroxine Sodium* (Levothyroxine Sodium*) 50 Mcg Tablet, 50 MCG PO BEFORE BREAKFAST, #30 TAB 07/16/18 Insulin Glargine* (Lantus*) 100 Unit/Ml Soln, 20 UNIT SC DAILY, #1 VIAL 07/16/18 Nifedipine* (Nifedipine ER*) 60 Mg Tablet.sa, 60 MG PO DAILY, TAB.SA 07/16/18 Linagliptin (TRADJENTA) 5 Mg Tablet, 5 MG PO DAILY, TAB 07/16/18 Levofloxacin* (Levofloxacin*) 250 Mg Tablet, 250 MG PO DAILY, TAB 07/16/18 Doxazosin Mesylate* (Doxazosin Mesylate*) 2 Mg Tablet, 2 MG PO HS, TAB 07/16/18 Labetalol Hcl* (Labetalol Hcl*) 200 Mg Tablet, 800 MG PO BID, TAB 07/16/18 Sevelamer Carbonate* (Renvela*) 800 Mg Tablet, 1.6 GM PO WITH MEALS, TAB 07/16/18 Insulin Aspart* (Novolog Insulin Pen*) 100 Unit/Ml Soln, 10 UNIT SC WITH MEALS, EA 07/16/18 Ferrous Sulfate* (Ferrous Sulfate*) 325 Mg Tabec, 325 MG PO TID, TAB 07/16/18 Discontinued Reported Medications Fenofibrate, Micronized (Fenofibrate) 134 Mg Capsule, 134 MG PO DAILY, CAP 04/03/18 Multivit/Ca Carb/B Cmplx/Fa* (Matilda-Anthony*) 1 Tab Tab, 1 TAB PO DAILY, TAB 04/03/18 Levothyroxine Sodium* (Levothyroxine Sodium*) 25 Mcg Tablet, 50 MCG PO BEFORE BREAKFAST, #30 TAB 04/03/18 Lisinopril* (Lisinopril*) 40 Mg Tablet, 40 MG PO DAILY, #30 TAB 03/22/18 Isosorbide Mononitrate* (Isosorbide Mononitrate*) 30 Mg Tab.er.24h, 30 MG PO DAILY, TAB 03/22/18 Ferrous Sulfate* (Ferrous Sulfate*) 325 Mg Tabec, 325 MG PO TID, TAB 03/22/18 Atorvastatin Calcium* (Atorvastatin Calcium*) 20 Mg Tablet, 20 MG PO QHS, #30 TAB 10/07/17 Furosemide* (Furosemide*) 80 Mg Tablet, 80 MG PO DAILY, #30 TAB 10/07/17 Doxazosin Mesylate* (Doxazosin Mesylate*) 2 Mg Tablet, 2 MG PO HS, TAB 10/07/17 Pantoprazole* (Pantoprazole*) 40 Mg Tablet.dr, 40 MG PO AC BREAKFAST, TAB 10/07/17 Discontinued Scripts Levofloxacin* (Levofloxacin*) 250 Mg Tablet, 250 MG PO DAILY for 42 Days, #42 TAB 0 Refills Prov:ELANA MENDOZA MD 06/27/18 Linagliptin (TRADJENTA) 5 Mg Tablet, 5 MG PO DAILY for 30 Days, #30 TAB 5 Refills Prov:ELANA MENDOZA MD 06/27/18 [Insulin Glargine] 100 UNITS/ML SOLN No Conflict Check, 11 UNITS SC DAILY@0800 for 30 Days, #2 SYR 5 Refills Prov:ELANA MENDOZA MD 06/27/18 Insulin Aspart* (Novolog Insulin Pen*) 100 Unit/Ml Soln, 4 UNIT SC WITH MEALS for 30 Days, #2 SYR 5 Refills Prov:ELANA MENDOZA MD 06/27/18 Sevelamer Carbonate* (Renvela*) 800 Mg Tablet, 1600 MG PO WITH MEALS for 30 Days, #90 TAB 5 Refills Prov:ELANA MENDOZA MD 06/27/18 Nifedipine (Procardia Xl) 60 Mg Tab.er.24, 60 MG PO BID for 30 Days, #60 TAB 5 Refills Prov:ELANA MENDOZA MD 06/27/18 Labetalol Hcl* (Labetalol Hcl*) 200 Mg Tablet, 800 MG PO BID for 30 Days, #60 TAB 5 Refills Prov:ELANA MENDOZA MD 06/27/18 Hydralazine Hcl* (Apresoline*) 50 Mg Tab, 100 MG PO TID for 30 Days, #180 TAB 3 Refills Prov:ELANA MENDOZA MD 06/27/18 Silver Sulfadiazine* (Silvadene*) 1% - 20 Gm Cream.gm., 1 APPLIC TOP DAILY, #1 TUB Prov:ONEYDA BEASLEY 06/15/18 Ondansetron (Ondansetron Odt) 4 Mg Tab.rapdis, 4 MG PO Q6H PRN for NAUSEA AND/OR VOMITING, #10 TAB Prov:OLIVIA WARD 04/07/18 Hydrocodone/Acetaminophen (Duvall 10-325 Tablet) 1 Each Tablet, 1 TAB PO Q6H PRN for PAIN, #7 TAB Prov:OLVIIA WARD 04/07/18 Medications Current Medications Atorvastatin Calcium (Lipitor) 20 mg QHS PO Last administered on 07/18/18 21:29; Admin Dose 20 MG; Start 07/17/18 at 21:00 Ferrous Sulfate (Ferrous Sulfate (Ec)) 325 mg TID PO Last administered on 07/19/18 12:28; Admin Dose 325 MG; Start 07/17/18 at 09:00 Gentamicin Sulfate (Gentamicin 0.1% Cr) 1 applic DAILY TOP Last administered on 07/19/18 08:36; Admin Dose 1 APPLIC; Start 07/17/18 at 09:00 Insulin Aspart (Novolog Insulin Pen) 10 unit WITH MEALS SC Last administered on 07/19/18 17:19; Admin Dose 10 UNIT; Start 07/17/18 at 07:35 Levofloxacin (Levaquin) 250 mg DAILY PO Last administered on 07/19/18 12:27; Admin Dose 250 MG; Start 07/17/18 at 09:00 Levothyroxine Sodium (Synthroid) 50 mcg BEFORE BREAKFAST PO Last administered on 07/19/18 06:35; Admin Dose 50 MCG; Start 07/17/18 at 07:00 Linagliptin (Tradjenta) 5 mg DAILY PO Last administered on 07/19/18 08:38; Admin Dose 5 MG; Start 07/17/18 at 09:00 Sevelamer Carbonate (Renvela) 1.6 gm WITH MEALS PO Last administered on 07/19/18 17:22; Admin Dose 1.6 GM; Start 07/17/18 at 07:35 Vancomycin HCl (Vanco Iv Per Pharmacy) PER PHARMACY DOSING NOTE XX ; Start 07/16/18 at 23:30 Aspirin (Aspirin) 81 mg DAILY PO Last administered on 07/19/18 08:37; Admin Dose 81 MG; Start 07/18/18 at 09:00 Nitroglycerin (Nitroglycerin (Sl Tab) 0.4 Mg) 1 tab Q5M PRN SL CHEST PAIN; Start 07/16/18 at 23:00 Morphine Sulfate (morphine) 4 mg Q2H PRN IV PAIN LEVEL 7-10 Last administered on 07/17/18at 17:03; Admin Dose 4 MG; Start 07/16/18 at 23:00 Diagnostic Test (Pha) (Accu-Chek) 1 ea 2 HOURS AFTER MEALS XX Last administered on 07/19/18 14:06; Admin Dose 1 EA; Start 07/17/18 at 09:35 Insulin Aspart (Novolog Insulin Pen) NOVOLOG *MILD* ALGORITHM WITH MEALS BEDTIME SC Last administered on 07/19/18 17:18; Admin Dose 1 UNIT; Start 07/17/18 at 07:35 Miscellaneous Information 1 ea NOTE XX ; Start 07/16/18 at 23:30 Glucose (Glutose) 15 gm Q15M PRN PO DECREASED GLUCOSE; Start 07/16/18 at 23:30 Glucose (Glutose) 22.5 gm Q15M PRN PO DECREASED GLUCOSE; Start 07/16/18 at 23:30 Dextrose (D50w Syringe) 25 ml Q15M PRN IV DECREASED GLUCOSE; Start 07/16/18 at 23:30 Dextrose (D50w Syringe) 50 ml Q15M PRN IV DECREASED GLUCOSE; Start 07/16/18 at 23:30 Glucagon (Glucagen) 1 mg Q15M PRN IM DECREASED GLUCOSE; Start 07/16/18 at 23:30 Glucose (Glutose) 15 gm Q15M PRN BUCCAL DECREASED GLUCOSE; Start 07/16/18 at 23:30 Azithromycin (Zithromax) 500 mg DAILY PO Last administered on 07/19/18 08:37; Admin Dose 500 MG; Start 07/17/18 at 13:00; Stop 07/20/18 at 12:59 Lisinopril (Zestril) 40 mg BID PO Last administered on 07/19/18 08:37; Admin Dose 40 MG; Start 07/17/18 at 21:00 Labetalol HCl (Normodyne) 400 mg BID PO Last administered on 07/19/18 08:38; Admin Dose 400 MG; Start 07/17/18 at 21:00 Nifedipine (Procardia Xl) 90 mg DAILY PO Last administered on 07/19/18 12:27; Admin Dose 90 MG; Start 07/18/18 at 09:00 Epoetin Elia (Epogen (Esrd)) 3,000 units MoWeFr@17 SC Last administered on 07/18/18 19:01; Admin Dose 3,000 UNITS; Start 07/18/18 at 17:00 Doxazosin Mesylate (Cardura) 8 mg HS PO ; Start 07/18/18 at 21:00 Insulin Glargine (Lantus) 18 units DAILY SC Last administered on 07/19/18 12:34; Admin Dose 18 UNITS; Start 07/19/18 at 09:00 Minoxidil (Loniten) 2.5 mg QAM PO Last administered on 07/19/18 08:38; Admin Dose 2.5 MG; Start 07/19/18 at 09:00 Assessment/Plan Hospital Course (Demo Recall) Shortness of breath: Improved now Chest pain": Resolved now Pleural effusion Possible pneumonia Acute decompensated diastolic congestive heart failure Hypertension Diabetes End-stage renal disease on hemodialysis Recommendations: -Hemodialysis as per renal Continue blood pressure control Diabetic control as per internal medicine/endocrine -Continue aspirin and statin therapy if no contraindication Thank you for his referral. We will continue to follow along with you ZEYNEP SANCHEZ MD [facility] ZEYNEP SANCHEZ MD Jul 19, 2018 17:38
[2018-07-19] MEDS: ATORVASTATIN 20 MG TAB PO SCH (20:11)
[2018-07-19] MEDS: DOXAZOSIN 4 MG TAB PO SCH (20:11)
--- NOTE | 2018-07-19 23:46 | CONS ---
Assessment/Plan Assessment/Plan Problems: (1) Anemia Comment: Pt is on epo (2) Diabetic foot ulcer Status: Chronic Comment: per PMD Qualifiers: Diabetic foot ulcer location: toe Diabetes mellitus type: type 2 Laterality: right Non-pressure ulcer stage: unspecified non-pressure ulcer stage Qualified Codes: E11.621 - Type 2 diabetes mellitus with foot ulcer; L97.519 - Non-pressure chronic ulcer of other part of right foot with unspecified severity (3) Community acquired pneumonia Status: Acute Comment: No change in XRay! may need further w/u Qualifiers: Laterality: right Lung location: lower lobe of lung Qualified Codes: J18.1 - Lobar pneumonia, unspecified organism (4) HTN (hypertension) Status: Acute Comment: BP has improved Qualifiers: Hypertension type: essential hypertension Qualified Codes: I10 - Essential (primary) hypertension (5) End-stage renal disease on hemodialysis Status: Chronic Comment: HD TTS (6) Hepatitis C infection Status: Chronic Comment: Titers pending Qualifiers: Viral hepatitis chronicity: chronic Hepatic coma status: without hepatic coma Qualified Codes: B18.2 - Chronic viral hepatitis C (7) CHF (congestive heart failure) Comment: Cardiac plans unclear! Qualifiers: Heart failure type: combined systolic and diastolic Consultation Date/Type/Reason Admit Date/Time Jul 18, 2018 at 08:43 Initial Consult Date 07/18/18 Type of Consult Nephrology Reason for Consultation ESRD, HD Date/Time of Note DATE: 07/19/18 TIME: 23:46 24 HR Interval Summary Free Text/Dictation Pt feels & looks better, No SOB Exam/Review of Systems Exam Vitals Vital Signs Date Temp Pulse Resp B/P (MAP) Pulse Ox O2 O2 Flow FiO2 Time Delivery Rate 07/19/18 2.0 22:21 07/19/18 68 20:16 07/19/18 97.8 18 137/68 95 Room Air 20:00 (91) Intake and Output 07/18/18 07/18/18 07/19/18 1515:00 23:00 07:00 IntakeIntake Total 420 ml OutputOutput Total 900 ml 3600 ml 3000 ml BalanceBalance -900 ml -3600 ml -2580 ml Exam In no resp distress, lying in bed comfortably Head: normocephalic Eyes: nl conjunctiva ENMT: nl external ears & nose Extremities: other (lt arm avf) Skin: other (pale) Additional Comments avf lt arm+ Results Result Diagram: 07/19/18 0932 07/16/18 2103 Results 24hrs Laboratory Tests Test 07/19/18 02:30 07/19/18 05:45 07/19/18 07:53 07/19/18 09:32 Bedside Glucose 171 93 Random Vancomycin 29.5 Level Platelet Count 210 Prothrombin Time 14.8 Prothrombin Time 1.2 Ratio INR International 1.15 Normalized Ratio Activated 37.[address] Time Thrombin Time 16.1 Test 07/19/18 09:35 07/19/18 12:00 07/19/18 12:31 07/19/18 14:05 Bedside Glucose 90 109 147 Body Fluid Type PLEURAL FLUID Body Fluid Volume 950.0 Body Fluid Color YELLOW Body Fluid SLIGHTLY HAZY Appearance Body Fluid WBC 594 Body Fluid RBC 2000 (Auto) Body Fluid 18.4 Polynuclear WBCs (%) Body Fluid 81.6 Mononuclear Cells % Auto Body Fluid Glucose 107 Body Fluid Total 5.5 Protein Body Fluid 566 Lactate Dehydrogen ase Test 07/19/18 17:11 07/19/18 19:56 07/19/18 21:12 Bedside Glucose 170 132 118 Imaging Imaging Rt lower lobe consolidation no change Medications Medication Current Medications Atorvastatin Calcium (Lipitor) 20 mg QHS PO Last administered on 07/19/18 20:11; Admin Dose 20 MG; Start 07/17/18 at 21:00 Ferrous Sulfate (Ferrous Sulfate (Ec)) 325 mg TID PO Last administered on 07/19/18 20:11; Admin Dose 325 MG; Start 07/17/18 at 09:00 Gentamicin Sulfate (Gentamicin 0.1% Cr) 1 applic DAILY TOP Last administered on 07/19/18 08:36; Admin Dose 1 APPLIC; Start 07/17/18 at 09:00 Insulin Aspart (Novolog Insulin Pen) 10 unit WITH MEALS SC Last administered on 07/19/18 17:19; Admin Dose 10 UNIT; Start 07/17/18 at 07:35 Levofloxacin (Levaquin) 250 mg DAILY PO Last administered on 07/19/18 12:27; Admin Dose 250 MG; Start 07/17/18 at 09:00 Levothyroxine Sodium (Synthroid) 50 mcg BEFORE BREAKFAST PO Last administered on 3/30/19at 06:35; Admin Dose 50 MCG; Start 07/17/18 at 07:00 Linagliptin (Tradjenta) 5 mg DAILY PO Last administered on 07/19/18at 08:38; Admin Dose 5 MG; Start 07/17/18 at 09:00 Sevelamer Carbonate (Renvela) 1.6 gm WITH MEALS PO Last administered on 07/19/18 17:22; Admin Dose 1.6 GM; Start 07/17/18 at 07:35 Vancomycin HCl (Vanco Iv Per Pharmacy) PER PHARMACY DOSING NOTE XX ; Start 06/21 11/07 at 23:30 Aspirin (Aspirin) 81 mg DAILY PO Last administered on 07/19/18at 08:37; Admin Dose 81 MG; Start 07/18/18 at 09:00 Nitroglycerin (Nitroglycerin (Sl Tab) 0.4 Mg) 1 tab Q5M PRN SL CHEST PAIN; Start 07/16/18 at 23:00 Morphine Sulfate (morphine) 4 mg Q2H PRN IV PAIN LEVEL 7-10 Last administered on 07/17/18at 17:03; Admin Dose 4 MG; Start 07/16/18 at 23:00 Diagnostic Test (Pha) (Accu-Chek) 1 ea 2 HOURS AFTER MEALS XX Last administered on 07/19/18 20:05; Admin Dose 1 EA; Start 07/17/18 at 09:35 Insulin Aspart (Novolog Insulin Pen) NOVOLOG *MILD* ALGORITHM WITH MEALS BEDTIME SC Last administered on 07/19/18 17:18; Admin Dose 1 UNIT; Start 07/17/18 at 07:35 Miscellaneous Information 1 ea NOTE XX ; Start 07/16/18 at 23:30 Glucose (Glutose) 15 gm Q15M PRN PO DECREASED GLUCOSE; Start 07/16/18 at 23:30 Glucose (Glutose) 22.5 gm Q15M PRN PO DECREASED GLUCOSE; Start 07/16/18 at 2 3:30 Dextrose (D50w Syringe) 25 ml Q15M PRN IV DECREASED GLUCOSE; Start 07/16/18 at 23:30 Dextrose (D50w Syringe) 50 ml Q15M PRN IV DECREASED GLUCOSE; Start 07/16/18 at 23:30 Glucagon (Glucagen) 1 mg Q15M PRN IM DECREASED GLUCOSE; Start 07/16/18 at 23:30 Glucose (Glutose) 15 gm Q15M PRN BUCCAL DECREASED GLUCOSE; Start 07/16/18 at 23:30 Azithromycin (Zithromax) 500 mg DAILY PO Last administered on 07/19/18 08:37; Admin Dose 500 MG; Start 07/17/18 at 13:00; Stop 07/20/18 at 12:59 Lisinopril (Zestril) 40 mg BID PO Last administered on 07/19/18 20:12; Admin Dose 40 MG; Start 07/17/18 at 21:00 Labetalol HCl (Normodyne) 400 mg BID PO Last administered on 07/19/18 20:12; Admin Dose 400 MG; Start 07/17/18 at 21:00 Nifedipine (Procardia Xl) 90 mg DAILY PO Last administered on 07/19/18 12:27; Admin Dose 90 MG; Start 07/18/18 at 09:00 Epoetin Elia (Epogen (Esrd)) 3,000 units MoWeFr@17 SC Last administered on 07/18/18 19:01; Admin Dose 3,000 UNITS; Start 07/18/18 at 17:00 Doxazosin Mesylate (Cardura) 8 mg HS PO Last administered on 07/19/18 20:11; Admin Dose 8 MG; Start 07/18/18 at 21:00 Insulin Glargine (Lantus) 18 units DAILY SC Last administered on 07/19/18 12:34; Admin Dose 18 UNITS; Start 07/19/18 at 09:00 Minoxidil (Loniten) 2.5 mg QAM PO Last administered on 07/19/18 08:38; Admin Dose 2.5 MG; Start 07/19/18 at 09:00 ARNOLD MARIE MD Jul 19, 2018 23:46
[2018-07-20] VITALS (15 sets, daily range): BP systolic 81–150; BP diastolic 40–84; PULSE 61–78; RESP 17–20
[2018-07-20] MEDS: INSULIN ASPART [NOVOLOG] 3 ML PEN SC SCH ×7 (07:55→21:00)
[2018-07-20] MEDS: SEVELAMER CARBONATE 0.8 GM PKT PO SCH ×3 (08:21→17:13)
[2018-07-20] MEDS: LABETALOL 200 MG TAB PO SCH ×2 (08:22→21:00)
[2018-07-20] MEDS: ASPIRIN 81 MG TAB PO SCH (08:23)
[2018-07-20] MEDS: NIFEdipine (XL) 90 MG TAB PO SCH (08:23)
[2018-07-20] MEDS: FERROUS SULFATE (EC) 325 MG TAB PO SCH ×3 (08:23→21:42)
[2018-07-20] MEDS: MINOXIDIL 2.5 MG TAB PO SCH (08:23)
[2018-07-20] MEDS: LISINOPRIL 20 MG TAB PO SCH ×2 (08:23→21:42)
[2018-07-20] MEDS: LINAGLIPTIN 5 MG TABLET PO SCH (08:23)
[2018-07-20] MEDS: LEVOTHYROXINE 50 MCG TAB PO SCH (08:23)
[2018-07-20] MEDS: GENTAMICIN 0.1% CREAM 15GM TUBE TOP SCH (08:24)
[2018-07-20] MEDS: LEVOFLOXACIN 250 MG TAB PO SCH (08:24)
[2018-07-20] MEDS: AZITHROMYCIN 250 MG TAB PO SCH (08:24)
[2018-07-20] MEDS: INSULIN GLARGINE [LANTus] (100 UNITS/ML) SYG SC SCH (08:25)
[2018-07-20] MEDS: ACCU-CHEK XX SCH ×3 (09:59→20:13)
--- NOTE | 2018-07-20 10:29 | QN ---
Documentation Comment Pt continues to do well, no new complaints. Remains afebrile. BP has been WNL Thoracentesis of 1000 ml reveals Exudate. Culture pending Nares, BC Neg Renal schwartz no further plan except HD TTS ARNOLD MARIE MD Jul 20, 2018 10:29
--- NOTE | 2018-07-20 11:18 | PN ---
Date/Time of Note Date/Time of Note DATE: 07/20/18 TIME: 11:14 Assessment/Plan VTE Prophylaxis Risk score (from Ns)>0 risk: 4 SCD applied (from Ns): No SCD contraindicated: low risk/ambulating Pharmacological prophylaxis: heparin Lines/Catheters IV [facility]ter Type [facility]from [facility] PICC Line Central line still needed: Yes Urinary Cath still in place: No Assessment/Plan Problems: (1) Community acquired pneumonia Status: Acute Comment: Medically improving nicely. Consideration of discharge tomorrow unless vascular surgery wishes to get their angiogram done while the patient's in house which should then be done tomorrow or the day after tomorrow Qualifiers: Laterality: right Lung location: lower lobe of lung Qualified Codes: J18.1 - Lobar pneumonia, unspecified organism (2) End-stage renal disease on hemodialysis Status: Chronic Comment: Stable on dialysis (3) Hypothyroidism Status: Chronic Comment: Stable on replacement therapy Qualifiers: Hypothyroidism type: acquired Qualified Codes: E03.9 - Hypothyroidism, unspecified (4) Benign essential hypertension Status: Chronic Comment: Patient is not tolerating the increase in dosage of alpha blockade. Go back to the original dosing and follow along (5) Type 2 diabetes mellitus with diabetic peripheral angiopathy without gangrene Status: Chronic Comment: As per vascular surgery. Sugars are doing well Qualifiers: Diabetes mellitus shelter insulin use: with shelter use Qualified Codes: E11.51 - Type 2 diabetes mellitus with diabetic peripheral angiopathy without gangrene; Z79.4 - skilled nursing (current) use of insulin (6) DM neuro manif type II, uncontrolled Status: Chronic Comment: I am going to request orthostatic vital signs to make sure that there is not autonomic neuropathy going along with peripheral neuropathy (7) Hepatitis C antibody positive in blood Status: Chronic Comment: Noted. Blood and body fluid precautions (8) Diabetic foot ulcer Status: Chronic Comment: As per vascular surgery Qualifiers: Diabetic foot ulcer location: toe Diabetes mellitus type: type 2 Laterality: right Non-pressure ulcer stage: unspecified non-pressure ulcer stage Qualified Codes: E11.621 - Type 2 diabetes mellitus with foot ulcer; L97.519 - Non-pressure chronic ulcer of other part of right foot with unspecified severity Result Diagram: 07/19/18 0932 07/16/18 2103 Results 24hrs Laboratory Tests Test 07/19/18 12:00 07/19/18 12:31 07/19/18 14:05 07/19/18 17:11 Body Fluid Type PLEURAL FLUID Body Fluid Volume 950.0 Body Fluid Color YELLOW Body Fluid SLIGHTLY HAZY Appearance Body Fluid WBC 594 Body Fluid RBC 2000 (Auto) Body Fluid 18.4 Polynuclear WBCs (%) Body Fluid 81.6 Mononuclear Cells % Auto Body Fluid Glucose 107 Body Fluid Total 5.5 Protein Body Fluid 566 Lactate Dehydrogen ase Bedside Glucose 109 147 170 Test 07/19/18 19:56 07/19/18 21:12 07/20/18 07:59 07/20/18 09:58 Bedside Glucose 132 118 121 169 CC: BENJAMIN REYES MD ; Subjective 24 Hr Interval Summary Free Text/Dictation The patient complains of orthostasis. Constitutional: no complaints (Fevers chills or sweats) Respiratory: no complaints (Cough and shortness of breath are resolved) Cardiovascular: no complaints Gastrointestinal: no complaints Genitourinary: no complaints Exam/Review of Systems Exam Vitals Vital Signs Date Temp Pulse Resp B/P (MAP) Pulse Ox O2 O2 Flow FiO2 Time Delivery Rate 07/20/18 Nasal 2.0 08:02 Cannula 07/20/18 64 08:00 07/20/18 97.4 20 149/68 97 07:51 (95) Intake and Output 07/19/18 07/19/18 07/20/18 1515:00 23:00 07:00 IntakeIntake Total 1160 ml BalanceBalance 1160 ml Constitutional: alert, oriented Respiratory: clear to auscultation, normal air movement Cardiovascular: regular rate and rhythm, nl pulses Gastrointestinal: soft, nl liver, spleen, non-tender Results Results 24hrs Laboratory Tests Test 07/19/18 12:00 07/19/18 12:31 07/19/18 14:05 07/19/18 17:11 Body Fluid Type PLEURAL FLUID Body Fluid Volume 950.0 Body Fluid Color YELLOW Body Fluid SLIGHTLY HAZY Appearance Body Fluid WBC 594 Body Fluid RBC 2000 (Auto) Body Fluid 18.4 Polynuclear WBCs (%) Body Fluid 81.6 Mononuclear Cells % Auto Body Fluid Glucose 107 Body Fluid Total 5.5 Protein Body Fluid 566 Lactate Dehydrogen ase Bedside Glucose 109 147 170 Test 07/19/18 19:56 07/19/18 21:12 07/20/18 07:59 07/20/18 09:58 Bedside Glucose 132 118 121 169 Medications Medication Current Medications Atorvastatin Calcium (Lipitor) 20 mg QHS PO Last administered on 07/19/18 20:11; Admin Dose 20 MG; Start 07/17/18 at 21:00 Ferrous Sulfate (Ferrous Sulfate (Ec)) 325 mg TID PO Last administered on 07/20/18 08:23; Admin Dose 325 MG; Start 07/17/18 at 09:00 Gentamicin Sulfate (Gentamicin 0.1% Cr) 1 applic DAILY TOP Last administered on 07/20/18 08:24; Admin Dose 1 APPLIC; Start 07/17/18 at 09:00 Insulin Aspart (Novolog Insulin Pen) 10 unit WITH MEALS SC Last administered on 07/20/18 08:01; Admin Dose 10 UNIT; Start 07/17/18 at 07:35 Levofloxacin (Levaquin) 250 mg DAILY PO Last administered on 07/20/18 08:24; Admin Dose 250 MG; Start 07/17/18 at 09:00 Levothyroxine Sodium (Synthroid) 50 mcg BEFORE BREAKFAST PO Last administered on 07/20/18 08:23; Admin Dose 50 MCG; Start 07/17/18 at 07:00 Linagliptin (Tradjenta) 5 mg DAILY PO Last administered on 07/20/18 08:23; Admin Dose 5 MG; Start 07/17/18 at 09:00 Sevelamer Carbonate (Renvela) 1.6 gm WITH MEALS PO Last administered on 07/20/18 08:21; Admin Dose 1.6 GM; Start 07/17/18 at 07:35 Vancomycin HCl (Vanco Iv Per Pharmacy) PER PHARMACY DOSING NOTE XX ; Start 07/16/18 at 23:30 Aspirin (Aspirin) 81 mg DAILY PO Last administered on 07/20/18 08:23; Admin Dose 81 MG; Start 07/18/18 at 09:00 Nitroglycerin (Nitroglycerin (Sl Tab) 0.4 Mg) 1 tab Q5M PRN SL CHEST PAIN; Start 07/16/18 at 23:00 Morphine Sulfate (morphine) 4 mg Q2H PRN IV PAIN LEVEL 7-10 Last administered on 07/17/18 17:03; Admin Dose 4 MG; Start 07/16/18 at 23:00 Diagnostic Test (Pha) (Accu-Chek) 1 ea 2 HOURS AFTER MEALS XX Last administered on 07/20/18at 09:59; Admin Dose 1 EA; Start 07/17/18 at 09:35 Insulin Aspart (Novolog Insulin Pen) NOVOLOG *MILD* ALGORITHM WITH MEALS BEDTIME SC Last administered on 07/19/18 17:18; Admin Dose 1 UNIT; Start 07/17/18 at 07:35 Miscellaneous Information 1 ea NOTE XX ; Start 07/16/18 at 23:30 Glucose (Glutose) 15 gm Q15M PRN PO DECREASED GLUCOSE; Start 07/16/18 at 23:30 Glucose (Glutose) 22.5 gm Q15M PRN PO DECREASED GLUCOSE; Start 07/16/18 at 23:30 Dextrose (D50w Syringe) 25 ml Q15M PRN IV DECREASED GLUCOSE; Start 07/16/18 at 23:30 Dextrose (D50w Syringe) 50 ml Q15M PRN IV DECREASED GLUCOSE; Start 07/16/18 at 23:30 Glucagon (Glucagen) 1 mg Q15M PRN IM DECREASED GLUCOSE; Start 07/16/18 at 23:30 Glucose (Glutose) 15 gm Q15M PRN BUCCAL DECREASED GLUCOSE; Start 07/16/18 at 23:30 Azithromycin (Zithromax) 500 mg DAILY PO Last administered on 07/20/18at 08:24; Admin Dose 500 MG; Start 07/17/18 at 13:00; Stop 07/20/18 at 12:59 Lisinopril (Zestril) 40 mg BID PO Last administered on 07/20/18at 08:23; Admin Dose 40 MG; Start 07/17/18 at 21:00 Labetalol HCl (Normodyne) 400 mg BID PO Last administered on 07/20/18 08:22; Admin Dose 400 MG; Start 07/17/18 at 21:00 Nifedipine (Procardia Xl) 90 mg DAILY PO Last administered on 07/20/18 08:23; Admin Dose 90 MG; Start 07/18/18 at 09:00 Epoetin Elia (Epogen (Esrd)) 3,000 units MoWeFr@17 SC Last administered on 07/18/18at 19:01; Admin Dose 3,000 UNITS; Start 07/18/18 at 17:00 Doxazosin Mesylate (Cardura) 8 mg HS PO Last administered on 07/19/18at 20:11; Admin Dose 8 MG; Start 07/18/18 at 21:00 Insulin Glargine (Lantus) 18 units DAILY SC Last administered on 07/20/18at 08:25; Admin Dose 18 UNITS; Start 07/19/18 at 09:00 Minoxidil (Loniten) 2.5 mg QAM PO Last administered on 07/20/18at 08:23; Admin Dose 2.5 MG; Start 07/19/18 at 09:00 Miscellaneous Information (*Rx Drug Level Order Reminder*) VANCO YAQUELIN W/ AM LABS... 0500 ONCE XX ; Start 07/21/18 at 05:00; Stop 07/21/18 at 05:01 YAS AGEE MD Jul 20, 2018 11:18
--- NOTE | 2018-07-20 17:30 | CONS ---
Consult Date/Type/Reason Admit Date/Time Jul 18, 2018 at 08:43 Initial Consult Date Type of Consultation: CV Date/Time of Note DATE: 07/20/18 TIME: 17:28 Subjective Cardiology follow-up progress note Subjective: Discussed with the staff telemetry was reviewed patient remains in normal sinus rhythm. Discussed with the family at the bedside Patient denies any chest pain or pressure to me At this point he denies any shortness of breath to me and wants to go home Objective: General: no acute distress HEENT: NC/AT. pupils are equal. round. NECK: NO JVD. no stridor. CV: RRR. systolic murmur; no gallop or rubs. PULM: no wheezing mild rhonchi. GI: SOFT, NT, ND, no rebound or guarding Extremity: trace B/L LE edema. no clubbing. neuro: awake and alert, OX3. Psych: calm and pleasant rectal: deferred Objective Vitals Vital Signs Date Temp Pulse Resp B/P (MAP) Pulse Ox O2 O2 Flow FiO2 Time Delivery Rate 07/20/18 62 16:00 07/20/18 97.7 18 117/51 94 Room Air 15:48 (73) 07/20/18 2.0 08:02 Intake and Output 07/19/18 07/19/18 07/20/18 1515:00 23:00 07:00 IntakeIntake Total 1160 ml BalanceBalance 1160 ml Results/Medications Result Diagram: 07/19/18 0932 07/16/18 2103 Results 24 hrs Laboratory Tests Test 07/19/18 19:56 07/19/18 21:12 07/20/18 07:59 07/20/18 09:58 Bedside Glucose 132 118 121 169 Test 07/20/18 11:58 07/20/18 13:46 07/20/18 17:13 Bedside Glucose 184 130 114 Home Meds Active Scripts Gentamicin Sulfate* (Gentamicin Sulfate* Cream) 0.1% - 30 Gm Cream.gm., 1 APPLIC TOP DAILY for 30 Days, #1 TUBE 1 Refill Prov:ELANA MENDOZA MD 06/27/18 [Vancomycin Iv Per Pharmacy] 1 EA EACH No Conflict Check, 0 EA XX .PER PROTOCOL for 42 Days, SYR 0 Refills Prov:ELANA MENDOZA MD 06/27/18 Reported Medications Lisinopril* (Lisinopril*) 40 Mg Tablet, 40 MG PO DAILY, #30 TAB 07/16/18 Atorvastatin Calcium* (Atorvastatin Calcium*) 20 Mg Tablet, 20 MG PO QHS, #30 TAB 07/16/18 Levothyroxine Sodium* (Levothyroxine Sodium*) 50 Mcg Tablet, 50 MCG PO BEFORE BREAKFAST, #30 TAB 07/16/18 Insulin Glargine* (Lantus*) 100 Unit/Ml Soln, 20 UNIT SC DAILY, #1 VIAL 07/16/18 Nifedipine* (Nifedipine ER*) 60 Mg Tablet.sa, 60 MG PO DAILY, TAB.SA 07/16/18 Linagliptin (TRADJENTA) 5 Mg Tablet, 5 MG PO DAILY, TAB 07/16/18 Levofloxacin* (Levofloxacin*) 250 Mg Tablet, 250 MG PO DAILY, TAB 07/16/18 Doxazosin Mesylate* (Doxazosin Mesylate*) 2 Mg Tablet, 2 MG PO HS, TAB 07/16/18 Labetalol Hcl* (Labetalol Hcl*) 200 Mg Tablet, 800 MG PO BID, TAB 07/16/18 Sevelamer Carbonate* (Renvela*) 800 Mg Tablet, 1.6 GM PO WITH MEALS, TAB 07/16/18 Insulin Aspart* (Novolog Insulin Pen*) 100 Unit/Ml Soln, 10 UNIT SC WITH MEALS, EA 07/16/18 Ferrous Sulfate* (Ferrous Sulfate*) 325 Mg Tabec, 325 MG PO TID, TAB 07/16/18 Discontinued Reported Medications Fenofibrate, Micronized (Fenofibrate) 134 Mg Capsule, 134 MG PO DAILY, CAP 04/03/18 Multivit/Ca Carb/B Cmplx/Fa* (Matilda-Anthony*) 1 Tab Tab, 1 TAB PO DAILY, TAB 04/03/18 Levothyroxine Sodium* (Levothyroxine Sodium*) 25 Mcg Tablet, 50 MCG PO BEFORE BREAKFAST, #30 TAB 04/03/18 Lisinopril* (Lisinopril*) 40 Mg Tablet, 40 MG PO DAILY, #30 TAB 03/22/18 Isosorbide Mononitrate* (Isosorbide Mononitrate*) 30 Mg Tab.er.24h, 30 MG PO DAILY, TAB 03/22/18 Ferrous Sulfate* (Ferrous Sulfate*) 325 Mg Tabec, 325 MG PO TID, TAB 03/22/18 Atorvastatin Calcium* (Atorvastatin Calcium*) 20 Mg Tablet, 20 MG PO QHS, #30 TA B 10/07/17 Furosemide* (Furosemide*) 80 Mg Tablet, 80 MG PO DAILY, #30 TAB 10/07/17 Doxazosin Mesylate* (Doxazosin Mesylate*) 2 Mg Tablet, 2 MG PO HS, TAB 10/07/17 Pantoprazole* (Pantoprazole*) 40 Mg Tablet.dr, 40 MG PO AC BREAKFAST, TAB 10/07/17 Discontinued Scripts Levofloxacin* (Levofloxacin*) 250 Mg Tablet, 250 MG PO DAILY for 42 Days, #42 TAB 0 Refills Prov:ELANA MENDOZA MD 06/27/18 Linagliptin (TRADJENTA) 5 Mg Tablet, 5 MG PO DAILY for 30 Days, #30 TAB 5 Refills Prov:ELANA MENDOZA MD 06/27/18 [Insulin Glargine] 100 UNITS/ML SOLN No Conflict Check, 11 UNITS SC DAILY@0800 for 30 Days, #2 SYR 5 Refills Prov:ELANA MENDOZA MD 06/27/18 Insulin Aspart* (Novolog Insulin Pen*) 100 Unit/Ml Soln, 4 UNIT SC WITH MEALS for 30 Days, #2 SYR 5 Refills Prov:ELANA MENDOZA MD 06/27/18 Sevelamer Carbonate* (Renvela*) 800 Mg Tablet, 1600 MG PO WITH MEALS for 30 Days, #90 TAB 5 Refills Prov:ELANA MENDOZA MD 06/27/18 Nifedipine (Procardia Xl) 60 Mg Tab.er.24, 60 MG PO BID for 30 Days, #60 TAB 5 Refills Prov:ELANA MENDOZA MD 06/27/18 Labetalol Hcl* (Labetalol Hcl*) 200 Mg Tablet, 800 MG PO BID for 30 Days, #60 TAB 5 Refills Prov:ELANA MENDOZA MD 06/27/18 Hydralazine Hcl* (Apresoline*) 50 Mg Tab, 100 MG PO TID for 30 Days, #180 TAB 3 Refills Prov:ELANA MENDOZA MD 06/27/18 Silver Sulfadiazine* (Silvadene*) 1% - 20 Gm Cream.gm., 1 APPLIC TOP DAILY, #1 TUB Prov:ONEYDA BEASLEY 06/15/18 Ondansetron (Ondansetron Odt) 4 Mg Tab.rapdis, 4 MG PO Q6H PRN for NAUSEA AND/OR VOMITING, #10 TAB Prov:OLIVIA WARD 04/07/18 Hydrocodone/Acetaminophen (Winston 10-325 Tablet) 1 Each Tablet, 1 TAB PO Q6H PRN for PAIN, #7 TAB Prov:OLIVIA WARD 04/07/18 Medications Current Medications Atorvastatin Calcium (Lipitor) 20 mg QHS PO Last administered on 07/19/18 20:11; Admin Dose 20 MG; Start 07/17/18 at 21:00 Ferrous Sulfate (Ferrous Sulfate (Ec)) 325 mg TID PO Last administered on 07/20/18 12:04; Admin Dose 325 MG; Start 07/17/18 at 09:00 Gentamicin Sulfate (Gentamicin 0.1% Cr) 1 applic DAILY TOP Last administered on 07/20/18 08:24; Admin Dose 1 APPLIC; Start 07/17/18 at 09:00 Insulin Aspart (Novolog Insulin Pen) 10 unit WITH MEALS SC Last administered on 07/20/18 17:15; Admin Dose 10 UNIT; Start 07/17/18 at 07:35 Levofloxacin (Levaquin) 250 mg DAILY PO Last administered on 07/20/18 08:24; Admin Dose 250 MG; Start 07/17/18 at 09:00 Levothyroxine Sodium (Synthroid) 50 mcg BEFORE BREAKFAST PO Last administered on 07/20/18 08:23; Admin Dose 50 MCG; Start 07/17/18 at 07:00 Linagliptin (Tradjenta) 5 mg DAILY PO Last administered on 07/20/18 08:23; Admin Dose 5 MG; Start 07/17/18 at 09:00 Sevelamer Carbonate (Renvela) 1.6 gm WITH MEALS PO Last administered on 07/20/18 17:13; Admin Dose 1.6 GM; Start 07/17/18 at 07:35 Vancomycin HCl (Vanco Iv Per Pharmacy) PER PHARMACY DOSING NOTE XX ; Start 07/16/18 at 23:30 Aspirin (Aspirin) 81 mg DAILY PO Last administered on 07/20/18 08:23; Admin Dose 81 MG; Start 07/18/18 at 09:00 Nitroglycerin (Nitroglycerin (Sl Tab) 0.4 Mg) 1 tab Q5M PRN SL CHEST PAIN; Start 07/16/18 at 23:00 Morphine Sulfate (morphine) 4 mg Q2H PRN IV PAIN LEVEL 7-10 Last administered on 07/17/18at 17:03; Admin Dose 4 MG; Start 07/16/18 at 23:00 Diagnostic Test (Pha) (Accu-Chek) 1 ea 2 HOURS AFTER MEALS XX Last administered on 07/20/18at 13:52; Admin Dose 1 EA; Start 07/17/18 at 09:35 Insulin Aspart (Novolog Insulin Pen) NOVOLOG *MILD* ALGORITHM WITH MEALS BEDTIME SC Last administered on 07/20/18 12:02; Admin Dose 2 UNIT; Start 07/17/18 at 07:35 Miscellaneous Information 1 ea NOTE XX ; Start 07/16/18 at 23:30 Glucose (Glutose) 15 gm Q15M PRN PO DECREASED GLUCOSE; Start 07/16/18 at 23:30 Glucose (Glutose) 22.5 gm Q15M PRN PO DECREASED GLUCOSE; Start 07/16/18 at 23:30 Dextrose (D50w Syringe) 25 ml Q15M PRN IV DECREASED GLUCOSE; Start 07/16/18 at 23:30 Dextrose (D50w Syringe) 50 ml Q15M PRN IV DECREASED GLUCOSE; Start 07/16/18 at 23:30 Glucagon (Glucagen) 1 mg Q15M PRN IM DECREASED GLUCOSE; Start 07/16/18 at 23:30 Glucose (Glutose) 15 gm Q15M PRN BUCCAL DECREASED GLUCOSE; Start 07/16/18 at 23:30 Lisinopril (Zestril) 40 mg BID PO Last administered on 07/20/18at 08:23; Admin Dose 40 MG; Start 07/17/18 at 21:00 Labetalol HCl (Normodyne) 400 mg BID PO Last administered on 07/20/18at 08:22; Admin Dose 400 MG; Start 07/17/18 at 21:00 Nifedipine (Procardia Xl) 90 mg DAILY PO Last administered on 07/20/18at 08:23; Admin Dose 90 MG; Start 07/18/18 at 09:00 Epoetin Elia (Epogen (Esrd)) 3,000 units MoWeFr@17 SC Last administered on 07/18/18at 19:01; Admin Dose 3,000 UNITS; Start 07/18/18 at 17:00 Insulin Glargine (Lantus) 18 units DAILY SC Last administered on 07/20/18at 08:25; Admin Dose 18 UNITS; Start 07/19/18 at 09:00 Minoxidil (Loniten) 2.5 mg QAM PO Last administered on 07/20/18at 08:23; Admin Dose 2.5 MG; Start 07/19/18 at 09:00 Miscellaneous Information (*Rx Drug Level Order Reminder*) VANCO RANDOM W/ AM LABS... 0500 ONCE XX ; Start 07/21/18 at 05:00; Stop 07/21/18 at 05:01 Assessment/Plan Hospital Course (Demo Recall) Shortness of breath: Improved now ? Chest pain": Resolved now Pleural effusion Possible pneumonia Acute decompensated diastolic congestive heart failure Hypertension Diabetes End-stage renal disease on hemodialysis Recommendations: -Hemodialysis as per renal Continue blood pressure control Diabetic control as per internal medicine/endocrine -Continue aspirin and statin therapy if no contraindication Thank you for his referral. We will continue to follow along with you until Dr Snell returns tomorrow ZEYNEP SANCHEZ MD [facility] ZEYNEP SANCHEZ MD Jul 20, 2018 17:30
--- NOTE | 2018-07-20 20:12 | CONS ---
Assessment/Plan Assessment/Plan Assessment/Plan (Daily) 58 yo male with ESRD, DM and right foot chronic ulcer -continuing with betadine dressing recommended. -patient to follow up with Dr. Meza for his Angio. -patient to follow up with me upon discharge at [facility]. Thank you Dr. Freeman for allowing me to see this patient. Consultation Date/Type/Reason Admit Date/Time Jul 18, 2018 at 08:43 Date/Time of Note DATE: 07/20/18 TIME: 20:08 Hx of Present Illness Patient seen bedside for right foot ulcer. Patient seen regularly for chronic right foot sub 4th met head ulceration. He has been on antibiotics per his last admission for underlying OM. He has pending Angio procedure with Dr. Meza. He presented to hospital for chest pain and treated for pneumonia. He is doing b kaitlynn. Past Medical History Medical History: diabetes (Type II with complications), high cholesterol, hypertension, hypothyroid, renal disease (End-stage renal disease on hemodialysis. 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), other (Diabetic foot ulcer; hepatitis C antibody positive;) Home Meds Active Scripts Gentamicin Sulfate* (Gentamicin Sulfate* Cream) 0.1% - 30 Gm Cream.gm., 1 APPLIC TOP DAILY for 30 Days, #1 TUBE 1 Refill Prov:ELANA MENDOZA MD 06/27/18 [Vancomycin Iv Per Pharmacy] 1 EA EACH No Conflict Check, 0 EA XX .PER PROTOCOL for 42 Days, SYR 0 Refills Prov:ELANA MENDOZA MD 06/27/18 Reported Medications Lisinopril* (Lisinopril*) 40 Mg Tablet, 40 MG PO DAILY, #30 TAB 07/16/18 Atorvastatin Calcium* (Atorvastatin Calcium*) 20 Mg Tablet, 20 MG PO QHS, #30 TAB 07/16/18 Levothyroxine Sodium* (Levothyroxine Sodium*) 50 Mcg Tablet, 50 MCG PO BEFORE BREAKFAST, #30 TAB 07/16/18 Insulin Glargine* (Lantus*) 100 Unit/Ml Soln, 20 UNIT SC DAILY, #1 VIAL 07/16/18 Nifedipine* (Nifedipine ER*) 60 Mg Tablet.sa, 60 MG PO DAILY, TAB.SA 07/16/18 Linagliptin (TRADJENTA) 5 Mg Tablet, 5 MG PO DAILY, TAB 07/16/18 Levofloxacin* (Levofloxacin*) 250 Mg Tablet, 250 MG PO DAILY, TAB 07/16/18 Doxazosin Mesylate* (Doxazosin Mesylate*) 2 Mg Tablet, 2 MG PO HS, TAB 07/16/18 Labetalol Hcl* (Labetalol Hcl*) 200 Mg Tablet, 800 MG PO BID, TAB 07/16/18 Sevelamer Carbonate* (Renvela*) 800 Mg Tablet, 1.6 GM PO WITH MEALS, TAB 07/16/18 Insulin Aspart* (Novolog Insulin Pen*) 100 Unit/Ml Soln, 10 UNIT SC WITH MEALS, EA 07/16/18 Ferrous Sulfate* (Ferrous Sulfate*) 325 Mg Tabec, 325 MG PO TID, TAB 07/16/18 Discontinued Reported Medications Fenofibrate, Micronized (Fenofibrate) 134 Mg Capsule, 134 MG PO DAILY, CAP 04/03/18 Multivit/Ca Carb/B Cmplx/Fa* (Matilda-Anthony*) 1 Tab Tab, 1 TAB PO DAILY, TAB 04/03/18 Levothyroxine Sodium* (Levothyroxine Sodium*) 25 Mcg Tablet, 50 MCG PO BEFORE BREAKFAST, #30 TAB 04/03/18 Lisinopril* (Lisinopril*) 40 Mg Tablet, 40 MG PO DAILY, #30 TAB 03/22/18 Isosorbide Mononitrate* (Isosorbide Mononitrate*) 30 Mg Tab.er.24h, 30 MG PO DAILY, TAB 03/22/18 Ferrous Sulfate* (Ferrous Sulfate*) 325 Mg Tabec, 325 MG PO TID, TAB 03/22/18 Atorvastatin Calcium* (Atorvastatin Calcium*) 20 Mg Tablet, 20 MG PO QHS, #30 TAB 10/07/17 Furosemide* (Furosemide*) 80 Mg Tablet, 80 MG PO DAILY, #30 TAB 10/07/17 Doxazosin Mesylate* (Doxazosin Mesylate*) 2 Mg Tablet, 2 MG PO HS, TAB 10/07/17 Pantoprazole* (Pantoprazole*) 40 Mg Tablet.dr, 40 MG PO AC BREAKFAST, TAB 10/07/17 Discontinued Scripts Levofloxacin* (Levofloxacin*) 250 Mg Tablet, 250 MG PO DAILY for 42 Days, #42 TAB 0 Refills Prov:ELANA MENDOZA MD 06/27/18 Linagliptin (TRADJENTA) 5 Mg Tablet, 5 MG PO DAILY for 30 Days, #30 TAB 5 Refills Prov:ELANA MENDOZA MD 06/27/18 [Insulin Glargine] 100 UNITS/ML SOLN No Conflict Check, 11 UNITS SC DAILY@0800 for 30 Days, #2 SYR 5 Refills Prov:ELANA MENDOZA MD 06/27/18 Insulin Aspart* (Novolog Insulin Pen*) 100 Unit/Ml Soln, 4 UNIT SC WITH MEALS for 30 Days, #2 SYR 5 Refills Prov:ELANA MENDOZA MD 06/27/18 Sevelamer Carbonate* (Renvela*) 800 Mg Tablet, 1600 MG PO WITH MEALS for 30 Days, #90 TAB 5 Refills Prov:ELANA MENDOZA MD 06/27/18 Nifedipine (Procardia Xl) 60 Mg Tab.er.24, 60 MG PO BID for 30 Days, #60 TAB 5 Refills Prov:ELANA MENDOZA MD 06/27/18 Labetalol Hcl* (Labetalol Hcl*) 200 Mg Tablet, 800 MG PO BID for 30 Days, #60 TAB 5 Refills Prov:ELANA MENDOZA MD 06/27/18 Hydralazine Hcl* (Apresoline*) 50 Mg Tab, 100 MG PO TID for 30 Days, #180 TAB 3 Refills Prov:ELANA MENDOZA MD 06/27/18 Silver Sulfadiazine* (Silvadene*) 1% - 20 Gm Cream.gm., 1 APPLIC TOP DAILY, #1 TUB Prov:ONEYDA BEASLEY 06/15/18 Ondansetron (Ondansetron Odt) 4 Mg Tab.rapdis, 4 MG PO Q6H PRN for NAUSEA AND/OR VOMITING, #10 TAB Prov:OLIVIA WARD 04/07/18 Hydrocodone/Acetaminophen (Skippers 10-325 Tablet) 1 Each Tablet, 1 TAB PO Q6H PRN for PAIN, #7 TAB Prov:OLIVIA WARD 04/07/18 Medications Current Medications Atorvastatin Calcium (Lipitor) 20 mg QHS PO Last administered on 07/19/18at 20:11; Admin Dose 20 MG; Start 07/17/18 at 21:00 Ferrous Sulfate (Ferrous Sulfate (Ec)) 325 mg TID PO Last administered on 07/20/18 12:04; Admin Dose 325 MG; Start 07/17/18 at 09:00 Gentamicin Sulfate (Gentamicin 0.1% Cr) 1 applic DAILY TOP Last administered on 07/20/18 08:24; Admin Dose 1 APPLIC; Start 07/17/18 at 09:00 Insulin Aspart (Novolog Insulin Pen) 10 unit WITH MEALS SC Last administered on 07/20/18 17:15; Admin Dose 10 UNIT; Start 07/17/18 at 07:35 Levofloxacin (Levaquin) 250 mg DAILY PO Last administered on 07/20/18 08:24; Admin Dose 250 MG; Start 07/17/18 at 09:00 Levothyroxine Sodium (Synthroid) 50 mcg BEFORE BREAKFAST PO Last administered on 07/20/18 08:23; Admin Dose 50 MCG; Start 07/17/18 at 07:00 Linagliptin (Tradjenta) 5 mg DAILY PO Last administered on 07/20/18 08:23; Adm in Dose 5 MG; Start 07/17/18 at 09:00 Sevelamer Carbonate (Renvela) 1.6 gm WITH MEALS PO Last administered on 07/20/18 17:13; Admin Dose 1.6 GM; Start 07/17/18 at 07:35 Vancomycin HCl (Vanco Iv Per Pharmacy) PER PHARMACY DOSING NOTE XX ; Start 07/16/18 at 23:30 Aspirin (Aspirin) 81 mg DAILY PO Last administered on 07/20/18 08:23; Admin Dose 81 MG; Start 07/18/18 at 09:00 Nitroglycerin (Nitroglycerin (Sl Tab) 0.4 Mg) 1 tab Q5M PRN SL CHEST PAIN; Start 07/16/18 at 23:00 Morphine Sulfate (morphine) 4 mg Q2H PRN IV PAIN LEVEL 7-10 Last administered on 07/17/18 17:03; Admin Dose 4 MG; Start 07/16/18 at 23:00 Diagnostic Test (Pha) (Accu-Chek) 1 ea 2 HOURS AFTER MEALS XX Last administered on 07/20/18 13:52; Admin Dose 1 EA; Start 07/17/18 at 09:35 Insulin Aspart (Novolog Insulin Pen) NOVOLOG *MILD* ALGORITHM WITH MEALS BEDTIME SC Last administered on 07/20/18 12:02; Admin Dose 2 UNIT; Start 07/17/18 at 07:35 Miscellaneous Information 1 ea NOTE XX ; Start 07/16/18 at 23:30 Glucose (Glutose) 15 gm Q15M PRN PO DECREASED GLUCOSE; Start 07/16/18 at 23:30 Glucose (Glutose) 22.5 gm Q15M PRN PO DECREASED GLUCOSE; Start 07/16/18 at 23:30 Dextrose (D50w Syringe) 25 ml Q15M PRN IV DECREASED GLUCOSE; Start 07/16/18 at 23:30 Dextrose (D50w Syringe) 50 ml Q15M PRN IV DECREASED GLUCOSE; Start 07/16/18 at 23:30 Glucagon (Glucagen) 1 mg Q15M PRN IM DECREASED GLUCOSE; Start 07/16/18 at 23:30 Glucose (Glutose) 15 gm Q15M PRN BUCCAL DECREASED GLUCOSE; Start 07/16/18 at 23:30 Lisinopril (Zestril) 40 mg BID PO Last administered on 07/20/18 08:23; Admin Dose 40 MG; Start 07/17/18 at 21:00 Labetalol HCl (Normodyne) 400 mg BID PO Last administered on 07/20/18 08:22; Admin Dose 400 MG; Start 07/17/18 at 21:00 Nifedipine (Procardia Xl) 90 mg DAILY PO Last administered on 07/20/18 08:23; Admin Dose 90 MG; Start 07/18/18 at 09:00 Epoetin Elia (Epogen (Esrd)) 3,000 units MoWeFr@17 SC Last administered on 07/18/18at 19:01; Admin Dose 3,000 UNITS; Start 07/18/18 at 17:00 Insulin Glargine (Lantus) 18 units DAILY SC Last administered on 07/20/18 08:25; Admin Dose 18 UNITS; Start 07/19/18 at 09:00 Minoxidil (Loniten) 2.5 mg QAM PO Last administered on 07/20/18 08:23; Admin Dose 2.5 MG; Start 07/19/18 at 09:00 Miscellaneous Information (*Rx Drug Level Order Reminder*) VANCO RANDOM W/ AM LABS... 0500 ONCE XX ; Start 07/21/18 at 05:00; Stop 07/21/18 at 05:01 Allergies: Coded Allergies: No Known Allergy (Unverified , 07/16/18) Past Surgical History Past Surgical Hx: cholecystectomy, other (Status post non-living related donor renal transplant) Social History Alcohol Use: occasionally Smoking Status: Former smoker Drug Use: none Exam/Review of Systems Exam Vitals Vital Signs Date Temp Pulse Resp B/P (MAP) Pulse Ox O2 O2 Flow FiO2 Time Delivery Rate 07/20/18 2.0 18:31 07/20/18 62 16:00 07/20/18 97.7 18 117/51 94 Room Air 15:48 (73) Intake and Output 07/19/18 07/19/18 07/20/18 1515:00 23:00 07:00 IntakeIntake Total 1160 ml BalanceBalance 1160 ml Exam Right foot sub 4th met head ulceration noted with no deep probe or drainage. Wound seems less deep and improving in size. No proximal streaking noted. Results Result Diagram: 07/19/18 0932 07/16/18 2103 Results 24hrs Laboratory Tests Test 07/19/18 21:12 07/20/18 07:59 07/20/18 09:58 07/20/18 11:58 Bedside Glucose 118 121 169 184 Test 07/20/18 13:46 07/20/18 17:13 Bedside Glucose 130 114 Medications Medication Current Medications Atorvastatin Calcium (Lipitor) 20 mg QHS PO Last administered on 07/19/18at 20:11; Admin Dose 20 MG; Start 07/17/18 at 21:00 Ferrous Sulfate (Ferrous Sulfate (Ec)) 325 mg TID PO Last administered on 07/20/18at 12:04; Admin Dose 325 MG; Start 07/17/18 at 09:00 Gentamicin Sulfate (Gentamicin 0.1% Cr) 1 applic DAILY TOP Last administered on 07/20/18 08:24; Admin Dose 1 APPLIC; Start 07/17/18 at 09:00 Insulin Aspart (Novolog Insulin Pen) 10 unit WITH MEALS SC Last administered on 07/20/18 17:15; Admin Dose 10 UNIT; Start 07/17/18 at 07:35 Levofloxacin (Levaquin) 250 mg DAILY PO Last administered on 07/20/18 08:24; Admin Dose 250 MG; Start 07/17/18 at 09:00 Levothyroxine Sodium (Synthroid) 50 mcg BEFORE BREAKFAST PO Last administered on 07/20/18 08:23; Admin Dose 50 MCG; Start 07/17/18 at 07:00 Linagliptin (Tradjenta) 5 mg DAILY PO Last administered on 07/20/18 08:23; Admin Dose 5 MG; Start 07/17/18 at 09:00 Sevelamer Carbonate (Renvela) 1.6 gm WITH MEALS PO Last administered on 07/20/18 17:13; Admin Dose 1.6 GM; Start 07/17/18 at 07:35 Vancomycin HCl (Vanco Iv Per Pharmacy) PER PHARMACY DOSING NOTE XX ; Start 07/16/18 at 23:30 Aspirin (Aspirin) 81 mg DAILY PO Last administered on 07/20/18 08:23; Admin Dose 81 MG; Start 07/18/18 at 09:00 Nitroglycerin (Nitroglycerin (Sl Tab) 0.4 Mg) 1 tab Q5M PRN SL CHEST PAIN; Start 07/16/18 at 23:00 Morphine Sulfate (morphine) 4 mg Q2H PRN IV PAIN LEVEL 7-10 Last administered on 07/17/18 17:03; Admin Dose 4 MG; Start 07/16/18 at 23:00 Diagnostic Test (Pha) (Accu-Chek) 1 ea 2 HOURS AFTER MEALS XX Last administered on 07/20/18 13:52; Admin Dose 1 EA; Start 07/17/18 at 09:35 Insulin Aspart (Novolog Insulin Pen) NOVOLOG *MILD* ALGORITHM WITH MEALS BEDTIME SC Last administered on 07/20/18 12:02; Admin Dose 2 UNIT; Start 07/17/18 at 07:35 Miscellaneous Information 1 ea NOTE XX ; Start 07/16/18 at 23:30 Glucose (Glutose) 15 gm Q15M PRN PO DECREASED GLUCOSE; Start 07/16/18 at 23:30 Glucose (Glutose) 22.5 gm Q15M PRN PO DECREASED GLUCOSE; Start 07/16/18 at 23:30 Dextrose (D50w Syringe) 25 ml Q15M PRN IV DECREASED GLUCOSE; Start 07/16/18 at 23:30 Dextrose (D50w Syringe) 50 ml Q15M PRN IV DECREASED GLUCOSE; Start 07/16/18 at 23:30 Glucagon (Glucagen) 1 mg Q15M PRN IM DECREASED GLUCOSE; Start 07/16/18 at 23:30 Glucose (Glutose) 15 gm Q15M PRN BUCCAL DECREASED GLUCOSE; Start 07/16/18 at 23:30 Lisinopril (Zestril) 40 mg BID PO Last administered on 07/20/18 08:23; Admin Dose 40 MG; Start 07/17/18 at 21:00 Labetalol HCl (Normodyne) 400 mg BID PO Last administered on 07/20/18 08:22; Admin Dose 400 MG; Start 07/17/18 at 21:00 Nifedipine (Procardia Xl) 90 mg DAILY PO Last administered on 07/20/18 08:23; Admin Dose 90 MG; Start 07/18/18 at 09:00 Epoetin Elia (Epogen (Esrd)) 3,000 units MoWeFr@17 SC Last administered on 07/18/18 19:01; Admin Dose 3,000 UNITS; Start 07/18/18 at 17:00 Insulin Glargine (Lantus) 18 units DAILY SC Last administered on 07/20/18 08:25; Admin Dose 18 UNITS; Start 07/19/18 at 09:00 Minoxidil (Loniten) 2.5 mg QAM PO Last administered on 07/20/18 08:23; Admin Dose 2.5 MG; Start 07/19/18 at 09:00 Miscellaneous Information (*Rx Drug Level Order Reminder*) VANCO YAQUELIN W/ AM LABS... 0500 ONCE XX ; Start 07/21/18 at 05:00; Stop 07/21/18 at 05:01 GUERO HAQUE DPM Jul 20, 2018 20:12
[2018-07-20] MEDS: ATORVASTATIN 20 MG TAB PO SCH (21:42)
[2018-07-21] VITALS (11 sets, daily range): BP systolic 95–151; BP diastolic 45–69; PULSE 63–67; RESP 18–20
[2018-07-21] MEDS: LEVOTHYROXINE 50 MCG TAB PO SCH (05:35)
[2018-07-21] MEDS: INSULIN ASPART [NOVOLOG] 3 ML PEN SC SCH ×7 (07:55→20:19)
[2018-07-21] MEDS: GENTAMICIN 0.1% CREAM 15GM TUBE TOP SCH (08:21)
[2018-07-21] MEDS: SEVELAMER CARBONATE 0.8 GM PKT PO SCH ×3 (08:22→17:07)
[2018-07-21] MEDS: NIFEdipine (XL) 90 MG TAB PO SCH (08:22)
[2018-07-21] MEDS: MINOXIDIL 2.5 MG TAB PO SCH (08:22)
[2018-07-21] MEDS: LABETALOL 200 MG TAB PO SCH ×4 (08:22→21:00)
[2018-07-21] MEDS: FERROUS SULFATE (EC) 325 MG TAB PO SCH ×3 (08:23→20:23)
[2018-07-21] MEDS: ASPIRIN 81 MG TAB PO SCH (08:23)
[2018-07-21] MEDS: LINAGLIPTIN 5 MG TABLET PO SCH (08:23)
[2018-07-21] MEDS: LISINOPRIL 20 MG TAB PO SCH ×4 (08:23→21:00)
[2018-07-21] MEDS: LEVOFLOXACIN 250 MG TAB PO SCH (08:23)
[2018-07-21] MEDS: INSULIN GLARGINE [LANTus] (100 UNITS/ML) SYG SC SCH (08:26)
[2018-07-21] MEDS: ACCU-CHEK XX SCH ×3 (09:59→19:55)
--- NOTE | 2018-07-21 10:24 | PN ---
Date/Time of Note Date/Time of Note DATE: 07/21/18 TIME: 10:20 Assessment/Plan Lines/Catheters IV Catheter Type (from Nrsg): PICC Line Kennedy in Place (from Nrsg): No Assessment/Plan Assessment/Plan Doing well s/p thoracentesis for pleural effusion - OK for d/c from my standpoint, d/w Dr. Freeman - he is rescheduled for RLE angiogram on 07/24/18 as an outpatient Subjective 24 Hr Interval Summary No c/o. Breathing comfortably, no CP / SOB after thoracentesis over the weekend. L arm AVF working well. Exam/Review of Systems Vital Signs Vitals Vital Signs Date Temp Pulse Resp B/P (MAP) Pulse Ox O2 O2 Flow FiO2 Time Delivery Rate 07/21/18 64 08:01 07/21/18 97.9 20 141/65 100 07:10 (90) 07/21/18 2.0 04:05 07/20/18 Nasal 20:00 Cannula Intake and Output 07/20/18 07/20/18 07/21/18 1515:00 23:00 07:00 IntakeIntake Total 650 ml 250 ml BalanceBalance 650 ml 250 ml Exam Free Text/Dictation R plantar ulcer clean / unchanged, no erythema or drainage, non pain Results Result Diagram: 07/19/18 0932 BENJAMIN REYES MD Jul 21, 2018 10:24
--- NOTE | 2018-07-21 11:26 | PN ---
Date/Time of Note Date/Time of Note DATE: 07/21/18 TIME: 11: Assessment/Plan VTE Prophylaxis Risk score (from Ns)>0 risk: 4 SCD applied (from Ns): Yes Pharmacological prophylaxis: other (asa) Lines/Catheters IV Catheter Type (from Nrsg): PICC Line Central line still needed: Yes Urinary Cath still in place: No Assessment/Plan Hospital Course patient admitted with chest pain and weakness and hypotension post dialysis Problems: (1) Benign essential hypertension Status: Chronic (2) Diabetic foot ulcer Status: Chronic Qualifiers: Diabetic foot ulcer location: toe Diabetes mellitus type: type 2 Laterality: right Non-pressure ulcer stage: unspecified non-pressure ulcer stage Qualified Codes: E11.621 - Type 2 diabetes mellitus with foot ulcer; L97.519 - Non-pressure chronic ulcer of other part of right foot with unspecified severity (3) Hypothyroidism Status: Chronic Qualifiers: Hypothyroidism type: acquired Qualified Codes: E03.9 - Hypothyroidism, unspecified (4) Chest pain Status: Acute Qualifiers: Chest pain type: unspecified Qualified Codes: R07.9 - Chest pain, unspecified (5) HTN (hypertension) Status: Acute Qualifiers: Hypertension type: essential hypertension Qualified Codes: I10 - Essential (primary) hypertension (6) Anemia Assessment/Plan plan per vascular and APC and nephrology diabetes stable Result Diagram: 07/19/18 0932 Results 24hrs Laboratory Tests Test 07/20/18 11:58 07/20/18 13:46 07/20/18 17:13 07/20/18 20:10 Bedside Glucose 184 130 114 107 Test 07/20/18 21:35 07/21/18 05:26 07/21/18 08:11 07/21/18 09:58 Bedside Glucose 107 95 105 Random 28.3 Vancomycin Level Test 07/21/18 11:05 07/21/18 11:10 Lab Scanned REFERENCE LAB REFERENCE LAB Report Subjective 24 Hr Interval Summary Eyes: no complaints ENT: no complaints Respiratory: no complaints Cardiovascular: edema, lightheadedness Genitourinary: other (post dialysis hypotension) Musculoskeletal: no complaints Skin: no complaints Neurologic: no complaints Endocrine: no complaints Lymphatic: no complaints Psychological: no complaints Exam/Review of Systems Exam Vitals Vital Signs Date Temp Pulse Resp B/P (MAP) Pulse Ox O2 O2 Flow FiO2 Time Delivery Rate 07/21/18 98.0 63 20 95/45 (62) 98 11:12 07/21/18 2.0 04:05 07/20/18 Nasal 20:00 Cannula Intake and Output 07/20/18 07/20/18 07/21/18 1515:00 23:00 07:00 IntakeIntake Total 650 ml 250 ml BalanceBalance 650 ml 250 ml Constitutional: alert, oriented, well developed Head: normocephalic, atraumatic Eyes: nl conjunctiva ENMT: nl external ears & nose Neck: supple Respiratory: clear to auscultation Cardiovascular: regular rate and rhythm Gastrointestinal: soft Musculoskeletal: swelling Extremities: other (foot ulcer) Neurological: nl strength Skin: nl turgor Results Results 24hrs Laboratory Tests Test 07/20/18 11:58 07/20/18 13:46 07/20/18 17:13 07/20/18 20:10 Bedside Glucose 184 130 114 107 Test 07/20/18 21:35 07/21/18 05:26 07/21/18 08:11 07/21/18 09:58 Bedside Glucose 107 95 105 Random 28.3 Vancomycin Level Test 07/21/18 11:05 07/21/18 11:10 Lab Scanned REFERENCE LAB REFERENCE LAB Report Medications Medication Current Medications Atorvastatin Calcium (Lipitor) 20 mg QHS PO Last administered on 07/20/18 21:42; Admin Dose 20 MG; Start 07/17/18 at 21:00 Ferrous Sulfate (Ferrous Sulfate (Ec)) 325 mg TID PO Last administered on 07/21/18 08:23; Admin Dose 325 MG; Start 07/17/18 at 09:00 Gentamicin Sulfate (Gentamicin 0.1% Cr) 1 applic DAILY TOP Last administered on 07/21/18 08:21; Admin Dose 1 APPLIC; Start 07/17/18 at 09:00 Insulin Aspart (Novolog Insulin Pen) 10 unit WITH MEALS SC Last administered on 07/21/18 08:16; Admin Dose 10 UNIT; Start 07/17/18 at 07:35 Levofloxacin (Levaquin) 250 mg DAILY PO Last administered on 07/21/18 08:23; Admin Dose 250 MG; Start 07/17/18 at 09:00 Levothyroxine Sodium (Synthroid) 50 mcg BEFORE BREAKFAST PO Last administered on 07/21/18 05:35; Admin Dose 50 MCG; Start 07/17/18 at 07:00 Linagliptin (Tradjenta) 5 mg DAILY PO Last administered on 07/21/18at 08:23; Admin Dose 5 MG; Start 07/17/18 at 09:00 Sevelamer Carbonate (Renvela) 1.6 gm WITH MEALS PO Last administered on 07/21/18at 08:22; Admin Dose 1.6 GM; Start 07/17/18 at 07:35 Vancomycin HCl (Vanco Iv Per Pharmacy) PER PHARMACY DOSING NOTE XX ; Start 07/16/18 at 23:30 Aspirin (Aspirin) 81 mg DAILY PO Last administered on 07/21/18at 08:23; Admin Dose 81 MG; Start 07/18/18 at 09:00 Nitroglycerin (Nitroglycerin (Sl Tab) 0.4 Mg) 1 tab Q5M PRN SL CHEST PAIN; Start 07/16/18 at 23:00 Morphine Sulfate (morphine) 4 mg Q2H PRN IV PAIN LEVEL 7-10 Last administered on 07/17/18at 17:03; Admin Dose 4 MG; Start 07/16/18 at 23:00 Diagnostic Test (Pha) (Accu-Chek) 1 ea 2 HOURS AFTER MEALS XX Last administered on 07/21/18at 09:59; Admin Dose 1 EA; Start 07/17/18 at 09:35 Insulin Aspart (Novolog Insulin Pen) NOVOLOG *MILD* ALGORITHM WITH MEALS BEDTIME SC Last administered on 07/20/18at 12:02; Admin Dose 2 UNIT; Start 07/17/18 at 07:35 Miscellaneous Information 1 ea NOTE XX ; Start 07/16/18 at 23:30 Glucose (Glutose) 15 gm Q15M PRN PO DECREASED GLUCOSE; Start 07/16/18 at 23:30 Glucose (Glutose) 22.5 gm Q15M PRN PO DECREASED GLUCOSE; Start 07/16/18 at 23:30 Dextrose (D50w Syringe) 25 ml Q15M PRN IV DECREASED GLUCOSE; Start 07/16/18 at 23:30 Dextrose (D50w Syringe) 50 ml Q15M PRN IV DECREASED GLUCOSE; Start 07/16/18 at 23:30 Glucagon (Glucagen) 1 mg Q15M PRN IM DECREASED GLUCOSE; Start 07/16/18 at 23:30 Glucose (Glutose) 15 gm Q15M PRN BUCCAL DECREASED GLUCOSE; Start 07/16/18 at 23:30 Lisinopril (Zestril) 40 mg BID PO Last administered on 07/20/18 21:42; Admin Dose 40 MG; Start 07/17/18 at 21:00 Labetalol HCl (Normodyne) 400 mg BID PO Last administered on 07/20/18 08:22; Admin Dose 400 MG; Start 07/17/18 at 21:00 Nifedipine (Procardia Xl) 90 mg DAILY PO Last administered on 07/21/18 08:22; Admin Dose 90 MG; Start 07/18/18 at 09:00 Epoetin Elia (Epogen (Esrd)) 3,000 units MoWeFr@17 SC Last administered on 06/21 19:01; Admin Dose 3,000 UNITS; Start 07/18/18 at 17:00 Insulin Glargine (Lantus) 18 units DAILY SC Last administered on 07/21/18 08:26; Admin Dose 18 UNITS; Start 07/19/18 at 09:00 Minoxidil (Loniten) 2.5 mg QAM PO Last administered on 07/21/18 08:22; Admin Dose 2.5 MG; Start 07/19/18 at 09:00 MARCIE HAMPTON MD Jul 21, 2018 11:26
--- NOTE | 2018-07-21 11:59 | CONS ---
Assessment/Plan Assessment/Plan Hospital Course (Demo Recall) Shortness of breath-resolved Chest pain-resolved Pleural effusion Possible pneumonia Acute decompensated diastolic congestive heart failure Hypertension-labile blood pressure Diabetes End-stage renal disease on hemodialysis Preserved ejection fraction -Patient with labile blood pressure and symptoms of more fatigue today and feeling lightheaded. Review of telemetry, patient with Mobitz type I overnight -I will decrease the dose of his labetalol -Would adjust nifedipine to twice daily dosing with holding parameters -Continue aspirin and statin therapy if no contraindication Consultation Date/Type/Reason Admit Date/Time Jul 18, 2018 at 08:43 Initial Consult Date Type of Consult Cardiology Date/Time of Note DATE: 07/21/18 TIME: 11:56 24 HR Interval Summary Free Text/Dictation Complains of more fatigue today tired. Denies chest pain or shortness of breath Exam/Review of Systems Vital Signs Vitals Vital Signs Date Temp Pulse Resp B/P (MAP) Pulse Ox O2 O2 Flow FiO2 Time Delivery Rate 07/21/18 98.0 63 20 95/45 (62) 98 11:12 07/21/18 Nasal 2.0 07:45 Cannula Intake and Output 07/20/18 07/20/18 07/21/18 1515:00 23:00 07:00 IntakeIntake Total 650 ml 250 ml BalanceBalance 650 ml 250 ml Exam Constitutional: alert, oriented (No apparent distress) Head: normocephalic Respiratory: other (Coarse breath sounds bilaterally, no wheezing) Cardiovascular: regular rate and rhythm (S1-S2 heard) Gastrointestinal: soft, non-tender, bowel sounds Extremities: edema Labs Result Diagram: 07/19/18 0932 Results 24hrs Laboratory Tests Test 07/20/18 11:58 07/20/18 13:46 07/20/18 17:13 07/20/18 20:10 Bedside Glucose 184 130 114 107 Test 07/20/18 21:35 07/21/18 05:26 07/21/18 08:11 07/21/18 09:58 Bedside Glucose 107 95 105 Random 28.3 Vancomycin Level Test 07/21/18 11:05 07/21/18 11:10 Lab Scanned REFERENCE LAB REFERENCE LAB Report Medications Medications Current Medications Atorvastatin Calcium (Lipitor) 20 mg QHS PO Last administered on 07/20/18at 21:42; Admin Dose 20 MG; Start 07/17/18 at 21:00 Ferrous Sulfate (Ferrous Sulfate (Ec)) 325 mg TID PO Last administered on 07/21/18 08:23; Admin Dose 325 MG; Start 07/17/18 at 09:00 Gentamicin Sulfate (Gentamicin 0.1% Cr) 1 applic DAILY TOP Last administered on 07/21/18 08:21; Admin Dose 1 APPLIC; Start 07/17/18 at 09:00 Insulin Aspart (Novolog Insulin Pen) 10 unit WITH MEALS SC Last administered on 07/21/18 08:16; Admin Dose 10 UNIT; Start 07/17/18 at 07:35 Levofloxacin (Levaquin) 250 mg DAILY PO Last administered on 07/21/18 08:23; Admin Dose 250 MG; Start 07/17/18 at 09:00 Levothyroxine Sodium (Synthroid) 50 mcg BEFORE BREAKFAST PO Last administered on 07/21/18 05:35; Admin Dose 50 MCG; Start 07/17/18 at 07:00 Linagliptin (Tradjenta) 5 mg DAILY PO Last administered on 07/21/18 08:23; Admin Dose 5 MG; Start 07/17/18 at 09:00 Sevelamer Carbonate (Renvela) 1.6 gm WITH MEALS PO Last administered on 07/21/18 08:22; Admin Dose 1.6 GM; Start 07/17/18 at 07:35 Vancomycin HCl (Vanco Iv Per Pharmacy) PER PHARMACY DOSING NOTE XX ; Start 07/16/18 at 23:30 Aspirin (Aspirin) 81 mg DAILY PO Last administered on 07/21/18 08:23; Admin Dose 81 MG; Start 07/18/18 at 09:00 Nitroglycerin (Nitroglycerin (Sl Tab) 0.4 Mg) 1 tab Q5M PRN SL CHEST PAIN; Start 07/16/18 at 23:00 Morphine Sulfate (morphine) 4 mg Q2H PRN IV PAIN LEVEL 7-10 Last administered on 07/17/18 17:03; Admin Dose 4 MG; Start 07/16/18 at 23:00 Diagnostic Test (Pha) (Accu-Chek) 1 ea 2 HOURS AFTER MEALS XX Last administered on 07/21/18 09:59; Admin Dose 1 EA; Start 07/17/18 at 09:35 Insulin Aspart (Novolog Insulin Pen) NOVOLOG *MILD* ALGORITHM WITH MEALS BEDTIME SC Last administered on 07/20/18at 12:02; Admin Dose 2 UNIT; Start 07/17/18 at 07:35 Miscellaneous Information 1 ea NOTE XX ; Start 07/16/18 at 23:30 Glucose (Glutose) 15 gm Q15M PRN PO DECREASED GLUCOSE; Start 07/16/18 at 23:30 Glucose (Glutose) 22.5 gm Q15M PRN PO DECREASED GLUCOSE; Start 07/16/18 at 23:30 Dextrose (D50w Syringe) 25 ml Q15M PRN IV DECREASED GLUCOSE; Start 07/16/18 at 23:30 Dextrose (D50w Syringe) 50 ml Q15M PRN IV DECREASED GLUCOSE; Start 07/16/18 at 23:30 Glucagon (Glucagen) 1 mg Q15M PRN IM DECREASED GLUCOSE; Start 07/16/18 at 23:30 Glucose (Glutose) 15 gm Q15M PRN BUCCAL DECREASED GLUCOSE; Start 07/16/18 at 23:30 Lisinopril (Zestril) 40 mg BID PO Last administered on 07/20/18at 21:42; Admin Dose 40 MG; Start 07/17/18 at 21:00 Labetalol HCl (Normodyne) 400 mg BID PO Last administered on 07/20/18 08:22; Admin Dose 400 MG; Start 07/17/18 at 21:00 Nifedipine (Procardia Xl) 90 mg DAILY PO Last administered on 07/21/18 08:22; Admin Dose 90 MG; Start 07/18/18 at 09:00 Epoetin Elia (Epogen (Esrd)) 3,000 units MoWeFr@17 SC Last administered on 07/18/18at 19:01; Admin Dose 3,000 UNITS; Start 07/18/18 at 17:00 Insulin Glargine (Lantus) 18 units DAILY SC Last administered on 07/21/18 08:26; Admin Dose 18 UNITS; Start 07/19/18 at 09:00 Minoxidil (Loniten) 2.5 mg QAM PO Last administered on 07/21/18 08:22; Admin Dose 2.5 MG; Start 07/19/18 at 09:00 Michael Snell DO Jul 21, 2018 11:59
--- NOTE | 2018-07-21 15:32 | CONS ---
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 Comment: Titers pending (3) CHF (congestive heart failure) Comment: Improved tho no change in effusion Qualifiers: Heart failure type: combined systolic and diastolic (4) Anemia Comment: Rpt cbc in AM,, adjust epo if Hbg is low (5) HTN (hypertension) Status: Acute Comment: B Livia dose is appropriately decreased, will observe BP on present regimen Qualifiers: Hypertension type: essential hypertension Qualified Codes: I10 - Essential (primary) hypertension (6) Community acquired pneumonia Status: Acute Comment: Pt in Resp therapy & AB Rx Qualifiers: Laterality: right Lung location: lower lobe of lung Qualified Codes: J18.1 - Lobar pneumonia, unspecified organism Consultation Date/Type/Reason Admit Date/Time Jul 18, 2018 at 08:43 Initial Consult Date 07/18/18 Type of Consult Nephrology Reason for Consultation ESRD, HD Date/Time of Note DATE: 07/21/18 TIME: 15:31 24 HR Interval Summary Free Text/Dictation Pt lying comfortably in bed, no complaints except wants to take a shower Constitutional: improved Exam/Review of Systems Exam Vitals Vital Signs Date Temp Pulse Resp B/P (MAP) Pulse Ox O2 O2 Flow FiO2 Time Delivery Rate 07/21/18 97.5 67 20 138/65 90 15:18 (89) 07/21/18 Nasal 2.0 07:45 Cannula Intake and Output 07/20/18 07/20/18 07/21/18 1515:00 23:00 07:00 IntakeIntake Total 650 ml 250 ml BalanceBalance 650 ml 250 ml Constitutional: alert, oriented, well developed Psych: no complaints Head: normocephalic Eyes: nl conjunctiva ENMT: nl external ears & nose Neck: supple Respiratory: clear to auscultation Cardiovascular: regular rate and rhythm, nl pulses Gastrointestinal: soft, nl liver, spleen Musculoskeletal: nl extremities to inspection Extremities: other (avf bruit lt arm+) Results Result Diagram: 07/19/18 0932 Results 24hrs Laboratory Tests Test 07/20/18 17:13 07/20/18 20:10 07/20/18 21:35 07/21/18 05:26 Bedside Glucose 114 107 107 Random 28.3 Vancomycin Level Test 07/21/18 08:11 07/21/18 09:58 07/21/18 11:05 07/21/18 11:10 Bedside Glucose 95 105 Lab Scanned REFERENCE LAB REFERENCE LAB Report Test 07/21/18 12:13 07/21/18 12:43 07/21/18 14:20 Bedside Glucose 67 L 149 189 Imaging Imaging CXR no change despite thoracentesis! Medications Medication Current Medications Atorvastatin Calcium (Lipitor) 20 mg QHS PO Last administered on 07/20/18 21:42; Admin Dose 20 MG; Start 07/17/18 at 21:00 Ferrous Sulfate (Ferrous Sulfate (Ec)) 325 mg TID PO Last administered on 07/21/18 12:24; Admin Dose 325 MG; Start 07/17/18 at 09:00 Gentamicin Sulfate (Gentamicin 0.1% Cr) 1 applic DAILY TOP Last administered on 07/21/18 08:21; Admin Dose 1 APPLIC; Start 07/17/18 at 09:00 Insulin Aspart (Novolog Insulin Pen) 10 unit WITH MEALS SC Last administered on 07/21/18 08:16; Admin Dose 10 UNIT; Start 07/17/18 at 07:35 Levofloxacin (Levaquin) 250 mg DAILY PO Last administered on 07/21/18 08:23; Admin Dose 250 MG; Start 07/17/18 at 09:00 Levothyroxine Sodium (Synthroid) 50 mcg BEFORE BREAKFAST PO Last administered on 07/21/18 05:35; Admin Dose 50 MCG; Start 07/17/18 at 07:00 Linagliptin (Tradjenta) 5 mg DAILY PO Last administered on 07/21/18 08:23; Admin Dose 5 MG; Start 07/17/18 at 09:00 Sevelamer Carbonate (Renvela) 1.6 gm WITH MEALS PO Last administered on 07/21/18 12:24; Admin Dose 1.6 GM; Start 07/17/18 at 07:35 Vancomycin HCl (Vanco Iv Per Pharmacy) PER PHARMACY DOSING NOTE XX ; Start 07/16/18 at 23:30 Aspirin (Aspirin) 81 mg DAILY PO Last administered on 07/21/18 08:23; Admin Dose 81 MG; Start 07/18/18 at 09:00 Nitroglycerin (Nitroglycerin (Sl Tab) 0.4 Mg) 1 tab Q5M PRN SL CHEST PAIN; Start 07/16/18 at 23:00 Morphine Sulfate (morphine) 4 mg Q2H PRN IV PAIN LEVEL 7-10 Last administered on 07/17/18 17:03; Admin Dose 4 MG; Start 07/16/18 at 23:00 Diagnostic Test (Pha) (Accu-Chek) 1 ea 2 HOURS AFTER MEALS XX Last ad ministered on 07/21/18at 14:22; Admin Dose 1 EA; Start 07/17/18 at 09:35 Insulin Aspart (Novolog Insulin Pen) NOVOLOG *MILD* ALGORITHM WITH MEALS BEDTIME SC Last administered on 07/20/18 12:02; Admin Dose 2 UNIT; Start 07/17/18 at 07:35 Miscellaneous Information 1 ea NOTE XX ; Start 07/16/18 at 23:30 Glucose (Glutose) 15 gm Q15M PRN PO DECREASED GLUCOSE; Start 07/16/18 at 23:30 Glucose (Glutose) 22.5 gm Q15M PRN PO DECREASED GLUCOSE; Start 07/16/18 at 23:30 Dextrose (D50w Syringe) 25 ml Q15M PRN IV DECREASED GLUCOSE; Start 07/16/18 at 23:30 Dextrose (D50w Syringe) 50 ml Q15M PRN IV DECREASED GLUCOSE; Start 07/16/18 at 23:30 Glucagon (Glucagen) 1 mg Q15M PRN IM DECREASED GLUCOSE; Start 07/16/18 at 23:30 Glucose (Glutose) 15 gm Q15M PRN BUCCAL DECREASED GLUCOSE Last administered on 07/21/18at 12:22; Admin Dose 15 GM; Start 07/16/18 at 23:30 Lisinopril (Zestril) 40 mg BID PO Last administered on 07/20/18at 21:42; Admin Dose 40 MG; Start 07/17/18 at 21:00 Epoetin Elia (Epogen (Esrd)) 3,000 units MoWeFr@17 SC Last administered on 07/18/18at 19:01; Admin Dose 3,000 UNITS; Start 07/18/18 at 17:00 Insulin Glargine (Lantus) 18 units DAILY SC Last administered on 07/21/18at 08:26; Admin Dose 18 UNITS; Start 07/19/18 at 09:00 Minoxidil (Loniten) 2.5 mg QAM PO Last administered on 07/21/18at 08:22; Admin Dose 2.5 MG; Start 07/19/18 at 09:00 Labetalol HCl (Normodyne) 200 mg BID PO ; Start 07/21/18 at 21:00 Nifedipine (Procardia Xl) 30 mg BID PO ; Start 07/21/18 at 21:00 ARNOLD MARIE MD Jul 21, 2018 15:32
[2018-07-21] MEDS: EPOETIN 3000 UNITS/1 ML INJ (ESRD) SC SCH (17:08)
[2018-07-21] MEDS: ATORVASTATIN 20 MG TAB PO SCH (20:22)
[2018-07-21] MEDS: NIFEdipine (XL) 30 MG TAB PO SCH (20:23)
[2018-07-22] VITALS (30 sets, daily range): BP systolic 113–203; BP diastolic 41–80; PULSE 66–93; RESP 18–20
[2018-07-22] MEDS: LEVOTHYROXINE 50 MCG TAB PO SCH (06:25)
[2018-07-22] MEDS: INSULIN ASPART [NOVOLOG] 3 ML PEN SC SCH ×7 (07:55→20:46)
--- NOTE | 2018-07-22 08:20 | PN ---
Date/Time of Note Date/Time of Note DATE: 07/22/18 TIME: 08:13 Assessment/Plan VTE Prophylaxis Risk score (from Ns)>0 risk: 4 SCD applied (from Ns): Yes Pharmacological prophylaxis: other (asa) Pharm contraindication: renal impairment Lines/Catheters IV Catheter Type (from Nrsg): PICC Line Central line still needed: Yes Urinary Cath still in place: No Assessment/Plan Hospital Course patient admitted with chest pain and weakness and hypotension post dialysis Assessment/Plan scheduled for dialysis today complaing of sweating possibly 2nd to renal failure no evidence of infection continues to improve anemia worsening Cont Hosp Indication/DC Plan: will ask mission planner to see today Result Diagram: 07/22/18 0700 Results 24hrs Laboratory Tests Test 07/21/18 09:58 07/21/18 11:05 07/21/18 11:10 07/21/18 12:13 Bedside Glucose 105 67 L Lab Scanned Report REFERENCE LAB REFERENCE LAB Test 07/21/18 12:43 07/21/18 14:20 07/21/18 16:53 07/21/18 20:15 Bedside Glucose 149 189 195 122 Test 07/21/18 20:16 07/22/18 07:00 White Blood Count 7.9 Red Blood Count 3.06 L Hemoglobin 9.0 L 9.1 L Hematocrit 27.3 L 27.8 L Mean Corpuscular 89.2 Volume Mean Corpuscular 29.4 Hemoglobin Mean Corpuscular 33.0 Hemoglobin Concent Red Cell 15.4 H Distribution Width Platelet Count 170 # Mean Platelet 8.7 Volume Immature 0.600 H Granulocytes % Neutrophils % 71.1 Lymphocytes % 11.5 L Monocytes % 12.2 H Eosinophils % 4.1 Basophils % 0.5 Nucleated Red 0.0 Blood Cells % Immature 0.050 H Granulocytes # Neutrophils # 5.6 Lymphocytes # 0.9 Monocytes # 1.0 H Eosinophils # 0.3 Basophils # 0.0 Nucleated Red 0.0 Blood Cells # Subjective 24 Hr Interval Summary Constitutional: diaphoresis, other Eyes: no complaints Respiratory: no complaints Cardiovascular: no complaints Gastrointestinal: no complaints Genitourinary: no complaints Musculoskeletal: no complaints Skin: no complaints Neurologic: dizziness Endocrine: no complaints Lymphatic: no complaints Psychological: no complaints Immunologic: no complaints Exam/Review of Systems Exam Vitals Vital Signs Date Temp Pulse Resp B/P (MAP) Pulse Ox O2 O2 Flow FiO2 Time Delivery Rate 07/22/18 Nasal 2.0 07:45 Cannula 07/22/18 98.3 68 18 129/61 99 07:29 (83) Intake and Output 07/21/18 07/21/18 07/22/18 1414:59 22:59 06:59 IntakeIntake Total 750 ml BalanceBalance 750 ml Constitutional: alert, oriented, well developed Psych: no complaints Head: normocephalic, atraumatic Eyes: nl conjunctiva, EOMI ENMT: nl external ears & nose Neck: supple Respiratory: clear to auscultation Cardiovascular: regular rate and rhythm Musculoskeletal: other (foot ulcer) Extremities: edema, other (foot ulcer) Neurological: nl mental status Skin: nl turgor Lymph: nl lymph nodes Results Results 24hrs Laboratory Tests Test 07/21/18 09:58 07/21/18 11:05 07/21/18 11:10 07/21/18 12:13 Bedside Glucose 105 67 L Lab Scanned Report REFERENCE LAB REFERENCE LAB Test 07/21/18 12:43 07/21/18 14:20 07/21/18 16:53 07/21/18 20:15 Bedside Glucose 149 189 195 122 Test 07/21/18 20:16 07/22/18 07:00 White Blood Count 7.9 Red Blood Count 3.06 L Hemoglobin 9.0 L 9.1 L Hematocrit 27.3 L 27.8 L Mean Corpuscular 89.2 Volume Mean Corpuscular 29.4 Hemoglobin Mean Corpuscular 33.0 Hemoglobin Concent Red Cell 15.4 H Distribution Width Platelet Count 170 # Mean Platelet 8.7 Volume Immature 0.600 H Granulocytes % Neutrophils % 71.1 Lymphocytes % 11.5 L Monocytes % 12.2 H Eosinophils % 4.1 Basophils % 0.5 Nucleated Red 0.0 Blood Cells % Immature 0.050 H Granulocytes # Neutrophils # 5.6 Lymphocytes # 0.9 Monocytes # 1.0 H Eosinophils # 0.3 Basophils # 0.0 Nucleated Red 0.0 Blood Cells # Medications Medication Current Medications Atorvastatin Calcium (Lipitor) 20 mg QHS PO Last administered on 07/21/18at 20:22; Admin Dose 20 MG; Start 07/17/18 at 21:00 Ferrous Sulfate (Ferrous Sulfate (Ec)) 325 mg TID PO Last administered on 07/21/18 20:23; Admin Dose 325 MG; Start 07/17/18 at 09:00 Gentamicin Sulfate (Gentamicin 0.1% Cr) 1 applic DAILY TOP Last administered on 07/21/18 08:21; Admin Dose 1 APPLIC; Start 07/17/18 at 09:00 Insulin Aspart (Novolog Insulin Pen) 10 unit WITH MEALS SC Last administered on 07/21/18 16:57; Admin Dose 10 UNIT; Start 07/17/18 at 07:35 Levofloxacin (Levaquin) 250 mg DAILY PO Last administered on 07/21/18 08:23; Ad min Dose 250 MG; Start 07/17/18 at 09:00 Levothyroxine Sodium (Synthroid) 50 mcg BEFORE BREAKFAST PO Last administered on 07/22/18 06:25; Admin Dose 50 MCG; Start 07/17/18 at 07:00 Linagliptin (Tradjenta) 5 mg DAILY PO Last administered on 07/21/18 08:23; Admin Dose 5 MG; Start 07/17/18 at 09:00 Sevelamer Carbonate (Renvela) 1.6 gm WITH MEALS PO Last administered on 07/21/18 17:07; Admin Dose 1.6 GM; Start 07/17/18 at 07:35 Vancomycin HCl (Vanco Iv Per Pharmacy) PER PHARMACY DOSING NOTE XX ; Start 07/16/18 at 23:30 Aspirin (Aspirin) 81 mg DAILY PO Last administered on 07/21/18 08:23; Admin Dose 81 MG; Start 07/18/18 at 09:00 Nitroglycerin (Nitroglycerin (Sl Tab) 0.4 Mg) 1 tab Q5M PRN SL CHEST PAIN; Start 07/16/18 at 23:00 Morphine Sulfate (morphine) 4 mg Q2H PRN IV PAIN LEVEL 7-10 Last administered on 07/17/18 17:03; Admin Dose 4 MG; Start 07/16/18 at 23:00 Diagnostic Test (Pha) (Accu-Chek) 1 ea 2 HOURS AFTER MEALS XX Last administered on 07/21/18 14:22; Admin Dose 1 EA; Start 07/17/18 at 09:35 Insulin Aspart (Novolog Insulin Pen) NOVOLOG *MILD* ALGORITHM WITH MEALS BEDTI ME SC Last administered on 07/20/18 12:02; Admin Dose 2 UNIT; Start 07/17/18 at 07:35 Miscellaneous Information 1 ea NOTE XX ; Start 07/16/18 at 23:30 Glucose (Glutose) 15 gm Q15M PRN PO DECREASED GLUCOSE; Start 07/16/18 at 23:30 Glucose (Glutose) 22.5 gm Q15M PRN PO DECREASED GLUCOSE; Start 07/16/18 at 23:30 Dextrose (D50w Syringe) 25 ml Q15M PRN IV DECREASED GLUCOSE; Start 07/16/18 at 23:30 Dextrose (D50w Syringe) 50 ml Q15M PRN IV DECREASED GLUCOSE; Start 07/16/18 at 23:30 Glucagon (Glucagen) 1 mg Q15M PRN IM DECREASED GLUCOSE; Start 07/16/18 at 23:30 Glucose (Glutose) 15 gm Q15M PRN BUCCAL DECREASED GLUCOSE Last administered on 07/21/18at 12:22; Admin Dose 15 GM; Start 07/16/18 at 23:30 Lisinopril (Zestril) 40 mg BID PO Last administered on 07/20/18at 21:42; Admin Dose 40 MG; Start 07/17/18 at 21:00 Epoetin Elia (Epogen (Esrd)) 3,000 units MoWeFr@17 SC Last administered on 07/21at 17:08; Admin Dose 3,000 UNITS; Start 07/18/18 at 17:00 Insulin Glargine (Lantus) 18 units DAILY SC Last administered on 07/21/18 08:26; Admin Dose 18 UNITS; Start 07/19/18 at 09:00 Minoxidil (Loniten) 2.5 mg QAM PO Last administered on 07/21/18 08:22; Admin Dose 2.5 MG; Start 07/19/18 at 09:00 Labetalol HCl (Normodyne) 200 mg BID PO ; Start 07/21/18 at 21:00 Nifedipine (Procardia Xl) 30 mg BID PO Last administered on 07/21/18at 20:23; Admin Dose 30 MG; Start 07/21/18 at 21:00 MARCIE HAMPTON MD Jul 22, 2018 08:20
[2018-07-22] MEDS: MINOXIDIL 2.5 MG TAB PO SCH (09:00)
[2018-07-22] MEDS: NIFEdipine (XL) 30 MG TAB PO SCH ×2 (09:00→14:27)
[2018-07-22] MEDS: LISINOPRIL 20 MG TAB PO SCH ×2 (09:00→20:29)
[2018-07-22] MEDS: LABETALOL 200 MG TAB PO SCH ×3 (09:00→20:29)
[2018-07-22] MEDS: LEVOFLOXACIN 250 MG TAB PO SCH (09:17)
[2018-07-22] MEDS: ASPIRIN 81 MG TAB PO SCH (09:17)
[2018-07-22] MEDS: SEVELAMER CARBONATE 0.8 GM PKT PO SCH ×3 (09:17→17:01)
[2018-07-22] MEDS: FERROUS SULFATE (EC) 325 MG TAB PO SCH ×3 (09:17→20:28)
[2018-07-22] MEDS: LINAGLIPTIN 5 MG TABLET PO SCH (09:17)
[2018-07-22] MEDS: INSULIN GLARGINE [LANTus] (100 UNITS/ML) SYG SC SCH (09:19)
[2018-07-22] MEDS: GENTAMICIN 0.1% CREAM 15GM TUBE TOP SCH (09:20)
[2018-07-22] MEDS: ACCU-CHEK XX SCH ×3 (09:26→20:27)
--- NOTE | 2018-07-22 12:41 | CONS ---
Consult Date/Type/Reason Admit Date/Time Jul 18, 2018 at 08:43 Initial Consult Date Type of Consultation: CV Date/Time of Note DATE: 07/22/18 TIME: 12:39 Subjective Patient seen bedside for right foot sub 4th met head ulcer. Patient in no acute distress. Objective Vitals Vital Signs Date Temp Pulse Resp B/P (MAP) Pulse Ox O2 O2 Flow FiO2 Time Delivery Rate 07/22/18 70 12:01 07/22/18 97.6 20 143/65 90 11:18 (91) 07/22/18 Nasal 2.0 07:45 Cannula Intake and Output 07/21/18 07/21/18 07/22/18 1515:00 23:00 07:00 IntakeIntake Total 750 ml BalanceBalance 750 ml Exam Right foot ulcer sub 4th met head with no deep probe or drainage. No acute signs of infection. Results/Medications Result Diagram: 07/22/18 0700 Results 24 hrs Laboratory Tests Test 07/21/18 12:43 07/21/18 14:20 07/21/18 16:53 07/21/18 20:15 Bedside Glucose 149 189 195 122 Test 07/21/18 20:16 07/22/18 07:00 07/22/18 08:12 07/22/18 09:25 White Blood Count 7.9 Red Blood Count 3.06 L Hemoglobin 9.0 L 9.1 L Hematocrit 27.3 L 27.8 L Mean Corpuscular Volume 89.2 Mean Corpuscular 29.4 Hemoglobin Mean Corpuscular 33.0 Hemoglobin Concent Red Cell Distribution 15.4 H Width Platelet Count 170 # Mean Platelet Volume 8.7 Immature Granulocytes % 0.600 H Neutrophils % 71.1 Lymphocytes % 11.5 L Monocytes % 12.2 H Eosinophils % 4.1 Basophils % 0.5 Nucleated Red Blood 0.0 Cells % Immature Granulocytes # 0.050 H Neutrophils # 5.6 Lymphocytes # 0.9 Monocytes # 1.0 H Eosinophils # 0.3 Basophils # 0.0 Nucleated Red Blood 0.0 Cells # Bedside Glucose 116 75 Test 07/22/18 11:39 Bedside Glucose 74 Home Meds Active Scripts Gentamicin Sulfate* (Gentamicin Sulfate* Cream) 0.1% - 30 Gm Cream.gm., 1 APPLIC TOP DAILY for 30 Days, #1 TUBE 1 Refill Prov:ELANA MENDOZA MD 06/27/18 [Vancomycin Iv Per Pharmacy] 1 EA EACH No Conflict Check, 0 EA XX .PER PROTOCOL for 42 Days, SYR 0 Refills Prov:ELANA MENDOZA MD 06/27/18 Reported Medications Lisinopril* (Lisinopril*) 40 Mg Tablet, 40 MG PO DAILY, #30 TAB 07/16/18 Atorvastatin Calcium* (Atorvastatin Calcium*) 20 Mg Tablet, 20 MG PO QHS, #30 TAB 07/16/18 Levothyroxine Sodium* (Levothyroxine Sodium*) 50 Mcg Tablet, 50 MCG PO BEFORE BREAKFAST, #30 TAB 07/16/18 Insulin Glargine* (Lantus*) 100 Unit/Ml Soln, 20 UNIT SC DAILY, #1 VIAL 07/16/18 Nifedipine* (Nifedipine ER*) 60 Mg Tablet.sa, 60 MG PO DAILY, TAB.SA 07/16/18 Linagliptin (TRADJENTA) 5 Mg Tablet, 5 MG PO DAILY, TAB 07/16/18 Levofloxacin* (Levofloxacin*) 250 Mg Tablet, 250 MG PO DAILY, TAB 07/16/18 Doxazosin Mesylate* (Doxazosin Mesylate*) 2 Mg Tablet, 2 MG PO HS, TAB 07/16/18 Labetalol Hcl* (Labetalol Hcl*) 200 Mg Tablet, 800 MG PO BID, TAB 07/16/18 Sevelamer Carbonate* (Renvela*) 800 Mg Tablet, 1.6 GM PO WITH MEALS, TAB 07/16/18 Insulin Aspart* (Novolog Insulin Pen*) 100 Unit/Ml Soln, 10 UNIT SC WITH MEALS, EA 07/16/18 Ferrous Sulfate* (Ferrous Sulfate*) 325 Mg Tabec, 325 MG PO TID, TAB 07/16/18 Discontinued Reported Medications Fenofibrate, Micronized (Fenofibrate) 134 Mg Capsule, 134 MG PO DAILY, CAP 04/03/18 Multivit/Ca Carb/B Cmplx/Fa* (Matilda-Anthony*) 1 Tab Tab, 1 TAB PO DAILY, TAB 04/03/18 Levothyroxine Sodium* (Levothyroxine Sodium*) 25 Mcg Tablet, 50 MCG PO BEFORE BREAKFAST, #30 TAB 04/03/18 Lisinopril* (Lisinopril*) 40 Mg Tablet, 40 MG PO DAILY, #30 TAB 03/22/18 Isosorbide Mononitrate* (Isosorbide Mononitrate*) 30 Mg Tab.er.24h, 30 MG PO DAILY, TAB 03/22/18 Ferrous Sulfate* (Ferrous Sulfate*) 325 Mg Tabec, 325 MG PO TID, TAB 03/22/18 Atorvastatin Calcium* (Atorvastatin Calcium*) 20 Mg Tablet, 20 MG PO QHS, #30 TAB 10/07/17 Furosemide* (Furosemide*) 80 Mg Tablet, 80 MG PO DAILY, #30 TAB 10/07/17 Doxazosin Mesylate* (Doxazosin Mesylate*) 2 Mg Tablet, 2 MG PO HS, TAB 10/07/17 Pantoprazole* (Pantoprazole*) 40 Mg Tablet.dr, 40 MG PO AC BREAKFAST, TAB 10/07/17 Discontinued Scripts Levofloxacin* (Levofloxacin*) 250 Mg Tablet, 250 MG PO DAILY for 42 Days, #42 T AB 0 Refills Prov:ELANA MENDOZA MD 06/27/18 Linagliptin (TRADJENTA) 5 Mg Tablet, 5 MG PO DAILY for 30 Days, #30 TAB 5 Refills Prov:ELANA MENDOZA MD 06/27/18 [Insulin Glargine] 100 UNITS/ML SOLN No Conflict Check, 11 UNITS SC DAILY@0800 for 30 Days, #2 SYR 5 Refills Prov:ELANA MENDOZA MD 06/27/18 Insulin Aspart* (Novolog Insulin Pen*) 100 Unit/Ml Soln, 4 UNIT SC WITH MEALS for 30 Days, #2 SYR 5 Refills Prov:ELANA MENDOZA MD 06/27/18 Sevelamer Carbonate* (Renvela*) 800 Mg Tablet, 1600 MG PO WITH MEALS for 30 Days, #90 TAB 5 Refills Prov:ELANA MENDOZA MD 06/27/18 Nifedipine (Procardia Xl) 60 Mg Tab.er.24, 60 MG PO BID for 30 Days, #60 TAB 5 Refills Prov:ELANA MENDOZA MD 06/27/18 Labetalol Hcl* (Labetalol Hcl*) 200 Mg Tablet, 800 MG PO BID for 30 Days, #60 TAB 5 Refills Prov:ELANA MENDOZA MD 06/27/18 Hydralazine Hcl* (Apresoline*) 50 Mg Tab, 100 MG PO TID for 30 Days, #180 TAB 3 Refills Prov:ELANA MENDOZA MD 06/27/18 Silver Sulfadiazine* (Silvadene*) 1% - 20 Gm Cream.gm., 1 APPLIC TOP DAILY, #1 TUB Prov:ONEYDA BEASLEY 06/15/18 Ondansetron (Ondansetron Odt) 4 Mg Tab.rapdis, 4 MG PO Q6H PRN for NAUSEA AND/OR VOMITING, #10 TAB Prov:OLIVIA WARD 04/07/18 Hydrocodone/Acetaminophen ([place] 10-325 Tablet) 1 Each Tablet, 1 TAB PO Q6H PRN for PAIN, #7 TAB Prov:OLIVIA WARD 04/07/18 Medications Current Medications Atorvastatin Calcium (Lipitor) 20 mg QHS PO Last administered on 07/21/18 20:22; Admin Dose 20 MG; Start 07/17/18 at 21:00 Ferrous Sulfate (Ferrous Sulfate (Ec)) 325 mg TID PO Last administered on 07/22/18 09:17; Admin Dose 325 MG; Start 07/17/18 at 09:00 Gentamicin Sulfate (Gentamicin 0.1% Cr) 1 applic DAILY TOP Last administered on 07/22/18 09:20; Admin Dose 1 APPLIC; Start 07/17/18 at 09:00 Insulin Aspart (Novolog Insulin Pen) 10 unit WITH MEALS SC Last administered on 07/22/18 11:41; Admin Dose 10 UNIT; Start 07/17/18 at 07:35 Levofloxacin (Levaquin) 250 mg DAILY PO Last administered on 07/22/18 09:17; Admin Dose 250 MG; Start 07/17/18 at 09:00 Levothyroxine Sodium (Synthroid) 50 mcg BEFORE BREAKFAST PO Last administered on 07/22/18 06:25; Admin Dose 50 MCG; Start 07/17/18 at 07:00 Linagliptin (Tradjenta) 5 mg DAILY PO Last administered on 07/22/18 09:17; Admin Dose 5 MG; Start 07/17/18 at 09:00 Sevelamer Carbonate (Renvela) 1.6 gm WITH MEALS PO Last administered on 07/22/18 09:17; Admin Dose 1.6 GM; Start 07/17/18 at 07:35 Vancomycin HCl (Vanco Iv Per Pharmacy) PER PHARMACY DOSING NOTE XX ; Start 07/16/18 at 23:30 Aspirin (Aspirin) 81 mg DAILY PO Last administered on 07/22/18 09:17; Admin Dose 81 MG; Start 07/18/18 at 09:00 Nitroglycerin (Nitroglycerin (Sl Tab) 0.4 Mg) 1 tab Q5M PRN SL CHEST PAIN; Start 07/16/18 at 23:00 Morphine Sulfate (morphine) 4 mg Q2H PRN IV PAIN LEVEL 7-10 Last administered on 07/17/18at 17:03; Admin Dose 4 MG; Start 07/16/18 at 23:00 Diagnostic Test (Pha) (Accu-Chek) 1 ea 2 HOURS AFTER MEALS XX Last administered on 07/22/18 09:26; Admin Dose 1 EA; Start 07/17/18 at 09:35 Insulin Aspart (Novolog Insulin Pen) NOVOLOG *MILD* ALGORITHM WITH MEALS BEDTIME SC Last administered on 07/20/18 12:02; Admin Dose 2 UNIT; Start 07/17/18 at 07:35 Miscellaneous Information 1 ea NOTE XX ; Start 07/16/18 at 23:30 Glucose (Glutose) 15 gm Q15M PRN PO DECREASED GLUCOSE; Start 07/16/18 at 23:30 Glucose (Glutose) 22.5 gm Q15M PRN PO DECREASED GLUCOSE; Start 07/16/18 at 23:30 Dextrose (D50w Syringe) 25 ml Q15M PRN IV DECREASED GLUCOSE; Start 07/16/18 at 23:30 Dextrose (D50w Syringe) 50 ml Q15M PRN IV DECREASED GLUCOSE; Start 07/16/18 at 23:30 Glucagon (Glucagen) 1 mg Q15M PRN IM DECREASED GLUCOSE; Start 07/16/18 at 23:30 Glucose (Glutose) 15 gm Q15M PRN BUCCAL DECREASED GLUCOSE Last administered on 07/21/18at 12:22; Admin Dose 15 GM; Start 07/16/18 at 23:30 Lisinopril (Zestril) 40 mg BID PO Last administered on 07/20/18at 21:42; Admin Dose 40 MG; Start 07/17/18 at 21:00 Epoetin Elia (Epogen (Esrd)) 3,000 units MoWeFr@17 SC Last administered on 4/1/19at 17:08; Admin Dose 3,000 UNITS; Start 07/18/18 at 17:00 Insulin Glargine (Lantus) 18 units DAILY SC Last administered on 07/22/18 09:19; Admin Dose 18 UNITS; Start 07/19/18 at 09:00 Minoxidil (Loniten) 2.5 mg QAM PO Last administered on 07/21/18 08:22; Admin Dose 2.5 MG; Start 07/19/18 at 09:00 Labetalol HCl (Normodyne) 200 mg BID PO ; Start 07/21/18 at 21:00 Nifedipine (Procardia Xl) 30 mg BID PO Last administered on 07/21/18at 20:23; Admin Dose 30 MG; Start 07/21/18 at 21:00 Assessment/Plan Hospital Course (Demo Recall) 58 yo male with chronic right foot ulcer no sign of acute infection. -patient to continue with betadine dressing changes. -limited weight bearing in post/op shoe. -will continue to follow GUERO HAQUE DPM Jul 22, 2018 12:41
--- NOTE | 2018-07-22 19:11 | CONS ---
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 Comment: serology pending (4) End-stage renal disease on hemodialysis Status: Chronic Comment: Pt already dialyzed (5) Community acquired pneumonia Status: Acute Qualifiers: Laterality: right Lung location: lower lobe of lung Qualified Codes: J18.1 - Lobar pneumonia, unspecified organism (6) Anemia Comment: epo dose has been adjusted (7) Type 2 diabetes mellitus with diabetic peripheral angiopathy without gangrene Status: Chronic Comment: BS being managed by Endocrinology Qualifiers: Diabetes mellitus long term care social worker insulin use: with long term care social worker use Qualified Codes: E11.51 - Type 2 diabetes mellitus with diabetic peripheral angiopathy without gangrene; 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 Consultation Date/Type/Reason Admit Date/Time Jul 18, 2018 at 08:43 Initial Consult Date 07/18/18 Type of Consult Nephrology Reason for Consultation ESRD, HD Date/Time of Note DATE: 07/22/18 TIME: 19:11 24 HR Interval Summary Free Text/Dictation no complaints Constitutional: improved Exam/Review of Systems Exam Vitals Vital Signs Date Temp Pulse Resp B/P (MAP) Pulse Ox O2 O2 Flow FiO2 Time Delivery Rate 07/22/18 93 152/67 17:03 (95) 07/22/18 20 98 Room Air 16:35 07/22/18 98.2 15:16 07/22/18 2.0 07:45 Intake and Output 07/21/18 07/21/18 07/22/18 1414:59 22:59 06:59 IntakeIntake Total 750 ml BalanceBalance 750 ml Constitutional: alert, oriented Psych: no complaints Head: normocephalic, atraumatic ENMT: nl external ears & nose Neck: supple Cardiovascular: regular rate and rhythm Gastrointestinal: soft Extremities: other (AVF Lt arm) 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 Additional Comments Hct has dropped Results Result Diagram: 07/22/18 0700 Results 24hrs Laboratory Tests Test 07/21/18 20:15 07/21/18 20:16 07/22/18 06:57 07/22/18 07:00 Bedside Glucose 122 White Blood Count 7.9 Red Blood Count 3.06 L Hemoglobin 9.0 L 9.1 L Hematocrit 27.3 L 27.8 L Mean Corpuscular Volume 89.2 Mean Corpuscular 29.4 Hemoglobin Mean Corpuscular 33.0 Hemoglobin Concent Red Cell Distribution 15.4 H Width Platelet Count 170 # Mean Platelet Volume 8.7 Immature Granulocytes % 0.600 H Neutrophils % 71.1 Lymphocytes % 11.5 L Monocytes % 12.2 H Eosinophils % 4.1 Basophils % 0.5 Nucleated Red Blood 0.0 Cells % Immature Granulocytes # 0.050 H Neutrophils # 5.6 Lymphocytes # 0.9 Monocytes # 1.0 H Eosinophils # 0.3 Basophils # 0.0 Nucleated Red Blood 0.0 Cells # Hepatitis B Surface NEGATIVE Antigen Test 07/22/18 08:12 07/22/18 09:25 07/22/18 11:39 07/22/18 17:00 Bedside Glucose 116 75 74 128 Medications Medication Current Medications Atorvastatin Calcium (Lipitor) 20 mg QHS PO Last administered on 07/21/18 20:22; Admin Dose 20 MG; Start 07/17/18 at 21:00 Ferrous Sulfate (Ferrous Sulfate (Ec)) 325 mg TID PO Last administered on 07/22/18 14:28; Admin Dose 325 MG; Start 07/17/18 at 09:00 Gentamicin Sulfate (Gentamicin 0.1% Cr) 1 applic DAILY TOP Last administered on 07/22/18 09:20; Admin Dose 1 APPLIC; Start 07/17/18 at 09:00 Insulin Aspart (Novolog Insulin Pen) 10 unit WITH MEALS SC Last administered on 07/22/18 11:41; Admin Dose 10 UNIT; Start 07/17/18 at 07:35 Levofloxacin (Levaquin) 250 mg DAILY PO Last administered on 07/22/18 09:17; Admin Dose 250 MG; Start 07/17/18 at 09:00 Levothyroxine Sodium (Synthroid) 50 mcg BEFORE BREAKFAST PO Last administered on 07/22/18 06:25; Admin Dose 50 MCG; Start 07/17/18 at 07:00 Linagliptin (Tradjenta) 5 mg DAILY PO Last administered on 4/2/19at 09:17; Admin Dose 5 MG; Start 07/17/18 at 09:00 Sevelamer Carbonate (Renvela) 1.6 gm WITH MEALS PO Last administered on 07/22/18 17:01; Admin Dose 1.6 GM; Start 07/17/18 at 07:35 Vancomycin HCl (Vanco Iv Per Pharmacy) PER PHARMACY DOSING NOTE XX ; Start 07/16/18 at 23:30 Aspirin (Aspirin) 81 mg DAILY PO Last administered on 07/22/18 09:17; Admin Dose 81 MG; Start 07/18/18 at 09:00 Nitroglycerin (Nitroglycerin (Sl Tab) 0.4 Mg) 1 tab Q5M PRN SL CHEST PAIN; Start 07/16/18 at 23:00 Diagnostic Test (Pha) (Accu-Chek) 1 ea 2 HOURS AFTER MEALS XX Last administered on 07/22/18 13:50; Admin Dose 1 EA; Start 07/17/18 at 09:35 Insulin Aspart (Novolog Insulin Pen) NOVOLOG *MILD* ALGORITHM WITH MEALS BEDT SURENDRA SC Last administered on 07/20/18 12:02; Admin Dose 2 UNIT; Start 07/17/18 at 07:35 Miscellaneous Information 1 ea NOTE XX ; Start 07/16/18 at 23:30 Glucose (Glutose) 15 gm Q15M PRN PO DECREASED GLUCOSE; Start 07/16/18 at 23:30 Glucose (Glutose) 22.5 gm Q15M PRN PO DECREASED GLUCOSE; Start 07/16/18 at 23:30 Dextrose (D50w Syringe) 25 ml Q15M PRN IV DECREASED GLUCOSE; Start 07/16/18 at 23:30 Dextrose (D50w Syringe) 50 ml Q15M PRN IV DECREASED GLUCOSE; Start 07/16/18 at 23:30 Glucagon (Glucagen) 1 mg Q15M PRN IM DECREASED GLUCOSE; Start 07/16/18 at 23:30 Glucose (Glutose) 15 gm Q15M PRN BUCCAL DECREASED GLUCOSE Last administered on 07/21/18 12:22; Admin Dose 15 GM; Start 07/16/18 at 23:30 Lisinopril (Zestril) 40 mg BID PO Last administered on 07/20/18at 21:42; Admin Dose 40 MG; Start 07/17/18 at 21:00 Epoetin Elia (Epogen (Esrd)) 3,000 units MoWeFr@17 SC Last administered on 07/21/18at 17:08; Admin Dose 3,000 UNITS; Start 07/18/18 at 17:00 Insulin Glargine (Lantus) 18 units DAILY SC Last administered on 07/22/18 09:19; Admin Dose 18 UNITS; Start 07/19/18 at 09:00 Minoxidil (Loniten) 2.5 mg QAM PO Last administered on 07/21/18at 08:22; Admin Dose 2.5 MG; Start 07/19/18 at 09:00 Labetalol HCl (Normodyne) 200 mg BID PO Last administered on 07/22/18at 14:26; Admin Dose 200 MG; Start 07/21/18 at 21:00 Nifedipine (Procardia Xl) 30 mg BID PO Last administered on 07/22/18at 14:27; Admin Dose 30 MG; Start 07/21/18 at 21:00 Morphine Sulfate (morphine) 12 mg Q2H PRN PO PAIN LEVEL 7-10; Start 07/22/18 at 15:30 ARNOLD MARIE MD Jul 22, 2018 19:11
[2018-07-22] MEDS: ATORVASTATIN 20 MG TAB PO SCH (20:28)
[2018-07-22] MEDS: morphine LIQ (10 MG/5 ML) CUP PO PRN (20:48)
[2018-07-22] MEDS ORDERED: EPOETIN ALFA-EPBX (ESRD) 3,000 UNIT/ML VIAL SC ONE (21:00)
--- NOTE | 2018-07-22 21:21 | CONS ---
Assessment/Plan Assessment/Plan Hospital Course (Demo Recall) Shortness of breath-resolved Chest pain-resolved Pleural effusion Possible pneumonia Acute decompensated diastolic congestive heart failure Hypertension-labile blood pressure Diabetes End-stage renal disease on hemodialysis Preserved ejection fraction -Patient with labile blood pressure, meds adjusted yesterday, follow trend and make further adjustments as needed -Continue aspirin and statin therapy if no contraindication Consultation Date/Type/Reason Admit Date/Time Jul 18, 2018 at 08:43 Initial Consult Date Type of Consult Cardiology Date/Time of Note DATE: 07/22/18 TIME: 21:20 24 HR Interval Summary Free Text/Dictation no cp, sob, palp Exam/Review of Systems Vital Signs Vitals Vital Signs Date Temp Pulse Resp B/P (MAP) Pulse Ox O2 O2 Flow FiO2 Time Delivery Rate 07/22/18 81 20:08 07/22/18 98.4 19 143/68 97 20:00 (93) 07/22/18 Room Air 16:35 07/22/18 2.0 07:45 Intake and Output 07/21/18 07/21/18 07/22/18 1515:00 23:00 07:00 IntakeIntake Total 750 ml BalanceBalance 750 ml Exam Constitutional: alert, oriented (undergoing hd) Head: normocephalic Respiratory: other (course bs, no wheeze) Cardiovascular: regular rate and rhythm (s1s2) Gastrointestinal: soft, non-tender, bowel sounds Extremities: edema (trace) Labs Result Diagram: 07/22/18 0700 Results 24hrs Laboratory Tests Test 07/22/18 06:57 07/22/18 07:00 07/22/18 08:12 07/22/18 09:25 Hepatitis B Surface NEGATIVE Antigen Hemoglobin 9.1 L Hematocrit 27.8 L Bedside Glucose 116 75 Test 07/22/18 11:39 07/22/18 17:00 07/22/18 20:26 Bedside Glucose 74 128 223 H Medications Medications Current Medications Atorvastatin Calcium (Lipitor) 20 mg QHS PO Last administered on 07/22/18at 20:28; Admin Dose 20 MG; Start 07/17/18 at 21:00 Ferrous Sulfate (Ferrous Sulfate (Ec)) 325 mg TID PO Last administered on 07/22/18at 20:28; Admin Dose 325 MG; Start 07/17/18 at 09:00 Gentamicin Sulfate (Gentamicin 0.1% Cr) 1 applic DAILY TOP Last administered on 07/22/18 09:20; Admin Dose 1 APPLIC; Start 07/17/18 at 09:00 Insulin Aspart (Novolog Insulin Pen) 10 unit WITH MEALS SC Last administered on 07/22/18 11:41; Admin Dose 10 UNIT; Start 07/17/18 at 07:35 Levofloxacin (Levaquin) 250 mg DAILY PO Last administered on 07/22/18 09:17; Admin Dose 250 MG; Start 07/17/18 at 09:00 Levothyroxine Sodium (Synthroid) 50 mcg BEFORE BREAKFAST PO Last administered on 07/22/18 06:25; Admin Dose 50 MCG; Start 07/17/18 at 07:00 Linagliptin (Tradjenta) 5 mg DAILY PO Last administered on 07/22/18 09:17; Admin Dose 5 MG; Start 07/17/18 at 09:00 Sevelamer Carbonate (Renvela) 1.6 gm WITH MEALS PO Last administered on 07/22/18 17:01; Admin Dose 1.6 GM; Start 07/17/18 at 07:35 Vancomycin HCl (Vanco Iv Per Pharmacy) PER PHARMACY DOSING NOTE XX ; Start 07/16/18 at 23:30 Aspirin (Aspirin) 81 mg DAILY PO Last administered on 07/22/18 09:17; Admin Dose 81 MG; Start 07/18/18 at 09:00 Nitroglycerin (Nitroglycerin (Sl Tab) 0.4 Mg) 1 tab Q5M PRN SL CHEST PAIN; Start 07/16/18 at 23:00 Diagnostic Test (Pha) (Accu-Chek) 1 ea 2 HOURS AFTER MEALS XX Last administered on 07/22/18 20:27; Admin Dose 1 EA; Start 07/17/18 at 09:35 Insulin Aspart (Novolog Insulin Pen) NOVOLOG *MILD* ALGORITHM WITH MEALS BEDTIME SC Last administered on 07/22/18 20:46; Admin Dose 2 UNIT; Start 07/17/18 at 07:35 Miscellaneous Information 1 ea NOTE XX ; Start 07/16/18 at 23:30 Glucose (Glutose) 15 gm Q15M PRN PO DECREASED GLUCOSE; Start 07/16/18 at 23:30 Glucose (Glutose) 22.5 gm Q15M PRN PO DECREASED GLUCOSE; Start 07/16/18 at 23:30 Dextrose (D50w Syringe) 25 ml Q15M PRN IV DECREASED GLUCOSE; Start 07/16/18 at 23:30 Dextrose (D50w Syringe) 50 ml Q15M PRN IV DECREASED GLUCOSE; Start 07/16/18 at 23:30 Glucagon (Glucagen) 1 mg Q15M PRN IM DECREASED GLUCOSE; Start 07/16/18 at 23:30 Glucose (Glutose) 15 gm Q15M PRN BUCCAL DECREASED GLUCOSE Last administered on 07/21/18 12:22; Admin Dose 15 GM; Start 07/16/18 at 23:30 Lisinopril (Zestril) 40 mg BID PO Last administered on 07/22/18 20:29; Admin Dose 40 MG; Start 07/17/18 at 21:00 Insulin Glargine (Lantus) 18 units DAILY SC Last administered on 07/22/18 09:19; Admin Dose 18 UNITS; Start 07/19/18 at 09:00 Minoxidil (Loniten) 2.5 mg QAM PO Last administered on 07/21/18at 08:22; Admin Dose 2.5 MG; Start 07/19/18 at 09:00 Labetalol HCl (Normodyne) 200 mg BID PO Last administered on 07/22/18 20:29; Admin Dose 200 MG; Start 07/21/18 at 21:00 Nifedipine (Procardia Xl) 30 mg BID PO Last administered on 07/22/18 14:27; Admin Dose 30 MG; Start 07/21/18 at 21:00 Morphine Sulfate (morphine) 12 mg Q2H PRN PO PAIN LEVEL 7-10 Last administered on 07/22/18at 20:48; Admin Dose 12 MG; Start 07/22/18 at 15:30 Epoetin Elia-epbx (Retacrit (Esrd)) 4,000 unit TuThSa@1700 SC ; Start 07/24/18 at 17:00 Michael Snell DO Jul 22, 2018 21:21
[2018-07-23] MEDS: morphine LIQ (10 MG/5 ML) CUP PO PRN (02:04)
[2018-07-23 02:33] VITALS: BP 129/56; PULSE 74; RESP 18
[2018-07-23] MEDS: LEVOTHYROXINE 50 MCG TAB PO SCH (06:07)
[2018-07-23] MEDS: INSULIN ASPART [NOVOLOG] 3 ML PEN SC SCH ×2 (07:35→08:00)
[2018-07-23 08:00] VITALS: BP 144/64; PULSE 68; RESP 19
[2018-07-23] MEDS: LEVOFLOXACIN 250 MG TAB PO SCH (08:49)
[2018-07-23] MEDS: FERROUS SULFATE (EC) 325 MG TAB PO SCH (08:49)
[2018-07-23] MEDS: ASPIRIN 81 MG TAB PO SCH (08:49)
[2018-07-23] MEDS: LINAGLIPTIN 5 MG TABLET PO SCH (08:51)
[2018-07-23] MEDS: SEVELAMER CARBONATE 0.8 GM PKT PO SCH ×3 (08:55→17:37)
[2018-07-23] MEDS: MINOXIDIL 2.5 MG TAB PO SCH (08:55)
[2018-07-23] MEDS: INSULIN GLARGINE [LANTus] (100 UNITS/ML) SYG SC SCH (08:58)
[2018-07-23] MEDS: NIFEdipine (XL) 30 MG TAB PO SCH (09:00)
[2018-07-23] MEDS: LISINOPRIL 20 MG TAB PO SCH ×3 (09:00→21:06)
[2018-07-23] MEDS: LABETALOL 200 MG TAB PO SCH (09:00)
[2018-07-23] MEDS: GENTAMICIN 0.1% CREAM 15GM TUBE TOP SCH (09:03)
[2018-07-23] MEDS ORDERED: ONDANSETRON 4 MG INJ IV ONE (09:42)
[2018-07-23] MEDS: ACCU-CHEK XX SCH (10:08)
--- NOTE | 2018-07-23 13:04 | DS ---
Date/Time of Note Date/Time of Note DATE: 07/23/18 TIME: 12:57 Discharge Summary Admission/Discharge Info Admit Date/Time Jul 18, 2018 at 08:43 Discharge Date/Time July 23, 2018 Discharge Diagnosis Community acquired pneumonia with pleural effusion; diabetes mellitus type 2 complicated by peripheral neuropathy; autonomic neuropathy with orthostasis; end-stage renal disease; retinopathy; mixed hyperlipidemia; hypertension; acquired hypothyroidism; anemia associated with renal insufficiency; benign prostatic hypertrophy; gastroesophageal reflux disease; hepatitis C antibody positive with negative viral RNA; peripheral vascular disease; gangrenous toe right foot third digit; Patient Condition: Fair Consults Nephrology-Dr. Ortiz; vascular surgery-Dr. Meza; cardiology-Dr. Snell; podiatry- Dr. Hanson Procedures CT scan; hepatic ultrasound; ultrasound-guided right-sided thoracentesis; Hx of Present Illness 58-year-old gentleman with a history of end-stage renal disease on dialysis Saturday. Starting roughly 72 hours ago he noticed a decrease in exercise tolerance with dyspnea on exertion. Reluctantly he does admit that he has had an increase in cough and developed a sensation of pressure in the chest like he could not expand his lungs fully. He does note possible fever but denies any shaking chills or drenching sweats. He is not producing any sputum. He has not been around anybody else who is ill. Is into the emergency room and inform them of the chest pressure and was admitted for this. Please see the chest x-ray report read by radiology. Hospital Course 58-year-old gentleman admitted with community-acquired pneumonia and a large right pleural effusion. He was stabilized with antibiotic therapy and underwent ultrasound-guided thoracentesis. Culture of the fluid was negative although it did appear to be exudative but did not have elevated white count. He improved steadily. Please note that he was also continued on his hemodialysis while an inpatient. A significant issue is having is that when he is getting dialysis he is having significant drop in blood pressure. He does appear to have an autonomic neuropathy with orthostasis. Because of this we are trying to change his medications around including avoiding alpha blockade therapy, holding his blood pressure medicines prior to dialysis, and elevating the head of the bed at all times. These maneuvers will help with the autonomic neuropathy Home Meds Active Scripts Gentamicin Sulfate* (Gentamicin Sulfate* Cream) 0.1% - 30 Gm Cream.gm., 1 APPLIC TOP DAILY for 30 Days, #1 TUBE 1 Refill Prov:ELANA MENDOZA MD 06/27/18 [Vancomycin Iv Per Pharmacy] 1 EA EACH No Conflict Check, 0 EA XX .PER PROTOCOL for 42 Days, SYR 0 Refills Prov:ELANA MENDOZA MD 06/27/18 Reported Medications Lisinopril* (Lisinopril*) 40 Mg Tablet, 40 MG PO DAILY, #30 TAB 07/16/18 Atorvastatin Calcium* (Atorvastatin Calcium*) 20 Mg Tablet, 20 MG PO QHS, #30 TAB 07/16/18 Levothyroxine Sodium* (Levothyroxine Sodium*) 50 Mcg Tablet, 50 MCG PO BEFORE BREAKFAST, #30 TAB 07/16/18 Insulin Glargine* (Lantus*) 100 Unit/Ml Soln, 20 UNIT SC DAILY, #1 VIAL 07/16/18 Nifedipine* (Nifedipine ER*) 60 Mg Tablet.sa, 60 MG PO DAILY, TAB.SA 07/16/18 Linagliptin (TRADJENTA) 5 Mg Tablet, 5 MG PO DAILY, TAB 07/16/18 Levofloxacin* (Levofloxacin*) 250 Mg Tablet, 250 MG PO DAILY, TAB 07/16/18 Doxazosin Mesylate* (Doxazosin Mesylate*) 2 Mg Tablet, 2 MG PO HS, TAB 07/16/18 Labetalol Hcl* (Labetalol Hcl*) 200 Mg Tablet, 800 MG PO BID, TAB 07/16/18 Sevelamer Carbonate* (Renvela*) 800 Mg Tablet, 1.6 GM PO WITH MEALS, TAB 07/16/18 Insulin Aspart* (Novolog Insulin Pen*) 100 Unit/Ml Soln, 10 UNIT SC WITH MEALS, EA 07/16/18 Ferrous Sulfate* (Ferrous Sulfate*) 325 Mg Tabec, 325 MG PO TID, TAB 07/16/18 Discontinued Reported Medications Fenofibrate, Micronized (Fenofibrate) 134 Mg Capsule, 134 MG PO DAILY, CAP 04/03/18 Multivit/Ca Carb/B Cmplx/Fa* (Matilda-Anthony*) 1 Tab Tab, 1 TAB PO DAILY, TAB 04/03/18 Levothyroxine Sodium* (Levothyroxine Sodium*) 25 Mcg Tablet, 50 MCG PO BEFORE BREAKFAST, #30 TAB 04/03/18 Lisinopril* (Lisinopril*) 40 Mg Tablet, 40 MG PO DAILY, #30 TAB 03/22/18 Isosorbide Mononitrate* (Isosorbide Mononitrate*) 30 Mg Tab.er.24h, 30 MG PO DAILY, TAB 03/22/18 Ferrous Sulfate* (Ferrous Sulfate*) 325 Mg Tabec, 325 MG PO TID, TAB 03/22/18 Atorvastatin Calcium* (Atorvastatin Calcium*) 20 Mg Tablet, 20 MG PO QHS, #30 TAB 10/07/17 Furosemide* (Furosemide*) 80 Mg Tablet, 80 MG PO DAILY, #30 TAB 10/07/17 Doxazosin Mesylate* (Doxazosin Mesylate*) 2 Mg Tablet, 2 MG PO HS, TAB 10/07/17 Pantoprazole* (Pantoprazole*) 40 Mg Tablet.dr, 40 MG PO AC BREAKFAST, TAB 10/07/17 Discontinued Scripts Levofloxacin* (Levofloxacin*) 250 Mg Tablet, 250 MG PO DAILY for 42 Days, #42 TAB 0 Refills Prov:ELANA MENDOZA MD 06/27/18 Linagliptin (TRADJENTA) 5 Mg Tablet, 5 MG PO DAILY for 30 Days, #30 TAB 5 Refills Prov:ELANA MENDOZA MD 06/27/18 [Insulin Glargine] 100 UNITS/ML SOLN No Conflict Check, 11 UNITS SC DAILY@0800 for 30 Days, #2 SYR 5 Refills Prov:ELANA MENDOZA MD 06/27/18 Insulin Aspart* (Novolog Insulin Pen*) 100 Unit/Ml Soln, 4 UNIT SC WITH MEALS for 30 Days, #2 SYR 5 Refills Prov:ELANA MENDOZA MD 06/27/18 Sevelamer Carbonate* (Renvela*) 800 Mg Tablet, 1600 MG PO WITH MEALS for 30 Days, #90 TAB 5 Refills Prov:ELANA MENDOZA MD 06/27/18 Nifedipine (Procardia Xl) 60 Mg Tab.er.24, 60 MG PO BID for 30 Days, #60 TAB 5 Refills Prov:ELANA MENDOZA MD 06/27/18 Labetalol Hcl* (Labetalol Hcl*) 200 Mg Tablet, 800 MG PO BID for 30 Days, #60 TAB 5 Refills Prov:ELANA MENDOZA MD 06/27/18 Hydralazine Hcl* (Apresoline*) 50 Mg Tab, 100 MG PO TID for 30 Days, #180 TAB 3 Refills Prov:ELANA MENDOZA MD 06/27/18 Silver Sulfadiazine* (Silvadene*) 1% - 20 Gm Cream.gm., 1 APPLIC TOP DAILY, #1 TUB Prov:ONEYDA BEASLEY 06/15/18 Ondansetron (Ondansetron Odt) 4 Mg Tab.rapdis, 4 MG PO Q6H PRN for NAUSEA AND/OR VOMITING, #10 TAB Prov:OLIVIA WARD 04/07/18 Hydrocodone/Acetaminophen ([place] 10-325 Tablet) 1 Each Tablet, 1 TAB PO Q6H PRN for PAIN, #7 TAB Prov:OLIVIA WARD S. 04/07/18 Follow-up Plan Nephrology and hemodialysis in the near future; cardiology as guided by the wallpaper consultant with possible repeat angioplasty at [facility]; va scular surgery with Dr. Meza next week; podiatry at the [facility] Primary Care Provider Christopher Calderon MD Time spent on discharge: > 30 minutes Pending Labs Laboratory Tests Test 07/22/18 17:00 07/22/18 20:26 07/23/18 02:07 07/23/18 02:27 Bedside 128 223 61 137 Glucose mg/dL (70-220) mg/dL (70-220) mg/dL (70-220) mg/dL (70-220) Test 07/23/18 02:46 07/23/18 03:35 07/23/18 04:02 07/23/18 05:17 Bedside 78 152 86 Glucose mg/dL (70-220) mg/dL (70-220) mg/dL (70-220) White Blood 6.6 Count 10^3/ul (4.8-1 0.8) Red Blood 2.83 Count 10^6/ul (4.70- 6.10) Hemoglobin 8.4 g/dl (14.0-18. 0) Hematocrit 25.9 % (42.0-52.0) Mean 91.5 Corpuscular fl (82.0-101.0 Volume ) Mean 29.7 Corpuscular pg (29.0-33.0) Hemoglobin Mean 32.4 Corpuscular g/dl (32.0-37. Hemoglobin Conc 0) ent Red Cell 15.3 Distribution % (11.5-14.5) Width Platelet Count 154 10^3/UL (140-4 15) Mean Platelet 8.9 Volume fl (7.4-10.4) Immature 0.600 Granulocytes % % (0.001-0.429 ) Neutrophils % 66.9 % (39.0-77.0) Lymphocytes % 14.4 % (15.0-51.0) Monocytes % 14.1 % (0.0-11.0) Eosinophils % 3.5 % (0.0-7.0) Basophils % 0.5 % (0.0-2.0) Nucleated Red 0.0 Blood Cells % /100WBC (0.0-0 .0) Immature 0.040 Granulocytes # 10^3/ul (0.0-0 .031) Neutrophils # 4.4 10^3/ul (1.6-7 .5) Lymphocytes # 1.0 10^3/ul (0.8-2 .9) Monocytes # 0.9 10^3/ul (0.3-0 .9) Eosinophils # 0.2 10^3/ul (0.0-0 .5) Basophils # 0.0 10^3/ul (0.0-0 .1) Nucleated Red 0.0 Blood Cells # 10^3/ul (0.0-0 .0) Test 07/23/18 08:26 07/23/18 08:37 07/23/18 08:45 07/23/18 10:06 Bedside 62 83 94 112 Glucose mg/dL (70-220) mg/dL (70-220) mg/dL (70-220) mg/dL (70-220) Test 07/23/18 11:44 Bedside 107 Glucose mg/dL (70-220) YAS AGEE MD Jul 23, 2018 13:04
--- NOTE | 2018-07-23 13:05 | PDOCDIS ---
Discharge Instructions DIAGNOSIS Discharge Diagnosis Community acquired pneumonia with pleural effusion; diabetes mellitus type 2 complicated by peripheral neuropathy; autonomic neuropathy with orthostasis; end-stage renal disease; retinopathy; mixed hyperlipidemia; hypertension; acquired hypothyroidism; anemia associated with renal insufficiency; benign prostatic hypertrophy; gastroesophageal reflux disease; hepatitis C antibody positive with negative viral RNA; peripheral vascular disease; gangrenous toe right foot third digit; CONDITION Lothy0De Patient Condition: [id number] Fair HOME CARE INSTRUCTIONS: [id number] Special Diet: [id number] No failure diet ACTIVITY: [id number] Activity Restrictions: Eatbo1i Slowly Increase Activity Do not operate Machinery Do not operate Power Tool [id number] Activity Restrictions [id number] Elevate the head of the bed Comment: at home by 6 inches higher than the feet. FOLLOW UP/APPOINTMENTS Follow-up Plan Nephrology and hemodialysis in the near future; cardiology as guided by the icer air conditioning with possible repeat angioplasty at [facility]; vascular surgery with Dr. Meza next week; [facility] YAS AGEE MD Jul 23, 2018 13:05
[2018-07-23] MEDS ORDERED: MINO2.5T16 PO (13:08)
[2018-07-23] MEDS ORDERED: LISI-471 PO (13:08)
[2018-07-23] MEDS ORDERED: ASPI-831 PO (13:08)
[2018-07-23] MEDS ORDERED: LABE200T25 PO (13:12)
[2018-07-23 14:20] VITALS: BP 131/60; PULSE 74; RESP 20
[2018-07-23] MEDS ORDERED: EPOETIN ALFA-EPBX (ESRD) 10,000 UNIT/ML VIAL SC ONE (15:00)
[2018-07-23] MEDS ORDERED: ONDANSETRON 4 MG INJ IV PRN ×2 (19:30)
[2018-07-23 19:40] VITALS: BP 127/56; PULSE 73; RESP 17
--- NOTE | 2018-07-23 20:18 | CONS ---
Assessment/Plan Assessment/Plan Problems: (1) Anemia Comment: Additional epogen ordered for drop in Hct (2) CHF (congestive heart failure) Status: Chronic Comment: Improved, resolved, Pt apparently has been followed at [facility] for this Qualifiers: Heart failure type: combined systolic and diastolic (3) Osteomyelitis Status: Chronic Comment: plans per V Sx & Podiatry (4) Hepatitis C infection Status: Chronic Comment: Serology still pending Qualifiers: Viral hepatitis chronicity: chronic Hepatic coma status: without hepatic coma Qualified Codes: B18.2 - Chronic viral hepatitis C (5) End-stage renal disease on hemodialysis Status: Chronic Comment: HD in AM (6) HTN (hypertension) Status: Chronic Comment: BP seems to be better controlled Qualifiers: Hypertension type: renovascular hypertension Qualified Codes: I15.0 - Renovascular hypertension (7) Type 2 diabetes mellitus with diabetic peripheral angiopathy without gangrene Status: Chronic Comment: BS being monitored, seem stable Consultation Date/Type/Reason Admit Date/Time Jul 18, 2018 at 08:43 Initial Consult Date 07/18/18 Type of Consult Nephrology Reason for Consultation ESRD, HD Requesting Provider: YAS AGEE MD Date/Time of Note DATE: 07/23/18 TIME: 20:00 24 HR Interval Summary Free Text/Dictation Pt continues to do well, offers no new complaints Exam/Review of Systems Exam Vitals Vital Signs Date Temp Pulse Resp B/P (MAP) Pulse Ox O2 O2 Flow FiO2 Time Delivery Rate 07/23/18 97.8 74 20 131/60 92 Room Air 14:20 (83) 07/23/18 2.0 00:54 Intake and Output 07/22/18 07/22/18 07/23/18 1515:00 23:00 07:00 IntakeIntake Total 850 ml OutputOutput Total 200 ml 2400 ml BalanceBalance -200 ml -1550 ml Exam Pt is lying comfortably in bed, offer no complaints Constitutional: alert, oriented Psych: no complaints Head: normocephalic Eyes: nl conjunctiva ENMT: nl external ears & nose Neck: supple Respiratory: clear to auscultation Cardiovascular: regular rate and rhythm Gastrointestinal: soft, nl liver, spleen, non-tender Musculoskeletal: other (rt foot dressing in place) Extremities: other (AVF lt arm) Neurological: BAKER II-XII intact Skin: nl turgor, other (pale) Additional Comments Hbg has dropped Results Result Diagram: 07/23/18 0517 Results 24hrs Laboratory Tests Test 07/22/18 20:26 07/23/18 02:07 07/23/18 02:27 07/23/18 02:46 Bedside Glucose 223 H 61 L 137 78 Test 07/23/18 03:35 07/23/18 04:02 07/23/18 05:17 07/23/18 07:53 Bedside Glucose 152 86 63 L White Blood Count 6.6 Red Blood Count 2.83 L Hemoglobin 8.4 L Hematocrit 25.9 L Mean Corpuscular Volume 91.5 Mean Corpuscular 29.7 Hemoglobin Mean Corpuscular 32.4 Hemoglobin Concent Red Cell Distribution 15.3 H Width Platelet Count 154 Mean Platelet Volume 8.9 Immature Granulocytes % 0.600 H Neutrophils % 66.9 Lymphocytes % 14.4 L Monocytes % 14.1 H Eosinophils % 3.5 Basophils % 0.5 Nucleated Red Blood 0.0 Cells % Immature Granulocytes # 0.040 H Neutrophils # 4.4 Lymphocytes # 1.0 Monocytes # 0.9 Eosinophils # 0.2 Basophils # 0.0 Nucleated Red Blood 0.0 Cells # Test 07/23/18 08:26 07/23/18 08:37 07/23/18 08:45 07/23/18 10:06 Bedside Glucose 62 L 83 94 112 Test 07/23/18 11:44 07/23/18 17:42 Bedside Glucose 107 155 Medications Medication Current Medications Atorvastatin Calcium (Lipitor) 20 mg QHS PO Last administered on 07/22/18at 20:28; Admin Dose 20 MG; Start 07/17/18 at 21:00 Gentamicin Sulfate (Gentamicin 0.1% Cr) 1 applic DAILY TOP Last administered on 07/23/18 09:03; Admin Dose 1 APPLIC; Start 07/17/18 at 09:00 Insulin Aspart (Novolog Insulin Pen) 10 unit WITH MEALS SC Last administered on 07/22/18 11:41; Admin Dose 10 UNIT; Start 07/17/18 at 07:35; Status Hold Levofloxacin (Levaquin) 250 mg DAILY PO Last administered on 07/23/18 08:49; Admin Dose 250 MG; Start 07/17/18 at 09:00 Levothyroxine Sodium (Synthroid) 50 mcg BEFORE BREAKFAST PO Last administered on 07/23/18at 06:07; Admin Dose 50 MCG; Start 07/17/18 at 07:00 Linagliptin (Tradjenta) 5 mg DAILY PO Last administered on 07/23/18at 08:51; Admin Dose 5 MG; Start 07/17/18 at 09:00 Sevelamer Carbonate (Renvela) 1.6 gm WITH MEALS PO Last administered on 07/23/18 at 17:37; Admin Dose 1.6 GM; Start 07/17/18 at 07:35 Vancomycin HCl (Vanco Iv Per Pharmacy) PER PHARMACY DOSING NOTE XX ; Start 07/16/18 at 23:30 Aspirin (Aspirin) 81 mg DAILY PO Last administered on 07/23/18at 08:49; Admin Dose 81 MG; Start 07/18/18 at 09:00 Nitroglycerin (Nitroglycerin (Sl Tab) 0.4 Mg) 1 tab Q5M PRN SL CHEST PAIN; Start 07/16/18 at 23:00 Insulin Aspart (Novolog Insulin Pen) NOVOLOG *MILD* ALGORITHM WITH MEALS BEDTIME SC Last administered on 07/22/18at 20:46; Admin Dose 2 UNIT; Start 07/17/18 at 07:35; Status Hold Miscellaneous Information 1 ea NOTE XX ; Start 07/16/18 at 23:30 Glucose (Glutose) 15 gm Q15M PRN PO DECREASED GLUCOSE; Start 07/16/18 at 23:30 Glucose (Glutose) 22.5 gm Q15M PRN PO DECREASED GLUCOSE; Start 07/16/18 at 23:30 Dextrose (D50w Syringe) 25 ml Q15M PRN IV DECREASED GLUCOSE; Start 07/16/18 at 23:30 Dextrose (D50w Syringe) 50 ml Q15M PRN IV DECREASED GLUCOSE; Start 07/16/18 at 23:30 Glucagon (Glucagen) 1 mg Q15M PRN IM DECREASED GLUCOSE; Start 07/16/18 at 23:30 Glucose (Glutose) 15 gm Q15M PRN BUCCAL DECREASED GLUCOSE Last administered on 07/21/18at 12:22; Admin Dose 15 GM; Start 07/16/18 at 23:30 Lisinopril (Zestril) 40 mg BID PO Last administered on 07/23/18at 09:14; Admin Dose 40 MG; Start 07/17/18 at 21:00 Insulin Glargine (Lantus) 18 units DAILY SC Last administered on 07/22/18at 09:19; Admin Dose 18 UNITS; Start 07/19/18 at 09:00; Status Hold Minoxidil (Loniten) 2.5 mg QAM PO Last administered on 07/23/18at 08:55; Admin Dose 2.5 MG; Start 07/19/18 at 09:00 Labetalol HCl (Normodyne) 200 mg BID PO Last administered on 07/22/18at 20:29; Admin Dose 200 MG; Start 07/21/18 at 21:00; Status Hold Nifedipine (Procardia Xl) 30 mg BID PO Last administered on 07/22/18at 14:27; Admin Dose 30 MG; Start 07/21/18 at 21:00; Status Hold Morphine Sulfate (morphine) 12 mg Q2H PRN PO PAIN LEVEL 7-10 Last administered on 07/23/18at 02:04; Admin Dose 12 MG; Start 07/22/18 at 15:30 Epoetin Elia-epbx (Retacrit (Esrd)) 4,000 unit TuThSa@1700 SC ; Start 07/24/18 at 17:00 Ondansetron HCl (Zofran Inj) 4 mg Q6H PRN IV NAUSEA AND/OR VOMITING; Start 07/23 at 19:30 ARNOLD MARIE MD Jul 23, 2018 20:10
[2018-07-23] MEDS: ATORVASTATIN 20 MG TAB PO SCH (21:06)
[2018-07-24] MEDS ORDERED: LABETALOL 200 MG TAB PO ONE (01:58)
[2018-07-24 02:00] VITALS: BP 180/74; PULSE 75; RESP 18
[2018-07-24] MEDS ORDERED: DIPHENHYDRAMINE 50 MG INJ IV PRN (02:30)
[2018-07-24] MEDS ORDERED: CA CHLORIDE 10% 10 ML SYRINGE ONE (07:00)
[2018-07-24] MEDS ORDERED: EPINEPHrine 0.1 MG/ML SYG ONE (07:00)
[2018-07-24] MEDS ORDERED: NA BICARBONATE 8.4% 50 ML SYG ONE (07:00)
[2018-07-24] MEDS ORDERED: DEXTROSE 50% 50 ML SYRINGE ONE (07:00)
[2018-07-24 07:25] VITALS: BP 144/62; PULSE 72; RESP 16
[2018-07-24] MEDS ORDERED: hydrOXYzine HCL 25 MG TAB PO PRN (07:30)
[2018-07-24] MEDS: LEVOTHYROXINE 50 MCG TAB PO SCH (08:00)
[2018-07-24] MEDS: SEVELAMER CARBONATE 0.8 GM PKT PO SCH (08:00)
[2018-07-24] MEDS: ASPIRIN 81 MG TAB PO SCH (08:08)
[2018-07-24] MEDS: LEVOFLOXACIN 250 MG TAB PO SCH (08:08)
[2018-07-24] MEDS: LINAGLIPTIN 5 MG TABLET PO SCH (08:09)
[2018-07-24] MEDS: MINOXIDIL 2.5 MG TAB PO SCH (08:09)
[2018-07-24] MEDS: LISINOPRIL 20 MG TAB PO SCH (08:10)
[2018-07-24] MEDS: GENTAMICIN 0.1% CREAM 15GM TUBE TOP SCH (08:11)
[2018-07-24 09:15] VITALS: BP 148/67; PULSE 75; RESP 18
[2018-07-24 09:18] VITALS: BP 145/54; PULSE 78; RESP 18
[2018-07-24 09:21] VITALS: BP 152/85; PULSE 75; RESP 18
--- NOTE | 2018-07-24 11:04 | CONS ---
Consultation Date/Type/Reason Admit Date/Time Jul 18, 2018 at 08:43 Date of Consultation: Jul 24, 2018 Type of Consult Critical care Responded to overhead CODE BLUE. Responded to overhead CODE BLUE, patient was in the wash room, laying on floor, CPR was in progress. Patient was brought out into the hallway, and was orally intubated with 7 size ET tube without difficulty. CPR was continued full ACS protocol was followed. Patient remained in asystole throughout. Was pronounced after there was no revival of vital signs. Time of 10:38 AM. Date July 24, 2018. 35 minutes of critical care time was spent at bedside. Date/Time of Note DATE: 07/24/18 TIME: 11:03 Past Medical History Medical History: diabetes (Type II with complications), high cholesterol, hypertension, hypothyroid, renal disease (End-stage renal disease on hemodialysis. 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), other (Diabetic foot ulcer; hepatitis C antibody positive;) Home Meds Active Scripts Labetalol Hcl* (Labetalol Hcl*) 200 Mg Tablet, 200 MG PO BID for 30 Days, #60 TAB On dialysis days do not take it before dialysis, taken after dialysis Prov:YAS AGEE MD 07/23/18 Aspirin (Aspirin) 81 Mg Chew, 81 MG PO DAILY for 30 Days, #30 TAB Prov:YAS AGEE MD 07/23/18 Minoxidil* (Lonitin*) 2.5 Mg Tab, 2.5 MG PO QAM for 30 Days, #30 TAB Prov:YAS AGEE MD 07/23/18 Lisinopril* (Lisinopril*) 20 Mg Tablet, 40 MG PO BID for 30 Days, #60 TAB Prov:YAS AGEE MD 07/23/18 Gentamicin Sulfate* (Gentamicin Sulfate* Cream) 0.1% - 30 Gm Cream.gm., 1 APPLIC TOP DAILY for 30 Days, #1 TUBE 1 Refill Prov:ELANA MENDOZA MD 06/27/18 Reported Medications Atorvastatin Calcium* (Atorvastatin Calcium*) 20 Mg Tablet, 20 MG PO QHS, #30 TAB 07/16/18 Levothyroxine Sodium* (Levothyroxine Sodium*) 50 Mcg Tablet, 50 MCG PO BEFORE BREAKFAST, #30 TAB 07/16/18 Insulin Glargine* (Lantus*) 100 Unit/Ml Soln, 20 UNIT SC DAILY, #1 VIAL 07/16/18 Nifedipine* (Nifedipine ER*) 60 Mg Tablet.sa, 60 MG PO DAILY, TAB.SA 07/16/18 Linagliptin (TRADJENTA) 5 Mg Tablet, 5 MG PO DAILY, TAB 07/16/18 Levofloxacin* (Levofloxacin*) 250 Mg Tablet, 250 MG PO DAILY, TAB 07/16/18 Sevelamer Carbonate* (Renvela*) 800 Mg Tablet, 1.6 GM PO WITH MEALS, TAB 07/16/18 Insulin Aspart* (Novolog Insulin Pen*) 100 Unit/Ml Soln, 10 UNIT SC WITH MEALS, EA 07/16/18 Ferrous Sulfate* (Ferrous Sulfate*) 325 Mg Tabec, 325 MG PO TID, TAB 07/16/18 Discontinued Reported Medications Lisinopril* (Lisinopril*) 40 Mg Tablet, 40 MG PO DAILY, #30 TAB 07/16/18 Doxazosin Mesylate* (Doxazosin Mesylate*) 2 Mg Tablet, 2 MG PO HS, TAB 07/16/18 Labetalol Hcl* (Labetalol Hcl*) 200 Mg Tablet, 800 MG PO BID, TAB 07/16/18 Discontinued Scripts [Vancomycin Iv Per Pharmacy] 1 EA EACH No Conflict Check, 0 EA XX .PER PROTOCOL for 42 Days, SYR 0 Refills Prov:ELANA MENDOZA MD 06/27/18 Medications Current Medications Atorvastatin Calcium (Lipitor) 20 mg QHS PO Last administered on 07/23/18at 21:06; Admin Dose 20 MG; Start 07/17/18 at 21:00 Gentamicin Sulfate (Gentamicin 0.1% Cr) 1 applic DAILY TOP Last administered on 07/24/18 08:11; Admin Dose 1 APPLIC; Start 07/17/18 at 09:00 Insulin Aspart (Novolog Insulin Pen) 10 unit WITH MEALS SC Last administered on 07/22/18at 11:41; Admin Dose 10 UNIT; Start 07/17/18 at 07:35; Status Hold Levofloxacin (Levaquin) 250 mg DAILY PO Last administered on 07/24/18at 08:08; Admin Dose 250 MG; Start 07/17/18 at 09:00 Levothyroxine Sodium (Synthroid) 50 mcg BEFORE BREAKFAST PO Last administered on 07/24/18 08:00; Admin Dose 50 MCG; Start 07/17/18 at 07:00 Linagliptin (Tradjenta) 5 mg DAILY PO Last administered on 07/24/18 08:09; Adm in Dose 5 MG; Start 07/17/18 at 09:00 Sevelamer Carbonate (Renvela) 1.6 gm WITH MEALS PO Last administered on 07/24/18 08:00; Admin Dose 1.6 GM; Start 07/17/18 at 07:35 Vancomycin HCl (Vanco Iv Per Pharmacy) PER PHARMACY DOSING NOTE XX ; Start 07/16/18 at 23:30 Aspirin (Aspirin) 81 mg DAILY PO Last administered on 07/24/18 08:08; Admin Dose 81 MG; Start 07/18/18 at 09:00 Nitroglycerin (Nitroglycerin (Sl Tab) 0.4 Mg) 1 tab Q5M PRN SL CHEST PAIN; Start 07/16/18 at 23:00 Insulin Aspart (Novolog Insulin Pen) NOVOLOG *MILD* ALGORITHM WITH MEALS BEDTIME SC Last administered on 07/22/18at 20:46; Admin Dose 2 UNIT; Start 07/17/18 at 07:35; Status Hold Miscellaneous Information 1 ea NOTE XX ; Start 07/16/18 at 23:30 Glucose (Glutose) 15 gm Q15M PRN PO DECREASED GLUCOSE; Start 07/16/18 at 23:30 Glucose (Glutose) 22.5 gm Q15M PRN PO DECREASED GLUCOSE; Start 07/16/18 at 23:30 Dextrose (D50w Syringe) 25 ml Q15M PRN IV DECREASED GLUCOSE; Start 07/16/18 at 23:30 Dextrose (D50w Syringe) 50 ml Q15M PRN IV DECREASED GLUCOSE; Start 07/16/18 at 23:30 Glucagon (Glucagen) 1 mg Q15M PRN IM DECREASED GLUCOSE; Start 07/16/18 at 23:30 Glucose (Glutose) 15 gm Q15M PRN BUCCAL DECREASED GLUCOSE Last administered on 07/21/18at 12:22; Admin Dose 15 GM; Start 07/16/18 at 23:30 Insulin Glargine (Lantus) 18 units DAILY SC Last administered on 07/22/18 09:19; Admin Dose 18 UNITS; Start 07/19/18 at 09:00; Status Hold Minoxidil (Loniten) 2.5 mg QAM PO Last administered on 07/24/18 08:09; Admin Dose 2.5 MG; Start 07/19/18 at 09:00 Nifedipine (Procardia Xl) 30 mg BID PO Last administered on 07/22/18 14:27; Admin Dose 30 MG; Start 07/21/18 at 21:00; Status Hold Morphine Sulfate (morphine) 12 mg Q2H PRN PO PAIN LEVEL 7-10 Last administered on 07/23/18at 02:04; Admin Dose 12 MG; Start 07/22/18 at 15:30 Epoetin Elia-epbx (Retacrit (Esrd)) 4,000 unit TuThSa@1700 SC ; Start 07/24/18 at 17:00 Ondansetron HCl (Zofran Inj) 4 mg Q6H PRN IV NAUSEA AND/OR VOMITING; Start 07/23/18 at 19:30 Diphenhydramine HCl (Benadryl) 25 mg Q6H PRN IV itching Last administered on 07/24/18at 02:11; Admin Dose 25 MG; Start 07/24/18 at 02:30 Hydroxyzine HCl (Atarax) 25 mg Q6H PRN PO ITCHING Last administered on 07/24/18at 08:14; Admin Dose 25 MG; Start 07/24/18 at 07:30 Diagnostic Test (Pha) (Accu-Chek) 1 ea AC MEALS AND BEDTIME XX ; Start 07/24/18 at 11:30 Labetalol HCl (Normodyne) 100 mg BID PO ; Start 07/24/18 at 21:00 Lisinopril (Zestril) 40 mg DAILY PO ; Start 07/25/18 at 09:00 Allergies: Coded Allergies: No Known Allergy (Unverified , 07/16/18) Past Surgical History Past Surgical Hx: cholecystectomy, other (Status post non-living related donor renal transplant) Social History Alcohol Use: occasionally Smoking Status: Former smoker Drug Use: none Exam/Review of Systems Exam Vitals Vital Signs Date Temp Pulse Resp B/P (MAP) Pulse Ox O2 O2 Flow FiO2 Time Delivery Rate 07/24/18 75 18 152/85 95 Room Air 09:21 (107) 07/24/18 98.2 07:25 07/23/18 2.0 21:00 Intake and Output 07/23/18 07/23/18 07/24/18 1515:00 23:00 07:00 IntakeIntake Total 600 ml OutputOutput Total 250 ml 700 ml BalanceBalance -250 ml -100 ml Results Result Diagram: 07/23/18 0517 07/24/18 0448 Results 24hrs Laboratory Tests Test 07/23/18 11:44 07/23/18 17:42 07/24/18 04:48 07/24/18 05:12 Bedside Glucose 107 155 99 Sodium Level 136 Potassium Level 6.2 *H Chloride Level 90 L Carbon Dioxide Level 28 Anion Gap 18 H Blood Urea Nitrogen 69 H Creatinine 9.37 H Est Glomerular Filtrat 6 L Rate mL/min Glucose Level 94 Calcium Level 8.2 L Phosphorus Level 12.2 H Test 07/24/18 07:43 07/24/18 10:39 Bedside Glucose 89 92 Medications Medication Current Medications Atorvastatin Calcium (Lipitor) 20 mg QHS PO Last administered on 07/23/18 21:06; Admin Dose 20 MG; Start 07/17/18 at 21:00 Gentamicin Sulfate (Gentamicin 0.1% Cr) 1 applic DAILY TOP Last administered on 07/24/18 08:11; Admin Dose 1 APPLIC; Start 07/17/18 at 09:00 Insulin Aspart (Novolog Insulin Pen) 10 unit WITH MEALS SC Last administered on 07/22/18 11:41; Admin Dose 10 UNIT; Start 07/17/18 at 07:35; Status Hold Levofloxacin (Levaquin) 250 mg DAILY PO Last administered on 07/24/18 08:08; Admin Dose 250 MG; Start 07/17/18 at 09:00 Levothyroxine Sodium (Synthroid) 50 mcg BEFORE BREAKFAST PO Last administered on 07/24/18 08:00; Admin Dose 50 MCG; Start 07/17/18 at 07:00 Linagliptin (Tradjenta) 5 mg DAILY PO Last administered on 07/24/18 08:09; Admin Dose 5 MG; Start 07/17/18 at 09:00 Sevelamer Carbonate (Renvela) 1.6 gm WITH MEALS PO Last administered on 07/24/18 08:00; Admin Dose 1.6 GM; Start 07/17/18 at 07:35 Vancomycin HCl (Vanco Iv Per Pharmacy) PER PHARMACY DOSING NOTE XX ; Start 07/16/18 at 23:30 Aspirin (Aspirin) 81 mg DAILY PO Last administered on 07/24/18at 08:08; Admin Dose 81 MG; Start 07/18/18 at 09:00 Nitroglycerin (Nitroglycerin (Sl Tab) 0.4 Mg) 1 tab Q5M PRN SL CHEST PAIN; Start 07/16/18 at 23:00 Insulin Aspart (Novolog Insulin Pen) NOVOLOG *MILD* ALGORITHM WITH MEALS BEDTIME SC Last administered on 07/22/18at 20:46; Admin Dose 2 UNIT; Start 07/17/18 at 07:35; Status Hold Miscellaneous Information 1 ea NOTE XX ; Start 07/16/18 at 23:30 Glucose (Glutose) 15 gm Q15M PRN PO DECREASED GLUCOSE; Start 07/16/18 at 23:30 Glucose (Glutose) 22.5 gm Q15M PRN PO DECREASED GLUCOSE; Start 07/16/18 at 23:30 Dextrose (D50w Syringe) 25 ml Q15M PRN IV DECREASED GLUCOSE; Start 07/16/18 at 23:30 Dextrose (D50w Syringe) 50 ml Q15M PRN IV DECREASED GLUCOSE; Start 07/16/18 at 23:30 Glucagon (Glucagen) 1 mg Q15M PRN IM DECREASED GLUCOSE; Start 07/16/18 at 23:30 Glucose (Glutose) 15 gm Q15M PRN BUCCAL DECREASED GLUCOSE Last administered on 07/21/18at 12:22; Admin Dose 15 GM; Start 07/16/18 at 23:30 Insulin Glargine (Lantus) 18 units DAILY SC Last administered on 07/22/18at 09:19; Admin Dose 18 UNITS; Start 07/19/18 at 09:00; Status Hold Minoxidil (Loniten) 2.5 mg QAM PO Last administered on 07/24/18 08:09; Admin Dose 2.5 MG; Start 07/19/18 at 09:00 Nifedipine (Procardia Xl) 30 mg BID PO Last administered on 07/22/18 14:27; Admin Dose 30 MG; Start 07/21/18 at 21:00; Status Hold Morphine Sulfate (morphine) 12 mg Q2H PRN PO PAIN LEVEL 7-10 Last administered on 07/23/18at 02:04; Admin Dose 12 MG; Start 07/22/18 at 15:30 Epoetin Elia-epbx (Retacrit (Esrd)) 4,000 unit TuThSa@1700 SC ; Start 07/24/18 at 17:00 Ondansetron HCl (Zofran Inj) 4 mg Q6H PRN IV NAUSEA AND/OR VOMITING; Start 07/23/18 at 19:30 Diphenhydramine HCl (Benadryl) 25 mg Q6H PRN IV itching Last administered on 07/24/18at 02:11; Admin Dose 25 MG; Start 07/24/18 at 02:30 Hydroxyzine HCl (Atarax) 25 mg Q6H PRN PO ITCHING Last administered on 07/24/18at 08:14; Admin Dose 25 MG; Start 07/24/18 at 07:30 Diagnostic Test (Pha) (Accu-Chek) 1 ea AC MEALS AND BEDTIME XX ; Start 07/24/18 at 11:30 Labetalol HCl (Normodyne) 100 mg BID PO ; Start 07/24/18 at 21:00 Lisinopril (Zestril) 40 mg DAILY PO ; Start 07/25/18 at 09:00 OFELIA FRANCES Jul 24, 2018 11:04
--- NOTE | 2018-07-24 11:22 | DES ---
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 Starting roughly 72 hours ago he noticed a decrease in exercise tolerance with dyspnea on exertion. Reluctantly he does admit that he has had an increase in cough and developed a sensation of pressure in the chest like he could not expand his lungs fully. He does note possible fever but denies any shaking chills or drenching sweats. He is not producing any sputum. He has not been around anybody else who is ill. Is into the emerg ency room and inform them of the chest pressure and was admitted for this. Please see the chest x-ray report read by radiology. Hospital Course 58-year-old gentleman admitted with community-acquired pneumonia and a large right pleural effusion. He was stabilized with antibiotic therapy and underwent ultrasound-guided thoracentesis. Culture of the fluid was negative although it did appear to be exudative but did not have elevated white count. He improved steadily. Please note that he was also continued on his hemodialysis while an inpatient. A significant issue is having is that when he is getting dialysis he is having significant drop in blood pressure. He does appear to have an autonomic neuropathy with orthostasis. Because of this we are trying to change his medications around including avoiding alpha blockade therapy, holding his blood pressure medicines prior to dialysis, and elevating the head of the bed at all times. These maneuvers will help with the autonomic neuropathy; Patient developed nausea and vomiting at discharge was held on the third. On the fourth the patient had gotten up and was showering and collapsed in the shower and was attempted to be resuscitated but did not not able to resuscitate. Pending Labs/Cultures Laboratory Tests Test 07/23/18 11:44 07/23/18 17:42 07/24/18 04:48 07/24/18 05:12 Bedside 107 155 99 Glucose mg/dL (70-220) mg/dL (70-220) mg/dL (70-220) Sodium Level 136 mmol/L (135-14 4) Potassium 6.2 Level mmol/L (3.5-5. 1) Chloride Level 90 mmol/L (97-110 ) Carbon Dioxide 28 Level mmol/L (21-31) Anion Gap 18 (5-13) Blood Urea 69 Nitrogen mg/dl (7-20) Creatinine 9.37 mg/dl (0.61-1. 24) Est Glomerular 6 mL/min (>60) Filtrat Rate mL/min Glucose Level 94 mg/dl (70-220) Calcium Level 8.2 mg/dl (8.4-10. 2) Phosphorus 12.2 Level mg/dl (2.5-4.9 ) Test 07/24/18 07:43 07/24/18 10:39 Bedside 89 92 Glucose mg/dL (70-220) mg/dL (70-220) YAS AGEE MD Jul 24, 2018 11:22
[2018-07-24] MEDS ORDERED: ACCU-CHEK XX SCH (11:30)
--- NOTE | 2018-07-24 11:45 | CONS ---
Assessment/Plan Assessment/Plan Problems: (1) CHF (congestive heart failure) Status: Chronic Comment: presently under control Qualifiers: Heart failure type: combined systolic and diastolic (2) Anemia Comment: Hbg is stable, it should improve with higher dose of epo changed yesterday No signs of bleeding. (3) End-stage renal disease on hemodialysis Status: Chronic Comment: Pt is awaiting HD, on TTS Schedule. I have asked for Stat dialysis because of the K being on high side. Pt already on K restricted diet The itching could be due to ESRD, will check PO4 level & adjust phosphate binders if necessary. (4) Community acquired pneumonia Status: Acute Comment: per PMD Qualifiers: Laterality: right Lung location: lower lobe of lung Qualified Codes: J18.1 - Lobar pneumonia, unspecified organism (5) Osteomyelitis Status: Chronic Comment: Rx per Podiatry, [employer] (6) Hepatitis C infection Status: Chronic Comment: Hep[ C Titers still pending Qualifiers: Viral hepatitis chronicity: chronic Hepatic coma status: without hepatic coma Qualified Codes: B18.2 - Chronic viral hepatitis C (7) HTN (hypertension) Status: Chronic Comment: BP seems under better control Resume labetalol on lower dose Qualifiers: Hypertension type: renovascular hypertension Qualified Codes: I15.0 - Renovascular hypertension (8) Type 2 diabetes mellitus with diabetic peripheral angiopathy without gangrene Status: Chronic Comment: BS is not a problem, pls refer to Endo note Consultation Date/Type/Reason Admit Date/Time Jul 18, 2018 at 08:43 Initial Consult Date 07/18/18 Type of Consult Nephrology Reason for Consultation ESRD, HD Requesting Provider: YAS AGEE MD Date/Time of Note DATE: 07/24/18 TIME: 11:23 24 HR Interval Summary Free Text/Dictation Pt is sitting up in chair, c/o itching Exam/Review of Systems Exam Vitals Vital Signs Date Temp Pulse Resp B/P (MAP) Pulse Ox O2 O2 Flow FiO2 Time Delivery Rate 07/24/18 75 18 152/85 95 Room Air 09:21 (107) 07/24/18 98.2 07:25 07/23/18 2.0 21:00 Intake and Output 07/23/18 07/23/18 07/24/18 1515:00 23:00 07:00 IntakeIntake Total 600 ml OutputOutput Total 250 ml 700 ml BalanceBalance -250 ml -100 ml Exam Pt was seen at bedside 915AM. 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 I called again to request Stat HD Results Result Diagram: 07/23/18 0517 07/24/18 0448 Results 24hrs Laboratory Tests Test 07/23/18 11:44 07/23/18 17:42 07/24/18 04:48 07/24/18 05:12 Bedside Glucose 107 155 99 Sodium Level 136 Potassium Level 6.2 *H Chloride Level 90 L Carbon Dioxide Level 28 Anion Gap 18 H Blood Urea Nitrogen 69 H Creatinine 9.37 H Est Glomerular Filtrat 6 L Rate mL/min Glucose Level 94 Calcium Level 8.2 L Phosphorus Level 12.2 H Test 07/24/18 07:43 07/24/18 10:39 Bedside Glucose 89 92 Medications Medication BP meds have been adusted & seem to have been optimized since no further drop in BP is reported Current Medications Atorvastatin Calcium (Lipitor) 20 mg QHS PO Last administered on 07/23/18 21:06; Admin Dose 20 MG; Start 07/17/18 at 21:00 Gentamicin Sulfate (Gentamicin 0.1% Cr) 1 applic DAILY TOP Last administered on 07/24/18 08:11; Admin Dose 1 APPLIC; Start 07/17/18 at 09:00 Insulin Aspart (Novolog Insulin Pen) 10 unit WITH MEALS SC Last administered on 07/22/18 11:41; Admin Dose 10 UNIT; Start 07/17/18 at 07:35; Status Hold Levofloxacin (Levaquin) 250 mg DAILY PO Last administered on 4/4/19at 08:08; Admin Dose 250 MG; Start 07/17/18 at 09:00 Levothyroxine Sodium (Synthroid) 50 mcg BEFORE BREAKFAST PO Last administered on 07/24/18 08:00; Admin Dose 50 MCG; Start 07/17/18 at 07:00 Linagliptin (Tradjenta) 5 mg DAILY PO Last administered on 07/24/18 08:09; Admin Dose 5 MG; Start 07/17/18 at 09:00 Sevelamer Carbonate (Renvela) 1.6 gm WITH MEALS PO Last administered on 07/24/18 08:00; Admin Dose 1.6 GM; Start 07/17/18 at 07:35 Vancomycin HCl (Vanco Iv Per Pharmacy) PER PHARMACY DOSING NOTE XX ; Start 07/16/18 at 23:30 Aspirin (Aspirin) 81 mg DAILY PO Last administered on 07/24/18 08:08; Admin Dose 81 MG; Start 07/18/18 at 09:00 Nitroglycerin (Nitroglycerin (Sl Tab) 0.4 Mg) 1 tab Q5M PRN SL CHEST PAIN; Start 07/16/18 at 23:00 Insulin Aspart (Novolog Insulin Pen) NOVOLOG *MILD* ALGORITHM WITH MEALS BEDTIME SC Last administered on 07/22/18at 20:46; Admin Dose 2 UNIT; Start at 07:35; Status Hold Miscellaneous Information 1 ea NOTE XX ; Start 07/16/18 at 23:30 Glucose (Glutose) 15 gm Q15M PRN PO DECREASED GLUCOSE; Start 07/16/18 at 23:30 Glucose (Glutose) 22.5 gm Q15M PRN PO DECREASED GLUCOSE; Start 07/16/18 at 23:30 Dextrose (D50w Syringe) 25 ml Q15M PRN IV DECREASED GLUCOSE; Start 07/16/18 at 23:30 Dextrose (D50w Syringe) 50 ml Q15M PRN IV DECREASED GLUCOSE; Start 07/16/18 at 23:30 Glucagon (Glucagen) 1 mg Q15M PRN IM DECREASED GLUCOSE; Start 07/16/18 at 23:30 Glucose (Glutose) 15 gm Q15M PRN BUCCAL DECREASED GLUCOSE Last administered on 07/21/18at 12:22; Admin Dose 15 GM; Start 07/16/18 at 23:30 Insulin Glargine (Lantus) 18 units DAILY SC Last administered on 07/22/18 09:19; Admin Dose 18 UNITS; Start 07/19/18 at 09:00; Status Hold Minoxidil (Loniten) 2.5 mg QAM PO Last administered on 07/24/18 08:09; Admin Dose 2.5 MG; Start 07/19/18 at 09:00 Nifedipine (Procardia Xl) 30 mg BID PO Last administered on 07/22/18 14:27; Admin Dose 30 MG; Start 07/21/18 at 21:00; Status Hold Morphine Sulfate (morphine) 12 mg Q2H PRN PO PAIN LEVEL 7-10 Last administered on 07/23/18 02:04; Admin Dose 12 MG; Start 07/22/18 at 15:30 Epoetin Elia-epbx (Retacrit (Esrd)) 4,000 unit TuThSa@1700 SC ; Start 07/24/18 at 17:00 Ondansetron HCl (Zofran Inj) 4 mg Q6H PRN IV NAUSEA AND/OR VOMITING; Start 07/23/18 at 19:30 Diphenhydramine HCl (Benadryl) 25 mg Q6H PRN IV itching Last administered on 07/24/18 02:11; Admin Dose 25 MG; Start 07/24/18 at 02:30 Hydroxyzine HCl (Atarax) 25 mg Q6H PRN PO ITCHING Last administered on 07/24/18 08:14; Admin Dose 25 MG; Start 07/24/18 at 07:30 Diagnostic Test (Pha) (Accu-Chek) 1 ea AC MEALS AND BEDTIME XX ; Start 07/24/18 at 11:30 Labetalol HCl (Normodyne) 100 mg BID PO ; Start 07/24/18 at 21:00 Lisinopril (Zestril) 40 mg DAILY PO ; Start 07/25/18 at 09:00 ARNOLD MARIE MD Jul 24, 2018 11:33
--- NOTE | 2018-07-24 14:57 | EN ---
Date/Time of Note Date/Time of Note DATE: 07/24/18 TIME: 10:00 ER Progress Note CODE BLUE NOTE I was called out of the emergency department to the floor for a CODE BLUE event at around 10 AM on July 24, 2018. The patient was receiving high-quality CPR and being bagged by respiratory therapy. [facility] side and had assumed the leadership role of the code blue event. He was in the process of intubating the patient when I arrived. He did not require any assistance and I left the CODE BLUE event under his care. VICKI WERNER MD Jul 24, 2018 14:57
[2018-07-24] MEDS ORDERED: EPOETIN ALFA-EPBX (ESRD) 4,000 UNIT/ML VIAL SC SCH (17:00)
[2018-07-24] MEDS ORDERED: LABETALOL 200 MG TAB PO SCH (21:00)
[2018-07-25] MEDS ORDERED: LISINOPRIL 20 MG TAB PO SCH (09:00)
== END 2018-07-24 17:15 | disposition expired | DRG 193 ==
LOC: E/R 20:36 → MS3 21:56 → OBSVTOIN 07-18 08:43 → TEL 07-18 20:06 → PP2 07-22 22:45
PROVIDERS: ADMIT Internal Medicine; ATTEND Internal Medicine
PROC: 5A1D70Z Performance of Urinary Filtration, Intermittent, Less than 6 Hours Per Day (ICD-10-PCS; 2018-07-17)
PROC: 0W993ZX Drainage of Right Pleural Cavity, Percutaneous Approach, Diagnostic (ICD-10-PCS; principal; 2018-07-19)
PROC: 5A12012 Performance of Cardiac Output, Single, Manual (ICD-10-PCS; 2018-07-24)
PROC: 0BH17EZ Insertion of Endotracheal Airway into Trachea, Via Natural or Artificial Opening (ICD-10-PCS; 2018-07-24)
DX: J18.9 Pneumonia, unspecified organism (principal); N18.6 End stage renal disease; I50.33 Acute on chronic diastolic (congestive) heart failure; I13.2 Hypertensive heart and chronic kidney disease with heart failure and with stage 5 chronic kidney disease, or end stage renal disease; J90 Pleural effusion, not elsewhere classified; T86.12 Kidney transplant failure; M86.8X7 Other osteomyelitis, ankle and foot; E11.22 Type 2 diabetes mellitus with diabetic chronic kidney disease; Z99.2 Dependence on renal dialysis; E11.51 Type 2 diabetes mellitus with diabetic peripheral angiopathy without gangrene; E11.621 Type 2 diabetes mellitus with foot ulcer; L97.519 Non-pressure chronic ulcer of other part of right foot with unspecified severity; E03.9 Hypothyroidism, unspecified; B18.2 Chronic viral hepatitis C; E11.319 Type 2 diabetes mellitus with unspecified diabetic retinopathy without macular edema; E11.43 Type 2 diabetes mellitus with diabetic autonomic (poly)neuropathy; R11.2 Nausea with vomiting, unspecified; D63.1 Anemia in chronic kidney disease; Y83.2 Surgical operation with anastomosis, bypass or graft as the cause of abnormal reaction of the patient, or of later complication, without mention of misadventure at the time of the procedure; I95.1 Orthostatic hypotension; E78.2 Mixed hyperlipidemia; E11.69 Type 2 diabetes mellitus with other specified complication; N40.0 Benign prostatic hyperplasia without lower urinary tract symptoms; Z86.73 Personal history of transient ischemic attack (TIA), and cerebral infarction without residual deficits
CPT/HCPCS: 31500; 32555; 36415; 71045; 71250; 76705; 80048; 80202; 82042; 82105; 82550; 82553; 82945; 82962; 83036; 83615; 83986; 84100; 84157; 84484; 85014; 85018; 85025; 85049; 85610; 85670; 85730; 86376; 86803; 87070; 87102; 87116; 87340; 89051; 90935; 92950; 93005; 94640; 94664; 97161; G0378; J0171; J0886; J1200; J1815; J2270; J2405; J3370; J7050; Q4081; Q5105